=== PATIENT | female | born 1965 | race Caucasian/White ===

== ENCOUNTER 2023-07-04 12:38 | Emergency (ER) | payer OTHER, SELFPAY ==
[2023-07-04 12:42] VITALS: BP 137/77
--- NOTE | 2023-07-04 13:37 | ED.GENMED ---
History of Present Illness
General
Chief Complaint: Skin Problem
Source: patient
Time Seen by Provider: 07/04/23 13:24
Travel History
Have you had any contact with someone who has COVID-19?: No
Do you have any symptoms of coronavirus? Fever > 100 degrees, chills, cough, shortness of breath, sore throat, loss of taste or smell, muscle aches, or headache?: No
History of Present Illness
History of Present Illness:
57-year-old female with past medical history of cervical cancer presenting to the emergency department for evaluation of a sore on the right outer labia that began around 3 days ago and has been gradually increasing in size and discomfort prompting
her to come to the ER today. Patient notes that she does not have a primary care provider and has not seen anybody for any medical issues prior to the pandemic and states that while she has had elevated blood sugars in the past she does not have a
history of known diabetes. She denies any fevers, chills, rigors, nausea, vomiting, polyuria, polydipsia or polyphasia. Patient did not take anything for symptoms prior to arrival. She has no other concerns at this time.
Past History
Past History
ED Past Medical History: Cancer (Cervical)
ED Past Surgical History: Gynecological
Social History
Tobacco: Smoker
Alcohol: None
Drug: None
Personal:
Living: with family
Employment: Employed
Review of Systems
Review of Systems
All Other Systems: ROS reviewed and negative except as documented in HPI and ROS
Phy Exam
Physical Exam
Physical Exam:
GENERAL: Alert , in no apparent distress
EYE: conjunctiva clear
Head: Normocephalic atraumatic
NECK: Supple,
ENT: mmm.
LUNGS: no acute respiratory distress
Pelvic: Chaperoned by emergency department tech Yessi: Moderate sized right outer labial abscess with surrounding erythema with fluctuance and mild induration. moderate amount of clumpy white vaginal discharge appreciated
NEUROLOGICAL: Alert and oriented
SKIN: Warm and dry, skin intact.
MUSCULOSKELETAL: well perfused.
PSYCH: Normal and appropriate interaction.
Scores
Heart Failure Risk
Heart Failure Risk Score: Not Applicable
Heart Score for Chest Pain Patients
STEMI patient?: Not applicable
Withdrawal Assessment of Alcohol
Withdrawal Assessment Completed?: Not applicable
Course
Orders/Labs/Results
Orders:
Orders
07/04/23 13:37
IV Insert/Care/Rem.- Treatment PRN
07/04/23 13:55
Basic Metabolic Panel Urgent
Complete Blood Count/With Diff Urgent
Hemoglobin A1c [Glycohemoglobin (HgbA1c)] Urgent
07/04/23 14:32
Diabetes Education Consult Routine
Reason for Consult: Other
Newly Diagnosed?: Yes
07/04/23 14:51
Wound Culture [Wound/Abscess/Other Culture] Urgent
JENNIFFER Source: Abscess
Specimen Description:
Date Specimen was Collected: 07/04/23
Time Specimen was Collected: 14:47
Abnormal Lab Results
07/04/23
13:55
WBC 12.2 H 10^3/uL
(4.8-10.8)
Hgb 16.2 H g/dL
(12.0-16.0)
Hct 47.2 H %
(37.0-47.0)
MPV 13.1 H fL
(7.4-10.4)
Abs Immat Gran (auto) 0.1 H 10^3/uL
(0-0.05)
Absolute Neuts (auto) 8.5 H 10^3/uL
(1.4-6.5)
Absolute Monos (auto) 0.7 H 10^3/uL
(0.1-0.6)
Immature Gran % 0.8 H %
(0-0.5)
Sodium 133 L mmol/L
(135-145)
Creatinine 0.4 L mg/dL
(0.6-1.0)
Glucose 395 H mg/dl
(70-99)
Hemoglobin A1c 17.1 H %
(4.0-5.6)
07/04/23 13:55
07/04/23 13:55
Vital Signs
Initial and Last Documented VS:
Initial Vital Signs
Temp Pulse Resp BP Pulse Ox
97.9 F 99 16 137/77 100
07/04/23 12:42 07/04/23 12:42 07/04/23 12:42 07/04/23 12:42 07/04/23 12:42
Last Documented Vital Signs
Temp Pulse Resp BP Pulse Ox
97.9 F 99 16 137/77 100
07/04/23 12:42 07/04/23 12:42 07/04/23 12:42 07/04/23 12:42 07/04/23 12:42
Pressing Machine Tender consulted with Physician
Pressing Machine Tender consulted with physician?: Yes
Name of Physician Consulted: Duncan
Procedures
Incision/Drainage/Joint Aspiration
Right outer labia:
Anethesia: 1% Lidocaine
Preparation: cleaned with Hibiclens
Type of procedure: incise
Nature of site: abscess
Description of abscess: less than 3cm
Loculations broken up: No
How much fluid was obtained?: small amount
Fluid description: purulent and blood tinged
Treatment: left open for drainage
MDM/Problems Addressed
Differential Diagnosis Includes:
Labial abscess, Bartholin's gland cyst, condyloma acuminata, possibly undiagnosed diabetes
MDM/Problems Addressed:
57-year-old female presented emergency department for evaluation of suspected right labial abscess. Increasing pain over the last 3 days. Exam is consistent with an abscess. Will perform incision and drainage. Patient does not have a primary
care provider to follow-up with. Will notify our primary care provider request through [employer] to help establish patient with a primary care provider. Will check labs as patient has not had this in many years. Anticipate need for
antibiotics. Disposition pending.
*Pulse Oximetry
Patient hypoxic: no
*Critical Care Note
Total Time (30-74mins, 75-104mins- exclusive of procedures): Not Applicable
Patient Management
Discussion with other providers: Other (Senior Information Systems Architect)
Escalation/DeEscalation of care consider admission/obs:
Patient's labs reveal a leukocytosis of 12,000. Has a glucose of 395 but without any evidence for acidosis. Patient's hemoglobin A1c came back at greater than 17. I notified the prosthodontist/educator who came to the emergency department to evaluate
the patient. Patient will obtain a glucometer with test strips at [facility]. Prescriptions for metformin 500 mg p.o. twice daily, glipizide 5 mg p.o. twice daily, doxycycline 100 mg p.o. twice daily and Diflucan sent to patient's pharmacy. Due to
patient's lack of current follow-up with primary care she will come back to the emergency department on Monday for me to reevaluate the abscess. I notified our primary care referral line as well as our family practice residents in order to try and
obtain patient a follow-up visit and establish primary care as patient will need her diabetes continuously managed. Patient is in agreement with this entire plan. She is aware of return precautions but otherwise stable for discharge home.
ED Attending Note
-
Portions of this chart may have been created with voice recognition software.� Occasional wrong word or��sound alike� substitutions may have occurred due to the inherent limitations of voice recognition software.
Discharge Plan
Departure
Patient Disposition: Home (Routine Discharge)
Date of Disposition: 07/04/23
Time of Disposition: 15:19
Patient with high blood pressure during this ER visit?: Yes
Discharge Problem:
Diabetes mellitus, new onset, Abscess of labia majora
Instructions: Blood Glucose Monitoring, Skin Abscess
Prescriptions:
New
metformin 500 mg tablet
500 mg PO BID Qty: 60 0RF
glipizide 5 mg tablet
5 mg PO BID Qty: 60 0RF
doxycycline hyclate 100 mg tablet
100 mg PO BID 10 Days Qty: 20 0RF
No Action
clindamycin HCl 300 MG capsule
300 mg PO Q6 Qty: 39 0RF
Referrals:
NONE,* [Family Provider] -
Interventions
Interventions:
*Risk Screen - Suicide Last Done: 07/04/23 12:42
*Neglect/Abuse Screening Last Done: 07/04/23 12:42
*ED COVID-19 Vaccine History Last Done: 07/04/23 12:42
[2023-07-04 14:11] LABS: % Basophils 1.2 % (0-2); % Eosinophils 1.8 % (0-6); % Immature Granulocytes 0.8 % (0-0.5); % Lymphocytes 20.5 % (20.5-51.1); % Monocytes 5.8 % (1.7-9.3); % Neutrophils 69.9 % (42.2-75.2); Absolute Basophils 0.2 10^3/uL (0-0.2); Absolute Eosinophils 0.2 10^3/uL (0-0.7); Absolute Immature Granulocytes 0.1 10^3/uL (0-0.05); Absolute Lymphocytes 2.5 10^3/uL (1.2-3.4); Absolute Monocytes 0.7 10^3/uL (0.1-0.6); Absolute Neutrophils 8.5 10^3/uL (1.4-6.5); Hematocrit 47.2 % (37.0-47.0); Hemoglobin 16.2 g/dL (12.0-16.0); Mean Corp Hgb Conc. 34.3 g/dL (33.0-37.0); Mean Corpuscular Hgb 30.1 pg (27.0-31.0); Mean Corpuscular Volume 87.7 fL (81.0-99.0); Mean Platelet Volume 13.1 fL (7.4-10.4); Nucleated Red Blood Cells % 0 %; Platelet Count 148 10^3/uL (130-400); Red Blood Cell Count 5.38 10^6/uL (4.20-5.40); Red Cell Dist. Width 13.1 % (11.5-14.5); White Blood Cell Count 12.2 10^3/uL (4.8-10.8)
[2023-07-04 14:24] LABS: Blood Urea Nitrogen 10 mg/dl (7-17); Calcium 9.4 mg/dl (8.4-10.2); Carbon Dioxide 27 mmol/L (22-30); Chloride 98 mmol/L (98-107); Glucose 395 mg/dl (70-99); Potassium 4.1 mmol/L (3.5-5.1); Sodium 133 mmol/L (135-145); eGFR > 60.00
[2023-07-04 15:01] LABS: Glycohemoglobin (HgbA1c) 17.1 % (4.0-5.6)
[2023-07-04 15:30] VITALS: BP 134/75
--- NOTE | 2023-07-04 15:53 | PN.DE ---
Diabetes Education
- -
Diabetes Education Consult
Met with Dot and her Vini at bedside in ED for glucose monitor instructions. Current A1C 17.1%, her glucose was 395 on arrival to the ED.
Pt reports that she has been experiencing some pins and needles in BLE. She denies any other sx of Hyperglycemia. Discussed A1C and average blood sugar of 400 with implications of uncontrolled Diabetes. Discussed diabetes related short and adjunct faculty for medical terminology
complications, life style modification and self management at home. Provided with Contour Next EZ glucometer, instructions with fair return demonstration, result 369 mg/dl noted. Discussed testing pattern and expected results and information marked
in the take home booklet.
Pt reports that she dose not have a PCP, continues to day that she has medical insurance but doesn't come with drug prescription coverage so she will not be able to afford the test strips and Lancets compatible with the meter that has been provided.
Pt was provided with alternatives- like obtaining a [employer] Brand ReliOn Meter that will cost her < $30/month with all the supplies.
Discussed OP DSME classes and Suggestion made for her to attend DSME classes, a flyer for the July classes was provided.
Will write RX for test strips and lancets for the Contour Next EZ, testing 2x/day at discharge.
Discussed plan of care including medications for management at home with ED Physician
== END 2023-07-04 16:03 | disposition home or self-care (01) ==
LOC: EMR 12:38
PROVIDERS: Physician Assistant Medical; EMERGENCY PHYSICIAN Emergency Medicine
DX: E11.9 Type 2 diabetes mellitus without complications (principal); N76.4 Abscess of vulva; F17.200 Nicotine dependence, unspecified, uncomplicated; Z85.41 Personal history of malignant neoplasm of cervix uteri
CPT/HCPCS: 99283; 56405; 80048; 83036; 85025; 87070; 87205

== ENCOUNTER 2023-07-07 11:58 | Emergency (ER) | payer OTHER, SELFPAY ==
[2023-07-07 12:01] VITALS: BP 122/86
--- NOTE | 2023-07-07 13:41 | ED.GENMED ---
History of Present Illness
General
Chief Complaint: Wound Check/Suture Removal
Source: patient
Time Seen by Provider: 07/07/23 13:13
Travel History
Have you had any contact with someone who has COVID-19?: No
Do you have any symptoms of coronavirus? Fever > 100 degrees, chills, cough, shortness of breath, sore throat, loss of taste or smell, muscle aches, or headache?: No
History of Present Illness
History of Present Illness:
57-year-old female with newly diagnosed diabetes presenting back to the emergency department for evaluation of a abscess that was drained on Monday. Patient states that she obtained all of her new medications including her antibiotic which she has
been taking without much difficulty. Patient also is scheduled to make an appointment with primary care physician for follow-up. She has a secondary concern of after soaking in the tub on Monday she excellently slipped and hit the left upper
shoulder area on the side of the tub and has had some discomfort in this area since. She has no other concerns at this time.
Past History
Past History
ED Past Medical History: Cancer (Cervical) and NIDDM
ED Past Surgical History: Gynecological
Social History
Tobacco: Smoker
Alcohol: None
Drug: None
Personal:
Living: with family
Employment: Employed
Review of Systems
Review of Systems
All Other Systems: ROS reviewed and negative except as documented in HPI and ROS
Phy Exam
Physical Exam
Physical Exam:
GENERAL: Alert , in no apparent distress
EYE: conjunctiva clear
Head: Normocephalic atraumatic
NECK: Supple,
ENT: mmm.
LUNGS: no acute respiratory distress
Genitourinary: Chaperoned by ED AUTUMN Ledezma -no further fluctuance: Induration significantly diminished and at this point only very mild at the distalmost portion of the labia majora without any tenderness
NEUROLOGICAL: Alert and oriented
SKIN: Warm and dry, skin intact.
MUSCULOSKELETAL: well perfused. Left posterior deltoid has a small hematoma with mild tenderness but patient has full range of motion of the shoulder
PSYCH: Normal and appropriate interaction.
Scores
Heart Failure Risk
Heart Failure Risk Score: Not Applicable
Heart Score for Chest Pain Patients
STEMI patient?: Not applicable
Withdrawal Assessment of Alcohol
Withdrawal Assessment Completed?: Not applicable
Course
Vital Signs
Initial and Last Documented VS:
Initial Vital Signs
Temp Pulse Resp BP Pulse Ox
98.5 F 96 16 122/86 100
07/07/23 12:07/07/23 12:07/07/23 12:07/07/23 12:01 07/07/23 12:01
Last Documented Vital Signs
Temp Pulse Resp BP Pulse Ox
98.5 F 96 16 122/86 100
07/07/23 12:07/07/23 12:01 07/07/23 12:01 07/07/23 12:01 07/07/23 12:01
MDM/Problems Addressed
MDM/Problems Addressed:
57-year-old female presenting to the emergency department for evaluation after she had a drainage of an abscess 3 days ago. She has picked up and is taking all of her medications as prescribed. Symptoms are significantly improved from visit to the
ER. Advised patient continue all of her medications and needs to follow-up with primary care physician to ensure she is getting refills of her medications for her diabetes. Aware of return precautions emergency department but otherwise stable for
discharge home.
*Pulse Oximetry
Patient hypoxic: no
*Critical Care Note
Total Time (30-74mins, 75-104mins- exclusive of procedures): Not Applicable
ED Attending Note
-
Portions of this chart may have been created with voice recognition software.� Occasional wrong word or��sound alike� substitutions may have occurred due to the inherent limitations of voice recognition software.
Discharge Plan
Departure
Patient Disposition: Home (Routine Discharge)
Date of Disposition: 07/07/23
Time of Disposition: 13:41
Patient with high blood pressure during this ER visit?: No
Discharge Problem:
Visit for wound check, hematoma left upper back
Instructions: Abscess Incision and Drainage (DC)
Prescriptions:
No Action
clindamycin HCl 300 MG capsule
300 mg PO Q6 Qty: 39 0RF
metformin 500 mg tablet
500 mg PO BID Qty: 60 0RF
glipizide 5 mg tablet
5 mg PO BID Qty: 60 0RF
doxycycline hyclate 100 mg tablet
100 mg PO BID 10 Days Qty: 20 0RF
(DME) Contour Next Test Strips Strip
Qty: 60 0RF
Rx Instructions:
Pt Testing 2 times a day
(DME) lancets [Microlet Lancet] Misc
Qty: 60 0RF
Rx Instructions:
APt testing twice a day
Referrals:
NONE,* [Family Provider] -
Interventions
Interventions:
*Risk Screen - Suicide Last Done: 07/07/23 12:01
*General Assessment Last Done: 07/07/23 12:01
*Neglect/Abuse Screening Last Done: 07/07/23 12:01
ED- Fall Risk Assessment Last Done: 07/07/23 13:45
*ED COVID-19 Vaccine History Last Done: 07/07/23 12:01
*Nursing Disposition Last Done: 07/07/23 13:45
ED-Skin Assessment Last Done: 07/07/23 13:45
Discharge Date and Time
Discharge Date/Time: 07/07/23 13:46
== END 2023-07-07 13:46 | disposition home or self-care (01) ==
LOC: EMR 11:58
PROVIDERS: EMERGENCY PHYSICIAN Emergency Medicine
DX: Z48.00 Encounter for change or removal of nonsurgical wound dressing (principal); S20.222A Contusion of left back wall of thorax, initial encounter; X58.XXXA Exposure to other specified factors, initial encounter; E11.9 Type 2 diabetes mellitus without complications; F17.200 Nicotine dependence, unspecified, uncomplicated
CPT/HCPCS: 99282

== ENCOUNTER 2023-07-11 02:07 | Inpatient (IN) | payer OTHER, SELFPAY ==
[2023-07-10 21:21] VITALS: BP 142/99
[2023-07-10 21:49] LABS: % Eosinophils 1.3 % (0-6); % Immature Granulocytes 1.1 % (0-0.5); % Lymphocytes 16.1 % (20.5-51.1); % Monocytes 7.3 % (1.7-9.3); % Neutrophils 73.2 % (42.2-75.2); Absolute Basophils 0.2 10^3/uL (0-0.2); Absolute Eosinophils 0.2 10^3/uL (0-0.7); Absolute Immature Granulocytes 0.2 10^3/uL (0-0.05); Absolute Lymphocytes 2.6 10^3/uL (1.2-3.4); Absolute Monocytes 1.2 10^3/uL (0.1-0.6); Absolute Neutrophils 11.6 10^3/uL (1.4-6.5); Hematocrit 45.8 % (37.0-47.0); Hemoglobin 15.5 g/dL (12.0-16.0); Mean Corp Hgb Conc. 33.8 g/dL (33.0-37.0); Mean Corpuscular Hgb 29.5 pg (27.0-31.0); Mean Corpuscular Volume 87.1 fL (81.0-99.0); Nucleated Red Blood Cells % 0 %; Platelet Count 171 10^3/uL (130-400); Red Blood Cell Count 5.26 10^6/uL (4.20-5.40); Red Cell Dist. Width 13.3 % (11.5-14.5); White Blood Cell Count 15.9 10^3/uL (4.8-10.8)
[2023-07-10 21:59] LABS: ALT (SGPT) 21 U/L (0-35); AST (SGOT) 23 U/L (14-36); Albumin 3.9 g/dl (3.5-5.0); Alkaline Phosphatase 103 U/L (38-126); Blood Urea Nitrogen 17 mg/dl (7-17); Calcium 9.6 mg/dl (8.4-10.2); Carbon Dioxide 26 mmol/L (22-30); Chloride 98 mmol/L (98-107); Glucose 344 mg/dl (70-99); Potassium 3.8 mmol/L (3.5-5.1); Sodium 134 mmol/L (135-145); Total Bilirubin 0.6 mg/dl (0.2-1.3); Total Protein 6.5 g/dl (6.3-8.2); eGFR > 60.00
--- NOTE | 2023-07-11 01:09 | ED.GENMED ---
History of Present Illness
General
Chief Complaint: Skin Problem
Source: patient, records and spouse
Exam Limitations: none
Time Seen by Provider: 07/11/23 00:52
Nursing documentation reviewed up to this point in time: agreed with
Travel History
Have you had any contact with someone who has COVID-19?: No
Do you have any symptoms of coronavirus? Fever > 100 degrees, chills, cough, shortness of breath, sore throat, loss of taste or smell, muscle aches, or headache?: No
History of Present Illness
History of Present Illness:
57-year-old female swelling in her back seen here recently with a labial abscess, drained blood sugars elevated apparently new onset diabetic started on glipizide and metformin, A1c greater than 17 still not feeling great states she has little
swelling in her back now it is a big swollen and abscess, labial area is improved, also some swelling of her feet
Past History
Past History
ED Past Medical History: Cancer (Cervical) and NIDDM
ED Past Surgical History: Gynecological
Social History
Tobacco: Smoker
Alcohol: None
Drug: None
Personal:
Living: with family
Employment: Employed
Review of Systems
Review of Systems
All Other Systems: Not applicable
Constitutional: Reports fatigue; Denies fever
EENT: Reports no symptoms
Respiratory: Reports no symptoms
Cardiac: Reports no symptoms
ABD/GI: Reports no symptoms
: Reports no symptoms
Neurological: Reports no symptoms
Endocrine: Reports polyuria and polydipsia
Hematologic/Lymphatic: Reports no symptoms
Phy Exam
Physical Exam
Physical Exam:
Physical Exam
General: Chronically ill-appearing
Neck: Lips are slight
Heart: Regular
Lungs: no acute respiratory distress.
Abdomen: Nontender
Neuro: alert and oriented. no focal neurological deficits
Skin: 4 cm abscess in the left posterior
Psychiatric: Cooperative
Extremities: Mild swelling of the lower extremity on the right
Course
Orders/Labs/Results
Orders:
Orders
07/10/23 21:29
CMP [Comprehensive Metabolic Panel] Urgent
Complete Blood Count/With Diff Urgent
07/11/23 01:12
Wound Culture [Wound/Abscess/Other Culture] Urgent
JENNIFFER Source: Abscess
Specimen Description:
Date Specimen was Collected: 07/11/23
Time Specimen was Collected: 01:30
0.9% Sodium Chloride 1000 ml [Nss] 1,000 ml IV BOLUS
HYDROmorphone [Dilaudid] 0.5 mg IV NOW STA
Ondansetron Injectable [Zofran] 4 mg IV NOW STA
07/11/23 01:20
US Periph Venous LOWER Ext RT Urgent
Comment:
Reason For Exam: SWELLING
07/11/23 01:47
Admit/Transfer Patient As Directed
Co-Sign Provider:
Level of Care: Observation services
Assign to:: Medical/Surgical
Physician / Group: Yousuf
Diagnosis: L Upper Back Abscess, DM Uncontrolled
07/11/23 01:48
Code Status As Directed
Resuscitation Status: Full Code
07/11/23 01:51
Blood Culture Urgent
JENNIFFER Source: Blood/Venous
Specimen Description:
Abnormal Lab Results
07/10/23
21:29
WBC 15.9 H 10^3/uL
(4.8-10.8)
MPV 13.0 H fL
(7.4-10.4)
Abs Immat Gran (auto) 0.2 H 10^3/uL
(0-0.05)
Absolute Neuts (auto) 11.6 H 10^3/uL
(1.4-6.5)
Absolute Monos (auto) 1.2 H 10^3/uL
(0.1-0.6)
Immature Gran % 1.1 H %
(0-0.5)
Lymphocytes % 16.1 L %
(20.5-51.1)
Sodium 134 L mmol/L
(135-145)
Creatinine 0.5 L mg/dL
(0.6-1.0)
Glucose 344 H mg/dl
(70-99)
07/10/23 21:29
07/10/23 21:29
Vital Signs
Initial and Last Documented VS:
Initial Vital Signs
Temp Pulse Resp BP Pulse Ox
98.3 F 110 20 142/99 99
07/10/23 21:21 07/10/23 21:21 07/10/23 21:21 07/10/23 21:21 07/10/23 21:21
Last Documented Vital Signs
Temp Pulse Resp BP Pulse Ox
98.3 F 110 20 142/99 99
07/10/23 21:21 07/10/23 21:21 07/10/23 21:21 07/10/23 21:21 07/10/23 21:21
Procedures
Incision/Drainage/Joint Aspiration
Left Upper Back:
Anethesia: ethyl chloride and 1% Lidocaine with Epi
Preparation: cleaned with Betadine
Type of procedure: drain
Nature of site: abscess
Description of abscess: greater than 3cm
How much fluid was obtained?: large amount
Fluid description: purulent
Treatment: packed with gauze
MDM/Problems Addressed
Differential Diagnosis Includes:
Abscess uncontrolled diabetes, cellulitis DVT
MDM/Problems Addressed:
Abscess
Chronic conditions affecting care:
Diabetes
Acute Exacerbation and/or Progression of Chronic Illness:
Diabetes
*Critical Care Note
Total Time (30-74mins, 75-104mins- exclusive of procedures): Not Applicable
Update Note
Update Note:
Update, labs noted A1c from prior noted sugar still, she is getting admission for glucose control, consideration for antibiotics etc.
ED Attending Note
-
Portions of this chart may have been created with voice recognition software.� Occasional wrong word or��sound alike� substitutions may have occurred due to the inherent limitations of voice recognition software.
Discharge Plan
Departure
Patient Disposition: Admit
Date of Disposition: 07/11/23
Time of Disposition: 02:17
Admit to: Med/Surg
Presentation/result/management discussed w/ accepting MD/DO: Hospitalist
Patient with high blood pressure during this ER visit?: No
Condition: Fair
Discharge Problem:
Diabetes, Abscess
Interventions
Interventions:
*Risk Screen - Suicide Last Done: 07/10/23 21:21
*General Assessment Last Done: 07/10/23 21:21
ED-Skin Assessment Last Done: 07/11/23 01:54
[2023-07-11] MEDS: ZOFRAN 4 MG IV (01:45)
[2023-07-11] MEDS: NSS 1000 IV ×3 (01:45→14:09)
[2023-07-11] MEDS: DILAUDID 0.5 MG IV (01:45)
[2023-07-11 01:46] VITALS: BMI 26.1
[2023-07-11 01:54] VITALS: BP 117/76
--- NOTE | 2023-07-11 01:55 | HPS.HSE ---
Family Physician
-
Family Physician: * NONE
Chief Complaint
-
Back pain
History of Present Illness
Patient is a 57y F with PMH significant for new DM-II diagnosis who presents to ED complaining of left upper back pain x several days. Patient has not seen a PCP / physician in several years. She was seen in this ED on 07/03 with complaints of R
labial swelling / abscess. This was drained and patient was placed on oral abx. At that visit, patient was noted to have significant hyperglycemia. She had no prior formal diagnosis of DM. Patient was seen by DM educator and started on metformin
and glipizide. Follow-up with new PCP as an outpatient was encouraged.
She returned to the ED on 38 for wound check and it was noted that the labial abscess had significantly improved / resolved.
Patient stated at that visit that she had slipped in the tub and she had pain in the L upper back. There was bruising in this area and suspected hematoma.
Today patient returns to the ED complaining of significant interim swelling and pain in the L upper back. She denies any spontaneous discharge,.
She has been applying cold compresses to the area and taking hot showers without any improvement in her symptoms.
Medical History
Past Medical History
Past Medical History: Reports Other
Additional Past Medical History:
Obesity - Significant Weight Loss in the Past few Years
DM-II
Cervical Dysplasia - ? Cancer
Past Surgical History: Reports Other
Additional Past Surgical History:
Right Knee Arthroscopy
LEEP
Social History
Tobacco: Smoker (Current some-day smoker.)
Alcohol: None
Drug: None
Family History
Family History: Other (Father: DM, ESRD PGM: DM Paternal Uncle: DM)
Allergies / Home Medications
Allergies reflects when Allergies were last updated in [employer].
Home Medications with original date entered in [employer]
Allergy/Medication List:
Allergies
Allergy/AdvReac Type Severity Reaction Status Date / Time
amoxicillin Allergy Itching Verified 07/10/23 21:21
codeine Allergy Nausea Verified 07/10/23 21:21
NOT.ZALNSBNYX31 - Not Allergy Hives Uncoded 07/10/23 21:21
Converted 38. See Text.
NOT.[id number] - Not Allergy Hives Uncoded 07/10/23 21:21
Converted 65. See Text.
Home Medications
doxycycline hyclate 100 mg tablet 100 mg PO BID 10 days #20 tabs 07/04/23
glipizide 5 mg tablet 5 mg PO BID #60 tabs 07/04/23
metformin 500 mg tablet 500 mg PO BID #60 tabs 07/04/23
Review of Systems
-
History Source: Patient
A 12 point ROS was completed and negative except as noted: Yes
Constitutional: Reports Fatigue; Denies Fever or Chills
EENT: Denies Sore Throat
Respiratory: Denies Cough or Trouble Breathing
Cardiac: Denies Chest Pain, Diaphoresis or Palpitations
Abdomen/GI: Denies Abdominal Pain, Nausea, Vomiting or Diarrhea
: Denies Dysuria, Frequency or Flank Pain
Musculoskeletal: Reports Other (Upper Back Pain)
Skin: Reports Other (Large red, swollen and tender area L upper back. Red discoloration of the R lower leg. Scattered dry skin lesions.)
Neurological: Reports Numbness; Denies Dizzy or Headache
Physical Exam
Vital Signs
Vital Signs
Temp Pulse Resp BP Pulse Ox
98.3 F 110 20 142/99 99
07/10/23 21:21 07/10/23 21:21 07/10/23 21:21 07/10/23 21:21 07/10/23 21:21
Physical Exam
General: Other (57y F appears older than stated age. Chronically ill-appearing.)
Respiratory: Clear; No Wheezes, Rales or Rhonchi
Cardiac: S1/S2 and Regular Rhythm; No Murmur
GI: Soft, Non Tender, Non Distended and Normal Bowel Sounds
Musculoskeletal: No Clubbing, No Cyanosis and Other (1+ pitting edema of the RLE. Petechial rash of the R lower leg and foot. Not tender.)
Skin: Other (Large erythematous abscess over the L upper back. No spontaneous bleeding or discharge.)
Neuro: AO x 3
Laboratory Results
-
07/10/23 21:29
07/10/23:
Laboratory Results
Total Bilirubin 0.6 mg/dl (0.2-1.3) 07/10/23:
AST 23 U/L (14-36) 07/10/23:
ALT 21 U/L (0-35) 07/10/23:
Alkaline Phosphatase 103 U/L (38-126) 07/10/23:
Impression/Plan
-
A/P: Patient is a 57y F with recently recognized DM-II who presents to ED complaining of L upper back pain and swelling x several days.
Left Upper Back Abscess
- Admit for further evaluation and treatment.
- I&D performed in the ED - follow-up results of wound culture.
- Wound Care eval for continued local care.
- IV abx with Vancomycin for now and adjust as appropriate based on culture data.
- Recent labial abscess also - which appears improved.
- Cultures from that lesion grew Lactobacillus.
- Check MRSA swab.
- Improved DM control should also help prevent recurrent infections.
DM-II, Uncontrolled
- Recently recognized diagnosis and patient started on metformin and glipizide with minimal improvement in glycemic control.
- A1C was 17.1%.
- Continue metformin.
- Begin basal insulin. Follow glucose and cover with SSI as needed.
- Adjust med / insulin regimen as needed for adequate control.
- DM Educator / Dietary evaluations.
RLE Edema / Petechiae
- This is new from her original visit on 07/04/23.
- ? med effect from doxy - but seems unlikely given isolated location.
- STAT US pending to rule out DVT.
- Follow for clinical changes.
Weight Loss
- Patient notes that her weight has decreased over the past several years from 290lbs to 148lbs. This has been unintentional.
- She had prior LEEP procedure about 6 years ago, but adamantly insists that she did not have cervical cancer.
- Weight loss could be product of chronically uncontrolled DM.
- Patient would also benefit from age-appropriate cancer screenings as an outpatient.
DVT Prophylaxis: Lovenox
Code Status: Full
[2023-07-11 02:00] VITALS: BP 112/72
[2023-07-11 03:00] VITALS: BP 103/85
[2023-07-11 04:00] VITALS: BP 110/66
[2023-07-11] MEDS: VANCOCIN 300 ML IV (05:03)
[2023-07-11] MEDS: VANCOCIN 300 MG IV (05:03)
[2023-07-11] MEDS: TORADOL 15 MG IV (05:05)
--- NOTE | 2023-07-11 06:40 | EDRN ---
Vancomycin infusion completed at this time.
[2023-07-11 06:51] LABS: Hematocrit 38.3 % (37.0-47.0); Mean Corp Hgb Conc. 33.9 g/dL (33.0-37.0); Mean Corpuscular Hgb 29.8 pg (27.0-31.0); Mean Corpuscular Volume 87.8 fL (81.0-99.0); Mean Platelet Volume 12.9 fL (7.4-10.4); Platelet Count 134 10^3/uL (130-400); Red Blood Cell Count 4.36 10^6/uL (4.20-5.40); Red Cell Dist. Width 13.1 % (11.5-14.5)
[2023-07-11 07:15] LABS: Blood Urea Nitrogen 13 mg/dl (7-17); Calcium 8.1 mg/dl (8.4-10.2); Carbon Dioxide 24 mmol/L (22-30); Chloride 107 mmol/L (98-107); Estimated Creatinine Clearance 90 ml/min; Glucose 179 mg/dl (70-99); Potassium 3.5 mmol/L (3.5-5.1); Sodium 133 mmol/L (135-145); eGFR > 60.00
[2023-07-11 07:43] LABS: TSH Reflex To Free T4 1.24 uIU/ml (0.47-4.68)
--- NOTE | 2023-07-11 09:15 | W.PN.HOSP.TC ---
Addendum entered and electronically signed by Abilio Rose MD 07/11/23 22:36:
Attending Addendum-
I saw and evaluated the patient. I reviewed the resident�s note and agree with findings and plan as documented in the resident�s note. Patient complains of back abscess, RLE redness swelling numbness, and uncontrolled DM Exam: GEN nad heart RRR
lungs clear abd soft RLE-red not warm faint peripheral pulses skin- left upper back large abscess with wic in place plan- uncontrolled dm- hold metformin resume as OP start SSI cont BB insulin AccuCheck qac qhs, Back abscess- cx pending, cont
vancomycin for now ID c/s repeat labs in am , RLE swelling redness- doubt cellulitis, check FELECIA PVR to assess blood flow Dispo eventual DC home will need PCP as OP
Time spent coordinating care, review of plan of care with resident, review of records, med rec, consults, notes, labs, rads, d/w nursing - 50 mins
Original Note:
Documented by User: Geetha Mathias MD, Resident 07/11/23 16:38
Today's Communication/Plan
-
FELECIA and PVR
low dose insulin sliding scale
glucose check before and after meals
Assessment / Plan
Assessment / Plan
Patient is a 57y F with recently recognized DM-II who presents to ED complaining of L upper back pain and swelling x several days.
Left Upper Back Abscess
�- Admit for further evaluation and treatment.
�- I&D performed in the ED - follow-up results of wound culture.
�- Wound Care eval for continued local care.
�- IV abx with Vancomycin for now and adjust as appropriate based on culture data.
�- Recent labial abscess also - which appears improved.
�- Cultures from that lesion grew Lactobacillus.
�- Check MRSA swab.
�- Improved DM control should also help prevent recurrent infections.
DM-II, Uncontrolled
�- Recently recognized diagnosis and patient started on metformin and glipizide with minimal improvement in glycemic control.
�- A1C was 17.1%.
�- Continue metformin.
�- Begin basal insulin.� Follow glucose and cover with SSI as needed.
�- check q Ac and q HS, low dose insulin sliding sale
�- DM Educator / Dietary evaluations.
RLE Edema / Petechiae with decreased peripheral pulse
�- This is new from her original visit on 07/04/23.
�- ? med effect from doxy - but seems unlikely given isolated location.
�- Peripheral US negative for DVT
�- Follow for clinical changes
- ordering FELECIA and PVR to r/o PVD
.
Weight Loss
�- Patient notes that her weight has decreased over the past several years from 290lbs to 148lbs.� This has been unintentional.
�- She had prior LEEP procedure about 6 years ago, but adamantly insists that she did not have cervical cancer.
�- Weight loss could be product of chronically uncontrolled DM.
�- Patient would also benefit from age-appropriate cancer screenings as an outpatient.
DVT Prophylaxis:� Lovenox
Code Status:� Full
Anticipated Discharge: > 48 hours
Subjective/Interval History
-
Date of Service: July 11, 2023
Objective Data
-
Labs:
Laboratory Results
07/10/23 07/11/23
21:29 06:21
WBC 15.9 H 13.0 H
Hgb 15.5 13.0
Hct 45.8 38.3
Plt Count 171 134 D
Sodium 134 L 133 L
Potassium 3.8 3.5
Chloride 98 107
Carbon Dioxide 26 24
BUN 17 13
Creatinine 0.5 L 0.4 L
Glucose 344 H 179 H
Calcium 9.6 8.1 L D
Total Bilirubin 0.6
AST 23
ALT 21
Alkaline Phosphatase 103
Vital Signs:
Vital Signs
Temp Pulse Resp BP Pulse Ox
98.3 F 110 20 110/66 96
07/10/23 21:21 07/10/23 21:21 07/10/23 21:21 07/11/23 04:00 07/11/23 04:00
Review of Systems
-
History Source: Patient
Constitutional: Reports No Symptoms
EENT: Reports No Symptoms Reported
Respiratory: Reports No Symptoms
Cardiac: Reports No Symptoms
Abdomen/GI: Reports No Symptoms
Musculoskeletal: Reports Other (right lower leg pain)
Skin: Reports Rash (swelling around upper back on left side, pain and swelling in right lower extremity with change in skin color )
Neuro: Reports Other
Physical Exam
-
General: Well Developed and Well Nourished
HEENT: Normocephalic and Atraumatic
Respiratory: Clear to Auscultation
Cardiac: Regular Rhythm
Breast: Deferred by me
GI: Soft and Nontender
Musculoskeletal: Edema, Right Lower Extrem
Skin: Other (large erythematous swelling with serosanginuous discharge present in left upper back packed with silicone foam, erythema starting from dorsum of foot to 1/3 right LE, mild tenderness)
Neuro: Awake, Alert, Oriented and Other (decreased bilateral peripheral pulses )

Documented by User: Abilio Rose MD 07/11/23 22:21
Review of Systems
-
All other systems: Reviewed and negative (12 point )
[2023-07-11] MEDS: GLUCOPHAGE 500 MG PO ×2 (09:53→20:42)
[2023-07-11 09:56] LABS: Glucose - Point of Care 126 mg/dl (70-99)
[2023-07-11] MEDS: NOVOLOG FLEXPEN-LOW RESISTANCE SC ×3 (09:57→17:52)
--- NOTE | 2023-07-11 10:07 | WOUNDNOTE ---
L UPPER BACK WITH PACKING STRIP IN PLACE
--- NOTE | 2023-07-11 10:08 | WOUNDNOTE ---
MARYBEL RN note: Patient admitted with diabetes, abscess.
See H&P for complete history.
PMH: NIDDM,DVT,Cervical cancer surgery, Labia abscess, cellulitis.
Wound Location and type/assessment: Patient admitted with: L upper back abscess that was I&D'd at bedside and packed earlier this morning. Large amt of serosanguineous drainage currently, dressing changed, packing remains in place. Reviewed wound
care with medical doctor nuclear medicine at bedside, aware leaving packing in and changing outer dressing bid until can obtain further orders from hospitalist. Sacrum and heels are intact. R lower leg with redness and mild edema. Peripheral venous ultrasound
negative for DVT. Leg elevated on pillow.
Appetite: Good. Hgb A1c 17.
Pressure redistribution devices in place: Patient is ad jordi, can use Accumax.
Plan: For back, change outer dressing with dry gauze, ABD pad and Medipore tape bid until further orders.
Will confirm orders with hospitalist and updated nurse Pearson.
Updated care plan and will follow as needed.
Note to case management of equipment requested for discharge:
Recommend follow up at wound care center upon discharge.
--- NOTE | 2023-07-11 11:03 | PHA.VAN.IN ---
Assessment
- Assessment
Renal Function: Appears similar to baseline
AUC Dosing Plan
- Dosing Variables
Dosing Weight (kg): 69
Dosing CrCl (ml/min): 70
Vd coefficient (L/kg): 0.7
- Empiric Dosing
Initial / Loading Dose: 1500mg - 07/10 05:03
Maintenance Regimen: Vanc 1000mg Q12H starting at 1800
Estimated AUC (mcg*h/mL): 544
Estimated Peak (mcg*h/mL): 33.8
Estimated Trough (mcg/ml): 14.1
Estimated Half Life (H): 8.8
- Monitoring
No levels ordered at this time: consider levels in next few days
Pharmacokinetics Vancomycin I
- -
Patient Age: 57
Patient Sex: Female
Vancomycin Day #: 1
Indication: Skin And Soft Tissue
Requesting Provider: Dr. To
Pertinent Antimicrobial Allergies:
amoxicillin - itching
Height / Weight:
Height 5 ft 4 in
Actual Weight 69 kg
Pertinent Past Medical History: DM II
- Vital Signs / Lab Results
Temp Pulse Resp BP Pulse Ox
98.3 F 110 20 110/66 96
07/10/23 21:21 07/10/23 21:21 07/10/23 21:21 07/11/23 04:00 07/11/23 04:00
Lab Results - Hematology
07/10/23 07/11/23
21:29 06:21
WBC 15.9 H 13.0 H
Lab Results - Chemistry
07/10/23 07/11/23
21:29 06:21
BUN 17 13
Creatinine 0.5 L 0.4 L
Estimated Creat Clear 90
Albumin 3.9
Microbiology Results
07/11/23 01:30 Gram Stain - Preliminary
Abscess
--- NOTE | 2023-07-11 11:15 | PTCARENOTE ---
Diabetes Education- Dot was seen 07/04/23 and given a Contour Next glucometer. A1C at that time of 17.1%. States she has attempted to test her BS but having difficulty. Will return to [facility]. Cost was a factor at earlier admission, she states she
did purchase test strips for the Contour and they were not too expensive. She verbalizes that she has been taking the Metformin and glipizide. She has given up soda. Reviewed food containing CHO as she believed she was looking for items with no
sugar alcohols. Encouraged to eat 3 meals/day and include protein with each meal/snack. Discussed insulin and plan to instruct her on use, she is hesitant at this time and requests that I return tomorrow.
[2023-07-11 12:37] LABS: Glucose - Point of Care 123 mg/dl (70-99)
[2023-07-11 17:15] VITALS: BP 128/82
[2023-07-11 17:49] LABS: Glucose - Point of Care 121 mg/dl (70-99)
[2023-07-11] MEDS: VANCOCIN 200 IV (17:59)
[2023-07-11] MEDS: LOVENOX SC (18:00)
--- NOTE | 2023-07-11 20:33 | PTCARENOTE ---
Patient admitted from ER into room 412-02. Oriented to room, and use of call bragg, bed and television remote. Reviewed plan of care with patient. Patient verbalizes understanding of all teaching. Vital signs stable. Resting comfortably in bed at
this time. Denies questions.
[2023-07-11 21:46] LABS: Glucose - Point of Care 137 mg/dl (70-99)
[2023-07-11] MEDS: LANTUS SC (22:09)
[2023-07-11 23:40] VITALS: BP 100/63
[2023-07-12] MEDS: NSS 1000 IV ×2 (01:19→11:30)
[2023-07-12 05:00] VITALS: BP 115/70; BP 116/67; BP 97/69; PULSE 69; PULSE 76; PULSE 88
[2023-07-12] MEDS: VANCOCIN 200 IV ×2 (05:49→17:13)
--- NOTE | 2023-07-12 06:14 | PTCARENOTE ---
Patient refused Lantus 10 units at HS. Pt states she doesn't need it. Dr. Rose notified via TT. Pt educated about the importance of receiving Lantus at HS. Pt still refused. She states she will talk to the doctors in the AM. Plan of care ongoing.
[2023-07-12] MEDS: FLUSH (NSS) 1 FLUSH IV (06:35)
[2023-07-12] MEDS: TORADOL 15 MG IV (06:35)
[2023-07-12 07:28] LABS: Glucose - Point of Care 170 mg/dl (70-99)
[2023-07-12 07:35] VITALS: BP 116/63
[2023-07-12 08:00] VITALS: BMI 26.1
[2023-07-12 08:22] LABS: % Basophils 1.2 % (0-2); % Eosinophils 2.1 % (0-6); % Immature Granulocytes 1.1 % (0-0.5); % Lymphocytes 21.1 % (20.5-51.1); % Monocytes 7.8 % (1.7-9.3); % Neutrophils 66.7 % (42.2-75.2); Absolute Basophils 0.1 10^3/uL (0-0.2); Absolute Eosinophils 0.2 10^3/uL (0-0.7); Absolute Immature Granulocytes 0.1 10^3/uL (0-0.05); Absolute Lymphocytes 2.1 10^3/uL (1.2-3.4); Absolute Monocytes 0.8 10^3/uL (0.1-0.6); Absolute Neutrophils 6.6 10^3/uL (1.4-6.5); Hematocrit 43.4 % (37.0-47.0); Hemoglobin 14.4 g/dL (12.0-16.0); Mean Corp Hgb Conc. 33.2 g/dL (33.0-37.0); Mean Corpuscular Hgb 29.8 pg (27.0-31.0); Mean Corpuscular Volume 89.7 fL (81.0-99.0); Mean Platelet Volume 13.6 fL (7.4-10.4); Nucleated Red Blood Cells % 0 %; Platelet Count 145 10^3/uL (130-400); Red Blood Cell Count 4.84 10^6/uL (4.20-5.40); Red Cell Dist. Width 13.2 % (11.5-14.5); White Blood Cell Count 9.9 10^3/uL (4.8-10.8)
[2023-07-12 08:43] LABS: Blood Urea Nitrogen 9 mg/dl (7-17); Carbon Dioxide 25 mmol/L (22-30); Chloride 106 mmol/L (98-107); Estimated Creatinine Clearance 90 ml/min; Glucose 168 mg/dl (70-99); Potassium 4.1 mmol/L (3.5-5.1); Sodium 141 mmol/L (135-145); eGFR > 60.00
--- NOTE | 2023-07-12 08:49 | PHA.VAN.FU ---
Vancomycin Assessment / Plan
- Assessment
Renal Function: Stable
WBC's are: WNL
In the past 24 hrs, patient has been: Afebrile
- Dosing Plan
Continue: Vanc 1000mg Q12H
- Monitoring Plan
No level(s) ordered at this time: consider levels in next few days
- Follow Up
Pharmacy will continue to follow.
Vancomycin Follow UP
- -
Patient Age: 57
Patient Sex: Female
Vancomycin Day #: 2
Indication: Skin And Soft Tissue
Requesting Provider: Dr. To
Pertinent Antimicrobial Allergies:
amoxicillin - itching
Height / Weight:
Height 5 ft 4 in
Actual Weight 69 kg
Pertinent Past Medical History: DM II
- Vital Signs / Lab Results
Temp Pulse Resp BP Pulse Ox
97.6 F 76 16 100/63 95
07/11/23 23:40 07/11/23 23:40 07/11/23 23:40 07/11/23 23:40 07/12/23 06:33
Lab Results - Hematology
07/10/23 07/11/23 07/12/23
21:29 06:21 07:37
WBC 15.9 H 13.0 H 9.9
Lab Results - Chemistry
07/10/23 07/11/23 07/12/23
21:29 06:21 07:37
BUN 17 13 9
Creatinine 0.5 L 0.4 L 0.4 L
Estimated Creat Clear 90 90
Albumin 3.9
Microbiology Results
07/11/23 01:51 Blood Culture - Preliminary
Blood/Venous No Growth in 24 hours- Final report to follow
07/11/23 06:21 Blood Culture - Preliminary
Blood/Venous No Growth in 24 hours- Final report to follow
07/11/23 01:30 Gram Stain - Preliminary
Abscess
[2023-07-12] MEDS: NOVOLOG FLEXPEN-LOW RESISTANCE 170 UNITS SC (09:46)
[2023-07-12 10:00] VITALS: BP 112/70; BP 118/65; BP 122/70; PULSE 60; PULSE 62; PULSE 65
--- NOTE | 2023-07-12 10:37 | WOUNDNOTE ---
MARYBEL RN NOTE: L upper back packing removed, no further purulent drainage. Wound culture results pending. Dry dressing applied. Teaching done with patient regarding wound care, can shower then apply dry gauze and Medipore tape daily and as needed for
drainage. Will confirm with hospitalist and update discharge instructions. Recommend patient follow up at [facility] upon discharge. Encouraged patient to stop smoking, states she barely smokes anymore and also to control blood sugars. ems educator
on consult. Supplies at bedside for patient to take home.
--- NOTE | 2023-07-12 10:53 | CM ---
Addendum entered by Angela Loredo 07/12/23 14:34:
List of PCP's provided to patient.
Original Note:
Patient seen bedside, initial assessment completed. Patient lives with her in a mobile home, one story, four steps to enter. Patient denies DME, VN, or SNF. Patient confirms pharmacy used [facility] in [place], does not have a PCP and is
interested in a list, CM will provide. CM will continue to follow for discharge planning needs.
Plan; home no needs anticipated.
[2023-07-12 12:37] LABS: Glucose - Point of Care 198 mg/dl (70-99)
[2023-07-12] MEDS: NOVOLOG FLEXPEN-LOW RESISTANCE 1 UNITS SC (12:40)
--- NOTE | 2023-07-12 15:33 | PN.DE ---
Diabetes Education
- -
07/12/2023: Diabetes Education follow-up:
Pt seen in room for monitor instruction followup. Pt was provided a glucose monitor during ED visit last week. She states she was able to pickup her supplies from the pharmacy.
Reviewed Instructions on proper testing technique, testing sites and expected results. Pt was able to return demonstrate with minor verbal cues, She was also able to assist and understands the process a bit more clearly today and verbalized the
importance of rotating testing sites on different fingers.
Result of 207 mg/dl 2 hr after lunch were noted. She reports that she still has diabetes Education booklet and phone number that was provided last week. She will reach out to the office for any follow up questions. Information on outpt education
classes was also given.
Will follow up with tomorrow to reinforce education.
[2023-07-12 15:37] VITALS: BP 131/78
[2023-07-12 17:07] LABS: Glucose - Point of Care 145 mg/dl (70-99)
[2023-07-12] MEDS: LOVENOX SC (17:18)
[2023-07-12] MEDS: NOVOLOG FLEXPEN-LOW RESISTANCE SC (17:19)
[2023-07-12 17:22] VITALS: BMI 26.1
--- NOTE | 2023-07-12 17:47 | W.PN.HOSP.TC ---
Addendum entered and electronically signed by Abilio Rose MD 07/12/23 22:49:
Attending Addendum-
I saw and evaluated the patient. I reviewed the resident�s note and agree with findings and plan as documented in the resident�s note. feels improved, understands importance of compliance of meds. tingling sensation in LE refused lantus last pm
Exam: GEN NAD poor dentition heart RRR lungs clear abd soft RLE-red not warm faint peripheral pulses skin- left upper back abscess with pus present on bandage
Plan-
# Uncontrolled DM- HbA1c 17! hold metformin resume as OP cont SSI adjust BB insulin add meal time novolog, AccuCheck qac qhs-reviewed couselled re complicance and DM education provided
# Peripheral Neuropathy- add gabapentin
# Back abscess- s/p I and D, prelim cx no growth, cont vancomycin for now repeat labs in am, may not need abx on dc
# RLE swelling redness- improved, doubt cellulitis, check arterial study - normal mild small vessel disease
Dispo- DC home in am if sugars controlled
Time spent coordinating care, review of plan of care with resident, review of records, med rec, consults, notes, labs, rads, d/w nursing - 56 mins
Original Note:
Documented by User: Geetha Mathias MD, Resident 07/12/23 18:05
Today's Communication/Plan
-
Novolog
gabapentin 200 mg
D/C IV fluids
Assessment / Plan
Assessment / Plan
Patient is a 57y F with recently recognized DM-II who presents to ED complaining of L upper back pain and swelling x several days.
Left Upper Back Abscess
�- Admit for further evaluation and treatment.
�- I&D performed in the ED - follow-up results of wound culture.
�- Wound Care eval for continued local care.
�- IV abx with Vancomycin for now and adjust as appropriate based on culture data.
�- Recent labial abscess also - which appears improved.
�- Cultures from that lesion grew Lactobacillus.
�- Check MRSA swab.
�- Improved DM control should also help prevent recurrent infections.
DM-II, Uncontrolled with diabetic neuropathy
�- Recently recognized diagnosis and patient started on metformin and glipizide with minimal improvement in glycemic control.
�- A1C was 17.1%.
�- Continue metformin.
�- Begin basal insulin.� Follow glucose and cover with SSI as needed.
�- check q Ac and q HS, low dose insulin sliding sale
- Novolog prior meals
- Gabapentin 200 mg OD
�- DM Educator / Dietary evaluations.
- Needs to f/u with PCP
RLE Edema / Petechiae with decreased peripheral pulse
�- This is new from her original visit on 07/04/23.
�- Peripheral US negative for DVT
�- Follow for clinical changes
- Extremity arterial study : Normal ankle-brachial indices and toe brachial indices. No signs of significant aortoiliac inflow disease or focal flow-limiting lower extremity arterial stenosis. Despite normal toe pressure, there is dampening of the
right dorsalis pedis Doppler waveform consistent with the presence of mild distal small vessel arterial disease.
.
Weight Loss
�- Patient notes that her weight has decreased over the past several years from 290lbs to 148lbs.� This has been unintentional.
�- She had prior LEEP procedure about 6 years ago, but adamantly insists that she did not have cervical cancer.
�- Weight loss could be product of chronically uncontrolled DM.
�- Patient would also benefit from age-appropriate cancer screenings as an outpatient.
DVT Prophylaxis:� Lovenox
Code Status:� Full
Anticipated Discharge: Within 24 hours
Subjective/Interval History
-
Date of Service: July 12, 2023
Objective Data
-
Labs:
Laboratory Results
07/12/23
07:37
WBC 9.9
Hgb 14.4
Hct 43.4
Plt Count 145
Sodium 141 D
Potassium 4.1
Chloride 106
Carbon Dioxide 25
BUN 9
Creatinine 0.4 L
Glucose 168 H
Calcium 9.0
Vital Signs:
Vital Signs
Temp Pulse Resp BP Pulse Ox
97.7 F 77 16 131/78 96
07/12/23 15:37 07/12/23 15:37 07/12/23 15:37 07/12/23 15:37 07/12/23 15:37
I&O
07/11/23 07/12/23 07/13/23
06:59 06:59 06:59
Intake Total 2520 / 2520
Output Total 200 / 200
Balance 2320 / 2320
Review of Systems
-
History Source: Patient
All other systems: Reviewed and negative (except mentioned )
Musculoskeletal: Reports Other (right LE pain especially on dorsal surface of foot )
Skin: Reports Rash
Physical Exam
-
General: Well Developed
HEENT: Normocephalic and Atraumatic
Respiratory: Clear to Auscultation; Negative Wheezes, Rales, Rhonchi or Crackles
Cardiac: Regular Rhythm and S1/S2; Negative Murmur or Rub
Breast: Deferred by me
GI: Soft, Nontender and Nondistended
Musculoskeletal: No Edema
Skin: Other (erythema and tenderness improved in right lower extremity, swelling has improved and drainage is less in left upper back )
Neuro: Awake, Alert and Oriented
Hematologic / Lymphatic: No Lymphadenopathy
Psych: Calm
Data Reviewed
-
Ultrasound: Report Reviewed by me
Labs: Labs Reviewed by me and Discussed with Physician

Documented by User: Abilio Rose MD 07/12/23 22:41
Assessment / Plan
Assessment / Plan
Anticipated Discharge: 24 - 48 hours
Review of Systems
-
Respiratory: Reports No Symptoms
Cardiac: Reports No Symptoms
Abdomen/GI: Reports No Symptoms
[2023-07-12 19:55] VITALS: BP 135/82; BP 144/83; BP 151/81; PULSE 74; PULSE 77; PULSE 88
[2023-07-12 21:33] LABS: Glucose - Point of Care 226 mg/dl (70-99)
[2023-07-12] MEDS: LANTUS 0.100000000000000006 UNITS SC (21:34)
[2023-07-12] MEDS: NEURONTIN 200 MG PO (21:35)
[2023-07-12 23:20] VITALS: BP 140/81
[2023-07-13] MEDS: VANCOCIN 200 IV ×2 (05:31→18:09)
[2023-07-13 07:00] VITALS: BP 142/76
[2023-07-13 08:27] LABS: Glucose - Point of Care 179 mg/dl (70-99)
[2023-07-13 08:29] LABS: % Basophils 1.4 % (0-2); % Eosinophils 2.6 % (0-6); % Immature Granulocytes 1.2 % (0-0.5); % Lymphocytes 22.8 % (20.5-51.1); % Monocytes 6.8 % (1.7-9.3); % Neutrophils 65.2 % (42.2-75.2); Absolute Basophils 0.1 10^3/uL (0-0.2); Absolute Eosinophils 0.2 10^3/uL (0-0.7); Absolute Immature Granulocytes 0.1 10^3/uL (0-0.05); Absolute Lymphocytes 1.9 10^3/uL (1.2-3.4); Absolute Monocytes 0.6 10^3/uL (0.1-0.6); Absolute Neutrophils 5.4 10^3/uL (1.4-6.5); Hematocrit 43.8 % (37.0-47.0); Hemoglobin 14.3 g/dL (12.0-16.0); Mean Corp Hgb Conc. 32.6 g/dL (33.0-37.0); Mean Corpuscular Hgb 29.4 pg (27.0-31.0); Mean Corpuscular Volume 89.9 fL (81.0-99.0); Mean Platelet Volume 13.1 fL (7.4-10.4); Nucleated Red Blood Cells % 0 %; Platelet Count 151 10^3/uL (130-400); Red Blood Cell Count 4.87 10^6/uL (4.20-5.40); Red Cell Dist. Width 13.2 % (11.5-14.5); White Blood Cell Count 8.4 10^3/uL (4.8-10.8)
[2023-07-13 09:10] LABS: Blood Urea Nitrogen 8 mg/dl (7-17); Calcium 8.8 mg/dl (8.4-10.2); Carbon Dioxide 27 mmol/L (22-30); Chloride 106 mmol/L (98-107); Estimated Creatinine Clearance 90 ml/min; Glucose 169 mg/dl (70-99); Sodium 136 mmol/L (135-145); eGFR > 60.00
[2023-07-13] MEDS: NOVOLOG FLEXPEN-LOW RESISTANCE 300 UNITS SC (09:44)
[2023-07-13 11:00] VITALS: BP 131/67; BP 136/82; BP 148/94; PULSE 64; PULSE 78; PULSE 82
[2023-07-13 12:20] LABS: Glucose - Point of Care 168 mg/dl (70-99)
[2023-07-13] MEDS: NOVOLOG FLEXPEN-LOW RESISTANCE 1 UNITS SC (12:36)
[2023-07-13 15:00] VITALS: BP 133/70
--- NOTE | 2023-07-13 15:10 | W.PN.HOSP.TC ---
Addendum entered and electronically signed by Abilio Rose MD 07/13/23 23:05:
Attending Addendum-
I saw and evaluated the patient. I reviewed the resident�s note and agree with findings and plan as documented in the resident�s note. neuropathy greatly improved�wants to go home. 'do i have to take insulin before all meals?' Exam: GEN NAD poor
dentition heart RRR lungs clear abd soft RLE-fading red not warm faint peripheral pulses skin- left upper back abscess with pus present on bandage
Plan-
# Uncontrolled DM- HbA1c 17! hold metformin resume as OP cont SSI adjust BB insulin add meal time novolog, AccuCheck qac qhs-reviewed counselled re compliance and DM education provided- patient exhibits very poor understanding of severity of disease
and medication administration
# Peripheral Neuropathy-much improved with gabapentin- continue
# Back abscess- s/p I and D, prelim cx mixed as expected, cont vancomycin for now repeat labs in am, t/c dc on abx-bactrim
# RLE foot redness- much improved, from check arterial study - normal mild small vessel disease may check x ray
Dispo- DC home in am if sugars controlled and patient demonstrates medication knowledge and compliance
Time spent coordinating care, review of plan of care with resident, patient education and counselling, review of records, med rec, consults, notes, labs, rads, d/w nursing - 54 mins
Original Note:
Documented by User: Geetha Mathias MD, Resident 07/13/23 15:20
Today's Communication/Plan
-
likely discharge tomorrow
Assessment / Plan
Assessment / Plan
Patient is a 57y F with recently recognized DM-II who presents to ED complaining of L upper back pain and swelling x several days.
Left Upper Back Abscess
�- Admit for further evaluation and treatment.
�- I&D performed in the ED - follow-up results of wound culture.
�- Wound Care eval for continued local care.
�- IV abx with Vancomycin can be continued today
- Will be switching to PO Bactrim one double strength tablet twice a day for 5 days
- Likely discharge tomorrow
�- Improved DM control should also help prevent recurrent infections.
DM-II, Uncontrolled with diabetic neuropathy
�- Recently recognized diagnosis and patient started on metformin and glipizide with minimal improvement in glycemic control.
�- A1C was 17.1%.
�- Continue metformin.
�- Basal insulin and novolog
�- check q Ac and q HS, low dose insulin sliding sale
- Novolog prior meals
- Gabapentin 200 mg OD
�- DM Educator / Dietary evaluations.
- Needs to f/u with PCP
RLE Edema / Petechiae with decreased peripheral pulse
�- This is new from her original visit on 07/04/23.
�- Peripheral US negative for DVT
�- Follow for clinical changes
- Extremity arterial study : Normal ankle-brachial indices and toe brachial indices. No signs of significant aortoiliac inflow disease or focal flow-limiting lower extremity arterial stenosis. Despite normal toe pressure, there is dampening of the
right dorsalis pedis Doppler waveform consistent with the presence of mild distal small vessel arterial disease.
- ASA for clot prevention
.
Weight Loss
�- Patient notes that her weight has decreased over the past several years from 290lbs to 148lbs.� This has been unintentional.
�- She had prior LEEP procedure about 6 years ago, but adamantly insists that she did not have cervical cancer.
�- Weight loss could be product of chronically uncontrolled DM.
�- Patient would also benefit from age-appropriate cancer screenings as an outpatient.
DVT Prophylaxis:� Lovenox
Code Status:� Full
Anticipated Discharge: Within 24 hours
Subjective/Interval History
-
Date of Service: July 13, 2023
No complaints today
Objective Data
-
Labs:
Laboratory Results
07/13/23
07:30
WBC 8.4
Hgb 14.3
Hct 43.8
Plt Count 151
Sodium 136
Potassium 4.0
Chloride 106
Carbon Dioxide 27
BUN 8
Creatinine 0.4 L
Glucose 169 H
Calcium 8.8
Vital Signs:
Vital Signs
Temp Pulse Resp BP Pulse Ox
98 F 69 18 142/76 99
07/13/23 11:00 07/13/23 07:00 07/13/23 11:00 07/13/23 07:00 07/13/23 11:00
I&O
07/12/23 07/13/23 07/14/23
06:59 06:59 06:59
Intake Total 2520 / 2520 960 / 960
Output Total 200 / 200
Balance 2320 / 2320 960 / 960
Review of Systems
-
All other systems: Reviewed and negative
Physical Exam
-
General: Well Developed
HEENT: Normocephalic and Atraumatic
Respiratory: Clear to Auscultation
Cardiac: Regular Rhythm and S1/S2
Breast: Deferred by me
GI: Soft, Nontender and Nondistended
Musculoskeletal: No Edema
Skin: Other (erythema and tenderness valenzuela improved in RLE )
Neuro: AO x 3
Hematologic / Lymphatic: No Lymphadenopathy
Psych: Calm
Data Reviewed
-
Labs: Labs Reviewed by me and Discussed with Physician

Documented by User: Abilio Rose MD 07/13/23 22:54
Subjective/Interval History
-
No complaints today
--- NOTE | 2023-07-13 15:28 | PHA.VAN.FU ---
Vancomycin Assessment / Plan
- Assessment
Renal Function: Stable
WBC's are: WNL
In the past 24 hrs, patient has been: Afebrile
- Dosing Plan
Continue: Vanc 1000mg Q12H
- Monitoring Plan
No level(s) ordered at this time: short course anticipated - will hold off on levels for now
- Follow Up
Pharmacy will continue to follow.
Vancomycin Follow UP
- -
Patient Age: 57
Patient Sex: Female
Vancomycin Day #: 3
Indication: Skin And Soft Tissue
Requesting Provider: Dr. To
Pertinent Antimicrobial Allergies:
amoxicillin - itching
Height / Weight:
Height 5 ft 4 in
Actual Weight 68.946 kg
Pertinent Past Medical History: DM II
- Vital Signs / Lab Results
Temp Pulse Resp BP Pulse Ox
98 F 69 18 142/76 99
07/13/23 11:00 07/13/23 07:00 07/13/23 11:00 07/13/23 07:00 07/13/23 11:00
Lab Results - Hematology
07/10/23 07/11/23 07/12/23
21:29 06:21 07:37
WBC 15.9 H 13.0 H 9.9
07/13/23
07:30
WBC 8.4
Lab Results - Chemistry
07/10/23 07/11/23 07/12/23
21:29 06:21 07:37
BUN 17 13 9
Creatinine 0.5 L 0.4 L 0.4 L
Estimated Creat Clear 90 90
Albumin 3.9
07/13/23
07:30
BUN 8
Creatinine 0.4 L
Estimated Creat Clear 90
Albumin
Microbiology Results
07/11/23 01:30 Wound Culture - Preliminary
Abscess No growth
Gram Stain - Preliminary
07/11/23 06:21 Blood Culture - Preliminary
Blood/Venous No Growth in 48 hours- Final report to follow
07/11/23 01:51 Blood Culture - Preliminary
Blood/Venous No Growth in 48 hours- Final report to follow
07/11/23 12:30 MRSA Screen - Final
Nose No Methicillin Resistant Staphylococcus aureus isolated.
[2023-07-13 16:32] LABS: Glucose - Point of Care 225 mg/dl (70-99)
[2023-07-13] MEDS: LOW STRENGTH ASPIRIN 81 MG PO (16:34)
[2023-07-13] MEDS: NOVOLOG FLEXPEN-LOW RESISTANCE 2 UNITS SC (16:35)
[2023-07-13] MEDS: LOVENOX 40 MG SC (18:10)
[2023-07-13 19:22] VITALS: BP 137/85; BP 141/81; BP 151/93; PULSE 75; PULSE 83; PULSE 84
[2023-07-13 21:31] LABS: Glucose - Point of Care 206 mg/dl (70-99)
[2023-07-13] MEDS: LANTUS 0.0899999999999999967 UNITS SC (21:48)
[2023-07-13] MEDS: NEURONTIN 200 MG PO (21:49)
[2023-07-13 23:38] VITALS: BP 123/68
[2023-07-14 04:52] LABS: % Basophils 1.6 % (0-2); % Eosinophils 2.7 % (0-6); % Lymphocytes 29.8 % (20.5-51.1); % Monocytes 8.1 % (1.7-9.3); % Neutrophils 56.8 % (42.2-75.2); Absolute Basophils 0.2 10^3/uL (0-0.2); Absolute Eosinophils 0.3 10^3/uL (0-0.7); Absolute Immature Granulocytes 0.1 10^3/uL (0-0.05); Absolute Lymphocytes 2.8 10^3/uL (1.2-3.4); Absolute Monocytes 0.8 10^3/uL (0.1-0.6); Absolute Neutrophils 5.4 10^3/uL (1.4-6.5); Hematocrit 40.7 % (37.0-47.0); Hemoglobin 13.7 g/dL (12.0-16.0); Mean Corp Hgb Conc. 33.7 g/dL (33.0-37.0); Mean Corpuscular Hgb 29.8 pg (27.0-31.0); Mean Corpuscular Volume 88.7 fL (81.0-99.0); Nucleated Red Blood Cells % 0 %; Platelet Count 156 10^3/uL (130-400); Red Blood Cell Count 4.59 10^6/uL (4.20-5.40); Red Cell Dist. Width 13.1 % (11.5-14.5); White Blood Cell Count 9.4 10^3/uL (4.8-10.8)
[2023-07-14 05:16] LABS: Blood Urea Nitrogen 9 mg/dl (7-17); Calcium 8.7 mg/dl (8.4-10.2); Carbon Dioxide 29 mmol/L (22-30); Chloride 107 mmol/L (98-107); Estimated Creatinine Clearance 90 ml/min; Glucose 132 mg/dl (70-99); Potassium 3.7 mmol/L (3.5-5.1); Sodium 138 mmol/L (135-145); eGFR > 60.00
[2023-07-14] MEDS: VANCOCIN 200 IV (05:28)
[2023-07-14 06:00] VITALS: BMI 26.2
--- NOTE | 2023-07-14 07:42 | W.DCSUMMARY ---
Addendum entered and electronically signed by Abilio Rose MD 07/14/23 21:57:
Attending Addendum:
Read reviewed and agree.
Original Note:
Documented by User: Geetha Mathias MD, Resident 07/14/23 21:25
Discharge Summary
Discharge Data
Date of Admission: 07/11/23
Date of Discharge: 07/14/23
-
Pending Results: No
Hospital Course
DISCHARGE DIAGNOSIS :
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
Left upper back abscess
Right lower extremity edema
HOSPITAL COURSE :
Patient is a 57y F with PMH significant for new DM-II diagnosis who presents to ED complaining of left upper back pain x several days.� Patient has not seen a PCP / physician in several years.� She was seen in this ED on 07/03 with complaints of R
labial swelling / abscess and was treated with oral abx . At that time she was dx with new onset of DM type due to hyperglycemia and was prescribed metformin and glipizide. In the ED patient patient was started on vancomycin and zosyn. The abscess
on left upper back was cleaned and packed. BG level was 355. She was started on insulin sliding scale with lantus 9 units and novolog 9 units. BG level started to trend down. Patient also c/o new onset of right lower extremity edema, skin
discoloration, neuropathy. She was started on gabapentin and FELECIA, doppler US and x ray of the foot were done. FELECIA showed small vessel disease and ASA 81 mg was started for prevention. Patient was educated about compliance with the medication and to
check fasting blood glucose level. She was also conselled to follow up with PCP larry after discharge , information given about Family medicine residency clinic. On discharge she was advised to take lantus 9 units QPM, humalog 3 units TID, gabapentin
200 mg HS, switching to BaCTRIM 800/160 MG OD.
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
continue Lantus 9 units qPM, humalog 3 units TID , gabapentin 200 mg HS
Left upper back abscess
switching to BaCTRIM 800/160 MG OD.
Right lower extremity edema
continue ASA 81 mg once a day
On discharge vitals were BP 121/69, pulse 70, RR 20, temp 98.3, spO2 96
PHYSICAL EXAM : SHe is alert, awake, oriented to name, place and time. Her head is atraumatic, normocephalic. Neck is supple. Chest is clear to auscultation. Heart is regular late without gallops or murmurs. Abdomen is soft, nondistended, non
tender. Extremities show no peripheral edema. Erythematous Skin discoloration which is resolving
Discharge Plan
-
Patient Disposition: Home (Routine Discharge)
Discharge Diagnosis/Procedures: Uncontrolled Diabetes mellitus with diabetic neuropathy
Left upper back abscess
Right lower extremity edema
Condition: Good
Diet: Diabetic, Carb Controlled
Activity: No restrictions
Driving Restrictions: As prior to admission
Bathing Restrictions: None
Activity Restrictions/Additional Instructions:
Wound Care Instructions
Can shower wash with soap and water.
L upper back: wash with soap and water,(can shower) then apply dry gauze and Medipore tape change daily and as needed for drainage.
Control blood sugars and stop smoking for wound healing
Increase protein in diet to help with wound healing
Can take air cushion home upon discharge.
Follow up at wound care center if wound not healing, call for an appointment.
Referrals:
Geetha Mathias MD, Resident [Active] - (Patient is going to be following up with Family medicine residency clinic in [facility]. Card given to patient with location and phone number )
NONE,* [Family Provider] -
Additional Discharge Medication Instructions: Lantus 100 unit/3 ml, 9 units at night for 90 days
Humalog 3 unit TID SC for 90 days
Gabapentin 200 mg once at night
Metformin 500 mg BID
Prescriptions:
New
insulin glargine [Lantus Solostar U-100 Insulin] 100 unit/mL (3 mL) insulin pen
9 unit SC QPM 90 Days Qty: 8.1 0RF
gabapentin 100 mg Capsule
200 mg PO HS 90 Days Qty: 180 0RF
insulin aspart U-100 100 unit/mL (3 mL) Insulin Pen
3 unit SC TID 90 Days Qty: 8.1 0RF
metformin 500 mg tablet
500 mg PO BID 90 Days Qty: 180 0RF
insulin lispro [Humalog KwikPen Insulin] 100 unit/mL insulin pen
3 unit SC TID 90 Days Qty: 8.1 0RF
Continued
metformin 500 mg tablet
500 mg PO BID Qty: 60 0RF
fexofenadine-pseudoephedrine [Margie-D 24 Hour] 180-240 mg Tablet Extended Release 24 Hr
1 tab PO BID
Discontinued
glipizide 5 mg tablet
5 mg PO BID Qty: 60 0RF
doxycycline hyclate 100 mg tablet
100 mg PO BID 10 Days Qty: 20 0RF
Patient Comments:
07/11/2023, pt. filled this med. on 07/04/2023 and is instructed to take one tablet BID for 10 days.
ibuprofen [Motrin IB] 200 mg Tablet
400 mg PO BIDPRN PRN (Reason: mild pain)
Discharge Orders:
Discharge Patient (As Directed); Ordered 07/14/23
Ordered By: Geetha Mathias
Discharge Date and Time
Discharge Date/Time: 07/14/23 18:30

Documented by User: Abilio Rose MD 07/14/23 21:48
Discharge Summary
Discharge Data
Date of Admission: 07/11/23
Date of Discharge: 07/14/23
Discharge Plan
-
Patient Disposition: Home (Routine Discharge)
Discharge Diagnosis/Procedures: Uncontrolled Diabetes mellitus with diabetic neuropathy
Left upper back abscess
Right lower extremity edema
Condition: Good
Diet: Diabetic, Carb Controlled
Activity: No restrictions
Driving Restrictions: As prior to admission
Bathing Restrictions: None
Activity Restrictions/Additional Instructions:
Wound Care Instructions
Can shower wash with soap and water.
L upper back: wash with soap and water,(can shower) then apply dry gauze and Medipore tape change daily and as needed for drainage.
Control blood sugars and stop smoking for wound healing
Increase protein in diet to help with wound healing
Can take air cushion home upon discharge.
Follow up at wound care center if wound not healing, call for an appointment.
Referrals:
Geetha Mathias MD, Resident [Active] - (Patient is going to be following up with Family medicine residency clinic in [facility]. Card given to patient with location and phone number )
NONE,* [Family Provider] -
Additional Discharge Medication Instructions: Lantus 100 unit/3 ml, 9 units at night for 90 days
Humalog 3 unit TID SC for 90 days
Gabapentin 200 mg once at night
Metformin 500 mg BID
Prescriptions:
New
insulin glargine [Lantus Solostar U-100 Insulin] 100 unit/mL (3 mL) insulin pen
9 unit SC QPM 90 Days Qty: 8.1 0RF
gabapentin 100 mg Capsule
200 mg PO HS 90 Days Qty: 180 0RF
insulin aspart U-100 100 unit/mL (3 mL) Insulin Pen
3 unit SC TID 90 Days Qty: 8.1 0RF
metformin 500 mg tablet
500 mg PO BID 90 Days Qty: 180 0RF
insulin lispro [Humalog KwikPen Insulin] 100 unit/mL insulin pen
3 unit SC TID 90 Days Qty: 8.1 0RF
Continued
metformin 500 mg tablet
500 mg PO BID Qty: 60 0RF
fexofenadine-pseudoephedrine [Margie-D 24 Hour] 180-240 mg Tablet Extended Release 24 Hr
1 tab PO BID
Discontinued
glipizide 5 mg tablet
5 mg PO BID Qty: 60 0RF
doxycycline hyclate 100 mg tablet
100 mg PO BID 10 Days Qty: 20 0RF
Patient Comments:
07/11/2023, pt. filled this med. on 07/04/2023 and is instructed to take one tablet BID for 10 days.
ibuprofen [Motrin IB] 200 mg Tablet
400 mg PO BIDPRN PRN (Reason: mild pain)
Discharge Orders:
Discharge Patient (As Directed); Ordered 07/14/23
Ordered By: Geetha Mathias
Discharge Date and Time
Discharge Date/Time: 07/14/23 18:30
[2023-07-14 08:00] VITALS: BP 114/75
[2023-07-14 08:08] LABS: Glucose - Point of Care 143 mg/dl (70-99)
[2023-07-14] MEDS: NOVOLOG FLEXPEN-LOW RESISTANCE SC (08:11)
[2023-07-14] MEDS: LOW STRENGTH ASPIRIN 81 MG PO (08:28)
--- NOTE | 2023-07-14 09:38 | PTCARENOTE ---
Pt went to Xray on stretcher with transport, pt was bale to walk to the stretcher from hospital bed. pt a+ox3 and in no distress.
[2023-07-14 09:55] LABS: Uric Acid 5.4 mg/dl (2.5-6.2)
--- NOTE | 2023-07-14 10:00 | PTCARENOTE ---
Diabetes Education- Follow up with Josh and Vini. Brought a Contour Next EZ glucometer for her to demonstrate use (she has one at home from recent visit). She was able to perform with very few verbal cues. Discussed action of both rapid
acting and long acting insulins. Josh does interrupt frequently with questions, education done in simplistic wording with much repetition. Discussed symptoms and treatment of hypoglycemia. Instructions given on use of insulin pen, Josh return
demonstrate x4, Vini x 3. Many questions regarding dosage and technique of setting insulin pen up. Wrote down step by step directions and had Vini read so that he understands. Instructed to inject rapid acting in stomach, pattern given and long
acting in outer thigh. Handout for recording BS and insulin doses given to help organize. Dr. Reyez in and informed that she will be discharged on Novolog 3 units AC and Lantus 9 units AC. Wrote these values on the log sheet to reinforce dose.
Scenario given regarding hypo and Josh was able to correctly state the treatment after initially stating she would give herself insulin. Reinforced insulins action is to lower the blood sugar. She will follow up at the [facility] residency program.
Updates to [employer] with suggestion for josh to self inject prior to discharge to increase her knowledge/comfort. Education booklet provided with information marked regarding insulin, best practice for dosing at mealtime, expected BS results,and
hypoglycemia. She is aware to test BS ACHS. Will talk to her provider regarding a CGM. She is aware to continue Metformin but stop glipizide. Will need RX at discharge for both rapid and long acting insulin,and BD Naomi pen needles. I believe she has
supplies for the Contour Next EZ glucometer.
[2023-07-14 11:32] LABS: Glucose - Point of Care 167 mg/dl (70-99)
[2023-07-14] MEDS: NOVOLOG FLEXPEN 3 UNITS SC (12:04)
[2023-07-14] MEDS: NOVOLOG FLEXPEN-LOW RESISTANCE 1 UNITS SC (12:05)
[2023-07-14 14:55] LABS: Glucose - Point of Care 143 mg/dl (70-99)
[2023-07-14 15:00] VITALS: BP 121/69
--- NOTE | 2023-07-14 16:39 | PHA.VAN.FU ---
Addendum entered and electronically signed by Nichole Batista [facility] 07/14/23 16:43:
BUN & SCR ordered per protocol
Original Note:
Vancomycin Assessment / Plan
- Assessment
Renal Function: Stable
WBC's are: WNL
In the past 24 hrs, patient has been: Afebrile
- Dosing Plan
Continue: Vanc 1000mg Q12H
- Monitoring Plan
Peak Level: 07/13 20:30
Trough Level: 07/14 05:30
Monitoring Comments: levels to be drawn after 7th maintenance dose
- Follow Up
Pharmacy will continue to follow.
Vancomycin Follow UP
- -
Patient Age: 57
Patient Sex: Female
Vancomycin Day #: 4
Indication: Skin And Soft Tissue
Requesting Provider: Dr. To
Pertinent Antimicrobial Allergies:
amoxicillin - itching
Height / Weight:
Height 5 ft 4 in
Actual Weight 69.173 kg
Pertinent Past Medical History: DM II
- Vital Signs / Lab Results
Temp Pulse Resp BP Pulse Ox
98.3 F 70 20 121/69 96
07/14/23 15:00 07/14/23 15:00 07/14/23 15:00 07/14/23 15:00 07/14/23 15:00
Lab Results - Hematology
07/12/23 07/13/23 07/14/23
07:37 07:30 04:13
WBC 9.9 8.4 9.4
Lab Results - Chemistry
07/12/23 07/13/23 07/14/23
07:37 07:30 04:13
BUN 9 8 9
Creatinine 0.4 L 0.4 L 0.5 L
Estimated Creat Clear 90 90 90
Microbiology Results
07/11/23 01:30 Wound Culture - Final
Abscess No growth
Gram Stain - Final
07/11/23 06:21 Blood Culture - Preliminary
Blood/Venous No Growth in 72 hours- Final report to follow
07/11/23 01:51 Blood Culture - Preliminary
Blood/Venous No Growth in 72 hours- Final report to follow
07/11/23 12:30 MRSA Screen - Final
Nose No Methicillin Resistant Staphylococcus aureus isolated.
--- NOTE | 2023-07-14 21:00 | W.PN.HOSP.TC ---
Addendum entered and electronically signed by Abilio Rose MD 07/14/23 21:56:
Attending Addendum-
I saw and evaluated the patient. I reviewed the resident�s note and agree with findings and plan as documented in the resident�s note. neuropathy greatly improved�wants to go home. seen with and DM educator. Exam: GEN NAD poor dentition
heart RRR lungs clear abd soft RLE-fading red not warm faint peripheral pulses skin- left upper back abscess smaller 3x4 no pus seen on bandage
Plan-
# Uncontrolled DM- much better controlled, HbA1c 17! restart metformin as OP, cont BB insulin and meal time novolog on DC, educated, counselled re compliance and DM education provied by educator patient exhibits very poor understanding of severity
of disease
# Gout- reviewed foot x ray not in acute flare, will need f/u as OP, uric acid baseline checked
# Peripheral Neuropathy-much improved with gabapentin- continue on DC
# Back abscess- s/p I and D, transition vancomycin to bactrim on DC
# RLE foot redness- much improved, arterial study - normal mild small vessel disease - start asa
Dispo- DC home after seen by dm educator if demonstrates medication knowledge and compliance
Time spent coordinating care, review of plan of care with resident, dc planning, transition of care, patient education and counselling, review of records, med rec, consults, notes, labs, rads, d/w nursing - 38 mins
Original Note:
Today's Communication/Plan
-
discharge home today
F/U with PCP outpatient, information given
Assessment / Plan
Assessment / Plan
Patient is a 57y F with recently recognized DM-II who presents to ED complaining of L upper back pain and swelling x several days.
Left Upper Back Abscess
�- Admit for further evaluation and treatment.
�- I&D performed in the ED - follow-up results of wound culture.
�- Wound Care eval for continued local care.
�- IV abx with Vancomycin can be continued today
- Will be switching to PO Bactrim one double strength tablet twice a day for 5 days
- Likely discharge tomorrow
�- Improved DM control should also help prevent recurrent infections.
DM-II, Uncontrolled with diabetic neuropathy
�- Recently recognized diagnosis and patient started on metformin and glipizide with minimal improvement in glycemic control.
�- A1C was 17.1%.
�- Continue metformin.
�- Basal insulin and novolog
�- check q Ac and q HS, low dose insulin sliding sale
- Novolog prior meals
- Gabapentin 200 mg OD
�- DM Educator / Dietary evaluations.
- Needs to f/u with PCP
RLE Edema / Petechiae with decreased peripheral pulse
�- This is new from her original visit on 07/04/23.
�- Peripheral US negative for DVT
�- Follow for clinical changes
- Extremity arterial study : Normal ankle-brachial indices and toe brachial indices. No signs of significant aortoiliac inflow disease or focal flow-limiting lower extremity arterial stenosis. Despite normal toe pressure, there is dampening of the
right dorsalis pedis Doppler waveform consistent with the presence of mild distal small vessel arterial disease.
- ASA for clot prevention
.
Weight Loss
�- Patient notes that her weight has decreased over the past several years from 290lbs to 148lbs.� This has been unintentional.
�- She had prior LEEP procedure about 6 years ago, but adamantly insists that she did not have cervical cancer.
�- Weight loss could be product of chronically uncontrolled DM.
�- Patient would also benefit from age-appropriate cancer screenings as an outpatient.
DVT Prophylaxis:� Lovenox
Code Status:� Full
Anticipated Discharge: Today
Subjective/Interval History
-
Date of Service: July 14, 2023
Objective Data
-
Vital Signs:
Vital Signs
Temp Pulse Resp BP Pulse Ox
98.3 F 70 20 121/69 96
07/14/23 15:00 07/14/23 15:00 07/14/23 15:00 07/14/23 15:00 07/14/23 15:00
I&O
07/13/23 07/14/23 07/15/23
06:59 06:59 06:59
Intake Total 960 / 960 1520 / 1520
Balance 960 / 960 1520 / 1520
== END 2023-07-14 18:30 | disposition home or self-care (01) | DRG 638 ==
LOC: 4 EAST ACU 02:07
PROVIDERS: Student in an Organized Health Care Education/Training Program; ADMITTING PHYSICIAN Hospitalist; ATTENDING PHYSICIAN Family Medicine; EMERGENCY PHYSICIAN Emergency Medicine
PROC: 0H96XZZ Drainage of Back Skin, External Approach (ICD-10-PCS; 2023-07-11)
DX: E11.628 Type 2 diabetes mellitus with other skin complications (principal); L02.212 Cutaneous abscess of back [any part, except buttock and flank]; F17.200 Nicotine dependence, unspecified, uncomplicated; E11.65 Type 2 diabetes mellitus with hyperglycemia; Z79.82 Long term (current) use of aspirin
CPT/HCPCS: 10060; 73620; 80048; 80053; 82962; 84443; 84550; 85025; 85027; 87040; 87070; 87205; 93922; 93925; 93971; 96361; 96374; 96375; 99285

== ENCOUNTER → 2023-07-21 12:27 | Outpatient (REF) | payer OTHER, SELFPAY | LOC: WOUND 12:27 | PROVIDERS: ATTENDING PHYSICIAN Surgery | DX: S21.202A Unspecified open wound of left back wall of thorax without penetration into thoracic cavity, initial encounter (principal); E11.40 Type 2 diabetes mellitus with diabetic neuropathy, unspecified; M10.9 Gout, unspecified; I73.9 Peripheral vascular disease, unspecified; Z79.4 Long term (current) use of insulin; X58.XXXA Exposure to other specified factors, initial encounter | CPT/HCPCS: 11042; 99203 ==

== ENCOUNTER → 2023-07-28 14:03 | Outpatient (REF) | payer OTHER, SELFPAY | LOC: WOUND 14:03 | PROVIDERS: ATTENDING PHYSICIAN Surgery | DX: S21.202A Unspecified open wound of left back wall of thorax without penetration into thoracic cavity, initial encounter (principal); E11.40 Type 2 diabetes mellitus with diabetic neuropathy, unspecified; M10.9 Gout, unspecified; I73.9 Peripheral vascular disease, unspecified; Z79.4 Long term (current) use of insulin; X58.XXXA Exposure to other specified factors, initial encounter | CPT/HCPCS: 11042 ==

== ENCOUNTER → 2023-08-11 14:04 | Outpatient (REF) | payer OTHER, SELFPAY | LOC: WOUND 14:04 | PROVIDERS: ATTENDING PHYSICIAN Surgery | DX: S21.202A Unspecified open wound of left back wall of thorax without penetration into thoracic cavity, initial encounter (principal); E11.40 Type 2 diabetes mellitus with diabetic neuropathy, unspecified; I73.9 Peripheral vascular disease, unspecified; Z79.4 Long term (current) use of insulin; X58.XXXA Exposure to other specified factors, initial encounter | CPT/HCPCS: 99212 ==

== ENCOUNTER → 2023-08-26 08:48 | Outpatient (REF) | payer OTHER, SELFPAY | LOC: RAD 08:48 | PROVIDERS: ATTENDING PHYSICIAN Student in an Organized Health Care Education/Training Program; FAMILY PHYSICIAN Family Medicine | DX: N39.0 Urinary tract infection, site not specified (principal); M54.50 Low back pain, unspecified; R31.29 Other microscopic hematuria | CPT/HCPCS: 74176 ==

== ENCOUNTER 2023-09-18 15:43 | Inpatient (IN) | payer OTHER, SELFPAY ==
[2023-09-18] VITALS (30 sets, daily range): BP systolic 69–135; BP diastolic 45–118; BMI 24.0
[2023-09-18 13:25] LABS: Glucose - Point of Care > 600 mg/dl (70-99)
[2023-09-18 13:32] LABS: % Basophils 0.4 % (0-2); % Eosinophils 0.1 % (0-6); % Immature Granulocytes 1.5 % (0-0.5); % Lymphocytes 2.3 % (20.5-51.1); % Neutrophils 91.7 % (42.2-75.2); Absolute Basophils 0.1 10^3/uL (0-0.2); Absolute Immature Granulocytes 0.4 10^3/uL (0-0.05); Absolute Lymphocytes 0.7 10^3/uL (1.2-3.4); Absolute Monocytes 1.2 10^3/uL (0.1-0.6); Absolute Neutrophils 27.3 10^3/uL (1.4-6.5); Hematocrit 41.8 % (37.0-47.0); Hemoglobin 14.6 g/dL (12.0-16.0); Mean Corp Hgb Conc. 34.9 g/dL (33.0-37.0); Mean Corpuscular Hgb 29.1 pg (27.0-31.0); Mean Corpuscular Volume 83.3 fL (81.0-99.0); Mean Platelet Volume 12.8 fL (7.4-10.4); Nucleated Red Blood Cells % 0 %; Platelet Count 209 10^3/uL (130-400); Red Blood Cell Count 5.02 10^6/uL (4.20-5.40); Red Cell Dist. Width 12.4 % (11.5-14.5); White Blood Cell Count 29.7 10^3/uL (4.8-10.8)
[2023-09-18] MEDS: NSS 1000 IV ×2 (13:52)
--- NOTE | 2023-09-18 14:10 | ED.GENMED ---
History of Present Illness
General
Chief Complaint: Weakness
Source: patient and records
Time Seen by Provider: 09/18/23 13:38
Travel History
Have you had any contact with someone who has COVID-19?: No
Do you have any symptoms of coronavirus? Fever > 100 degrees, chills, cough, shortness of breath, sore throat, loss of taste or smell, muscle aches, or headache?: No
History of Present Illness
History of Present Illness:
57-year-old female with past medical history of insulin-dependent diabetes (noncompliant with medication) presenting to the emergency department for evaluation of generalized weakness and fatigue that been ongoing for 2+ weeks, nausea and vomiting
that started yesterday, polyuria/polydipsia/polyphagia over the last few days. Symptoms worse last night into today prompting her to come to the ER for further evaluation. She notes that she has been noncompliant with her diabetes medications,
testing her blood sugars and has had poor outpatient follow-up. Patient states that she has been upset with the primary care provider that she has had and is in times of trying to find a new primary care provider. Denies any fevers or infectious
symptoms. No other concerns.
Past History
Past History
ED Past Medical History: Cancer (Cervical) and IDDM
ED Past Surgical History: Gynecological
Social History
Tobacco: Smoker
Alcohol: None
Drug: None
Personal:
Living: with family
Employment: Employed
Review of Systems
Review of Systems
All Other Systems: ROS reviewed and negative except as documented in HPI and ROS
Phy Exam
Physical Exam
Physical Exam:
GENERAL: Alert , ill-appearing
EYE: clear conjunctiva b/l
HEAD: NCAT
ENT: o/p clr, dry mucous membranes
CARDIAC: tachycardic rate and rhythm.
LUNGS: Clear breath sounds bilaterally, no acute respiratory distress, no wheezes/rales/rhonchi
ABDOMEN: Soft, without focal tenderness, no r/g, no cvat
NEUROLOGICAL: Alert and oriented
SKIN: Warm and dry, skin intact.
MUSCULOSKELETAL: No edema, well perfused.
PSYCH: Normal and appropriate interaction.
Scores
Heart Failure Risk
Heart Failure Risk Score: Not Applicable
Heart Score for Chest Pain Patients
STEMI patient?: Not applicable
Withdrawal Assessment of Alcohol
Withdrawal Assessment Completed?: Not applicable
Course
Orders/Labs/Results
Orders:
Orders
09/18/23 13:22
Complete Blood Count/With Diff Urgent
Comprehensive Metabolic Panel Urgent
Lipase Urgent
09/18/23 13:40
Bedside Glucose- Treatment Q1H
IV Insert/Care/Rem.- Treatment PRN
0.9% Sodium Chloride 1000 ml [Nss] 1,000 ml IV BOLUS
0.9% Sodium Chloride 1000 ml [Nss] 1,000 ml IV BOLUS
09/18/23 13:47
B-Hydroxybutyrate Urgent
Basic Metabolic Panel Q2H
Glycohemoglobin (HgbA1c) Urgent
Urinalysis Urgent
Date Specimen was Collected: 09/18/23
Time Specimen was Collected: 13:45
Urine Microscopic Urgent
Date Specimen was Collected: 09/18/23
Time Specimen was Collected: 13:45
Venous Blood Gas Urgent
%Oxygen/Room Air: RA
09/18/23 14:15
Ondansetron Injectable [Zofran] 4 mg IV NOW STA
09/18/23 14:51
Reg Insulin 100 Units/100 ml [Novolin R Insulin Infusion] 100 units in 100 ml IV NOW
09/18/23 14:53
Insulin Human Regular [Novolin R] 6 units IV NOW STA
09/18/23 15:00
0.45% Sodium Chloride 1000 ml [0.45%NaCl] 1,000 ml IV 250 mls/hr
09/18/23 15:12
CXR2 [CR Chest - 2 Views ] Routine
Comment:
Reason For Exam: leukocytosis, DKA
09/18/23 15:27
Basic Metabolic Panel Q2H
Blood Culture Q30M
JENNIFFER Source: Blood/Venous
Specimen Description:
Blood Culture Q30M
JENNIFFER Source: Blood/Venous
Specimen Description:
09/18/23 15:29
Admit/Transfer Patient As Directed
Co-Sign Provider:
Level of Care: Inpatient admission
Assign to:: ICU
Physician / Group: Dana bermudezists
Diagnosis: DKA, UTI
Reason for Hospitalization: DKA, UTI- insulin infusion, IVF, IV Abx
Expected length of stay greater than two midnights?: Yes
ELOS- Estimated Length of Stay in days: 3
I certify the patient meets the requirements for IP care: Yes
09/18/23 15:32
Code Status As Directed
Resuscitation Status: Full Code
09/18/23 15:38
CefTRIAXone [Rocephin] 1,000 mg IV NOW STA
09/18/23 17:45
Basic Metabolic Panel Q2H
Abnormal Lab Results
09/18/23 09/18/23 09/18/23
13:22 13:24 13:47
WBC 29.7 H 10^3/uL
(4.8-10.8)
MPV 12.8 H fL
(7.4-10.4)
Abs Immat Gran (auto) 0.4 H 10^3/uL
(0-0.05)
Absolute Neuts (auto) 27.3 H 10^3/uL
(1.4-6.5)
Absolute Lymphs (auto) 0.7 L 10^3/uL
(1.2-3.4)
Absolute Monos (auto) 1.2 H 10^3/uL
(0.1-0.6)
Immature Gran % 1.5 H %
(0-0.5)
Neutrophils % 91.7 H %
(42.2-75.2)
Lymphocytes % 2.3 L %
(20.5-51.1)
VBG HCO3 21.6 L mmol/L
(22-27)
Sodium 122 L mmol/L 122 L mmol/L
(135-145) (135-145)
Potassium 5.5 H mmol/L 5.3 H mmol/L
(3.5-5.1) (3.5-5.1)
Chloride 77 L mmol/L 76 L mmol/L
(98-107) (98-107)
Carbon Dioxide 19 L mmol/L 21 L mmol/L
(22-30) (22-30)
BUN 28 H mg/dl 28 H mg/dl
(7-17) (7-17)
Creatinine 1.6 H mg/dL 1.8 H mg/dL
(0.6-1.0) (0.6-1.0)
Glucose 680 H* mg/dl 682 H* mg/dl
(70-99) (70-99)
Hemoglobin A1c 12.2 H %
(4.0-5.6)
Alkaline Phosphatase 137 H U/L
(38-126)
Urine Ketones 3+ A
(Negative)
Urine Occult Blood 3+ A
(Negative)
Ur Leukocyte Esterase 2+ A
(Negative)
Urine WBC 80-90 A /HPF
(0-5)
Urine Bacteria Many A
(Negative)
Urine Glucose 3+ A
(Negative)
B-Hydroxybutyrate 7.78 H mmol/L
(0.02-0.27)
POC Glucose > 600 H* mg/dl
(70-99)
09/18/23
15:23
WBC
MPV
Abs Immat Gran (auto)
Absolute Neuts (auto)
Absolute Lymphs (auto)
Absolute Monos (auto)
Immature Gran %
Neutrophils %
Lymphocytes %
VBG HCO3
Sodium
Potassium
Chloride
Carbon Dioxide
BUN
Creatinine
Glucose
Hemoglobin A1c
Alkaline Phosphatase
Urine Ketones
Urine Occult Blood
Ur Leukocyte Esterase
Urine WBC
Urine Bacteria
Urine Glucose
B-Hydroxybutyrate
POC Glucose 555 H* mg/dl
(70-99)
09/18/23 13:22
Vital Signs
Initial and Last Documented VS:
Initial Vital Signs
Temp Pulse Resp BP Pulse Ox
98.5 F 108 20 109/70 99
09/18/23 13:12 09/18/23 13:12 09/18/23 13:12 09/18/23 13:12 09/18/23 13:12
Last Documented Vital Signs
Temp Pulse Resp BP Pulse Ox
98.5 F 94 21 110/69 97
09/18/23 13:12 09/18/23 15:15 09/18/23 15:15 09/18/23 15:00 09/18/23 15:15
MDM/Problems Addressed
Differential Diagnosis Includes:
DKA, HHNK, hyperglycemia, medication noncompliance, less concern for an acute occult infection
MDM/Problems Addressed:
57-year-old female presenting back to the emergency department to be evaluated for generalized fatigue, nausea and vomiting, polyuria/polydipsia/polyphasia. Patient admits medication noncompliance. When I evaluated her back in she
had an elevated A1c at greater than 17. I suspect that hardly changed given her current symptoms and presentation. Labs were initiated by triage and patient has a white blood cell count of near 30. Fluids, Zofran ordered. Anticipate needing
insulin. Anticipate IMU/ICU admission
*Pulse Oximetry
Patient hypoxic: no
*Paramedic Instructor Interpretation
Rate: tachycardiac
Rhythm: sinus
*Critical Care Note
Total Time (30-74mins, 75-104mins- exclusive of procedures): 31
comment:
Critical care statement: A total of 31 minutes of critical care time was provided for this patient. This includes management of unstable vital signs, evaluation of the patient at bedside, reviewing the patient's pertinent medical records, discussion
with consultants, review of old EKGs and review of pertinent medical records. This time with separate from time utilized to perform the aforementioned documented procedures
Data Reviewed
Review of Other/Old Records Reveals: Labs and Records
Patient Management
Discussion with other providers: Hospitalist
Escalation/DeEscalation of care consider admission/obs:
Patient's labs reveal further electrolyte derangement. There is pseudohyponatremia secondary to patient's significant hyperglycemia. Patient is corrected sodium of 131. She does have an anion gap of 26. There is also hyperkalemia and
hypochloridemia. Patient has a mild MAKSIM. Beta hydroxybutyrate significantly elevated. Insulin bolus and drip ordered. Maintenance fluids based off patient's potassium ordered. Hospitalist team was notified and accepts for continued evaluation
and treatment.
ED Attending Note
-
Portions of this chart may have been created with voice recognition software.� Occasional wrong word or��sound alike� substitutions may have occurred due to the inherent limitations of voice recognition software.
Discharge Plan
Departure
Patient Disposition: Admit
Date of Disposition: 09/18/23
Time of Disposition: 14:42
Presentation/result/management discussed w/ accepting MD/DO: Hospitalist
Discharge Problem:
DKA (diabetic ketoacidosis), MAKSIM (acute kidney injury), Acute hyponatremia, Acute hyperkalemia
Interventions
Interventions:
*Risk Screen - Suicide Last Done: 09/18/23 13:12
*General Assessment Last Done: 09/18/23 13:12
*Neglect/Abuse Screening Last Done: 09/18/23 13:12
SC-Rqvlhg-Acxldggvlj Assessment Last Done: 09/18/23 14:35
ED- Cardiac Assessment Last Done: 09/18/23 14:35
ED- Neurological Assessment Last Done: 09/18/23 14:35
ED- Pulmonary Assessment Last Done: 09/18/23 14:35
[2023-09-18 14:11] LABS: ALT (SGPT) 14 U/L (0-35); AST (SGOT) 14 U/L (14-36); Albumin 3.5 g/dl (3.5-5.0); Alkaline Phosphatase 137 U/L (38-126); Blood Urea Nitrogen 28 mg/dl (7-17); Calcium 9.4 mg/dl (8.4-10.2); Carbon Dioxide 19 mmol/L (22-30); Lipase 31 U/L (23-300); Total Bilirubin 0.8 mg/dl (0.2-1.3); Total Protein 6.6 g/dl (6.3-8.2); eGFR 37.62
[2023-09-18 14:18] LABS: Venous Blood Gas B.E. -4.4 mmol/L (-4 to +4); Venous Blood Gas HCO3 21.6 mmol/L (22-27); Venous Blood Gas O2 Sat % 59.1 %; Venous Blood Gas pCO2 42 mmHg (35-48); Venous Blood Gas pH 7.32 (7.32-7.43); Venous Blood Gas pO2 34 mmHg (30-50)
[2023-09-18 14:25] LABS: Urine Albumin Trace (Neg - Trace); Urine Bilirubin Negative (Negative); Urine Character Clear (Clear); Urine Color Yellow; Urine Glucose 3+ (Negative); Urine Ketone 3+ (Negative); Urine Leukocyte 2+ (Negative); Urine Nitrite Negative (Negative); Urine Occult Blood 3+ (Negative); Urine Specific Gravity 1.015 (<1.030); Urine Urobilinogen Negative (Neg - 1+)
[2023-09-18 14:26] LABS: Chloride 77 mmol/L (98-107); Glucose 680 mg/dl (70-99); Potassium 5.5 mmol/L (3.5-5.1); Sodium 122 mmol/L (135-145)
[2023-09-18] MEDS: ZOFRAN 4 MG IV ×2 (14:28→23:02)
[2023-09-18 14:38] LABS: Blood Urea Nitrogen 28 mg/dl (7-17); Calcium 9.2 mg/dl (8.4-10.2); Carbon Dioxide 21 mmol/L (22-30); Chloride 76 mmol/L (98-107); Potassium 5.3 mmol/L (3.5-5.1); Sodium 122 mmol/L (135-145); eGFR 32.66
[2023-09-18 14:40] LABS: Glycohemoglobin (HgbA1c) 12.2 % (4.0-5.6)
[2023-09-18 14:50] LABS: Glucose 682 mg/dl (70-99)
--- NOTE | 2023-09-18 15:09 | HPS.HSE ---
Family Physician
-
Family Physician: * NONE
Chief Complaint
-
weakness
History of Present Illness
57 y/o F hx of IDDM, cervical cancer hx, presents to ER for generalized weakness x 2 weeks. She reports doing well after his last hospitalization (Where she was started on insulin for diabetes). She reports good diabetic control until she developed
a UTI a few weeks ago - was placed on oral antibiotics but she could not tolerated due to lack of appetite. a few days later she developed weakness, nausea/vomiting and polyuria, polydipsia. She reports her urine has a smell. In the past 24 hours
her symptoms worsened prompting ER evaluation.
Currently complaining of overwhelming weakness.
In ER, found to be in DKA and started on Insulin drip, IVF.
Medical History
Past Medical History
Past Medical History: Reports Other (IDDM, cervical cancer hx)
Past Surgical History: Reports Gynocological
Social History
Tobacco: Smoker
Alcohol: None
Drug: None
Family History
Family History: Not pertinent
Allergies / Home Medications
Allergies reflects when Allergies were last updated in [employer].
Home Medications with original date entered in [employer]
Allergy/Medication List:
Allergies
Allergy/AdvReac Type Severity Reaction Status Date / Time
amoxicillin Allergy Itching Verified 09/18/23 13:15
codeine Allergy Nausea Verified 09/18/23 13:15
Home Medications
metformin 500 mg tablet 500 mg PO BID #60 tabs 07/04/23
gabapentin 100 mg capsule 200 mg (2 x 100 mg) PO HS 90 days #180 caps 07/14/23
insulin glargine 100 unit/mL (3 mL) subcutaneous pen (Lantus Solostar U-100 Insulin) 9 unit (0.09 mL) SC QPM 90 days #8.1 mL 07/14/23
insulin lispro 100 unit/mL subcutaneous pen (Humalog KwikPen (U-100) Insulin) 3 unit SC AC 09/18/23
Review of Systems
-
A 12 point ROS was completed and negative except as noted: Yes
Physical Exam
Vital Signs
Vital Signs
Temp Pulse Resp BP Pulse Ox
98.5 F 108 20 109/70 99
09/18/23 13:12 09/18/23 13:12 09/18/23 13:12 09/18/23 13:12 09/18/23 13:12
Physical Exam
General: Appears in Distress
HEENT: NormoCephalic and Anicteric
Respiratory: No Wheezes or Rales
Cardiac: S1/S2 and Regular Rhythm
GI: Soft and Tender (suprapubic)
Neuro: AO x 3
Hematologic/Lymphatic: No Lymphadenopathy
Psych: Calm
Laboratory Results
-
09/18/23 13:22
Laboratory Results
Total Bilirubin 0.8 mg/dl (0.2-1.3) 09/18/23 13:22
AST 14 U/L (14-36) 09/18/23 13:22
ALT 14 U/L (0-35) 09/18/23 13:22
Alkaline Phosphatase 137 U/L (38-126) H 09/18/23 13:22
Lipase 31 U/L (23-300) 09/18/23 13:22
Data Reviewed
-
Critical Care Time (in minutes): 55
Lab Data: Labs Reviewed by me
Impression/Plan
-
Assessment:
Diabetic ketoacidosis
Underlying uncontrolled type 2 IDDM
- likely driven by underlying, untreated UTI
- ICU admission
- DKA protocol with insulin drip, q1h accu-checks
- hold all home agents
- noted A1c 12. 2 from 17
- GASKET INSPECTOR consulted
- ICU consulted
MAKSIM
Acute hyponatremia from hypovolemic
Acute hyperkalemia
Acute metabolic acidosis (Gap 26)
- follow repeat BMPs q2h
- NSS with KCL 20
Sepsis POA (tachycardia, leukocytosis)
UTI
- Start Rocephin, day 1
Diabetic neuropathy
- continue Gabapentin
DVT ppx: SC heparin
Code: Full
Total Critical Care Time 55 minutes. I was immediately available to the patient and staff. I personally examined, reviewed labs, diagnostic images/reports, interpretations, treatment plans, discussed patient care with other providers and family
or caregivers (if patient is unable to make decisions), entered orders as appropriate and documented the medical record.
[2023-09-18 15:16] LABS: B-Hydroxybutyrate 7.78 mmol/L (0.02-0.27)
[2023-09-18 15:20] LABS: Urine Mucus Few; Urine Squamous Cell >30 /LPF (Few)
[2023-09-18 15:22] LABS: Urine Bacteria Many (Negative); Urine Red Blood Cell 0-2 /HPF (0-2); Urine White Cell 80-90 /HPF (0-5)
[2023-09-18 15:24] LABS: Glucose - Point of Care 555 mg/dl (70-99)
[2023-09-18] MEDS: ROCEPHIN 1000 MG IV (15:42)
[2023-09-18] MEDS: 0.45%NACL 1000 IV (15:48)
[2023-09-18] MEDS: NOVOLIN R INSULIN INFUSION 100 IV (15:51)
[2023-09-18] MEDS: NOVOLIN R 6 UNITS IV (15:53)
[2023-09-18 16:00] LABS: Blood Urea Nitrogen 28 mg/dl (7-17); Calcium 8.2 mg/dl (8.4-10.2); Carbon Dioxide 19 mmol/L (22-30); Chloride 86 mmol/L (98-107); Glucose 602 mg/dl (70-99); Sodium 124 mmol/L (135-145); eGFR 44.16
[2023-09-18 16:43] LABS: Glucose - Point of Care 506 mg/dl (70-99)
--- NOTE | 2023-09-18 16:53 | CON.INTV ---
Consultation
Consultation Request
Date/Time Consultation Requested: 09/18/23
Date/Time Consultation Performed: 09/18/23
Performing Provider: Jonny
Reason for Consultation: ICU
Medical History
-
History of Present Illness:
57-year-old female with history of insulin-dependent diabetes with peripheral neuropathy, history of cervical cancer, presenting to ER for generalized weakness x 2 weeks. She was recently diagnosed with diabetes and started on insulin. She does
follow with an outpatient diabetes doctor. She feels she developed a UTI which caused her to feel malaise, decreased p.o. intake, nausea and vomiting. She was unable to maintain adequate diabetic diet. Because of this she had stopped taking her
insulin. On arrival to ER, blood work indicating hyperglycemia over 600 with hyponatremia, AGMA, hyperkalemia, MAKSIM. She is started on insulin drip for DKA.
She is now admitted to ICU.
Past Medical History
Past Medical History: Other (See list below)
Social History
Tobacco: Smoker
Alcohol: None
Drug: None
Family History
Family History: Reviewed & Not Pertinent
Allergies / Home Medications
Allergies
Allergy/AdvReac Type Severity Reaction Status Date / Time
amoxicillin Allergy Itching Verified 09/18/23 13:15
codeine Allergy Nausea Verified 09/18/23 13:15
Home Medications
�Medication �Instructions �Recorded �Confirmed �Last Taken �Type
metformin 500 mg tablet 500 mg PO BID #60 tabs 07/04/23 09/18/23 07/10/23 Rx
gabapentin 100 mg capsule 200 mg (2 x 100 mg) PO HS 90 days 07/14/23 09/18/23 Unknown Rx
#180 caps
insulin glargine 100 unit/mL (3 9 unit (0.09 mL) SC QPM 90 days 07/14/23 09/18/23 Unknown Rx
mL) subcutaneous pen (Lantus #8.1 mL
Solostar U-100 Insulin)
insulin lispro 100 unit/mL 3 unit SC AC 09/18/23 09/18/23 09/17/23 History
subcutaneous pen (Humalog KwikPen
(U-100) Insulin)
Review of Systems
-
History Source: Patient
All other systems: Negative unless noted
Vitals / Labs / Diagnostic Testing
Vital Signs
Temp Pulse Resp BP Pulse Ox
98.5 F 92 19 112/73 97
09/18/23 13:12 09/18/23 16:30 09/18/23 16:15 09/18/23 16:00 09/18/23 16:30
Lab Data
09/18/23 13:22
Diagnostic Testing:
Physical Exam
-
HEENT: Normocephalic, Anicteric and Moist Mucous Membranes
Cardiovascular: S1/S2 and Regular Rhythm
Respiratory: Clear and Non-Labored Respirations
GI: Soft, Non Distended and Non Tender
Neurology: Awake, Alert, Oriented, AO x 3 and No Motor Deficits
Skin: Warm, Dry and Good Color
General: Comfortable and Other (NAD)
Assessment
-
57-year-old female with history of insulin-dependent diabetes with peripheral neuropathy, history of cervical cancer, presenting to ER for generalized weakness x 2 weeks. She feels she developed a UTI which caused her to feel malaise, decreased
p.o. intake, nausea and vomiting. She was unable to maintain adequate diabetic diet. Because of this she had stopped taking her insulin. On arrival to ER, blood work indicating hyperglycemia over 600 with hyponatremia, AGMA, hyperkalemia, MAKSIM.
She is started on insulin drip for DKA. She is now admitted to ICU.
Acute DKA
Hyperglycemia
MAKSIM
Hyponatremia
Hyperkalemia
Leukocytosis
Suspected UTI
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
IDDM-diagnosed at last admission 06/2023, Hba1c >17%
Suspect this was ongoing/does not seek medical care regularly
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
R labial abscess
History of cervical cancer
Right Knee Arthroscopy
LEEP
Smoker
Plan
DKA, admitting BS elevated, AG >20
Started on insulin drip, can wean today following protocol, start D5 IVFs
Consult diabetic nurse for insulin recommendations
Can restart diet once able to bridge
H/o poorly controlled diabetes, hopeful transition to home meds
Admits triggers include noncompliance from UTI
HbA1c 17.1 -> 12.2
No current signs of metabolic encephalopathy or MS changes/following commands
Neuropathy of her feet are noted
Pain/sedation: PRN tylenol
RASS goals: 0
Hemodynamically stable, not requiring pressors.
Cardiac history reviewed--none
No prior ECHO for review, does not see physicians regularly
Oxygen needs: on room air
Prior history of lung disease: none but she is a smoker
No prior PFTs for review
Supplemental O2 as indicated to maintain sats > 89%
CT reviewed indicating no lung findings
NPO, resume diet when able
Oil Refinery Process Technician recommendations
Aspiration precautions, HOB > 30 degrees
Speech therapy eval can be considered if at elevated risk
GI prophylaxis if indicated for mechanical ventilation >48 hours, prior history of GERD, stress ulcer formation in the critically ill
MAKSIM present, trend creat
Likely related to UTI
Void trials
Follow urine output, critical I/Os
Replete electrolytes as needed
UTI, UA noted/urine culture pending
Started on empiric antibiotics
Follow fever trend, WBC count
We will follow
Diagnostic Data
Chest X-Ray:
CT Scan: AP 08/26/23- 1. Small amount of gas within the urinary bladder. In the absence of recent catheterization or procedure, the most likely differential consideration is infection. There are no findings at noncontrast CT which are highly
suspicious for enterovesical fistula formation.
2. No renal, ureteral, or bladder calculi. No hydronephrosis.
3. Mild compression deformity of the L2 vertebral body. Probable chronic appearance, however the exact acuity is indeterminate at CT. If there is clinical concern for recent fracture, this could be further evaluated with lumbar spine MRI.
4. Mild splenomegaly, indeterminate etiology.
5. Diverticulosis without diverticulitis.
Echo:
PFT's:
Reports and relevant images were personally reviewed.
-----
Critical care time 50 mins -- this includes review of history, physical exam, medications, hemodynamic/ventilator parameters, laboratory data, imaging and discussion with house staff, pharmacy, respiratory therapy, train braker, and nursing.
[2023-09-18 18:18] LABS: Blood Urea Nitrogen 28 mg/dl (7-17); Calcium 8.4 mg/dl (8.4-10.2); Carbon Dioxide 20 mmol/L (22-30); Chloride 86 mmol/L (98-107); Glucose 457 mg/dl (70-99); Potassium 4.3 mmol/L (3.5-5.1); Sodium 126 mmol/L (135-145); eGFR 44.16
[2023-09-18] MEDS: TYLENOL 650 MG PO (18:40)
[2023-09-18 19:00] LABS: Glucose - Point of Care 438 mg/dl (70-99)
[2023-09-18] MEDS: NSS with KCL 20 MEQ 1000 IV (20:27)
[2023-09-18 20:48] LABS: Blood Urea Nitrogen 29 mg/dl (7-17); Calcium 8.6 mg/dl (8.4-10.2); Carbon Dioxide 20 mmol/L (22-30); Chloride 91 mmol/L (98-107); Estimated Creatinine Clearance 39 ml/min; Glucose 373 mg/dl (70-99); Sodium 125 mmol/L (135-145); eGFR 44.16
--- NOTE | 2023-09-18 21:00 | PTCARENOTE ---
Pt arrived from ED, transferred to bed. AAOX3, drowsy, easily arousable to verbal stimuli. C/o R lower leg pain, crying out in pain frequently. C/o L iv site pain and mild nausea. insulin gtt infusing at 6.4ml/hr, IVf infusing. HCG wipes completed.
New IV site placed. accucheck 296, insulin gtt decreased to 4 units per protocol. call bragg within reach. oriented to room. at the bedside.
[2023-09-18 21:14] LABS: Glucose - Point of Care 296 mg/dl (70-99)
[2023-09-18 22:05] LABS: Glucose - Point of Care 300 mg/dl (70-99)
--- NOTE | 2023-09-18 22:10 | PTCARENOTE ---
Pt SBP 70s, Pt drowsy, HR: 100-110s. Sammy Jay DATA STORAGE SPECIALIST aware, 250ml bolus ordered.
[2023-09-18] MEDS: HEPARIN 5000 UNITS SC (22:14)
[2023-09-18] MEDS: NSS 250 IV ×2 (22:19→23:59)
[2023-09-18 22:34] LABS: Lactic Acid 4.9 mmol/L (0.7-2.0)
--- NOTE | 2023-09-18 22:36 | PTCARENOTE ---
Pt's lactic 4.9, Sammy RAMOS notified. no new orders.
[2023-09-18] MEDS: NEURONTIN PO (22:58)
[2023-09-18 23:10] LABS: Glucose - Point of Care 271 mg/dl (70-99)
[2023-09-19] VITALS (83 sets, daily range): BP systolic 73–182; BP diastolic 47–108; PULSE 104–122; O2SAT 96–97; BMI 25.0
[2023-09-19 00:08] LABS: Glucose - Point of Care 234 mg/dl (70-99)
[2023-09-19 00:31] LABS: APTT 32.4 Sec (23.4-35.0)
[2023-09-19 00:47] LABS: Blood Urea Nitrogen 31 mg/dl (7-17); Calcium 8.3 mg/dl (8.4-10.2); Carbon Dioxide 22 mmol/L (22-30); Chloride 97 mmol/L (98-107); Estimated Creatinine Clearance 36 ml/min; Glucose 231 mg/dl (70-99); Magnesium 1.7 mg/dl (1.6-2.3); Phosphorus 1.2 mg/dl (2.5-4.5); Potassium 4.3 mmol/L (3.5-5.1); Sodium 129 mmol/L (135-145); eGFR 40.65
[2023-09-19 01:11] LABS: Glucose - Point of Care 191 mg/dl (70-99)
[2023-09-19] MEDS: NSS with KCL 20 MEQ IV (01:26)
[2023-09-19] MEDS: D5/0.45%NSS with KCL 20 MEQ 1000 IV ×2 (01:28→06:32)
[2023-09-19] MEDS: SODIUM PHOSPHATE 255 MEQ IV (01:52)
[2023-09-19 03:19] LABS: Glucose - Point of Care 238 mg/dl (70-99)
[2023-09-19 03:19] LABS: Glucose - Point of Care 281 mg/dl (70-99)
[2023-09-19 04:16] LABS: Glucose - Point of Care 316 mg/dl (70-99)
[2023-09-19 04:21] LABS: Hematocrit 29.6 % (37.0-47.0); Hemoglobin 9.5 g/dL (12.0-16.0); Mean Corp Hgb Conc. 32.1 g/dL (33.0-37.0); Mean Corpuscular Hgb 29.1 pg (27.0-31.0); Mean Corpuscular Volume 90.5 fL (81.0-99.0); Mean Platelet Volume 12.6 fL (7.4-10.4); Nucleated Red Blood Cells % 0 %; Platelet Count 126 10^3/uL (130-400); Red Blood Cell Count 3.27 10^6/uL (4.20-5.40); Red Cell Dist. Width 12.8 % (11.5-14.5); White Blood Cell Count 28.6 10^3/uL (4.8-10.8)
[2023-09-19 04:57] LABS: Absolute Neutrophils -Man Diff 27.7 10^3/uL (1.4-6.5); Band Neutrophils 13 % (0-3); Lymphocytes 2 % (20-51); Monocytes 1 % (2-9); Segmented Neutrophils 84 % (42-75)
[2023-09-19 04:58] LABS: Normal RBC Morphology Yes; Platelets Checked Yes; Total Cells Counted 100
[2023-09-19 05:42] LABS: Glucose - Point of Care 317 mg/dl (70-99)
[2023-09-19 05:46] LABS: Hematocrit 33.6 % (37.0-47.0); Hemoglobin 11.9 g/dL (12.0-16.0); Mean Corp Hgb Conc. 35.4 g/dL (33.0-37.0); Mean Corpuscular Volume 81.8 fL (81.0-99.0); Mean Platelet Volume 12.8 fL (7.4-10.4); Platelet Count 171 10^3/uL (130-400); Red Blood Cell Count 4.11 10^6/uL (4.20-5.40); Red Cell Dist. Width 12.2 % (11.5-14.5); White Blood Cell Count 36.3 10^3/uL (4.8-10.8)
--- NOTE | 2023-09-19 06:00 | PTCARENOTE ---
Pt tremulous, anxious, Pt crying and yelling during AccuCheck. Pt states 'I am so cold! Please cover me, you won't get any blood if I am this cold.' Tremors continue. HR:130s. Rectal temp 99.2. Medicated with prn tylenol. insulin gtt infusing. Pt
incontinent of large amount of urine, Pt changed and repositioned in bed. call bragg within reach.
[2023-09-19 06:07] LABS: Blood Urea Nitrogen 30 mg/dl (7-17); Calcium 7.9 mg/dl (8.4-10.2); Carbon Dioxide 24 mmol/L (22-30); Chloride 95 mmol/L (98-107); Estimated Creatinine Clearance 36 ml/min; Glucose 320 mg/dl (70-99); Potassium 4.7 mmol/L (3.5-5.1); Sodium 127 mmol/L (135-145); eGFR 40.65
[2023-09-19 06:39] LABS: Glucose - Point of Care 312 mg/dl (70-99)
[2023-09-19] MEDS: TYLENOL 650 MG PO ×4 (06:42→21:53)
--- NOTE | 2023-09-19 07:12 | W.PN.INTV ---
Today's Communication / Plan
Recommendations
Insulin bridge pending PO intake
E coli results on blood cultures, continue abx
Poor dentition, consider dental consult; will add Flagyl IV
Skin abscesses, wound consult
24 hours observation in case BP continues to decline
Assessment
-
57-year-old female with history of insulin-dependent diabetes with peripheral neuropathy, history of cervical cancer, presenting to ER for generalized weakness x 2 weeks. She feels she developed a UTI which caused her to feel malaise, decreased
p.o. intake, nausea and vomiting. She was unable to maintain adequate diabetic diet. Because of this she had stopped taking her insulin. On arrival to ER, blood work indicating hyperglycemia over 600 with hyponatremia, AGMA, hyperkalemia, MAKSIM.
She is started on insulin drip for DKA. She is now admitted to ICU.
Urosepsis
E coli bacteremia
Poor dentition
Acute DKA
Hyperglycemia
MAKSIM
Hyponatremia
Hyperkalemia
Leukocytosis
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
IDDM-diagnosed at last admission 06/2023, Hba1c >17%
Suspect this was ongoing/does not seek medical care regularly
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
R labial abscess
History of cervical cancer
Right Knee Arthroscopy
LEEP
Smoker
Plan
DKA, admitting BS elevated, AG >20
Started on insulin drip, can wean today following protocol, start D5 IVFs
Consult diabetic nurse for insulin recommendations
Can restart diet once able to bridge
H/o poorly controlled diabetes, hopeful transition to home meds
Admits triggers include noncompliance from UTI
HbA1c 17.1 -> 12.2
No current signs of metabolic encephalopathy or MS changes/following commands
Neuropathy of her feet are noted
Pain/sedation: PRN tylenol
RASS goals: 0
Hemodynamically stable, not requiring pressors.
Cardiac history reviewed--none
No prior ECHO for review, does not see physicians regularly
BP low, continue to monitor
Oxygen needs: on room air
Prior history of lung disease: none but she is a smoker
No prior PFTs for review
Supplemental O2 as indicated to maintain sats > 89%
CT reviewed indicating no lung findings
Diet advancement today with insulin bridge
Service Crew Leader recommendations
Aspiration precautions, HOB > 30 degrees
Speech therapy eval can be considered if at elevated risk
GI prophylaxis if indicated for mechanical ventilation >48 hours, prior history of GERD, stress ulcer formation in the critically ill
MAKSIM present, trend creat
Likely related to UTI
Void trials
Follow urine output, critical I/Os
Replete electrolytes as needed
GNB-E Coli bacteremia results
UTI, UA noted/urine culture pending
Poor dentition, consider dental consult
Add flagyl
Started on empiric antibiotics
Follow fever trend, WBC count
Diagnostic Data
Chest X-Ray:
CT Scan: AP 08/26/23- 1. Small amount of gas within the urinary bladder. In the absence of recent catheterization or procedure, the most likely differential consideration is infection. There are no findings at noncontrast CT which are highly
suspicious for enterovesical fistula formation.
2. No renal, ureteral, or bladder calculi. No hydronephrosis.
3. Mild compression deformity of the L2 vertebral body. Probable chronic appearance, however the exact acuity is indeterminate at CT. If there is clinical concern for recent fracture, this could be further evaluated with lumbar spine MRI.
4. Mild splenomegaly, indeterminate etiology.
5. Diverticulosis without diverticulitis.
Echo:
PFT's:
Reports and relevant images were personally reviewed.
-----
Critical care time 35 mins -- this includes review of history, physical exam, medications, hemodynamic/ventilator parameters, laboratory data, imaging and discussion with house staff, pharmacy, respiratory therapy, charge preparation technician, and nursing.
Subjective Dataa
Subjective Data
Date of Service:
Date of Service: September 19, 2023
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
Subjective:
remains on insulin gtt, transition per protocol
appetite low
bp low but stable
no new complaints
Objective Data
Data Reviewed
Vital Signs / I&O / Oxygen:
Vital Signs
Temp Pulse Resp BP Pulse Ox
99.2 F 137 27 182/108 97
09/19/23 06:31 09/19/23 06:30 09/19/23 06:30 09/19/23 06:30 09/19/23 06:00
Intake and Output
09/18/23 09/19/23 09/20/23
06:59 06:59 06:59
Intake Total 2827 / 2827
Output Total 0 / 0
Balance 2827 / 2827
SaO2 97
Physical Exam
General: Comfortable and Other (NAD, thin/chronically ill appearing)
HEENT: Normocephalic, Anicteric and Other (poor dentition)
Cardiovascular: S1-S2 and Regular Rhythm
Respiratory: Clear and Non-Labored Respirations
GI: Soft, Non Distended and Non Tender
Neurology: Awake, Alert, Oriented, AO x 3, No Motor Deficits and Other (b/l foot neuropathy)
Skin: Warm, Dry and Other (skin abscesses)
Labs/Micro/Reports
Lab Data
09/19/23 05:12
Laboratory Results
09/18/23
23:54
APTT 32.4
[2023-09-19] MEDS: HEPARIN 5000 UNITS SC ×3 (07:39→23:45)
[2023-09-19 07:41] LABS: Glucose - Point of Care 262 mg/dl (70-99)
[2023-09-19 08:36] LABS: Glucose - Point of Care 241 mg/dl (70-99)
--- NOTE | 2023-09-19 09:32 | PN.DE.MGMTRT ---
Insulin Management
- -
09/19/2023 Diabetes Management Consult
Patient admitted 09/17 with weakness, DKA. PMH Cervical ca, l scapular wound, labial infection, UTI. A1C on admission 12.2, cr 1.5, eGFR 40.65. Prior to admission was supposed to take lantus 9 units @ hs with 3 units novolog AC and metformin 500
BID.
She has been receiving IV insulin with DKA protocol. GAP has closed, now 8.
Alert, oriented but does not open eyes during discussion. is at bedside answering questions.
GAP closed will transition to subcutaneous insulin.
Will give 5 units lantus now, stop insulin infusion 2 hours later. Start novolog 4 units AC with low corrective and 10 units lantus @ HS. 1600 calorie diet to start at lunch. Will HOLD metformin at this time.
requested prescription for CGM. Will place in ambulatory orders but I did tell him often times insurance will require two office notes from primary care provider.
Diabetes History
- -
Type of Diabetes: 2 requiring insulin
Pre-Admission Diabetes Regimen
09/18/23 09/18/23 09/18/23
13:22 13:47 15:27
Creatinine 1.6 H 1.8 H 1.4 H
09/18/23 09/18/23 09/18/23
17:54 20:24 22:00
Creatinine 1.4 H 1.4 H Cancelled
09/18/23 09/19/23 09/19/23
23:54 00:06 04:01
Creatinine Cancelled 1.5 H Cancelled
09/19/23 09/19/23
04:01 05:12
Creatinine Cancelled 1.5 H
Lab Results
Hemoglobin A1c 12.2 % (4.0-5.6) H 09/18/23 13:47
Insulin Pump Settings
IP Diabetes Regimen
09/18/23 09/18/23 09/18/23
13:22 13:24 13:47
Glucose 680 H* 682 H*
POC Glucose > 600 H*
09/18/23 09/18/23 09/18/23
15:23 15:27 16:42
Glucose 602 H*
POC Glucose 555 H* 506 H*
09/18/23 09/18/23 09/18/23
17:54 18:58 20:24
Glucose 457 H* 373 H
POC Glucose 438 H
09/18/23 09/18/23 09/18/23
21:03 21:54 22:00
Glucose Cancelled
POC Glucose 296 H 300 H
09/18/23 09/18/23 09/18/23
22:59 23:54 23:56
Glucose Cancelled
POC Glucose 271 H 234 H
09/19/23 09/19/23 09/19/23
00:06 01:00 01:59
Glucose 231 H
POC Glucose 191 H 238 H
09/19/23 09/19/23 09/19/23
03:08 04:01 04:01
Glucose Cancelled Cancelled
POC Glucose 281 H
09/19/23 09/19/23 09/19/23
04:04 05:12 05:32
Glucose 320 H
POC Glucose 316 H 317 H
09/19/23 09/19/23 09/19/23
06:28 07:28 08:25
Glucose
POC Glucose 312 H 262 H 241 H
Patient Education
[2023-09-19] MEDS: ZOFRAN 4 MG IV ×2 (09:34→16:02)
[2023-09-19 09:40] LABS: Glucose - Point of Care 301 mg/dl (70-99)
[2023-09-19] MEDS: LANTUS 0.0500000000000000028 UNITS SC (10:38)
[2023-09-19 10:43] LABS: Glucose - Point of Care 225 mg/dl (70-99)
--- NOTE | 2023-09-19 10:50 | CM ---
CM following re: discharge planning.
Discussed in Rounds, reviewed pt's chart, met with pt and pt's at bedside.
Pt is a 57 year old female, admitted with primary dx of DKA.
Pt reports she lives with in a mobile home, 4 steps to enter, has no children. Pt admitted she struggles to manage insulin at home, used to go to [facility] and now she is going to [facility]. Pt sated she and her
do not drive and it makes difficult to keep up with appointments. Pt requested to have VN services to help with management her diabetes. A list of VN vendors provided, VN preferred. A referral to [facility] made. Pt reports she ambulates with a cane, no
VN or SNF history.
PCP: Dr. Steen [facility].
Pharmacy: [facility].
D/C plan: home with VN and family support
CM will follow with discharge plan updates as hospitalization progresses
[2023-09-19] MEDS: LEVOPHED 250 IV (11:01)
[2023-09-19] MEDS: D5/0.45%NACL 1000 IV (11:04)
[2023-09-19 11:48] LABS: Glucose - Point of Care 229 mg/dl (70-99)
[2023-09-19] MEDS: STERILE WATER FOR INJECTION 10 ML IV ×2 (11:56→19:26)
[2023-09-19] MEDS: MAXIPIME 1000 MG IV ×2 (11:56→19:26)
[2023-09-19] MEDS: NOVOLOG FLEXPEN-LOW RESISTANCE 3 UNITS SC (12:20)
[2023-09-19] MEDS: NOVOLOG FLEXPEN 4 UNITS SC ×2 (12:21→16:41)
[2023-09-19 12:36] LABS: Glucose - Point of Care 208 mg/dl (70-99)
--- NOTE | 2023-09-19 12:54 | PTCARENOTE ---
pt awake and alert , anxious, co whole body aches and pains , pt ST on monitor , BP 119/77 at 0800 then dropped down to Systolic 80s , with map >65 until 11:00 map 62 , Levophed started with goal to keep map > 65, currently on 2mcg with map 76, she
was on insulin gtt for DKA this am and her anion gap down to 8 at 0500 , she was seen by diabetic MEDICAL SECRETARY RECEPTIONIST and weaned off of gtt and onto SQ insulin at 12:30 as ordered, she is incontinent of urine , blood cultures are showing positive for E Coli , her
is at bedside and has spoke to wrapper caser and MEDICAL SECRETARY RECEPTIONIST regarding cares and concerns of home follow up with diabetic needs
--- NOTE | 2023-09-19 15:08 | W.PN.HOSP.TC ---
Today's Communication/Plan
-
continue Abx, wean pressors, continue IVF
dental Xray
Assessment / Plan
Assessment / Plan
Assessment:
Diabetic ketoacidosis
Underlying uncontrolled type 2 IDDM
- likely driven by underlying, untreated UTI, bacteremia
- s/p insulin drip
- now with gap closed will be transitioned to SC insulin + diet
- hold all home agents
- noted A1c 12. 2 from 17
- SHINGLER consulting
E. coli bacteremia from E. Coli UTI
Septic shock on pressors - initially was severe sepsis on arrival then developed shock
- wean pressors as able
- continue Cefepime - follow cultures
Poor dentition
- dental lorenz XR ordered; may need OMFS eval if infection concern
MAKSIM
Acute hyponatremia from hypovolemic
Acute hyperkalemia
Acute metabolic acidosis (Gap 26)
- acidosis resolved
- continue IVF
- continue to monitor BMP
Diabetic neuropathy
- continue Gabapentin
Acute thrombocytopenia in setting of sepsis
- monitor CBC
Hypophosphatemia
DVT ppx: SC heparin
Code: Full
Total Critical Care Time 42 minutes. I was immediately available to the patient and staff. I personally examined, reviewed labs, diagnostic images/reports, interpretations, treatment plans, discussed patient care with other providers and family
or caregivers (if patient is unable to make decisions), entered orders as appropriate and documented the medical record.
Anticipated Discharge: > 48 hours
Subjective/Interval History
-
Date of Service: September 19, 2023
no new complaints
on pressors
Objective Data
-
Labs:
Laboratory Results
09/19/23 09/19/23 09/19/23
04:01 04:01 04:01
WBC 28.6 H
Hgb 9.5 L D
Hct 29.6 L
Plt Count 126 L D
Sodium Cancelled Cancelled
Potassium Cancelled Cancelled
Chloride Cancelled
Carbon Dioxide
BUN
Creatinine
Glucose
Calcium
09/19/23 09/19/23 09/19/23
04:01 04:01 04:01
WBC
Hgb
Hct
Plt Count
Sodium
Potassium
Chloride Cancelled
Carbon Dioxide Cancelled Cancelled
BUN Cancelled Cancelled
Creatinine Cancelled
Glucose
Calcium
09/19/23 09/19/23 09/19/23
04:01 04:01 04:01
WBC
Hgb
Hct
Plt Count
Sodium
Potassium
Chloride
Carbon Dioxide
BUN
Creatinine Cancelled
Glucose Cancelled Cancelled
Calcium Cancelled Cancelled
09/19/23
05:12
WBC 36.3 H
Hgb 11.9 L D
Hct 33.6 L
Plt Count 171 D
Sodium 127 L
Potassium 4.7
Chloride 95 L
Carbon Dioxide 24
BUN 30 H
Creatinine 1.5 H
Glucose 320 H
Calcium 7.9 L
Vital Signs:
Vital Signs
Temp Pulse Resp BP Pulse Ox
98.1 F 95 20 101/67 96
09/19/23 11:51 09/19/23 14:30 09/19/23 14:30 09/19/23 14:30 09/19/23 14:30
I&O
09/18/23 09/19/23 09/20/23
06:59 06:59 06:59
Intake Total 2827 / 3030 1506 / 1506
Output Total 0 / 0
Balance 2827 / 3030 1506 / 1506
Physical Exam
-
General: No Apparent Distress
HEENT: Normocephalic and Other (poor dentition)
Respiratory: Negative Wheezes or Rales
Cardiac: Regular Rhythm and S1/S2
GI: Soft and Nontender
Neuro: AO x 3
Hematologic / Lymphatic: No Lymphadenopathy
Psych: Calm
Data Reviewed
-
Critical Care Time (in minutes): 42
Labs: Labs Reviewed by me
--- NOTE | 2023-09-19 15:20 | WOUNDNOTE ---
MARYBEL RN note: Patient admitted with diabetic ketoacidosis.
See H&P for complete history. Lives at home with .
PMH: NIDDM,DVT,Cervical cancer surgery, Labia abscess, cellulitis, UTI and L upper back abscess I&D.
Wound Location and type/assessment: Patient known to service last seen 07/12/23 for L upper back abscess. Since then wound has healed, light hector scar visible, no induration and no pain. Patient able to turn self in bed, sacrum intact, sacral
silicone foam in use. Heels are intact. R foot with scattered patches of redness and patient reports neuropathy, redness less compared to last seen. Leg elevated on pillow.
Appetite: Good. Hgb A1c 12.2
Pressure redistribution devices in place: Patient is on centrella max air bed, can use Accumax when transferred to floor.
Plan: leave open to air can moisturize daily.
Updated nurse Susana, will sign off unless needed.
[2023-09-19] MEDS: FLAGYL 500 MG 100 IV ×2 (16:22→23:46)
[2023-09-19] MEDS: NOVOLOG FLEXPEN-LOW RESISTANCE 5 UNITS SC (16:42)
[2023-09-19 16:51] LABS: Glucose - Point of Care 352 mg/dl (70-99)
--- NOTE | 2023-09-19 17:05 | PTCARENOTE ---
pt nauseas and vomited small amt of bile , Zofran given as ordered, oral antibiotics changed to IV , pt is now resting comfortable in be and no further nausea , pt oral dentition is painful with mouth care, noticed pt incisors are black and
misshapen with reddened gums , pt to have an x-ray panoramic x-ray
--- NOTE | 2023-09-19 20:00 | PTCARENOTE ---
Rec'd pt resting in bed, has gen aches when repos, R LE neuropathy, oriented, cooperative, drowsy, afeb, NSR, to keep map > 65 with levophed, presently at 1 clay, see flow sheet for titrations, weak distal pulses, R LE red, no edema, skin warm/dry,
RA, lungs decr in bases, sat 97, hypo bowel sounds, no bm,abd obese, soft, nontender, no n/v, no appetite, inc of urine, attends changed, has urgency so cannot use the bed lorenz, does not want to use the purewick
--- NOTE | 2023-09-19 20:30 | PTCARENOTE ---
IVF changed to ns at 80/hr per order, levophed off
[2023-09-19] MEDS: NSS 1000 IV (20:33)
[2023-09-19] MEDS: NEURONTIN 200 MG PO (21:53)
--- NOTE | 2023-09-19 21:56 | PTCARENOTE ---
tylenol 650mg po given for gen body aches
[2023-09-19 22:00] LABS: Glucose - Point of Care 323 mg/dl (70-99)
[2023-09-19 22:15] LABS: Blood Urea Nitrogen 30 mg/dl (7-17); Calcium 7.5 mg/dl (8.4-10.2); Carbon Dioxide 20 mmol/L (22-30); Chloride 95 mmol/L (98-107); Estimated Creatinine Clearance 42 ml/min; Glucose 305 mg/dl (70-99); Sodium 123 mmol/L (135-145); eGFR 48.26
[2023-09-19] MEDS: LANTUS 0.100000000000000006 UNITS SC (22:23)
[2023-09-19] MEDS: NOVOLOG FLEXPEN 5 UNITS SC (22:38)
--- NOTE | 2023-09-19 22:38 | PTCARENOTE ---
novolog 5 units sc given per order
[2023-09-20] VITALS (36 sets, daily range): BP systolic 84–138; BP diastolic 50–83; BMI 25.7
--- NOTE | 2023-09-20 | PTCARENOTE ---
sys reviewed, changes noted
[2023-09-20] MEDS: MAXIPIME 1000 MG IV (03:19)
[2023-09-20] MEDS: STERILE WATER FOR INJECTION 10 ML IV (03:19)
[2023-09-20 03:39] LABS: % Basophils 0.2 % (0-2); % Eosinophils 0.5 % (0-6); % Monocytes 3.7 % (1.7-9.3); % Neutrophils 89.6 % (42.2-75.2); Absolute Basophils 0.1 10^3/uL (0-0.2); Absolute Eosinophils 0.1 10^3/uL (0-0.7); Absolute Immature Granulocytes 0.6 10^3/uL (0-0.05); Absolute Lymphocytes 1.2 10^3/uL (1.2-3.4); Absolute Monocytes 1.1 10^3/uL (0.1-0.6); Absolute Neutrophils 27.2 10^3/uL (1.4-6.5); Hematocrit 33.3 % (37.0-47.0); Hemoglobin 11.5 g/dL (12.0-16.0); Mean Corp Hgb Conc. 34.5 g/dL (33.0-37.0); Mean Corpuscular Hgb 28.5 pg (27.0-31.0); Mean Corpuscular Volume 82.4 fL (81.0-99.0); Mean Platelet Volume 11.9 fL (7.4-10.4); Nucleated Red Blood Cells % 0 %; Platelet Count 120 10^3/uL (130-400); Red Blood Cell Count 4.04 10^6/uL (4.20-5.40); Red Cell Dist. Width 12.1 % (11.5-14.5); White Blood Cell Count 30.3 10^3/uL (4.8-10.8)
--- NOTE | 2023-09-20 04:10 | PTCARENOTE ---
sys reviewed, lungs decr in bases, fine R base crackles, CHG bath done, linens changed
[2023-09-20 04:23] LABS: Blood Urea Nitrogen 28 mg/dl (7-17); Carbon Dioxide 18 mmol/L (22-30); Chloride 103 mmol/L (98-107); Estimated Creatinine Clearance 45 ml/min; Glucose 231 mg/dl (70-99); Magnesium 1.6 mg/dl (1.6-2.3); Potassium 4.2 mmol/L (3.5-5.1); Sodium 129 mmol/L (135-145); eGFR 53.13
[2023-09-20] MEDS: CALCIUM GLUCONATE 100 IV (06:12)
--- NOTE | 2023-09-20 06:13 | PTCARENOTE ---
2 gm jazz gluc hung over 1 hr per order
[2023-09-20] MEDS: MAGNESIUM SULFATE 102 GRAMS IV (07:08)
--- NOTE | 2023-09-20 07:09 | PTCARENOTE ---
1 gm mag sulfate hung over 1hr per order
--- NOTE | 2023-09-20 07:16 | W.PN.INTV ---
Today's Communication / Plan
Recommendations
doing well today, off pressor
abx continued, dental xrays
pt/ot evals, OOB
transitioned to insulin sq, but her PO intake remains poor, dietary consult placed
can otherwise likely go to tele, we will sign off upon transfer
Assessment
-
57-year-old female with history of insulin-dependent diabetes with peripheral neuropathy, history of cervical cancer, presenting to ER for generalized weakness x 2 weeks. She feels she developed a UTI which caused her to feel malaise, decreased
p.o. intake, nausea and vomiting. She was unable to maintain adequate diabetic diet. Because of this she had stopped taking her insulin. On arrival to ER, blood work indicating hyperglycemia over 600 with hyponatremia, AGMA, hyperkalemia, MAKSIM.
She is started on insulin drip for DKA. She is now admitted to ICU.
Urosepsis
E coli bacteremia
Poor dentition
Acute DKA
Hyperglycemia
MAKSIM
Hyponatremia
Hyperkalemia
Leukocytosis
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
IDDM-diagnosed at last admission 06/2023, Hba1c >17%
Suspect this was ongoing/does not seek medical care regularly
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
R labial abscess
History of cervical cancer
Right Knee Arthroscopy
LEEP
Smoker
Plan
DKA, admitting BS elevated, AG >20
Started on insulin drip, this has been transitioned to SQ
Diabetic nurse following for further adjustments
Her appetite has been poor, IVF continued
H/o poorly controlled diabetes
Admits triggers include noncompliance from UTI
HbA1c 17.1 -> 12.2
No current signs of metabolic encephalopathy or MS changes/following commands
Neuropathy of her feet are noted
Pain/sedation: PRN tylenol
RASS goals: 0
Hemodynamically stable, not requiring pressors.
Cardiac history reviewed--none
No prior ECHO for review, does not see physicians regularly
BP low, continue to monitor
Oxygen needs: on room air
Prior history of lung disease: none but she is a smoker
No prior PFTs for review
Supplemental O2 as indicated to maintain sats > 89%
CT reviewed indicating no lung findings
Diet advancement today, she has poor appetite
Slot Router recommendations/consult placed
Aspiration precautions, HOB > 30 degrees
Speech therapy eval can be considered if at elevated risk
GI prophylaxis if indicated for mechanical ventilation >48 hours, prior history of GERD, stress ulcer formation in the critically ill
MAKSIM present, trend creat
Likely related to UTI
Void trials
Follow urine output, critical I/Os
Replete electrolytes as needed
GNB-E Coli bacteremia results
UTI, UA noted/urine culture pending
Poor dentition, consider dental consult, xray planning
Continue flagyl
Follow fever trend, WBC count
Diagnostic Data
Chest X-Ray:
CT Scan: AP 08/26/23- 1. Small amount of gas within the urinary bladder. In the absence of recent catheterization or procedure, the most likely differential consideration is infection. There are no findings at noncontrast CT which are highly
suspicious for enterovesical fistula formation.
2. No renal, ureteral, or bladder calculi. No hydronephrosis.
3. Mild compression deformity of the L2 vertebral body. Probable chronic appearance, however the exact acuity is indeterminate at CT. If there is clinical concern for recent fracture, this could be further evaluated with lumbar spine MRI.
4. Mild splenomegaly, indeterminate etiology.
5. Diverticulosis without diverticulitis.
Echo:
PFT's:
Reports and relevant images were personally reviewed.
-----
Critical care time 35 mins -- this includes review of history, physical exam, medications, hemodynamic/ventilator parameters, laboratory data, imaging and discussion with house staff, pharmacy, respiratory therapy, health services information specialist, and nursing.
Subjective Dataa
Subjective Data
Date of Service:
Date of Service: September 20, 2023
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
Subjective:
no new events
off pressors
complains of pain in LEs
Objective Data
Data Reviewed
Vital Signs / I&O / Oxygen:
Vital Signs
Temp Pulse Resp BP Pulse Ox
97.8 F 83 17 99/68 97
09/20/23 04:00 09/20/23 06:00 09/20/23 06:00 09/20/23 06:00 09/20/23 06:00
Intake and Output
09/19/23 09/20/23 09/21/23
06:59 06:59 06:59
Intake Total 2827 / 3030 3103.6 / 3283.6 180 / 180
Output Total 0 / 0
Balance 2827 / 3030 3103.6 / 3283.6 180 / 180
SaO2 97
Physical Exam
General: Comfortable and Other (NAD, thin/chronically ill appearing)
HEENT: Normocephalic, Anicteric and Other (poor dentition)
Cardiovascular: S1-S2 and Regular Rhythm
Respiratory: Clear and Non-Labored Respirations
GI: Soft, Non Distended and Non Tender
Neurology: Awake, Alert, Oriented, AO x 3, No Motor Deficits and Other (b/l foot neuropathy)
Skin: Warm, Dry and Other (skin abscesses)
Labs/Micro/Reports
Lab Data
09/20/23 03:15
09/20/23 03:15
Microbiology
09/18/23 13:47 Urine Urine Culture - Preliminary
Escherichia coli
09/18/23 15:27 Blood/Venous Blood Culture - Preliminary
Escherichia coli
09/18/23 15:27 Blood/Venous Gram Stain - Preliminary
09/18/23 15:27 Blood/Venous Blood Culture - Preliminary
Positive culture in progress
09/18/23 15:27 Blood/Venous Gram Stain - Preliminary
--- NOTE | 2023-09-20 08:01 | PN.DE.MGMTRT ---
Insulin Management
- -
09/20/2023 Diabetes Management Consult Follow up
Patient admitted 09/17 with weakness, DKA. PMH Cervical ca, l scapular wound, labial infection, UTI. A1C on admission 12.2, cr 1.5, eGFR 40.65. Prior to admission was supposed to take lantus 9 units @ hs with 3 units novolog AC and metformin 500
BID.
She has been receiving IV insulin with DKA protocol. GAP has closed, now 8.
Alert, oriented but does not open eyes during discussion. is at bedside answering questions.
GAP closed yesterday, transitioned to subcutaneous insulin.
Received novolog 4 units AC with low corrective and 10 units lantus @ HS. Fasting glucose this AM 231. Will increase HS lantus to 15 units. Although appetite documented as poor pre meal glucose > 300, HS glucose 325. Will increase AC novolog to
8 units with low corrective insulin. Will continue 1600 calorie diet. Will continue to HOLD metformin at this time.
requested prescription for CGM. Will place in ambulatory orders but I did tell him often times insurance will require two office notes from primary care provider.
Diabetes History
- -
Type of Diabetes: 2 requiring insulin
Pre-Admission Diabetes Regimen
09/19/23 09/19/23 09/20/23
08:00 21:49 03:15
Creatinine Cancelled 1.3 H 1.2 H
Lab Results
Hemoglobin A1c 12.2 % (4.0-5.6) H 09/18/23 13:47
Insulin Pump Settings
IP Diabetes Regimen
09/19/23 09/19/23 09/19/23
08:00 08:25 09:29
Glucose Cancelled
POC Glucose 241 H 301 H
09/19/23 09/19/23 09/19/23
10:31 11:37 12:24
Glucose
POC Glucose 225 H 229 H 208 H
09/19/23 09/19/23 09/20/23
16:40 21:49 03:15
Glucose 305 H 231 H
POC Glucose 352 H 323 H
Meal type: Lunch
Amount consumed: 25%
Patient Education
[2023-09-20] MEDS: NSS 1000 IV (08:10)
[2023-09-20 08:13] LABS: Glucose - Point of Care 215 mg/dl (70-99)
[2023-09-20] MEDS: FLAGYL 500 MG 100 IV (08:21)
[2023-09-20] MEDS: NOVOLOG FLEXPEN-LOW RESISTANCE 2 UNITS SC (08:22)
[2023-09-20] MEDS: HEPARIN 5000 UNITS SC ×3 (08:22→23:22)
[2023-09-20] MEDS: NOVOLOG FLEXPEN 8 UNITS SC ×2 (08:23→13:21)
[2023-09-20] MEDS: TYLENOL 650 MG PO ×2 (08:27→18:19)
--- NOTE | 2023-09-20 09:00 | PTCARENOTE ---
Rec'd pt at 0730 awake resting in bed, alert and oriented but overall weak and tends to moan/wimper whenever touched or moved. Does get anxious at intervals but calms with reassurance. C/O whole body aches and pains- most notably her R leg which she
states has neuropathy and gout. R leg is sl pink and warm. R foot with tr edema. Medicated with Tylenol 650 mg po at 0830 for the discomfort. Needs encouragement to do activities- although said she did want to be able to use the bathroom at some
point. Incont of urine x2 this am and purewick placed until able to see how pt tolerates standing and getting oob. Pt states she has urgency with urination. Skin is pale wm and dry. L upper back wound is not open- purplish in color. Respirs are
unlabored on RA with sats of 98%. Fine R base crackles noted. Denies shortness of breath. Monitor SR. VS as documented. + pulses. DP's are weak but palp. Abd is soft. Pt c/o intermittent nausea and tends to gag intermittently. 'spit up' scant amts
of clear mucous but is able to keep water down without vomiting. States she has no appetite but is going to try eggs for breakfast. NSS infusing via R wrist IV site. MAG 1 gm rider completed. Mouth and skin care given. Pt with poor dentition.
Repositioned. Call bragg in reach. Plan of care reviewed with pt including need or oral xrays.
[2023-09-20] MEDS: NOVOLOG FLEXPEN SC ×2 (09:22→17:46)
--- NOTE | 2023-09-20 09:30 | CON.ID ---
Consultation
-
Date/Time Consultation Requested: 09/19/23 17:57
Date/Time Consultation Performed: 09/20/23 9:30
Requesting Provider: Dr Aguero
Performing Provider: Dr Morton
Reason for Consultation: E. coli bacteremia from E. Coli UTI, shock
Chief Complaint / Past History
Chief Complaint
weakness
History of Present Illness
Ms Reed is a 57 year old female with history of cervical cancer, DM recently diagnosed - started on insulin, who presented here for a two week history of weakness. She developed a UTI and was started on unknown oral antibiotic however did not take
it due to poor appetite. THen developed weakness, malodrous urine, nausea/vomiting and polyuria, polydipsia.
Since arrival here Tmax 100.2, bp intermittent mild hypotension, wbc 30 similar to arrival, hgb 11, plt 120, L shift is noted, Cr 1.5 now 1.2, initially CO2 19 now 18, lactic acid 4.9, t bili 0.8, ast 14, alt 14, alk phos 137, UA wbc 80-90, bhb 7.8,
panellipse: read pending, my read numerous broken teeth, I cannot comment on possible abscesses, CXR: clear lung noriega, urine culture 100K E coli, blood cultures x2 E coli, 09/17 received ceftriaxone, 09/18 was on cefepime on on keflex and
metronidazole, ID is consulted for assistance with management.
Past History
Additional Past Medical History:
IDDM, cervical cancer hx
Additional Past Surgical History:
gynecological
Allergy History:
amoxicillin Allergy (Verified 09/18/23 13:15)
Itching
codeine Allergy (Verified 09/18/23 13:15)
Nausea
Medications Reviewed: Yes
Social History
Tobacco: Smoker
Alcohol: None
Drug: None
Family History
Family History: Not Pertinent
Review of Systems
Review of Systems
General: Change in Appetite; Negative Fever or Chills
All systems: All other systems were reviewed and were negative
Vital Signs
Temp Pulse Resp BP Pulse Ox
97.8 F 83 16 117/74 98
09/20/23 07:37 09/20/23 08:00 09/20/23 08:00 09/20/23 08:00 09/20/23 08:00
Physical Exam
Physical Exam
Constitutional: No Acute Distress
Cardiovascular: Regular Rate and S1/S2; Negative Murmur or Rub
Pulmonary: Clear and Symmetric; Negative Wheezes, Rales or Rhonchi
Gastrointestinal: Soft, Non Tender, Non Distended and Normal Bowel Sounds
Genito-Urinary: Negative Suprapubic Tenderness or CVA Tenderness
Skin: Warm and Dry; Negative Rash or Jaundice
Lab / Diagnostic Study Results
09/20/23 03:15
09/20/23 03:15
Abs Immat Gran (auto) 0.6 10^3/uL (0-0.05) H 09/20/23 03:15
Absolute Neuts (auto) 27.2 10^3/uL (1.4-6.5) H 09/20/23 03:15
Absolute Lymphs (auto) 1.2 10^3/uL (1.2-3.4) 09/20/23 03:15
Absolute Monos (auto) 1.1 10^3/uL (0.1-0.6) H 09/20/23 03:15
Absolute Basos (auto) 0.1 10^3/uL (0-0.2) 09/20/23 03:15
Total Counted 100 09/19/23 04:01
Immature Gran % 2.0 % (0-0.5) H 09/20/23 03:15
Neutrophils % 89.6 % (42.2-75.2) H 09/20/23 03:15
Lymphocytes % 4.0 % (20.5-51.1) L 09/20/23 03:15
Monocytes % 3.7 % (1.7-9.3) 09/20/23 03:15
Eosinophils % 0.5 % (0-6) 09/20/23 03:15
Basophils % 0.2 % (0-2) 09/20/23 03:15
Abs Neuts (Manual) 27.7 10^3/uL (1.4-6.5) H 09/19/23 04:01
Segmented Neutrophils 84 % (42-75) H 09/19/23 04:01
Band Neutrophils 13 % (0-3) H 09/19/23 04:01
Lymphocytes (Manual) 2 % (20-51) L 09/19/23 04:01
Lactic Acid 4.9 mmol/L (0.7-2.0) H* 09/18/23 22:08
Urine WBC 80-90 /HPF (0-5) A 09/18/23 13:47
Ur Squamous Epith Cells >30 /LPF (Few) 09/18/23 13:47
Microbiology Results
Micro:
09/18/23 13:47 Urine Culture - Final
Urine Escherichia coli
09/18/23 15:27 Blood Culture - Preliminary
Blood/Venous Escherichia coli
Gram Stain - Final
09/18/23 15:27 Blood Culture - Preliminary
Blood/Venous Escherichia coli
Gram Stain - Final
Assessment / Plan
UTI due to E coli
Leukocytosis - persistent
DKA
DM2 - on insulin, recently diagnosed
Poor dentition
- reports malodrous urine resolved, no CVA tenderness or complaints to suggest pyelonephritis
- blood and urine cultures notable for susceptible E coli
- await formal read of the panellipse
- suspect UTI driving symptomatology
- no need to repeat blood cultures for gram negatives
- switch to cefazolin 2 gm iv q8 hrs for now, continue metronidazole 500 mg PO q8hrs
- follow clinically
--- NOTE | 2023-09-20 10:30 | PTCARENOTE ---
Additional assessment- gait is weak but able to bear wt - takes only a few short steps and then needs to sit down
--- NOTE | 2023-09-20 10:30 | PTCARENOTE ---
Poor appetite for breakfast- ate nothing. Spoke to pt that there was conversation about a feeding tube if she couldn't eat and pt immediately said 'no' she is not getting a feeding tube and became tearful. Support given. Pt then assisted with
assist of 1 into the wheelchair and taken to xray for panelipse films- while pt stated it was uncomfortable, did tolerate. After returning to ICU assisted with assist of 1 to the [facility] for yellow urine and is currently oob in the chair. Does get
intermittent waves of nausea that subside. Is worried about her R foot that she feels is very swollen. R foot as noted does have a trace edema and entire R lower leg but especially her foot is very sensitive to touch. Pt states it has been examined
multiple times. Call bragg in reach. .
--- NOTE | 2023-09-20 12:15 | PTCARENOTE ---
Remains resting oob in the chair. Pt and verbalizing about the issues that arouse when she was last discharged from . Ultimately want to find a primary care doctor in the area. Did update Dr. Aguero. On BSC for yellow urine. Is tolerating
water. Overall states she is just tired but is trying to move more. Gait as noted is very weak but is able to bear wt and take a few steps. R leg/foot continues to be sore and sensitive whenever touched. Call bragg in reach
[2023-09-20 12:41] LABS: Glucose - Point of Care 193 mg/dl (70-99)
[2023-09-20] MEDS: ANCEF 10 IV ×2 (12:42→20:48)
[2023-09-20] MEDS: NOVOLOG FLEXPEN-LOW RESISTANCE 1 UNITS SC (13:21)
--- NOTE | 2023-09-20 13:43 | W.PN.HOSP.TC ---
Today's Communication/Plan
-
await dental Xray
continue IV Abx per ID
stop IVF; use prn midodrine
OOBTC/PT/OT
Assessment / Plan
Assessment / Plan
Assessment:
Diabetic ketoacidosis
Underlying uncontrolled type 2 IDDM
- likely driven by underlying, untreated UTI, bacteremia
- s/p insulin drip
- continue insulin adjustments per SENIOR MANAGEMENT CONSULTANT
- hold all home Metformin for now
- noted A1c 12. 2 from 17
E. coli bacteremia from E. Coli UTI
Septic shock on pressors - initially was severe sepsis on arrival then developed shock
- pff pressors today
- continue IVF; lower rate
- continue Ancef per ID
Poor dentition
- dental lorenz XR pending; may need OMFS eval if infection concern
- continue Flagyl day 2
MAKSIM
Acute hyponatremia from hypovolemic
Acute hyperkalemia
Acute metabolic acidosis (Gap 26)
- acidosis resolved
- continue IVF; lower rate
- continue to monitor BMP
Diabetic neuropathy
- continue Gabapentin
Acute thrombocytopenia in setting of sepsis
- monitor CBC; no evidence of bleeding
Hypophosphatemia
- repleted x 1; await repeat level
Hypocalcemia - repleted
DVT ppx: SC heparin
Code: Full
Total Critical Care Time 42 minutes. I was immediately available to the patient and staff. I personally examined, reviewed labs, diagnostic images/reports, interpretations, treatment plans, discussed patient care with other providers and family
or caregivers (if patient is unable to make decisions), entered orders as appropriate and documented the medical record.
Dispo: transfer to tele
Anticipated Discharge: 24 - 48 hours
Subjective/Interval History
-
Date of Service: September 20, 2023
poor limited intake
declines feeding tube
Objective Data
-
Labs:
Laboratory Results
09/20/23
03:15
WBC 30.3 H
Hgb 11.5 L
Hct 33.3 L
Plt Count 120 L D
Sodium 129 L
Potassium 4.2
Chloride 103
Carbon Dioxide 18 L
BUN 28 H
Creatinine 1.2 H
Glucose 231 H
Calcium 7.0 L
Vital Signs:
Vital Signs
Temp Pulse Resp BP Pulse Ox
97.7 F 83 14 95/69 98
09/20/23 11:46 09/20/23 12:30 09/20/23 12:30 09/20/23 12:30 09/20/23 12:30
I&O
09/19/23 09/20/23 09/21/23
06:59 06:59 06:59
Intake Total 2827 / 3030 3103.6 / 3283.6 780 / 780
Output Total 0 / 0 300 / 300
Balance 2827 / 3030 3103.6 / 3283.6 480 / 480
Physical Exam
-
General: No Apparent Distress
HEENT: Normocephalic, Atraumatic and Other (very poor dentition)
Cardiac: Regular Rhythm and S1/S2
GI: Soft
Genito-urinary: No Costovertebral Tender
Neuro: AO x 3
Hematologic / Lymphatic: No Lymphadenopathy
Psych: Calm
Data Reviewed
-
Total Time Spent with Patient (in minutes): 42
Labs: Labs Reviewed by me
[2023-09-20] MEDS: ZOFRAN 4 MG IV ×2 (13:48→20:54)
--- NOTE | 2023-09-20 13:50 | PTCARENOTE ---
While is tolerating water- tried some yogurt for lunch and almost immediately vomited about 120 mls of yogurt mixed with bile. Zofran 4 mg IV given. Pt remains resting oob in the chair.
[2023-09-20 14:37] LABS: Phosphorus 1.9 mg/dl (2.5-4.5)
--- NOTE | 2023-09-20 14:58 | CM ---
CM following re: discharge planning.
Discussed in Rounds, reviewed pt's chart, met with pt and pt's at bedside. Per rounds meeting, doing well, off pressor, continue IV antibiotics, continue supportive care, downgraded from ICU level of care.
PT and OT evaluations noted - SNF level of care recommended. Pt is aware, expressed her agreement and following SNFs preferred: [facility], [facility], [facility]. A referral to above SNFs made.
D/C plan; preferred SNF.
CM will follow to assist pt with discharge to a preferred SNF.
--- NOTE | 2023-09-20 15:31 | PTCARENOTE ---
Resting. Nausea a little better since the Zofran
[2023-09-20] MEDS: FLUSH (NSS) 2 FLUSH IV (15:40)
[2023-09-20] MEDS: FLUSH (NSS) 1 FLUSH IV (15:41)
--- NOTE | 2023-09-20 15:43 | PTCARENOTE ---
On BSC for yellow urine. IV fluids capped. No other changes
[2023-09-20] MEDS: FLAGYL 500 MG PO ×2 (15:51→22:41)
[2023-09-20] MEDS: SODIUM PHOSPHATE 255 MEQ IV (16:13)
--- NOTE | 2023-09-20 16:48 | PTCARENOTE ---
20 meq Na+ Phos rider hung via R wrist IV site. Report given to 4th floor. No other changes. Will transfer pt via wheelchair.
[2023-09-20 17:04] LABS: Glucose - Point of Care 142 mg/dl (70-99)
[2023-09-20] MEDS: NOVOLOG FLEXPEN-LOW RESISTANCE SC (17:46)
--- NOTE | 2023-09-20 19:00 | TRANSFER ---
1730 Pt arrived from ICU via w/c, assisted pt in bed. Pt alert and oriented. VS stable. Pulse ox 98% on room air. Noted orders as per MD.
Placed pt on heart monitor (heart rythym normal sinus). Pt did not want to order dinner meal, appetite poor.
1800 Pt c/o headache, tylenol given as ordered,continue to monitor pt closely.
[2023-09-20 22:10] LABS: Glucose - Point of Care 164 mg/dl (70-99)
[2023-09-20] MEDS: LANTUS 0.149999999999999994 UNITS SC (22:41)
[2023-09-20] MEDS: NEURONTIN 200 MG PO (22:41)
[2023-09-21] VITALS (7 sets, daily range): BP systolic 82–101; BP diastolic 54–68; PULSE 109–140; O2SAT 95
[2023-09-21] MEDS: TYLENOL 650 MG PO (01:46)
[2023-09-21] MEDS: ProAmatine 5 MG PO ×2 (04:33→23:26)
[2023-09-21] MEDS: ANCEF 10 IV ×3 (04:33→20:21)
[2023-09-21 07:26] LABS: Glucose - Point of Care 170 mg/dl (70-99)
--- NOTE | 2023-09-21 07:46 | PN.DE.MGMTRT ---
Insulin Management
- -
09/21/2023: Diabetes Management F/U:
Patient admitted 09/17 with weakness, DKA treated with DKA protocol. PMH: Cervical ca, R labial abscess, Smoker, UTI, IDDM with Diabetic Neuropathy-diagnosed at last admission 06/2023, A1C >17% at the time. Suspect this was ongoing/does not seek
medical care regularly. Current A1C 12.2%, Cr 1.8-->1.5-->1.2, eGFR 53.13. Prior to admission was supposed to take Lantus 9 units @ hs with 3 units NovoLog AC and Metformin 500 BID.
Anion GAP closed on 09/18 and pt was transitioned to SQ insulin.
Pt awake, resting in bed, does not open eyes during discussion.
Insulin dose was adjusted yesterday. Premeal glucose has improved to 142 to 215, FBG 170.
Received Lantus 15 units @ HS and NovoLog 8 units at lunch yesterday, no other insulin was given due to poor appetite and no food consumption.
Will make no changes to current regimen: NovoLog 8 units AC and Lantus 15 units @ HS. Will continue to HOLD metformin at this time.
Please HOLD standing dose of NovoLog if pt does not eat meal.
requested prescription for CGM, order was added to ambulatory orders. He is aware that insurance will require two office notes from primary care provider.
Diabetes History
- -
Type of Diabetes: 2 requiring insulin
Pre-Admission Diabetes Regimen
Lab Results
Hemoglobin A1c 12.2 % (4.0-5.6) H 09/18/23 13:47
Insulin Pump Settings
IP Diabetes Regimen
09/20/23 09/20/23 09/20/23
08:02 12:29 16:53
POC Glucose 215 H 193 H 142 H
09/20/23 09/21/23
22:09 07:25
POC Glucose 164 H 170 H
Meal type: Lunch
Meal type: Breakfast
Amount consumed: 0
Amount consumed: 0
Patient Education
[2023-09-21] MEDS: ZOFRAN 4 MG IV ×2 (08:07→21:24)
[2023-09-21] MEDS: HEPARIN 5000 UNITS SC ×2 (08:08→16:35)
[2023-09-21] MEDS: NOVOLOG FLEXPEN SC ×3 (09:00→19:12)
[2023-09-21] MEDS: NOVOLOG FLEXPEN-LOW RESISTANCE SC ×3 (09:00→19:12)
--- NOTE | 2023-09-21 09:37 | PN.CDI ---
CDI
- -
CDI:
Physician Documentation Request
Admit Date: 09/18/23 15:43
Dear Doctor More,
Please review the following and provide your response in the progress notes.
Clinical Indicators:
- 09/17-09/18 8.5L IVF given
Laboratory Tests
09/18/23
22:08
Lactic Acid 4.9 H*
Please provide a diagnosis for the above lab values that were monitored and treatment rendered:
Lactic acidosis
Clinically insignificant abnormal lab value
Other
Use of terms such as suspected, likely, concern for, or probable (associated with a specific diagnosis that is being evaluated, monitored, or treated as if it exists) are acceptable and can be coded in the inpatient setting, when documented at the
time of discharge.
Thank you,
Geena Presley RN
CDI Specialist
Please use your independent medical judgment in providing your response.
--- NOTE | 2023-09-21 09:55 | CM ---
Addendum entered by Keyonna Fermin 09/21/23 15:39:
Per admissions at [facility] patient has a open access plan and can go to a skilled facility, call [phone] for skilled Auth.
Original Note:
Chart reviewed and recommendation on 09/18 by physical therapy is for skilled placement. Referrals sent to [facility], [facility] and [facility] by previous director of casework department. marketing planning manager reached out to admissions at [facility] and [facility] to see if patient's insurance has a contract with these facilities.
Plan; Skilled placement, need to see if patient's insurance has a skilled benefit.
[2023-09-21] MEDS: FLAGYL 500 MG PO ×3 (10:59→23:26)
--- NOTE | 2023-09-21 11:53 | W.PN.HOSP.TC ---
Today's Communication/Plan
-
EKG then standing Reglan for likely gastroparesis
colchicine for gout
await AM labs
Assessment / Plan
Assessment / Plan
Assessment:
Diabetic ketoacidosis
Underlying uncontrolled type 2 IDDM
- likely driven by underlying, untreated UTI, bacteremia
- s/p insulin drip
- continue insulin adjustments per BROADCAST OPERATIONS DIRECTOR
- hold all home Metformin for now
- noted A1c 12.2 from 17
E. coli bacteremia from E. Coli UTI
Septic shock on pressors - initially was severe sepsis on arrival then developed shock
- s/p pressors
- continue IVF; lower rate
- continue Ancef, day 3 Abx per ID
Acute RLE Ankle gout
- start renally dosed colchicine
- may need to consider steroids if intolerant of colchicine
Poor dentition
- dental lorenz XR: The patient is partially edentulous. Probable impacted left maxillary molar into the inferior aspect of the left maxillary sinus. No suspicious periapical lucencies. No displaced fractures. No suspicious calcifications seen to
suggest sialolithiasis. Visualized sinuses appear clear.
- continue Flagyl day 3
Nausea
- passing stools/gas
- likely gastroparesis
- start standing Reglan 5mg q6h IV
MAKSIM
Acute hyponatremia from hypovolemic
Acute hyperkalemia
Acute metabolic acidosis (Gap 26)
- acidosis resolved
- continue IVF; lower rate
- continue to monitor BMP
Diabetic neuropathy
- continue Gabapentin
Acute thrombocytopenia in setting of sepsis
- monitor CBC; no evidence of bleeding
Hypophosphatemia
- repleted x 1; await repeat level
Hypocalcemia - repleted
DVT ppx: SC heparin
Code: Full
Anticipated Discharge: > 48 hours
Subjective/Interval History
-
Date of Service: September 21, 2023
reports ongoing nausea/vomiting and also R ankle pain, reports hx of gout with similar attacks
Objective Data
-
Labs:
Laboratory Results
09/21/23
06:00
WBC Pending
Hgb Pending
Hct Pending
Plt Count Pending
Sodium Pending
Potassium Pending
Chloride Pending
Carbon Dioxide Pending
BUN Pending
Creatinine Pending
Glucose Pending
Calcium Pending
Vital Signs:
Vital Signs
Temp Pulse Resp BP Pulse Ox
97.9 F 80 18 94/68 96
09/21/23 07:30 09/21/23 07:30 09/21/23 07:30 09/21/23 07:30 09/21/23 07:30
I&O
09/20/23 09/21/23 09/22/23
06:59 06:59 06:59
Intake Total 3103.6 / 3283.6 2530 / 2530
Output Total 820 / 820
Balance 3103.6 / 3283.6 1710 / 1710
Physical Exam
-
General: No Apparent Distress
HEENT: Normocephalic and Atraumatic
Respiratory: Negative Wheezes
Cardiac: Regular Rhythm
GI: Soft and Nontender
Musculoskeletal: Other (R ankle edema, warmth, tender to touch)
Neuro: AO x 3
Psych: Calm
Data Reviewed
-
Total Time Spent with Patient (in minutes): 45
Labs: Labs Reviewed by me
[2023-09-21 12:56] LABS: Glucose - Point of Care 156 mg/dl (70-99)
[2023-09-21] MEDS: REGLAN 5 MG IV ×3 (14:39→23:25)
[2023-09-21] MEDS: COLCHICINE 0.599999999999999978 MG PO (14:40)
--- NOTE | 2023-09-21 14:54 | W.PN.ID1 ---
Date of Service
Date of Service: September 21, 2023
Today's Communication
Continue abx.
Assessment / Plan
UTI due to E. coli
E. coli bacteremia
Leukocytosis - persistent
DKA
DM2 - on insulin, recently diagnosed
Poor dentition
Recommendations:
- blood and urine cultures notable for susceptible E coli
- Continue cefazolin 2 gm iv q8 hrs for now, continue metronidazole 500 mg PO q8hrs
- follow clinically
- follow WBC / temps.
Chief Complaint
-: UTI
Subjective / Review of Systems
Patient seen and examined. Reports generally feeling unwell today, although cannot specifically elaborate. Denies dysuria.
Review of Systems: No Fever and No Chills
Vital Signs / Physical Exam
Vital Signs
Vital Signs
Temp Pulse Resp BP Pulse Ox
97.9 F 80 18 94/68 96
09/21/23 07:30 09/21/23 07:30 09/21/23 07:30 09/21/23 07:30 09/21/23 07:30
Physical Exam
Constitutional: Comfortable, Chronically Ill and Non-toxic
Oropharyngeal: Poor Dention; Negative Thrush
Cardiovascular: S1/S2; Negative S3/S4
Pulmonary: Non Labored
Gastrointestinal: Soft and Non Tender
Skin: Negative Rash or Jaundice
Neurological: Awake and Alert
Psychological: Calm
Objective Data
Lab Data
Lab Results
09/21/23 06:00
APTT 32.4 Sec (23.4-35.0) 09/18/23 23:54
Estimated Creat Clear 45 ml/min 09/20/23 03:15
Lactic Acid 4.9 mmol/L (0.7-2.0) H* 09/18/23 22:08
Total Bilirubin 0.8 mg/dl (0.2-1.3) 09/18/23 13:22
AST 14 U/L (14-36) 09/18/23 13:22
ALT 14 U/L (0-35) 09/18/23 13:22
Alkaline Phosphatase 137 U/L (38-126) H 09/18/23 13:22
Most recent labs reviewed.
Micro Results:
09/18/23 15:27 Blood Culture - Final
Blood/Venous Escherichia coli
Gram Stain - Final
09/18/23 15:27 Blood Culture - Final
Blood/Venous Escherichia coli
Gram Stain - Final
09/18/23 13:47 Urine Culture - Final
Urine Escherichia coli
--- NOTE | 2023-09-21 15:00 | PTCARENOTE ---
Pt with extremely poor appetite, c/o nausea. Dr. Aguero aware, pt started on Reglan.
[2023-09-21 16:08] LABS: Hematocrit 37.4 % (37.0-47.0); Hemoglobin 12.9 g/dL (12.0-16.0); Mean Corp Hgb Conc. 34.5 g/dL (33.0-37.0); Mean Corpuscular Hgb 28.8 pg (27.0-31.0); Mean Corpuscular Volume 83.5 fL (81.0-99.0); Platelet Count 121 10^3/uL (130-400); Red Blood Cell Count 4.48 10^6/uL (4.20-5.40); Red Cell Dist. Width 12.7 % (11.5-14.5); White Blood Cell Count 39.5 10^3/uL (4.8-10.8)
[2023-09-21 16:50] LABS: Blood Urea Nitrogen 32 mg/dl (7-17); Calcium 7.9 mg/dl (8.4-10.2); Carbon Dioxide 21 mmol/L (22-30); Chloride 98 mmol/L (98-107); Estimated Creatinine Clearance 36 ml/min; Glucose 145 mg/dl (70-99); Magnesium 1.7 mg/dl (1.6-2.3); Potassium 4.2 mmol/L (3.5-5.1); Sodium 126 mmol/L (135-145); eGFR 40.65
[2023-09-21 17:47] LABS: Glucose - Point of Care 170 mg/dl (70-99)
[2023-09-21 21:12] LABS: Glucose - Point of Care 148 mg/dl (70-99)
[2023-09-21] MEDS: ProAmatine PO (21:22)
[2023-09-21] MEDS: LANTUS 0.149999999999999994 UNITS SC (21:22)
[2023-09-21] MEDS: NEURONTIN PO ×3 (21:22→23:35)
[2023-09-21] MEDS: FLAGYL PO (21:22)
[2023-09-21] MEDS: HEPARIN SC ×2 (23:25→23:35)
[2023-09-22 03:25] VITALS: BP 101/61
[2023-09-22] MEDS: ANCEF 10 IV ×3 (04:13→22:08)
[2023-09-22] MEDS: REGLAN 5 MG IV ×3 (06:00→18:22)
[2023-09-22 07:01] LABS: Hematocrit 37.8 % (37.0-47.0); Mean Corp Hgb Conc. 34.4 g/dL (33.0-37.0); Mean Corpuscular Hgb 28.8 pg (27.0-31.0); Mean Corpuscular Volume 83.6 fL (81.0-99.0); Platelet Count 150 10^3/uL (130-400); Red Blood Cell Count 4.52 10^6/uL (4.20-5.40); Red Cell Dist. Width 13.2 % (11.5-14.5)
--- NOTE | 2023-09-22 07:24 | PN.DE.MGMTRT ---
Insulin Management
- -
09/22/2023: Diabetes Management F/U:
Patient admitted 09/17 with weakness, DKA treated with DKA protocol. PMH: Cervical ca, R labial abscess, Smoker, UTI, IDDM with Diabetic Neuropathy-diagnosed at last admission 06/2023, A1C >17% at the time. Suspect this was ongoing/does not seek
medical care regularly. Current A1C 12.2%, Cr 1.8-->1.5-->1.2, eGFR 53.13. Prior to admission was supposed to take Lantus 9 units @ hs with 3 units NovoLog AC and Metformin 500 BID.
Anion GAP closed on 09/18 and pt was transitioned to SQ insulin.
Pt awake, resting in bed, c/o right foot pain, ongoing nausea and vomiting. States she is not able to hold food down, reports 'Horse pill' is causing her N/V.
She is only able to eat a little bit of food and liquids but not substantial intake. No food intake documented and no AC insulin given x 2days.
Glucose relatively stable w/o hypoglycemia. Received Lantus 15 units @ HS, FBG 124 this AM.
Will make no changes to current regimen: NovoLog 8 units AC and Lantus 15 units @ HS. Please HOLD standing dose of NovoLog if pt does not eat meal.
MAKSIM persists, will continue to HOLD metformin at this time. Diabetes plan of care d/w pt's Nurse.
requested prescription for CGM, order was added to ambulatory orders. He is aware that insurance will require two office notes from primary care provider.
Diabetes History
- -
Type of Diabetes: 2 requiring insulin
Pre-Admission Diabetes Regimen
09/21/23 09/21/23
06:00 15:55
Creatinine Cancelled 1.5 H
Lab Results
Hemoglobin A1c 12.2 % (4.0-5.6) H 09/18/23 13:47
Insulin Pump Settings
IP Diabetes Regimen
09/21/23 09/21/23 09/21/23
06:00 07:25 12:54
Glucose Cancelled
POC Glucose 170 H 156 H
09/21/23 09/21/23 09/21/23
15:55 17:45 21:11
Glucose 145 H
POC Glucose 170 H 148 H
Meal type: Breakfast
Amount consumed: 100%
Patient Education
[2023-09-22 07:27] LABS: Blood Urea Nitrogen 35 mg/dl (7-17); Calcium 7.7 mg/dl (8.4-10.2); Carbon Dioxide 22 mmol/L (22-30); Chloride 96 mmol/L (98-107); Estimated Creatinine Clearance 34 ml/min; Glucose 124 mg/dl (70-99); Magnesium 1.9 mg/dl (1.6-2.3); Phosphorus 3.4 mg/dl (2.5-4.5); Potassium 4.4 mmol/L (3.5-5.1); Sodium 129 mmol/L (135-145); eGFR 37.62
[2023-09-22 07:42] LABS: Glucose - Point of Care 140 mg/dl (70-99)
[2023-09-22 08:00] VITALS: BP 97/60
[2023-09-22] MEDS: NOVOLOG FLEXPEN-LOW RESISTANCE SC (08:11)
[2023-09-22] MEDS: ZOFRAN 4 MG IV ×2 (08:17→18:23)
[2023-09-22 09:19] LABS: Osmolality Serum 283 mOsm/kg (275-300)
[2023-09-22] MEDS: NOVOLOG FLEXPEN SC ×3 (09:45→18:21)
[2023-09-22] MEDS: COLCHICINE 0.599999999999999978 MG PO (09:46)
[2023-09-22] MEDS: FLAGYL PO ×2 (09:46→09:59)
[2023-09-22] MEDS: HEPARIN 5000 UNITS SC ×2 (09:51→18:23)
--- NOTE | 2023-09-22 09:57 | W.PN.HOSP.TC ---
Today's Communication/Plan
-
hyponatremia and further MAKSIM workup
encourage oral intake
compression therapy
Abx as per ID
continue insulin
PT/OT/OOBTC
Assessment / Plan
Assessment / Plan
Assessment:
Diabetic ketoacidosis
Underlying uncontrolled type 2 IDDM
- likely driven by underlying, untreated UTI, bacteremia
- s/p insulin drip
- continue insulin adjustments per HOBBER
- hold all home Metformin for now
- noted A1c 12.2 from 17
E. coli bacteremia from E. Coli UTI
Septic shock on pressors (with lactic acidosis) - initially was severe sepsis on arrival then developed shock
- s/p pressors
- continue Ancef, day 4 Abx per ID
Acute RLE Ankle gout
- start renally dosed colchicine
- may need to consider steroids if intolerant of colchicine
Poor dentition
- dental lorenz XR: The patient is partially edentulous. Probable impacted left maxillary molar into the inferior aspect of the left maxillary sinus. No suspicious periapical lucencies. No displaced fractures. No suspicious calcifications seen to
suggest sialolithiasis. Visualized sinuses appear clear.
- continue Flagyl day 4 - switch to IV As currently nauseated with oral dose.
- will need OP Dentist for extraction
Nausea
- passing stools/gas
- likely gastroparesis in context of uncontrolled DM
- continue standing Reglan 5mg q6h IV; QTC stable 439
MAKSIM
Acute hyponatremia from hypovolemic
Acute hyperkalemia
Acute metabolic acidosis (Gap 26)
- acidosis resolved
- continue to monitor BMP
- repeat urine studies, osms; check Renal US as well
Diabetic neuropathy
- continue Gabapentin
Acute thrombocytopenia in setting of sepsis
- monitor CBC; no evidence of bleeding
Hypophosphatemia
- repleted
Hypocalcemia - repleted
Hypotension, asymptomatic
- continue prn Midodrine, encourage OOBTC
- compression therapy
DVT ppx: SC heparin
Code: Full
Anticipated Discharge: > 48 hours
Subjective/Interval History
-
Date of Service: September 22, 2023
tolerated cereal, glucerna
reports intolerance to Flagyl pills ('horse pills'
had a BM
no abd pain
RLE ankle gout symptoms improving
Objective Data
-
Labs:
Laboratory Results
09/22/23
06:19
WBC 33.0 H
Hgb 13.0
Hct 37.8
Plt Count 150 D
Sodium 129 L
Potassium 4.4
Chloride 96 L
Carbon Dioxide 22
BUN 35 H
Creatinine 1.6 H
Glucose 124 H
Calcium 7.7 L
Vital Signs:
Vital Signs
Temp Pulse Resp BP Pulse Ox
97.8 F 77 17 97/60 98
09/22/23 08:00 09/22/23 08:00 09/22/23 08:00 09/22/23 08:00 09/22/23 08:00
I&O
09/21/23 09/22/23 09/23/23
06:59 06:59 06:59
Intake Total 2530 / 2530 1200 / 1200
Output Total 820 / 820 200 / 200
Balance 1710 / 1710 1000 / 1000
Physical Exam
-
General: No Apparent Distress and Appears Chronically Ill
HEENT: Normocephalic and Atraumatic
Respiratory: Negative Wheezes
Cardiac: Regular Rhythm and S1/S2
GI: Soft
Genito-urinary: No Costovertebral Tender
Musculoskeletal: Edema, Right Lower Extrem (related to gout)
Neuro: AO x 3
Psych: Calm
Data Reviewed
-
Total Time Spent with Patient (in minutes): 45
Labs: Labs Reviewed by me
--- NOTE | 2023-09-22 10:45 | W.PN.ID1 ---
Date of Service
Date of Service: September 22, 2023
Today's Communication
Continue antibiotics.
Assessment / Plan
UTI due to E. coli
E. coli bacteremia
Leukocytosis - persistent
DKA
DM2 - on insulin, recently diagnosed
Poor dentition
Recommendations:
- blood and urine cultures notable for susceptible E coli
- Continue cefazolin 2 gm iv q8 hrs for now, continue metronidazole 500 mg PO q8hrs
- follow clinically
- repeat blood cultures to assess clearance.
- follow WBC / temps.
Chief Complaint
-: Leukocytosis and UTI
Subjective / Review of Systems
Review of Systems: No Fever, No Chills, No Cough, No Abdominal Pain and No Diarrhea
Vital Signs / Physical Exam
Vital Signs
Vital Signs
Temp Pulse Resp BP Pulse Ox
97.8 F 77 17 97/60 98
09/22/23 08:00 09/22/23 08:00 09/22/23 08:00 09/22/23 08:00 09/22/23 08:00
Physical Exam
Constitutional: No Acute Distress, Comfortable, Chronically Ill and Non-toxic
Eyes: No Conjunctival Hemorrhage and Sclera Anicteric
Oropharyngeal: Poor Dention
Cardiovascular: S1/S2; Negative S3/S4
Pulmonary: Non Labored
Gastrointestinal: Soft, Non Tender, Non Distended, Normal Bowel Sounds, No Rebound and No Guarding
Extremities: Negative Edema, Clubbing or Cyanosis
Skin: Warm and Dry; Negative Rash or Jaundice
Neurological: Awake and Alert
Psychological: Calm
Objective Data
Lab Data
Lab Results
09/22/23 06:19
09/22/23 06:19
APTT 32.4 Sec (23.4-35.0) 09/18/23 23:54
Estimated Creat Clear 34 ml/min 09/22/23 06:19
Lactic Acid 4.9 mmol/L (0.7-2.0) H* 09/18/23 22:08
Total Bilirubin 0.8 mg/dl (0.2-1.3) 09/18/23 13:22
AST 14 U/L (14-36) 09/18/23 13:22
ALT 14 U/L (0-35) 09/18/23 13:22
Alkaline Phosphatase 137 U/L (38-126) H 09/18/23 13:22
Most recent labs reviewed.
Micro Results:
09/18/23 15:27 Blood Culture - Final
Blood/Venous Escherichia coli
Gram Stain - Final
09/18/23 15:27 Blood Culture - Final
Blood/Venous Escherichia coli
Gram Stain - Final
09/18/23 13:47 Urine Culture - Final
Urine Escherichia coli
Care Review
Plan reviewed with: Physician (Hospitalist)
--- NOTE | 2023-09-22 10:46 | CM ---
Per Attending, patient will discharge when medically stable; likely next week after the holiday
[2023-09-22 10:59] VITALS: BP 97/63
[2023-09-22 11:29] LABS: Glucose - Point of Care 193 mg/dl (70-99)
[2023-09-22] MEDS: FLAGYL 500 MG 100 IV ×2 (12:09→18:23)
[2023-09-22] MEDS: NOVOLOG FLEXPEN-LOW RESISTANCE 1 UNITS SC ×2 (12:41→18:24)
[2023-09-22 15:00] VITALS: BP 161/105
--- NOTE | 2023-09-22 15:00 | PTCARENOTE ---
Assumed care of pt from previous nurse. Pt denies pain. Pt conts with n/v poor appetite. Pt is on tele running nsr with pvc. Zofran provided with positive results. Pt vomits after p.o. MD liudmila changed to IV. Pt call bragg is within reach, pt rings
joya. will cont to monitor.
[2023-09-22 16:20] LABS: Glucose - Point of Care 170 mg/dl (70-99)
[2023-09-22 19:55] VITALS: BP 97/64
[2023-09-22 21:24] LABS: Urine Sodium 23 mmol/L (30-90)
[2023-09-22 21:40] LABS: Body Fluid for Eosinophils No Eosinophils seen
[2023-09-22 21:56] LABS: Glucose - Point of Care 170 mg/dl (70-99)
[2023-09-22] MEDS: LANTUS 0.149999999999999994 UNITS SC (22:09)
[2023-09-22] MEDS: NEURONTIN 200 MG PO (22:09)
[2023-09-22 23:58] VITALS: BP 106/66
[2023-09-23] MEDS: REGLAN 5 MG IV ×4 (01:24→17:50)
[2023-09-23] MEDS: FLAGYL 500 MG 100 IV ×3 (01:24→17:49)
[2023-09-23] MEDS: HEPARIN SC ×2 (01:27→01:35)
[2023-09-23 03:18] VITALS: BP 110/70
[2023-09-23] MEDS: ANCEF 10 IV ×3 (03:23→20:54)
[2023-09-23 06:58] LABS: Hematocrit 35.5 % (37.0-47.0); Hemoglobin 12.1 g/dL (12.0-16.0); Mean Corp Hgb Conc. 34.1 g/dL (33.0-37.0); Mean Corpuscular Hgb 28.4 pg (27.0-31.0); Mean Corpuscular Volume 83.3 fL (81.0-99.0); Mean Platelet Volume 12.6 fL (7.4-10.4); Platelet Count 136 10^3/uL (130-400); Red Blood Cell Count 4.26 10^6/uL (4.20-5.40); Red Cell Dist. Width 13.2 % (11.5-14.5); White Blood Cell Count 30.7 10^3/uL (4.8-10.8)
[2023-09-23 07:00] VITALS: BP 105/66
[2023-09-23 07:27] LABS: Glucose - Point of Care 149 mg/dl (70-99)
[2023-09-23 07:45] LABS: Blood Urea Nitrogen 34 mg/dl (7-17); Carbon Dioxide 19 mmol/L (22-30); Chloride 99 mmol/L (98-107); Estimated Creatinine Clearance 34 ml/min; Glucose 162 mg/dl (70-99); Magnesium 1.9 mg/dl (1.6-2.3); Potassium 4.3 mmol/L (3.5-5.1); Sodium 130 mmol/L (135-145); eGFR 37.62
[2023-09-23] MEDS: COLCHICINE 0.599999999999999978 MG PO (08:44)
[2023-09-23] MEDS: NOVOLOG FLEXPEN-LOW RESISTANCE SC (08:45)
[2023-09-23] MEDS: NOVOLOG FLEXPEN 8 UNITS SC ×3 (08:45→17:50)
[2023-09-23] MEDS: HEPARIN 5000 UNITS SC ×2 (08:55→17:51)
[2023-09-23 11:00] VITALS: BP 105/69
--- NOTE | 2023-09-23 11:01 | W.PN.HOSP.TC ---
Today's Communication/Plan
-
continue IV Abx, await repeat cultures
encourage oral intake, OOBTC, PT/OT
DC planning to SNF
Assessment / Plan
Assessment / Plan
Assessment:
Diabetic ketoacidosis
Underlying uncontrolled type 2 IDDM
- likely driven by underlying, untreated UTI, bacteremia
- s/p insulin drip
- continue insulin adjustments per [employer] FOR[employer]
- hold all home Metformin for now
- noted A1c 12.2 from 17
E. coli bacteremia from E. Coli UTI
Septic shock on pressors (with lactic acidosis) - initially was severe sepsis on arrival then developed shock
- s/p pressors
- continue Ancef, day 5 Abx per ID
- repeat cultures pending
Acute RLE Ankle gout
- continue renally dosed colchicine, day 3
Poor dentition
- dental lorenz XR: The patient is partially edentulous. Probable impacted left maxillary molar into the inferior aspect of the left maxillary sinus. No suspicious periapical lucencies. No displaced fractures. No suspicious calcifications seen to
suggest sialolithiasis. Visualized sinuses appear clear.
- continue Flagyl day 5 - switch to IV As currently nauseated with oral dose.
- will need OP Dentist for extraction
Nausea
- passing stools/gas
- likely gastroparesis in context of uncontrolled DM
- continue standing Reglan 5mg q6h IV; QTC stable 439; repeat in AM. May decrease to prn in 24 hours
MAKSIM vs likely CKD in setting of uncontrolled DM
Acute hyponatremia from hypovolemic
Acute hyperkalemia
Acute metabolic acidosis (Gap 26)
- acidosis resolved
- continue to monitor BMP
- Renal US: negative
Diabetic neuropathy
- continue Gabapentin
Acute thrombocytopenia in setting of sepsis
- monitor CBC; no evidence of bleeding
Hypophosphatemia
- repleted
Hypocalcemia - repleted
Hypotension, asymptomatic
- continue prn Midodrine, encourage OOBTC
- compression therapy
DVT ppx: SC heparin
Code: Full
Anticipated Discharge: > 48 hours
Subjective/Interval History
-
Date of Service: September 23, 2023
more of an appetite today
wants to sit out of bed to chair
Objective Data
-
Labs:
Laboratory Results
09/23/23
06:26
WBC 30.7 H
Hgb 12.1
Hct 35.5 L
Plt Count 136
Sodium 130 L
Potassium 4.3
Chloride 99
Carbon Dioxide 19 L
BUN 34 H
Creatinine 1.6 H
Glucose 162 H
Calcium 8.0 L
Vital Signs:
Vital Signs
Temp Pulse Resp BP Pulse Ox
97.7 F 84 16 105/66 99
09/23/23 07:00 09/23/23 07:00 09/23/23 07:00 09/23/23 07:00 09/23/23 07:00
I&O
09/22/23 09/23/23 09/24/23
06:59 06:59 06:59
Intake Total 1200 / 1200 1160 / 1160
Output Total 200 / 200
Balance 1000 / 1000 1160 / 1160
Physical Exam
-
General: No Apparent Distress
HEENT: Normocephalic and Atraumatic
Respiratory: Negative Wheezes
Cardiac: Regular Rhythm and S1/S2
GI: Soft
Genito-urinary: No Costovertebral Tender
Psych: Calm
Data Reviewed
-
Total Time Spent with Patient (in minutes): 41
Labs: Labs Reviewed by me
[2023-09-23 12:05] LABS: Glucose - Point of Care 158 mg/dl (70-99)
[2023-09-23] MEDS: NOVOLOG FLEXPEN-LOW RESISTANCE 1 UNITS SC ×2 (13:16→17:50)
[2023-09-23 15:00] VITALS: BP 111/62
[2023-09-23 16:33] LABS: Glucose - Point of Care 160 mg/dl (70-99)
--- NOTE | 2023-09-23 16:53 | W.PN.ID1 ---
Date of Service
Date of Service: September 23, 2023
Today's Communication
Continue current abx's.
Assessment / Plan
UTI due to E. coli
E. coli bacteremia
Leukocytosis - slight improvement
DKA
DM2 - on insulin, recently diagnosed
Poor dentition
Recommendations:
- blood and urine cultures notable for susceptible E coli
- Continue cefazolin 2 gm iv q8 hrs for now, continue metronidazole 500 mg PO q8hrs
- repeat blood cultures neg to date
- follow WBC / temps.
Chief Complaint
-: Leukocytosis and UTI
Subjective / Review of Systems
No specific complaints today.
No diarrhea.
Vital Signs / Physical Exam
Vital Signs
Vital Signs
Temp Pulse Resp BP Pulse Ox
98.4 F 88 16 111/62 96
09/23/23 15:00 09/23/23 15:00 09/23/23 15:00 09/23/23 15:00 09/23/23 15:00
Physical Exam
Constitutional: No Acute Distress
Pulmonary: Clear
Gastrointestinal: Soft, Non Tender and Non Distended
Genito-Urinary: Negative CVA Tenderness
Objective Data
Lab Data
Lab Results
09/23/23 06:26
09/23/23 06:26
APTT 32.4 Sec (23.4-35.0) 09/18/23 23:54
Estimated Creat Clear 34 ml/min 09/23/23 06:26
Lactic Acid 4.9 mmol/L (0.7-2.0) H* 09/18/23 22:08
Total Bilirubin 0.8 mg/dl (0.2-1.3) 09/18/23 13:22
AST 14 U/L (14-36) 09/18/23 13:22
ALT 14 U/L (0-35) 09/18/23 13:22
Alkaline Phosphatase 137 U/L (38-126) H 09/18/23 13:22
Most recent labs reviewed.
Micro Results:
09/22/23 12:19 Blood Culture - Preliminary
Blood/Venous No Growth in 24 hours- Final report to follow
09/22/23 11:01 Blood Culture - Preliminary
Blood/Venous No Growth in 24 hours- Final report to follow
09/18/23 15:27 Blood Culture - Final
Blood/Venous Escherichia coli
Gram Stain - Final
09/18/23 15:27 Blood Culture - Final
Blood/Venous Escherichia coli
Gram Stain - Final
09/18/23 13:47 Urine Culture - Final
Urine Escherichia coli
[2023-09-23 19:35] VITALS: BP 111/67
[2023-09-23 21:05] LABS: Glucose - Point of Care 243 mg/dl (70-99)
[2023-09-23] MEDS: LANTUS 0.149999999999999994 UNITS SC (21:06)
[2023-09-23] MEDS: NEURONTIN 200 MG PO (21:07)
[2023-09-23 23:26] VITALS: BP 118/71
[2023-09-24] MEDS: HEPARIN 5000 UNITS SC ×2 (00:06→20:08)
[2023-09-24] MEDS: REGLAN 5 MG IV ×2 (00:07→06:24)
[2023-09-24] MEDS: FLAGYL 500 MG 100 IV ×2 (02:05→08:49)
[2023-09-24] MEDS: ANCEF 10 IV ×3 (03:07→20:07)
[2023-09-24 03:23] VITALS: BP 121/71
[2023-09-24 07:07] VITALS: BP 120/69
[2023-09-24 07:33] LABS: Hematocrit 34.9 % (37.0-47.0); Hemoglobin 11.8 g/dL (12.0-16.0); Mean Corp Hgb Conc. 33.8 g/dL (33.0-37.0); Mean Corpuscular Hgb 28.4 pg (27.0-31.0); Mean Corpuscular Volume 83.9 fL (81.0-99.0); Mean Platelet Volume 12.4 fL (7.4-10.4); Platelet Count 148 10^3/uL (130-400); Red Blood Cell Count 4.16 10^6/uL (4.20-5.40); Red Cell Dist. Width 12.9 % (11.5-14.5); White Blood Cell Count 28.5 10^3/uL (4.8-10.8)
[2023-09-24 07:56] LABS: Blood Urea Nitrogen 26 mg/dl (7-17); Calcium 7.8 mg/dl (8.4-10.2); Carbon Dioxide 22 mmol/L (22-30); Chloride 99 mmol/L (98-107); Estimated Creatinine Clearance 49 ml/min; Glucose 224 mg/dl (70-99); Potassium 4.5 mmol/L (3.5-5.1); Sodium 129 mmol/L (135-145); eGFR 58.97
[2023-09-24 08:13] LABS: Glucose - Point of Care 220 mg/dl (70-99)
[2023-09-24] MEDS: NOVOLOG FLEXPEN-LOW RESISTANCE 2 UNITS SC ×2 (08:40→12:31)
[2023-09-24] MEDS: NOVOLOG FLEXPEN 8 UNITS SC ×3 (08:40→17:28)
[2023-09-24] MEDS: COLCHICINE 0.599999999999999978 MG PO (08:42)
[2023-09-24] MEDS: HEPARIN SC (08:52)
--- NOTE | 2023-09-24 10:18 | W.PN.HOSP.TC ---
Today's Communication/Plan
-
continue IV abx per ID
make Reglan prn now
DC Planning to SNF
Assessment / Plan
Assessment / Plan
Assessment:
Diabetic ketoacidosis
Underlying uncontrolled type 2 IDDM
- likely driven by underlying, untreated UTI, bacteremia
- s/p insulin drip
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
- hold all home Metformin for now
- noted A1c 12.2 from 17
E. coli bacteremia from E. Coli UTI
Septic shock on pressors (with lactic acidosis) - initially was severe sepsis on arrival then developed shock
- s/p pressors
- continue Ancef, day 6 Abx per ID
- repeat cultures pending
Acute RLE Ankle gout
- continue renally dosed colchicine, day 4/5
Poor dentition
- dental lorenz XR: The patient is partially edentulous. Probable impacted left maxillary molar into the inferior aspect of the left maxillary sinus. No suspicious periapical lucencies. No displaced fractures. No suspicious calcifications seen to
suggest sialolithiasis. Visualized sinuses appear clear.
- continue Flagyl IV day 6
- will need OP Dentist for extraction
Nausea
- passing stools/gas
- likely gastroparesis in context of uncontrolled DM
- continue standing Reglan 5mg q6h IV prn; QTC stable 439
MAKSIM vs likely CKD in setting of uncontrolled DM
Acute hyponatremia from hypovolemic
Acute hyperkalemia
Acute metabolic acidosis (Gap 26)
- acidosis resolved
- continue to monitor BMP
- Renal US: negative
Diabetic neuropathy
- continue Gabapentin
Acute thrombocytopenia in setting of sepsis
- monitor CBC; no evidence of bleeding
Hypophosphatemia
- repleted
Hypocalcemia - repleted
Hypotension, asymptomatic
- continue prn Midodrine, encourage OOBTC
- compression therapy
DVT ppx: SC heparin
Code: Full
Anticipated Discharge: > 48 hours
Subjective/Interval History
-
Date of Service: September 24, 2023
No acute complaints
eating better today
Objective Data
-
Labs:
Laboratory Results
09/24/23
06:51
WBC 28.5 H
Hgb 11.8 L
Hct 34.9 L
Plt Count 148
Sodium 129 L
Potassium 4.5
Chloride 99
Carbon Dioxide 22
BUN 26 H
Creatinine 1.1 H
Glucose 224 H
Calcium 7.8 L
Vital Signs:
Vital Signs
Temp Pulse Resp BP Pulse Ox
97.9 F 82 18 120/69 98
09/24/23 07:07 09/24/23 07:07 09/24/23 07:07 09/24/23 07:07 09/24/23 07:44
I&O
09/23/23 09/24/23 09/25/23
06:59 06:59 06:59
Intake Total 1160 / 1160 2099 / 2099
Balance 1160 / 1160 2099 / 2099
Physical Exam
-
General: No Apparent Distress
HEENT: Normocephalic and Atraumatic
Respiratory: Negative Wheezes
Cardiac: Regular Rhythm and S1/S2
GI: Soft
Genito-urinary: No Costovertebral Tender
Neuro: AO x 3
Psych: Calm
Data Reviewed
-
Total Time Spent with Patient (in minutes): 42
Labs: Labs Reviewed by me
[2023-09-24 11:34] VITALS: BP 110/68
--- NOTE | 2023-09-24 11:38 | W.PN.ID1 ---
Date of Service
Date of Service: September 24, 2023
Today's Communication
DC metronidazole.
Continue cefazolin
Assessment / Plan
UTI due to E. coli
E. coli bacteremia
Leukocytosis - improving
DKA
DM2 - on insulin, recently diagnosed
Poor dentition
Recommendations:
- blood and urine cultures notable for susceptible E coli
-Renal US: mild left hydro of uncertain etiology
- Continue cefazolin 2 gm iv q8 hrs for now,
-discontinue metronidazole 500 mg PO q8hrs
- repeat blood cultures neg to date
- follow WBC
Chief Complaint
-: Leukocytosis and UTI
Subjective / Review of Systems
Feels OK
Vital Signs / Physical Exam
Vital Signs
Vital Signs
Temp Pulse Resp BP Pulse Ox
97.9 F 82 18 120/69 98
09/24/23 07:07 09/24/23 07:07 09/24/23 07:07 09/24/23 07:07 09/24/23 07:44
Physical Exam
Constitutional: No Acute Distress
Oropharyngeal: Poor Dention
Gastrointestinal: Soft, Non Tender and Non Distended
Genito-Urinary: Negative CVA Tenderness
Objective Data
Lab Data
Lab Results
09/24/23 06:51
09/24/23 06:51
APTT 32.4 Sec (23.4-35.0) 09/18/23 23:54
Estimated Creat Clear 49 ml/min 09/24/23 06:51
Lactic Acid 4.9 mmol/L (0.7-2.0) H* 09/18/23 22:08
Total Bilirubin 0.8 mg/dl (0.2-1.3) 09/18/23 13:22
AST 14 U/L (14-36) 09/18/23 13:22
ALT 14 U/L (0-35) 09/18/23 13:22
Alkaline Phosphatase 137 U/L (38-126) H 09/18/23 13:22
Most recent labs reviewed.
Micro Results:
09/22/23 11:01 Blood Culture - Preliminary
Blood/Venous No Growth in 48 hours- Final report to follow
09/22/23 12:19 Blood Culture - Preliminary
Blood/Venous No Growth in 24 hours- Final report to follow
09/18/23 15:27 Blood Culture - Final
Blood/Venous Escherichia coli
Gram Stain - Final
09/18/23 15:27 Blood Culture - Final
Blood/Venous Escherichia coli
Gram Stain - Final
09/18/23 13:47 Urine Culture - Final
Urine Escherichia coli
[2023-09-24 11:40] LABS: Glucose - Point of Care 213 mg/dl (70-99)
[2023-09-24 15:31] VITALS: BP 116/64
[2023-09-24 16:45] LABS: Glucose - Point of Care 316 mg/dl (70-99)
[2023-09-24] MEDS: NOVOLOG FLEXPEN-LOW RESISTANCE 4 UNITS SC (17:28)
--- NOTE | 2023-09-24 18:18 | PTCARENOTE ---
Patient went down to the OR for surgery.
--- NOTE | 2023-09-24 18:23 | PTCARENOTE ---
Patient noted to have vaginal growth, when asked if she was aware she said 'yes its just a growth, I have seen my prepress specialist for it and the ER doctor wanted to do a biopsy and I told them not to.
[2023-09-24 19:58] VITALS: BP 122/71
[2023-09-24] MEDS: NEURONTIN 200 MG PO (21:09)
[2023-09-24 21:17] LABS: Glucose - Point of Care 252 mg/dl (70-99)
[2023-09-24] MEDS: LANTUS 0.149999999999999994 UNITS SC (21:56)
[2023-09-24 23:17] VITALS: BP 130/74
[2023-09-25 03:20] VITALS: BP 130/75
[2023-09-25] MEDS: ANCEF 10 IV ×2 (03:58→13:39)
[2023-09-25 07:36] LABS: Glucose - Point of Care 316 mg/dl (70-99)
[2023-09-25 07:38] LABS: Hematocrit 34.3 % (37.0-47.0); Mean Corpuscular Hgb 28.5 pg (27.0-31.0); Mean Corpuscular Volume 81.5 fL (81.0-99.0); Mean Platelet Volume 12.5 fL (7.4-10.4); Platelet Count 178 10^3/uL (130-400); Red Blood Cell Count 4.21 10^6/uL (4.20-5.40); Red Cell Dist. Width 13.2 % (11.5-14.5); White Blood Cell Count 24.6 10^3/uL (4.8-10.8)
[2023-09-25 07:46] VITALS: BP 126/69
[2023-09-25 08:06] LABS: Blood Urea Nitrogen 29 mg/dl (7-17); Calcium 7.8 mg/dl (8.4-10.2); Carbon Dioxide 27 mmol/L (22-30); Chloride 95 mmol/L (98-107); Estimated Creatinine Clearance 45 ml/min; Glucose 303 mg/dl (70-99); Potassium 4.5 mmol/L (3.5-5.1); Sodium 129 mmol/L (135-145); eGFR 53.13
[2023-09-25] MEDS: NOVOLOG FLEXPEN 8 UNITS SC ×2 (09:39→13:38)
[2023-09-25] MEDS: NOVOLOG FLEXPEN-LOW RESISTANCE 4 UNITS SC (09:41)
[2023-09-25] MEDS: COLCHICINE 0.599999999999999978 MG PO (09:41)
[2023-09-25] MEDS: HEPARIN 5000 UNITS SC (09:41)
[2023-09-25 11:25] LABS: Glucose - Point of Care 297 mg/dl (70-99)
--- NOTE | 2023-09-25 12:11 | W.PN.ID1 ---
Date of Service
Date of Service: September 25, 2023
Today's Communication
Continue cefazolin.
Assessment / Plan
UTI due to E. coli
E. coli bacteremia
Leukocytosis - improving
DKA
DM2 - on insulin, recently diagnosed
Poor dentition
Recommendations:
- blood and urine cultures notable for susceptible E coli
-Renal US: mild left hydro of uncertain etiology
- Continue cefazolin 2 gm iv q8 hrs for now,
-discontinued metronidazole 500 mg PO q8hrs
- repeat blood cultures neg to date
- follow WBC ( Ok to take a break from labdraw tomorrow as per pt's request)
Chief Complaint
-: Leukocytosis and UTI
Subjective / Review of Systems
c/o of daily labdraws - many bruises
Vital Signs / Physical Exam
Vital Signs
Vital Signs
Temp Pulse Resp BP Pulse Ox
97.5 F 87 18 126/69 97
09/25/23 07:46 09/25/23 07:46 09/25/23 07:46 09/25/23 07:46 09/25/23 07:46
Physical Exam
Constitutional: No Acute Distress
Gastrointestinal: Soft, Non Tender and Non Distended
Genito-Urinary: Negative CVA Tenderness
Extremities: Negative Edema
Objective Data
Lab Data
Lab Results
09/25/23 06:54
09/25/23 06:54
APTT 32.4 Sec (23.4-35.0) 09/18/23 23:54
Estimated Creat Clear 45 ml/min 09/25/23 06:54
Lactic Acid 4.9 mmol/L (0.7-2.0) H* 09/18/23 22:08
Total Bilirubin 0.8 mg/dl (0.2-1.3) 09/18/23 13:22
AST 14 U/L (14-36) 09/18/23 13:22
ALT 14 U/L (0-35) 09/18/23 13:22
Alkaline Phosphatase 137 U/L (38-126) H 09/18/23 13:22
Most recent labs reviewed.
Micro Results:
09/22/23 11:01 Blood Culture - Preliminary
Blood/Venous No Growth in 72 hours- Final report to follow
09/22/23 12:19 Blood Culture - Preliminary
Blood/Venous No Growth in 48 hours- Final report to follow
09/18/23 15:27 Blood Culture - Final
Blood/Venous Escherichia coli
Gram Stain - Final
09/18/23 15:27 Blood Culture - Final
Blood/Venous Escherichia coli
Gram Stain - Final
09/18/23 13:47 Urine Culture - Final
Urine Escherichia coli
Care Review
Plan reviewed with: Physician (Dr. Mcclendon)
[2023-09-25] MEDS: NOVOLOG FLEXPEN-LOW RESISTANCE 3 UNITS SC (13:38)
[2023-09-25 14:21] VITALS: BP 126/79; PULSE 82; O2SAT 99
[2023-09-25 14:27] VITALS: BP 126/79; PULSE 82; O2SAT 99
--- NOTE | 2023-09-25 14:33 | W.PN.HOSP.TC ---
Today's Communication/Plan
-
d/c home
Assessment / Plan
Assessment / Plan
Diabetic ketoacidosis
Underlying uncontrolled type 2 IDDM
- likely driven by underlying, untreated UTI, bacteremia
- s/p insulin drip
- continue insulin adjustments per [employer]ER
- Will discharge patient on increased insulin home dosage.
- noted A1c 12.2 from 17
E. coli bacteremia from E. Coli UTI
Septic shock on pressors (with lactic acidosis) - initially was severe sepsis on arrival then developed shock
- s/p pressors
- Will provide another 9 days of antibiotic to finish total of 15 days of antibiotic course
Acute RLE Ankle gout
- continue renally dosed colchicine, day 4/5
- giving script of prednisone for few days as well.
Poor dentition
- dental lorenz XR: The patient is partially edentulous. Probable impacted left maxillary molar into the inferior aspect of the left maxillary sinus. No suspicious periapical lucencies. No displaced fractures. No suspicious calcifications seen to
suggest sialolithiasis. Visualized sinuses appear clear.
- continue Flagyl IV day 6
- will need OP Dentist for extraction
Nausea - resolved
- passing stools/gas
- likely gastroparesis in context of uncontrolled DM
- continue standing Reglan 5mg q6h IV prn; QTC stable 439
MAKSIM vs likely CKD in setting of uncontrolled DM
Acute hyponatremia from hypovolemic
Acute hyperkalemia
Acute metabolic acidosis (Gap 26)
- acidosis resolved
- continue to monitor BMP
- Renal US: negative
Diabetic neuropathy
- continue Gabapentin
Acute thrombocytopenia in setting of sepsis
- monitor CBC; no evidence of bleeding
Hypophosphatemia
- repleted
Hypocalcemia - repleted
Hypotension, asymptomatic
- continue prn Midodrine, encourage OOBTC
- compression therapy
DVT ppx: SC heparin
Code: Full
More than 30 minutes spent in discharge including
Final examination of the patient
Summarizing hospital stay
Instructions for continuing care to all relevant caregivers
Preparation of discharge records, prescriptions, and referral forms
Total time spent (in minutes): 38 mins
Anticipated Discharge: Today
Subjective/Interval History
-
Date of Service: September 25, 2023
No complaints overnight
Objective Data
-
Labs:
Laboratory Results
09/25/23
06:54
WBC 24.6 H
Hgb 12.0
Hct 34.3 L
Plt Count 178 D
Sodium 129 L
Potassium 4.5
Chloride 95 L
Carbon Dioxide 27
BUN 29 H
Creatinine 1.2 H
Glucose 303 H
Calcium 7.8 L
Vital Signs:
Vital Signs
Temp Pulse Resp BP Pulse Ox
97.5 F 87 18 126/69 97
09/25/23 07:46 09/25/23 07:46 09/25/23 07:46 09/25/23 07:46 09/25/23 07:46
I&O
09/24/23 09/25/23 09/26/23
06:59 06:59 06:59
Intake Total 2099 2400 / 2400
Balance 2099 2400 / 2400
Review of Systems
-
Respiratory: Reports No Symptoms
Cardiac: Reports No Symptoms
Abdomen/GI: Reports No Symptoms
Physical Exam
-
General: No Apparent Distress
HEENT: Normocephalic and Atraumatic
Respiratory: Negative Wheezes
Cardiac: Regular Rhythm and S1/S2
GI: Soft, Nontender and Nondistended
Genito-urinary: No Costovertebral Tender
Musculoskeletal: Other (Right foot great tow swelling/erythema)
Neuro: AO x 3
Psych: Calm
[2023-09-25 15:36] VITALS: BP 120/63
--- NOTE | 2023-09-25 16:25 | CM ---
Patient with Dx DKA. PT recommends HH.
Spoke with patient who agrees to a referral to [facility] for PT and chooses [facility]. providing transport home today.
Message to DOLORES Mccallum Liaison; referral placed for d/c today.
Plan home today with [facility].
--- NOTE | 2023-09-27 07:44 | W.DCSUMMARY ---
Discharge Summary
Discharge Data
Date of Admission: 09/18/23
Date of Discharge: 09/25/23
-
Pending Results: No
Hospital Course
Discharging Physician : Dr Bradly Mcclendon
Disposition : Home with HH
Primary care physician : Unknown
Principal Discharge diagnosis :
Diabetic ketoacidosis
Escherichia coli bacteremia and urinary tract infection
Septic shock
Gout flareup, right foot
Acute kidney injury, suspected underlying chronic kidney disease
Hyperkalemia
Hyponatremia
Metabolic acidosis
Acute thrombocytopenia
Hypophosphatemia
Chronic Discharge diagnosis :
Insulin-dependent diabetes mellitus
Diabetic neuropathy
Hospital Course :
Patient is a 57-year-old female with above-mentioned past medical history came to ER for having poor appetite nausea vomiting and generalized weakness.
Patient history of insulin-dependent diabetes mellitus lab evaluation in ER suggestive of patient having diabetic ketoacidosis. This suspected to be driven by UTI/infection. Patient was started on insulin drip and was admitted to ICU. After
consideration of the ketoacidosis patient was transition to subcutaneous insulin. Diabetic nurse swethaitioner was involved in care management regimen. Patient A1c of 12.2. 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
Patient also was in septic shock at admission and source was diagnosed to be urinary tract infection. Patient required brief pressor support. Renal ultrasound showing minimal left hydro nephrosis without clear obstructive etiology. Urine culture
and blood culture later grew E. coli and ID recommended for patient to finish total 14 days course of antibiotic. Patient was maintained on IV antibiotics and at discharge was transitioned to Keflex.
Patient also had new right foot gout and has history of this. Patient was initially started on renally adjusted colchicine dose and had some improvement in symptoms, at discharge patient given 5 days of steroid course. Patient to follow-up with
primary care physician if continues to have further problems.
Associated with this patient had acute kidney injury with unconfirmed chronic kidney disease component, had electrolyte imbalances with DKA. All this resolved posttreatment of sepsis and DKA. Patient discharge creatinine of 1.2 and EGFR of 53.
Patient was recommended to go to rehab although patient prefered to be discharged home with home health care.
Important imaging findings :
None
Procedure findings :
None
Discharge Plan
-
Patient Disposition: Home with Home Care
Discharge Diagnosis/Procedures: E coli bacteremia, DKA, gout flare
Condition: Fair
Diet: Diabetic, Carb Controlled
Activity: As tolerated
Driving Restrictions: No driving for 1 week
Bathing Restrictions: OK to Shower
Other Services: [facility] and PT
Referrals:
NONE,* [Family Provider] -
Prescriptions:
New
(DME) Dexcom G7 Sensor Device
Qty: 3 0RF
Rx Instructions:
To test glucose more frequently s/p DKA As Directed
E11.65
(DME) Dexcom G7 Plasma Center Nurse Misc
Qty: 1 0RF
Rx Instructions:
To test glucose more frequently s/p DKA As Directed E11.65
prednisone 20 mg tablet
20 mg PO DAILY Qty: 5 0RF
cephalexin 750 mg capsule
750 mg PO BID Qty: 18 0RF
Continued
metformin 500 mg tablet
500 mg PO BID Qty: 60 0RF
gabapentin 100 mg Capsule
200 mg PO HS 90 Days Qty: 180 0RF
Changed
insulin lispro [Humalog KwikPen Insulin] 100 unit/mL insulin pen
10 unit SC AC Qty: 0 0RF
insulin glargine [Lantus Solostar U-100 Insulin] 100 unit/mL (3 mL) insulin pen
20 unit SC QPM 90 Days Qty: 8.1 0RF
Discharge Orders:
Discharge Patient (As Directed); Ordered 09/25/23
Ordered By: Bradly Mcclendon
Discharge Date and Time
Discharge Date/Time: 09/25/23 16:27
Print Language: LITHUANIAN
== END 2023-09-25 16:27 | disposition home health service (06) | DRG 871 ==
LOC: 4 WEST ACU 15:43
PROVIDERS: Emergency Medicine; Nurse Practitioner Family; Nurse Practitioner Primary Care; Physician Assistant Medical; ADMITTING PHYSICIAN Internal Medicine; ATTENDING PHYSICIAN Hospitalist; CONSULT PHYSICIAN Internal Medicine; CONSULT PHYSICIAN Student in an Organized Health Care Education/Training Program; EMERGENCY PHYSICIAN Emergency Medicine
DX: A41.51 Sepsis due to Escherichia coli [E. coli] (principal); E11.10 Type 2 diabetes mellitus with ketoacidosis without coma; R65.21 Severe sepsis with septic shock; E87.1 Hypo-osmolality and hyponatremia; N17.9 Acute kidney failure, unspecified; N39.0 Urinary tract infection, site not specified; N76.4 Abscess of vulva; E87.20 Acidosis, unspecified; E11.22 Type 2 diabetes mellitus with diabetic chronic kidney disease; F17.200 Nicotine dependence, unspecified, uncomplicated; E11.42 Type 2 diabetes mellitus with diabetic polyneuropathy; Z79.4 Long term (current) use of insulin; E86.1 Hypovolemia; E87.5 Hyperkalemia; Z91.148 Patient's other noncompliance with medication regimen for other reason; Z91.199 Patient's noncompliance with other medical treatment and regimen due to unspecified reason; D69.6 Thrombocytopenia, unspecified; E11.9 Type 2 diabetes mellitus without complications; M10.9 Gout, unspecified; E83.39 Other disorders of phosphorus metabolism; N18.9 Chronic kidney disease, unspecified
CPT/HCPCS: 70355; 71046; 76770; 80048; 80053; 81003; 81015; 81099; 82010; 82570; 82805; 82962; 83036; 83605; 83690; 83735; 83930; 84100; 84300; 85025; 85027; 85730; 87040; 87071; 87086; 87149; 87186; 87205; 93005; 96361; 96374; 97116; 97162; 97167; 97530; 97535; 99291

== ENCOUNTER 2024-02-13 21:34 | Inpatient (IN) | payer OTHER, SELFPAY ==
[2024-02-13] VITALS (18 sets, daily range): BP systolic 70–136; BP diastolic 47–86; BMI 31.1; BMI 30.6
--- NOTE | 2024-02-13 16:21 | ED.GENMED ---
ED Provider Triage
-
Patient seen by provider in Triage?: Seen in Triage
Attestation: A medical screening examination has been initiated by a qualified medical provider. Based on the assessment performed at this time, it has been determined that an emergent medical condition may exist and the patient has been informed
that further medical evaluation and possible additional diagnostic testing may be needed.
HPI: 58yo here with hyperglycemia. Hx of insulin dependent type 2 diabetes. Blood sugar 335 today. 299 for EMS. Also thinks she has a UTI and is c/o lightheadedness.
GENERAL: Alert , in no apparent distress
EYE: No visual abnormalities.
NECK: Trachea midline
ENT: No visible abnormalities.
LUNGS: No acute respiratory distress
NEUROLOGICAL: Alert and oriented
SKIN: Skin intact. No visible changes.
MUSCULOSKELETAL: Moving extremities normally
PSYCH: Normal and appropriate interaction.
This is a medical evaluation conducted in person to initiate diagnostic evaluation and provide initial therapeutics. Please see further documentation by the treating clinician.
CBC, CMP, beta hydroxybutyrate, VBG, UA, and EKG ordered.
After triage finished, patient now reporting a fall which she did not initially disclose. Patient acting strangely and dropping cell phone frequently. CT head added.
History of Present Illness
General
Chief Complaint: Blood Sugar Problem
Past History
Past History
ED Past Medical History: Cancer (Cervical) and IDDM
ED Past Surgical History: Gynecological
Social History
Tobacco: Smoker
Alcohol: None
Drug: None
Personal:
Living: with family
Employment: Employed
Course
Orders/Labs/Results
Orders:
Orders
02/13/24 16:25
Electrocardiogram (*1) Urgent
Reason for Study: Vertigo / Dizzy
EKG- Treatment ONCE
02/13/24 16:34
B-Hydroxybutyrate Urgent
Complete Blood Count/With Diff Urgent
Comprehensive Metabolic Panel Urgent
Venous Blood Gas Urgent
%Oxygen/Room Air: room air
02/13/24 16:43
Urinalysis Reflex To Culture Urgent
Date Specimen was Collected: 02/13/24
Time Specimen was Collected: 16:29
02/13/24 16:49
CT Head W/o Iv Contrast Urgent
Comment:
Reason For Exam: AMS
Vital Signs
Initial and Last Documented VS:
Initial Vital Signs
Temp Pulse Resp BP Pulse Ox
99.8 F 120 19 136/82 98
02/13/24 16:22 02/13/24 16:22 02/13/24 16:22 02/13/24 16:22 02/13/24 16:22
Last Documented Vital Signs
Temp Pulse Resp BP Pulse Ox
99.8 F 120 19 136/82 98
02/13/24 16:22 02/13/24 16:22 02/13/24 16:22 02/13/24 16:22 02/13/24 16:22
ED Attending Note
-
Portions of this chart may have been created with voice recognition software.� Occasional wrong word or��sound alike� substitutions may have occurred due to the inherent limitations of voice recognition software.
Discharge Plan
Departure
Prescriptions:
No Action
metformin 500 mg tablet
500 mg PO BID Qty: 60 0RF
gabapentin 100 mg Capsule
200 mg PO HS 90 Days Qty: 180 0RF
(DME) Dexcom G7 Sensor Device
Qty: 3 0RF
Rx Instructions:
To test glucose more frequently s/p DKA As Directed
E11.65
(DME) Dexcom G7 Plant Pathologist Misc
Qty: 1 0RF
Rx Instructions:
To test glucose more frequently s/p DKA As Directed E11.65
prednisone 20 mg tablet
20 mg PO DAILY Qty: 5 0RF
insulin lispro [Humalog KwikPen Insulin] 100 unit/mL insulin pen
10 unit SC AC Qty: 0 0RF
insulin glargine [Lantus Solostar U-100 Insulin] 100 unit/mL (3 mL) insulin pen
20 unit SC QPM 90 Days Qty: 8.1 0RF
cephalexin 750 mg capsule
750 mg PO BID Qty: 18 0RF
Discharge Date and Time
Print Language: KOREAN
[2024-02-13 16:54] LABS: Venous Blood Gas B.E. -6.3 mmol/L (-4 to +4); Venous Blood Gas HCO3 20.2 mmol/L (22-27); Venous Blood Gas O2 Sat % 77.4 %; Venous Blood Gas pCO2 43 mmHg (35-48); Venous Blood Gas pH 7.28 (7.32-7.43); Venous Blood Gas pO2 45 mmHg (30-50)
[2024-02-13 16:54] LABS: Glucose - Point of Care 317 mg/dl (70-99)
[2024-02-13 16:59] LABS: Hematocrit 33.7 % (37.0-47.0); Mean Corp Hgb Conc. 32.6 g/dL (33.0-37.0); Mean Corpuscular Hgb 29.4 pg (27.0-31.0); Mean Corpuscular Volume 90.1 fL (81.0-99.0); Mean Platelet Volume 12.5 fL (7.4-10.4); Platelet Count 149 10^3/uL (130-400); Red Blood Cell Count 3.74 10^6/uL (4.20-5.40); Red Cell Dist. Width 15.2 % (11.5-14.5); White Blood Cell Count 24.2 10^3/uL (4.8-10.8)
[2024-02-13 17:01] LABS: Urine Albumin 1+ (Neg - Trace); Urine Bilirubin Negative (Negative); Urine Character Very Cloudy (Clear); Urine Color Yellow; Urine Glucose Trace (Negative); Urine Ketone Negative (Negative); Urine Leukocyte 2+ (Negative); Urine Nitrite Negative (Negative); Urine Occult Blood 4+ (Negative); Urine Specific Gravity 1.015 (<1.030); Urine Urobilinogen Negative (Neg - 1+)
[2024-02-13 17:10] LABS: ALT (SGPT) 41 U/L (0-35); AST (SGOT) 42 U/L (14-36); Albumin 3.7 g/dl (3.5-5.0); Alkaline Phosphatase 71 U/L (38-126); Blood Urea Nitrogen 73 mg/dl (7-17); Calcium 9.5 mg/dl (8.4-10.2); Carbon Dioxide 17 mmol/L (22-30); Chloride 98 mmol/L (98-107); Glucose 303 mg/dl (70-99); Potassium 5.8 mmol/L (3.5-5.1); Sodium 130 mmol/L (135-145); Total Bilirubin 0.5 mg/dl (0.2-1.3); Total Protein 6.2 g/dl (6.3-8.2); eGFR 22.98
[2024-02-13 17:12] LABS: % Basophils 0.2 % (0-2); % Immature Granulocytes 1.3 % (0-0.5); % Lymphocytes 2.6 % (20.5-51.1); % Monocytes 5.5 % (1.7-9.3); % Neutrophils 90.4 % (42.2-75.2); Absolute Basophils 0.1 10^3/uL (0-0.2); Absolute Immature Granulocytes 0.3 10^3/uL (0-0.05); Absolute Lymphocytes 0.6 10^3/uL (1.2-3.4); Absolute Monocytes 1.3 10^3/uL (0.1-0.6); Absolute Neutrophils 21.9 10^3/uL (1.4-6.5); Nucleated Red Blood Cells % 0 %
[2024-02-13 17:14] LABS: Urine Bacteria Many (Negative); Urine Red Blood Cell 0-2 /HPF (0-2); Urine White Cell 21-25 /HPF (0-5)
[2024-02-13 17:16] LABS: B-Hydroxybutyrate 0.21 mmol/L (0.02-0.27)
--- NOTE | 2024-02-13 18:02 | ED.GENMED ---
Addendum entered and electronically signed by Lyly Waterman PA-C 02/15/24 15:02:
ED Provider Triage
-
Patient seen by provider in Triage?: Seen in Triage
Attestation: A medical screening examination has been initiated by a qualified medical provider. Based on the assessment performed at this time, it has been determined that an emergent medical condition may exist and the patient has been informed
that further medical evaluation and possible additional diagnostic testing may be needed.
HPI: 58yo here with hyperglycemia. Hx of insulin dependent type 2 diabetes. Blood sugar 335 today. 299 for EMS. Also thinks she has a UTI and is c/o lightheadedness.
GENERAL: Alert , in no apparent distress
EYE: No visual abnormalities.
NECK: Trachea midline
ENT: No visible abnormalities.
LUNGS: No acute respiratory distress
NEUROLOGICAL: Alert and oriented
SKIN: Skin intact. No visible changes.
MUSCULOSKELETAL: Moving extremities normally
PSYCH: Normal and appropriate interaction.
This is a medical evaluation conducted in person to initiate diagnostic evaluation and provide initial therapeutics. Please see further documentation by the treating clinician.
CBC, CMP, beta hydroxybutyrate, VBG, UA, and EKG ordered.
After triage finished, patient now reporting a fall which she did not initially disclose. Patient acting strangely and dropping cell phone frequently. CT head added.
Original Note:
History of Present Illness
<RACHEL Jimenez - Last Filed: 02/13/24 21:57>
General
Chief Complaint: Blood Sugar Problem
Source: patient
Exam Limitations: none
Time Seen by Provider: 02/13/24 17:04
Nursing documentation reviewed up to this point in time: agreed with
History of Present Illness
History of Present Illness:
Patient is a 58-year-old female with past medical history of insulin-dependent diabetes, neuropathy who presents to the ER for evaluation of weakness and hyperglycemia. Patient is insulin-dependent diabetic and reports over the past several days
she has felt very weak but worse since yesterday. She reports she can barely stand because of weakness and also has weakness in bilateral arms and feels that she cannot even bring water to her mouth because she is so weak. She also noted
foul-smelling urine.
Past History
<RACHEL Jimenez - Last Filed: 02/13/24 21:57>
Past History
ED Past Medical History: Cancer (Cervical) and IDDM
ED Past Surgical History: Gynecological
Social History
Tobacco: Smoker
Alcohol: None
Drug: None
Personal:
Living: with family
Employment: Employed
Review of Systems
<RACHEL Jimenez - Last Filed: 02/13/24 21:57>
Review of Systems
Allergies reviewed?: Yes
All Other Systems: ROS reviewed and negative except as documented in HPI and ROS
Constitutional: Reports fatigue
EENT: Reports no symptoms
Respiratory: Reports no symptoms
Cardiac: Reports no symptoms
ABD/GI: Reports no symptoms
: Reports other ('foul smelling urine' )
Musculoskeletal: Reports no symptoms
Skin: Reports no symptoms
Neurological: Reports no symptoms
Hematologic/Lymphatic: Reports no symptoms
Psychiatric: Reports no symptoms
Phy Exam
<RACHEL Jimenez - Last Filed: 02/13/24 21:57>
General Physical Exam
General Presentation: no apparent distress
General age: appears stated age
General Skin: warm and dry
General Habitus: normal
General Mental: alert
General Hydration: appears well hydrated
Neurological Exam
Neurological Exam: alert and oriented x3
Musculoskeletal Exam
Musculoskeletal Exam: full ROM and other (Pulses by Doppler bilateral extremities)
Skin Exam
Skin Exam: normal color and warm/dry
Psychiatric Exam
Psychiatric Exam: normal mood/affect
Course
<RACHEL Jimenez - Last Filed: 02/13/24 21:57>
Orders/Labs/Results
Orders:
Orders
02/13/24 16:25
Electrocardiogram (*1) Urgent
Reason for Study: Vertigo / Dizzy
EKG- Treatment ONCE
02/13/24 16:34
B-Hydroxybutyrate Urgent
Complete Blood Count/With Diff Urgent
Comprehensive Metabolic Panel Urgent
Venous Blood Gas Urgent
%Oxygen/Room Air: room air
02/13/24 16:43
Urinalysis Reflex To Culture Urgent
Date Specimen was Collected: 02/13/24
Time Specimen was Collected: 16:29
Urine Microscopic Reflex Cult Urgent
Urine Culture Urgent
JENNIFFER Source: U
Specimen Description:
Date Specimen was Collected: 02/13/24
Time Specimen was Collected: 16:29
02/13/24 16:49
CT Head W/o Iv Contrast Urgent
Comment:
Reason For Exam: AMS
02/13/24 18:05
0.9% Sodium Chloride 1000 ml [Nss] 1,000 ml IV BOLUS
02/13/24 18:30
CR Chest Portable - 1 View Urgent
Comment:
Reason For Exam: sepsis
Reason Study Needs to be Portable: Patient Unstable
02/13/24 18:32
Bedside Glucose- Treatment Q1H
IV Insert/Care/Rem.- Treatment PRN
02/13/24 18:37
Blood Culture Urgent
JENNIFFER Source: Blood/Venous
Specimen Description:
02/13/24 18:38
Basic Metabolic Panel Q2H
02/13/24 18:39
Blood Culture Urgent
JENNIFFER Source: Blood/Venous
Specimen Description:
02/13/24 18:45
0.9% Sodium Chloride 1000 ml [Nss] 1,000 ml IV 250 mls/hr
02/13/24 19:04
CefTRIAXone [Rocephin] 1,000 mg IV NOW STA
02/13/24 19:29
Reg Insulin 100 Units/100 ml [Novolin R Insulin Infusion] 100 units in 100 ml IV NOW
02/13/24 19:36
Lactic Acid Urgent
02/13/24 19:38
Acetaminophen [Tylenol] 650 mg .ROUTE .STK-MED ONE
02/13/24 19:40
Acetaminophen [Tylenol] 650 mg PO NOW STA
02/13/24 20:45
Basic Metabolic Panel Q2H
02/13/24 21:07
Admit/Transfer Patient As Directed
Co-Sign Provider:
Level of Care: Inpatient admission
Assign to:: ICU
Physician / Group: htay
Diagnosis: DKA, NAG acidodosis, MAKSIM, UTI
Reason for Hospitalization: DKA, NAG acidodosis, MAKSIM, UTI
Expected length of stay greater than two midnights?: Yes
ELOS- Estimated Length of Stay in days: 5
I certify the patient meets the requirements for IP care: Yes
PRN Pain Medication Management As Directed
May give lesser potent ordered pain med per pt: Yes
preference::
Protocol:: Medication orders for pain may be administered in a
manner that supports deferring to patient preference
when the pt is:
- Requesting an ordered lesser potent pain medication.
Least to most potent pain medications are defined
as: acetaminophen < NSAID < tramadol < opioids
(morphine, oxycodone, hydromorphone).
- Requesting a lesser dose of the same medication IF
ORDERED.
- Requesting a less intrusive route of administration
if both routes are prescribed by the provider (PO <
IV).
02/13/24 21:09
Code Status As Directed
Resuscitation Status: Full Code
02/13/24 22:00
Flush (0.9% Sodium Chloride) [Flush (Nss)] See Dose Instructions IV PER PROTOCOL
02/13/24 22:45
Basic Metabolic Panel Q2H
Abnormal Lab Results
02/13/24 02/13/24 02/13/24
16:34 16:43 16:53
WBC 24.2 H 10^3/uL
(4.8-10.8)
RBC 3.74 L 10^6/uL
(4.20-5.40)
Hgb 11.0 L g/dL
(12.0-16.0)
Hct 33.7 L %
(37.0-47.0)
MCHC 32.6 L g/dL
(33.0-37.0)
RDW 15.2 H %
(11.5-14.5)
MPV 12.5 H fL
(7.4-10.4)
Abs Immat Gran (auto) 0.3 H 10^3/uL
(0-0.05)
Absolute Neuts (auto) 21.9 H 10^3/uL
(1.4-6.5)
Absolute Lymphs (auto) 0.6 L 10^3/uL
(1.2-3.4)
Absolute Monos (auto) 1.3 H 10^3/uL
(0.1-0.6)
Immature Gran % 1.3 H %
(0-0.5)
Neutrophils % 90.4 H %
(42.2-75.2)
Lymphocytes % 2.6 L %
(20.5-51.1)
VBG pH 7.28 L
(7.32-7.43)
VBG HCO3 20.2 L mmol/L
(22-27)
Sodium 130 L mmol/L
(135-145)
Potassium 5.8 H mmol/L
(3.5-5.1)
Carbon Dioxide 17 L mmol/L
(22-30)
BUN 73 H mg/dl
(7-17)
Creatinine 2.4 H mg/dL
(0.6-1.0)
Glucose 303 H mg/dl
(70-99)
AST 42 H U/L
(14-36)
ALT 41 H U/L
(0-35)
Total Protein 6.2 L g/dl
(6.3-8.2)
Ur Occult Blood Reflex 4+ A
(Negative)
Leukocyte Esterase Rfl 2+ A
(Negative)
Urine WBC (Reflex) 21-25 A /HPF
(0-5)
Urine Bacteria (Reflex) Many A
(Negative)
Urine Glucose Trace A
(Negative)
Urine Albumin (Reflex) 1+ A
(Neg - Trace)
POC Glucose 317 H mg/dl
(70-99)
02/13/24 02/13/24 02/13/24
18:20 18:22 18:38
WBC
RBC
Hgb
Hct
MCHC
RDW
MPV
Abs Immat Gran (auto)
Absolute Neuts (auto)
Absolute Lymphs (auto)
Absolute Monos (auto)
Immature Gran %
Neutrophils %
Lymphocytes %
VBG pH
VBG HCO3
Sodium 130 L mmol/L
(135-145)
Potassium 6.2 H* mmol/L
(3.5-5.1)
Carbon Dioxide 18 L mmol/L
(22-30)
BUN 73 H mg/dl
(7-17)
Creatinine 2.5 H mg/dL
(0.6-1.0)
Glucose 288 H mg/dl
()
AST
ALT
Total Protein
Ur Occult Blood Reflex
Leukocyte Esterase Rfl
Urine WBC (Reflex)
Urine Bacteria (Reflex)
Urine Glucose
Urine Albumin (Reflex)
POC Glucose 165 H mg/dl 296 H mg/dl
() ()
02/13/24 02/13/24 02/13/24
19:42 20:35 21:17
WBC
RBC
Hgb
Hct
MCHC
RDW
MPV
Abs Immat Gran (auto)
Absolute Neuts (auto)
Absolute Lymphs (auto)
Absolute Monos (auto)
Immature Gran %
Neutrophils %
Lymphocytes %
VBG pH
VBG HCO3
Sodium
Potassium
Carbon Dioxide
BUN
Creatinine
Glucose
AST
ALT
Total Protein
Ur Occult Blood Reflex
Leukocyte Esterase Rfl
Urine WBC (Reflex)
Urine Bacteria (Reflex)
Urine Glucose
Urine Albumin (Reflex)
POC Glucose 328 H mg/dl 256 H mg/dl 209 H mg/dl
() () (-99)
02/13/24 16:34
Vital Signs
Initial and Last Documented VS:
Initial Vital Signs
Temp Pulse Resp BP Pulse Ox
99.8 F 120 19 136/82 98
02/13/24 16:22 02/13/24 16:22 02/13/24 16:22 02/13/24 16:22 02/13/24 16:22
Last Documented Vital Signs
Temp Pulse Resp BP Pulse Ox
100.5 F H 100 20 76/55 98
02/13/24 19:00 02/13/24 21:17 02/13/24 21:17 02/13/24 21:17 02/13/24 16:22
Automotive Dismantler consulted with Physician
Automotive Dismantler consulted with physician?: Yes
Name of Physician Consulted: DR Foster
<Sergio Foster, DO - Last Filed: 02/13/24 18:34>
Orders/Labs/Results
Orders:
Orders
02/13/24 16:25
Electrocardiogram (*1) Urgent
Reason for Study: Vertigo / Dizzy
EKG- Treatment ONCE
02/13/24 16:34
B-Hydroxybutyrate Urgent
Complete Blood Count/With Diff Urgent
Comprehensive Metabolic Panel Urgent
Venous Blood Gas Urgent
%Oxygen/Room Air: room air
02/13/24 16:43
Urinalysis Reflex To Culture Urgent
Date Specimen was Collected: 02/13/24
Time Specimen was Collected: 16:29
Urine Microscopic Reflex Cult Urgent
Urine Culture Urgent
JENNIFFER Source: U
Specimen Description:
Date Specimen was Collected: 02/13/24
Time Specimen was Collected: 16:29
02/13/24 16:49
CT Head W/o Iv Contrast Urgent
Comment:
Reason For Exam: AMS
02/13/24 18:05
0.9% Sodium Chloride 1000 ml [Nss] 1,000 ml IV BOLUS
02/13/24 18:30
CR Chest Portable - 1 View Urgent
Comment:
Reason For Exam: sepsis
Reason Study Needs to be Portable: Patient Unstable
02/13/24 18:32
Bedside Glucose- Treatment Q1H
IV Insert/Care/Rem.- Treatment PRN
02/13/24 18:37
Blood Culture Urgent
JENNIFFER Source: Blood/Venous
Specimen Description:
02/13/24 18:38
Basic Metabolic Panel Q2H
02/13/24 18:39
Blood Culture Urgent
JENNIFFER Source: Blood/Venous
Specimen Description:
02/13/24 18:45
0.9% Sodium Chloride 1000 ml [Nss] 1,000 ml IV 250 mls/hr
02/13/24 19:04
CefTRIAXone [Rocephin] 1,000 mg IV NOW STA
02/13/24 19:29
Reg Insulin 100 Units/100 ml [Novolin R Insulin Infusion] 100 units in 100 ml IV NOW
02/13/24 19:36
Lactic Acid Urgent
02/13/24 19:38
Acetaminophen [Tylenol] 650 mg .ROUTE .STK-MED ONE
02/13/24 19:40
Acetaminophen [Tylenol] 650 mg PO NOW STA
02/13/24 20:45
Basic Metabolic Panel Q2H
02/13/24 21:07
Admit/Transfer Patient As Directed
Co-Sign Provider:
Level of Care: Inpatient admission
Assign to:: ICU
Physician / Group: htay
Diagnosis: DKA, NAG acidodosis, MAKSIM, UTI
Reason for Hospitalization: DKA, NAG acidodosis, MAKSIM, UTI
Expected length of stay greater than two midnights?: Yes
ELOS- Estimated Length of Stay in days: 5
I certify the patient meets the requirements for IP care: Yes
PRN Pain Medication Management As Directed
May give lesser potent ordered pain med per pt: Yes
preference::
Protocol:: Medication orders for pain may be administered in a
manner that supports deferring to patient preference
when the pt is:
- Requesting an ordered lesser potent pain medication.
Least to most potent pain medications are defined
as: acetaminophen < NSAID < tramadol < opioids
(morphine, oxycodone, hydromorphone).
- Requesting a lesser dose of the same medication IF
ORDERED.
- Requesting a less intrusive route of administration
if both routes are prescribed by the provider (PO <
IV).
02/13/24 21:09
Code Status As Directed
Resuscitation Status: Full Code
02/13/24 22:00
Flush (0.9% Sodium Chloride) [Flush (Nss)] See Dose Instructions IV PER PROTOCOL
02/13/24 22:45
Basic Metabolic Panel Q2H
Abnormal Lab Results
02/13/24 02/13/24 02/13/24
16:34 16:43 16:53
WBC 24.2 H 10^3/uL
(4.8-10.8)
RBC 3.74 L 10^6/uL
(4.20-5.40)
Hgb 11.0 L g/dL
(12.0-16.0)
Hct 33.7 L %
(37.0-47.0)
MCHC 32.6 L g/dL
(33.0-37.0)
RDW 15.2 H %
(11.5-14.5)
MPV 12.5 H fL
(7.4-10.4)
Abs Immat Gran (auto) 0.3 H 10^3/uL
(0-0.05)
Absolute Neuts (auto) 21.9 H 10^3/uL
(1.4-6.5)
Absolute Lymphs (auto) 0.6 L 10^3/uL
(1.2-3.4)
Absolute Monos (auto) 1.3 H 10^3/uL
(0.1-0.6)
Immature Gran % 1.3 H %
(0-0.5)
Neutrophils % 90.4 H %
(42.2-75.2)
Lymphocytes % 2.6 L %
(20.5-51.1)
VBG pH 7.28 L
(7.32-7.43)
VBG HCO3 20.2 L mmol/L
(22-27)
Sodium 130 L mmol/L
(135-145)
Potassium 5.8 H mmol/L
(3.5-5.1)
Carbon Dioxide 17 L mmol/L
(22-30)
BUN 73 H mg/dl
(7-17)
Creatinine 2.4 H mg/dL
(0.6-1.0)
Glucose 303 H mg/dl
(70-99)
AST 42 H U/L
(14-36)
ALT 41 H U/L
(0-35)
Total Protein 6.2 L g/dl
(6.3-8.2)
Ur Occult Blood Reflex 4+ A
(Negative)
Leukocyte Esterase Rfl 2+ A
(Negative)
Urine WBC (Reflex) 21-25 A /HPF
(0-5)
Urine Bacteria (Reflex) Many A
(Negative)
Urine Glucose Trace A
(Negative)
Urine Albumin (Reflex) 1+ A
(Neg - Trace)
POC Glucose 317 H mg/dl
(70-99)
02/13/24 02/13/24 02/13/24
18:20 18:22 18:38
WBC
RBC
Hgb
Hct
MCHC
RDW
MPV
Abs Immat Gran (auto)
Absolute Neuts (auto)
Absolute Lymphs (auto)
Absolute Monos (auto)
Immature Gran %
Neutrophils %
Lymphocytes %
VBG pH
VBG HCO3
Sodium 130 L mmol/L
(135-145)
Potassium 6.2 H* mmol/L
(3.5-5.1)
Carbon Dioxide 18 L mmol/L
(22-30)
BUN 73 H mg/dl
(7-17)
Creatinine 2.5 H mg/dL
(0.6-1.0)
Glucose 288 H mg/dl
(70-99)
AST
ALT
Total Protein
Ur Occult Blood Reflex
Leukocyte Esterase Rfl
Urine WBC (Reflex)
Urine Bacteria (Reflex)
Urine Glucose
Urine Albumin (Reflex)
POC Glucose 165 H mg/dl 296 H mg/dl
(70-99) (70-99)
24 02/13/24 02/13/24
19:42 20:35 21:17
WBC
RBC
Hgb
Hct
MCHC
RDW
MPV
Abs Immat Gran (auto)
Absolute Neuts (auto)
Absolute Lymphs (auto)
Absolute Monos (auto)
Immature Gran %
Neutrophils %
Lymphocytes %
VBG pH
VBG HCO3
Sodium
Potassium
Carbon Dioxide
BUN
Creatinine
Glucose
AST
ALT
Total Protein
Ur Occult Blood Reflex
Leukocyte Esterase Rfl
Urine WBC (Reflex)
Urine Bacteria (Reflex)
Urine Glucose
Urine Albumin (Reflex)
POC Glucose 328 H mg/dl 256 H mg/dl 209 H mg/dl
(70-99) (70-99) (70-99)
02/13/24 16:34
Vital Signs
Initial and Last Documented VS:
Initial Vital Signs
Temp Pulse Resp BP Pulse Ox
99.8 F 120 19 136/82 98
02/13/24 16:22 02/13/24 16:22 02/13/24 16:22 02/13/24 16:22 02/13/24 16:22
Last Documented Vital Signs
Temp Pulse Resp BP Pulse Ox
100.5 F H 100 20 76/55 98
02/13/24 19:00 02/13/24 21:17 02/13/24 21:17 02/13/24 21:17 02/13/24 16:22
<RACHEL Jimenez - Last Filed: 02/13/24 21:57>
MDM/Problems Addressed
Differential Diagnosis Includes:
Not limited to hyperglycemia DKA dehydration electrolyte abnormality infection UTI
MDM/Problems Addressed:
Patient is a 58-year-old female who is a insulin-dependent diabetic presents to the ER for evaluation of weakness hyperglycemia/Foul-smelling urine Patient presents to the ER awake alert however obviously weak very weak in upper extremities no
complaints of headache head CT negative. Patient presents however with a blood sugar 303 gap 15 potassium 5.8 likely on the for elevated worsening renal function with a creatinine of 2.4 compared to 1.2 in August and a BUN of 73.
Patient is acidotic with a low pH of 7.24 low bicarb of 20.2 on VBG.
Patient's temp is 99.8. She arrives tachycardic and dry on exam patient was given fluids IV and biotics white count elevated at 24.2 and urine appears infected. Patient was given insulin. Patient eval by ED physician will admit for hyperglycemia
Chronic conditions affecting care:
IDDM , neuropathy
<RACHEL Jimenez - Last Filed: 02/13/24 21:57>
*Radiology
Radiology exam reviewed: radiology read reviewed
*Pulse Oximetry
Patient hypoxic: no
*EKG
Interpreted by ED Provider?: Yes
Heart Rate: 113
Rate: tachycardiac
Rhythm: sinus
Ischemia: no ischemia
*Critical Care Note
Total Time (30-74mins, 75-104mins- exclusive of procedures): Not Applicable
comment:
Critical care statement: A total of 30minutes of critical care time was provided for this patient. This includes management of unstable vital signs, evaluation of the patient at bedside, reviewing the patient's pertinent medical records, discussion
with consultants, review of old EKGs and review of pertinent medical records. This time with separate from time utilized to perform the aforementioned documented procedures
ED Attending Note
<RACHEL Jimenez - Last Filed: 02/13/24 21:57>
-
Portions of this chart may have been created with voice recognition software.� Occasional wrong word or��sound alike� substitutions may have occurred due to the inherent limitations of voice recognition software.
<Sergio Foster DO - Last Filed: 02/13/24 18:34>
ED Attending Note
Patient seen and examined by attending physician: Yes
I performed the substantive portion of visit, reviewed & personally made and approve the management plan that is documented in note by myself or CORRIE.: Yes
ED Attending Note:
Seen with ANIMAL CHIROPRACTOR examined independently sepsis and DKA urinary source, prior ID note noted she tolerated cefazolin
Discharge Plan
Departure
Patient Disposition: Admit
Date of Disposition: 02/13/24
Time of Disposition: 20:07
Admit to: ICU
Admit to doctor: hospitalist
Presentation/result/management discussed w/ accepting MD/DO: Hospitalist
Patient with high blood pressure during this ER visit?: No
Condition: Fair
Covid-19: Not Applicable
Discharge Problem:
DKA (diabetic ketoacidosis), Sepsis
Interventions
Interventions:
*Risk Screen - Suicide Last Done: 02/13/24 19:16
*General Assessment Last Done: 02/13/24 19:16
*Neglect/Abuse Screening Last Done: 02/13/24 19:16
ED- Fall Risk Assessment Last Done: 02/13/24 18:27
*ED COVID-19 Vaccine History Last Done: 02/13/24 19:16
ED- Neurological Assessment Last Done: 02/13/24 18:27
[2024-02-13 18:22] LABS: Glucose - Point of Care 165 mg/dl (70-99)
[2024-02-13] MEDS: NSS 1000 IV ×2 (18:26→19:32)
[2024-02-13 18:29] LABS: Glucose - Point of Care 296 mg/dl (70-99)
[2024-02-13 19:31] LABS: Blood Urea Nitrogen 73 mg/dl (7-17); Carbon Dioxide 18 mmol/L (22-30); Chloride 99 mmol/L (98-107); Estimated Creatinine Clearance 26 ml/min; Glucose 288 mg/dl (70-99); Potassium 6.2 mmol/L (3.5-5.1); Sodium 130 mmol/L (135-145); eGFR 21.88
[2024-02-13] MEDS: ROCEPHIN 1000 MG IV (19:33)
[2024-02-13] MEDS: TYLENOL 650 MG PO (19:40)
[2024-02-13 19:43] LABS: Glucose - Point of Care 328 mg/dl (70-99)
[2024-02-13] MEDS: NOVOLIN R INSULIN INFUSION 100 IV ×2 (19:44→23:36)
[2024-02-13 19:59] LABS: Lactic Acid 1.5 mmol/L (0.7-2.0)
[2024-02-13 20:36] LABS: Glucose - Point of Care 256 mg/dl (70-99)
--- NOTE | 2024-02-13 21:03 | HPS.HSE ---
Family Physician
-
Family Physician: Roly Crow
Chief Complaint
-
weakness , foul smell urine
History of Present Illness
58F HX IDDM, DKA, UTI, neuropathy pw evaluation of weakness and hyperglycemia.
- several days she has felt very weak but worse since yesterday.
- to weak to stand up because of weakness and also has weakness in bilateral arms a
- noted foul-smelling urine.
Medical History
Past Medical History
Past Medical History: Reports Other (IDDM, cervical cancer hx)
Past Surgical History: Reports Gynocological
Social History
Tobacco: Smoker
Alcohol: None
Drug: None
Family History
Family History: Not pertinent
Allergies / Home Medications
Allergies reflects when Allergies were last updated in [employer].
Home Medications with original date entered in [employer]
Allergy/Medication List:
Allergies
Allergy/AdvReac Type Severity Reaction Status Date / Time
amoxicillin Allergy Itching Verified 09/18/23 13:15
codeine Allergy Nausea Verified 09/18/23 13:15
Home Medications
metformin 500 mg tablet 500 mg PO BID #60 tabs 07/04/23
gabapentin 100 mg capsule 200 mg (2 x 100 mg) PO HS 90 days #180 caps 07/14/23
insulin glargine 100 unit/mL (3 mL) subcutaneous pen (Lantus Solostar U-100 Insulin) 9 unit (0.09 mL) SC QPM 90 days #8.1 mL 07/14/23
insulin lispro 100 unit/mL subcutaneous pen (Humalog KwikPen (U-100) Insulin) 3 unit SC AC 09/18/23
Review of Systems
-
A 12 point ROS was completed and negative except as noted: Yes
Constitutional: Reports See HPI and Fatigue
: Reports Other (mal odour urine )
Physical Exam
Vital Signs
Vital Signs
Temp Pulse Resp BP Pulse Ox
100.5 F H 110 35 99/73 98
02/13/24 19:00 02/13/24 20:00 02/13/24 20:00 02/13/24 20:00 02/13/24 16:22
Physical Exam
General: Appears in Distress
HEENT: NormoCephalic and Anicteric
Respiratory: No Wheezes or Rales
Cardiac: S1/S2 and Regular Rhythm
GI: Soft and Tender (suprapubic)
Neuro: AO x 3
Hematologic/Lymphatic: No Lymphadenopathy
Psych: Calm
Laboratory Results
-
02/13/24 16:34
Laboratory Results
Lactic Acid 1.5 mmol/L (0.7-2.0) 02/13/24 19:36
Total Bilirubin 0.5 mg/dl (0.2-1.3) 02/13/24 16:34
AST 42 U/L (14-36) H 02/13/24 16:34
ALT 41 U/L (0-35) H 02/13/24 16:34
Alkaline Phosphatase 71 U/L (38-126) 02/13/24 16:34
Data Reviewed
-
Diagnostic Radiology: Report Reviewed by me
Lab Data: Labs Reviewed by me
Old Records: Reviewed
Impression/Plan
-
Data
NAG MA 15
NEG BHB @ 0.21
VB.28/ 43/45/ HCO3 20
POS UA for UTI
CXR
Prominence of the central vasculature on the right. Progressed. This may be due to vessels on end. Pulmonary hypertension and even a right hilar mass cannot be excluded. A nonurgent dedicated CT of the chest with IV contrast is recommended.
Last hospitalist admission: Date of Admission: 09/18/23 - Date of Discharge: 09/25/23
Principal Discharge diagnosis :
Diabetic ketoacidosis
Escherichia coli bacteremia and urinary tract infection
Septic shock
Gout flare up, right foot
Acute kidney injury, suspected underlying chronic kidney disease
Hyperkalemia
Hyponatremia
Metabolic acidosis
Acute thrombocytopenia
Hypophosphatemia
ASSESSMENT & PLAN
Pending Rx reconciliation
Abn UA
HX E. coli bacteremia from E. Coli UTI
- IV CFTX
- f/u UCx , BCx
Diabetic ketoacidosis:
NAG MA15
Underlying uncontrolled type 2 IDDM: last - noted A1c 12.2 from 17
- likely precipitated by underlying, untreated UTI
- Insulin gtt
- IVF
- hold all home Metformin for now
- DM SUPERVISOR BEEHIVE KILN consult
MAKSIM vs likely CKD in setting of uncontrolled DM
Acute hyponatremia from hypovolemic
Acute hyperkalemia
Acute metabolic acidosis due to MAKSIM /ARF
Diabetic neuropathy
- continue Gabapentin
DVT ppx: SC heparin
Full code
ICU
Total Critical Care Time__65___ minutes.
I was immediately available to the patient and staff. I personally examined, reviewed labs, diagnostic images/reports, interpretations, treatment plans, discussed patient care with other providers and family or caregivers (if patient is unable to
make decisions), entered orders as appropriate and documented the medical record.
[2024-02-13 21:18] LABS: Glucose - Point of Care 209 mg/dl (70-99)
[2024-02-13] MEDS: NSS 500 IV (21:55)
[2024-02-13 22:26] LABS: Glucose - Point of Care 155 mg/dl (70-99)
--- NOTE | 2024-02-13 23:00 | PTCARENOTE ---
rec'd pt from er via stretcher on monitor & insulin gtt at 4.1 units/hr, oriented to icu routine, chg bath done, on adm to icu accu was 126, insulin gtt decr to 0.5 units/hr per bulmaro & B Misty, PROBATE LAWYER notified, IVF changed to d5/ /2 nss w/ 20
kcl at 250/hr, ST, temp 100.7, tylenol 650 mg po given at 2335, weak distal pulses, RA, lungs decr in bases & fine bibas crackles, sat 96, hypo bowel sounds, abd round, soft, nontender, no n/v, hnv yet this shift
[2024-02-13 23:11] LABS: Blood Urea Nitrogen 74 mg/dl (7-17); Calcium 8.6 mg/dl (8.4-10.2); Carbon Dioxide 16 mmol/L (22-30); Chloride 104 mmol/L (98-107); Estimated Creatinine Clearance 26 ml/min; Glucose 135 mg/dl (70-99); Potassium 5.3 mmol/L (3.5-5.1); Sodium 134 mmol/L (135-145); eGFR 21.88
[2024-02-13 23:11] LABS: Glucose - Point of Care 126 mg/dl (70-99)
[2024-02-13] MEDS: D5/0.45%NSS with KCL 20 MEQ 1000 IV (23:12)
[2024-02-13] MEDS: LIORESAL 10 MG PO (23:34)
[2024-02-13] MEDS: TYLENOL 1000 MG PO (23:34)
--- NOTE | 2024-02-13 23:43 | PTCARENOTE ---
Denise ryan NP aware of chem result
[2024-02-13] MEDS: NSS IV (23:50)
[2024-02-14] VITALS (49 sets, daily range): BP systolic 74–155; BP diastolic 49–121; BMI 30.9
[2024-02-14 00:08] LABS: Glucose - Point of Care 147 mg/dl (70-99)
--- NOTE | 2024-02-14 02:00 | PTCARENOTE ---
B VANITA ryan aware of bp- to cont fluids at 250/hr
[2024-02-14] MEDS: D5/0.45%NSS with KCL 20 MEQ 1000 IV (03:00)
--- NOTE | 2024-02-14 04:05 | CON.INTV ---
Consultation
Consultation Request
Date/Time Consultation Requested: 02/14/2024-6 AM
Date/Time Consultation Performed: 02/14/2024-6 AM
Requesting Provider: Hospitalist
Performing Provider: Dr. Eddy
Reason for Consultation: DKA
Medical History
-
Chief Complaint: Weakness and foul-smelling urine
History of Present Illness:
58-year-old insulin-dependent diabetic female with a known history of DKA, recurrent UTIs and neuropathy presented with weakness, hyperglycemia and mold stamper and repairer consulted for UTI/DKA/critical care management 02/14/2024.
Patient feels improved since she has been here. Denies any shortness of breath at rest, chest pain, chest tightness, productive cough, pleurisy, abdominal pain, nausea, focal weakness or increased lower extremity edema.
Past Medical History
Past Medical History: None (Ewqmygwk-locbysd-dvvcwmcfc with a history of DKA. Cervical cancer. Former smoker.)
Social History
Tobacco: Former Smoker (Half pack per day x 40 years-quit 3 years ago)
Personal:
Living: With Family
Occupational Exposures: No known asbestos exposure
Environmental Exposures: No known tuberculosis exposure
Family History
Family History: Reviewed & Not Pertinent
Allergies / Home Medications
Allergies
Allergy/AdvReac Type Severity Reaction Status Date / Time
amoxicillin Allergy Itching Verified 02/13/24 16:29
codeine Allergy Nausea Verified 02/13/24 16:29
Home Medications
�Medication �Instructions �Recorded �Confirmed �Last Taken �Type
metformin 500 mg tablet 500 mg PO BID #60 tabs 07/04/23 02/13/24 02/13/24 Rx
insulin glargine 100 unit/mL (3 20 unit (0.2 mL) SC QPM 90 days 09/25/23 02/13/24 02/12/24 Rx
mL) subcutaneous pen (Lantus #8.1 mL
Solostar U-100 Insulin)
insulin lispro 100 unit/mL 10 unit (0.1 mL) SC AC Diabetes #0 09/25/23 02/13/24 02/13/24 Rx
subcutaneous pen (Humalog KwikPen mL
(U-100) Insulin)
acetaminophen 500 mg tablet 1,000 mg PO Q6HPRN PRN mild pain 02/13/24 02/13/24 02/13/24 History
(Tylenol Extra Strength)
baclofen 10 mg tablet 10 mg PO DAILYPRN PRN spasms 02/13/24 02/13/24 Unknown History
baclofen 10 mg tablet 10 mg PO HS 02/13/24 02/13/24 02/12/24 History
gabapentin 400 mg capsule 1,200 mg PO HS 02/13/24 02/13/24 02/12/24 History
lisinopril 2.5 mg tablet 2.5 mg PO DAILY 02/13/24 02/13/24 02/13/24 History
therapeutic multivitamin 1 tab PO DAILY 02/13/24 02/13/24 02/13/24 History
Review of Systems
-
Unable to Obtain full review of systems at this time due to: Other (Per HPI)
Vitals / Labs / Diagnostic Testing
Vital Signs
Temp Pulse Resp BP Pulse Ox
101.7 F H 102 17 88/58 96
02/13/24 23:21 02/14/24 01:00 02/14/24 01:00 02/14/24 00:36 02/14/24 01:00
Diagnostic Testing:
Physical Exam
-
Exam:
Well-nourished and well-developed in no apparent distress
HEENT-atraumatic, normocephalic
Neck-supple, no JVD, no bruit
Heart-regular rate and rhythm-no murmurs, rubs or gallops
Chest-clear to auscultation, no wheezes, crackles
Back-no tenderness
Abdomen-soft, nontender, nondistended, no hepatosplenomegaly
Extremities-no cyanosis, clubbing, edema and good peripheral pulses
Integument-intact, no rashes, lesions or ecchymosis
Neurology-alert and oriented, nonfocal motor and sensory exam
Assessment
-
58-year-old insulin-dependent diabetic female with a known history of DKA, recurrent UTIs and neuropathy presented with weakness, hyperglycemia and mold stamper and repairer consulted for UTI/DKA/critical care management 02/14/2024.
UTI
DKA
MAKSIM
Hyponatremia
Hyperkalemia
Leukocytosis
Uaxwnj-amxzmudtcl-uyotmldtjd 10.1
Metabolic acidosis
Abnormal chest x-ray-? Pulm hypertension/right hilar mass-CT chest pending
Conditions present prior to admission:
Recent hospitalization 08/2023-urosepsis, DKA, MAKSIM,
Icvewxhl-tkbxhev-gcjyaeszj with a history of DKA.
Cervical cancer.
Right labial abscess
Diabetic neuropathy
Former [id number]-year quit 3 years ago
Plan
Patient will be admitted to medical intensive care unit for close monitoring
Supplemental oxygen as needed
Incentive spirometry
Nebulizers if needed-currently not bronchospastic-former smoker
CT chest with contrast once renal function improves
Monitor blood sugar
Monitor anion gap
Insulin drip
Check A1c if not done in the last 3 months
Diabetic nurse practitioner consultation
Intravenous fluid resuscitation
Monitor potassium closely
Check cultures
Suspected UTI
Empiric antibiotics
Follow leukocytosis
Follow temperature curve
Monitor renal function
Nephrology evaluation if renal function does not improve
Monitor hemoglobin
Transfuse as needed
DVT prophylaxis-heparin refused, recommended at least compression boots
Early nutrition
Early mobilization
If able to wean off insulin drip and hemodynamically stable then transfer out of ICU-call pulmonary if respiratory issues arise
Outpatient pulmonary follow-up with smoking history-needs PFTs, yearly low-dose lung cancer screening CT
Critical care statement: A total of 50 minutes of critical care time was provided for this patient today. This includes management of unstable vital signs, insulin drip management, evaluation of the patient at bedside, reviewing the patient's
pertinent medical records including radiographs, microbiology, laboratory evaluations, and discussion with primary team, consultants, charge nurse, and critical care nursing.
Diagnostic data:
Chest x-ray 09/18/2023-NAD
Chest x-ray 02/13/2024-prominence of central venous vasculature present may be due to pulmonary hypertension or even right hilar mass cannot be excluded-nonurgent dedicated CT chest with IV contrast recommended
Data Reviewed
-
EKG: Report reviewed by me
Radiology: Report reviewed by me
Medical Tests (Nuc Med, Echo etc): Report reviewed by me
Labs: Labs reviewed by me
Old Records: Reviewed
Critical Care Time (in minutes): 50
[2024-02-14 04:11] LABS: Glucose - Point of Care 205 mg/dl (70-99)
--- NOTE | 2024-02-14 04:18 | PTCARENOTE ---
sys reviewed, changes noted
[2024-02-14 04:22] LABS: INR 1.31; PT 16.1 Sec (11.4-14.6)
[2024-02-14 04:23] LABS: Blood Urea Nitrogen 75 mg/dl (7-17); Calcium 8.9 mg/dl (8.4-10.2); Carbon Dioxide 15 mmol/L (22-30); Chloride 104 mmol/L (98-107); Estimated Creatinine Clearance 24 ml/min; Glucose 199 mg/dl (70-99); Potassium 5.5 mmol/L (3.5-5.1); Sodium 132 mmol/L (135-145); eGFR 19.95
--- NOTE | 2024-02-14 04:26 | DOWNTIME ---
There was a [employer] Client Narcotics Investigator Downtime on 02/14/2024 from 0100 to 02/14/2024 at 0355. Downtime documentation of patient's care, including medication administrations, has been reconciled in the electronic record per guidelines. Refer to the
patient's paper chart under the miscellaneous tab to see printed paper medication records and downtime forms.
[2024-02-14] MEDS: D5/0.45%NACL 1000 IV ×2 (04:47→07:40)
--- NOTE | 2024-02-14 04:47 | PTCARENOTE ---
BDEboni doss aware of bmp results, IVF changed to d5/ /2 at 250/hr
[2024-02-14 04:48] LABS: Hematocrit 30.2 % (37.0-47.0); Hemoglobin 10.1 g/dL (12.0-16.0); Mean Corp Hgb Conc. 33.4 g/dL (33.0-37.0); Mean Corpuscular Hgb 28.9 pg (27.0-31.0); Mean Corpuscular Volume 86.3 fL (81.0-99.0); Mean Platelet Volume 11.4 fL (7.4-10.4); Platelet Count 138 10^3/uL (130-400); Red Cell Dist. Width 15.2 % (11.5-14.5); White Blood Cell Count 18.9 10^3/uL (4.8-10.8)
[2024-02-14 05:09] LABS: Glucose - Point of Care 209 mg/dl (70-99)
[2024-02-14 06:08] LABS: Glucose - Point of Care 216 mg/dl (70-99)
[2024-02-14 07:10] LABS: Glucose - Point of Care 196 mg/dl (70-99)
[2024-02-14] MEDS: NEURONTIN 300 MG PO ×2 (07:37→19:57)
[2024-02-14] MEDS: TYLENOL 1000 MG PO ×2 (07:37→18:26)
[2024-02-14 08:05] LABS: Glucose - Point of Care 210 mg/dl (70-99)
[2024-02-14 08:20] LABS: Glucose - Point of Care 219 mg/dl (70-99)
[2024-02-14 08:20] LABS: Glucose - Point of Care 215 mg/dl (70-99)
[2024-02-14 08:20] LABS: Glucose - Point of Care 203 mg/dl (70-99)
[2024-02-14 09:07] LABS: Glucose - Point of Care 191 mg/dl (70-99)
--- NOTE | 2024-02-14 09:26 | PTCARENOTE ---
received in AM. drowsy, on Insulin gtt. accu [id number] in progress. temp 100.1 PO Tylenol admin. patient refused Heparin SQ for DVT profilaxis. educated on purpose of anticoagulant. SCD applied. BNP sent. BP 90s/60s. MAPs between 64-66. care program resident
and hospitalist aware. monitor for now. patient is receiving IVF with D5 1/2NSS @250 mls/hr
[2024-02-14 09:43] LABS: Glycohemoglobin (HgbA1c) 6.1 % (4.0-5.6)
[2024-02-14 09:45] LABS: Blood Urea Nitrogen 74 mg/dl (7-17); Calcium 8.8 mg/dl (8.4-10.2); Carbon Dioxide 16 mmol/L (22-30); Chloride 103 mmol/L (98-107); Estimated Creatinine Clearance 27 ml/min; Glucose 189 mg/dl (70-99); Potassium 5.7 mmol/L (3.5-5.1); Sodium 132 mmol/L (135-145); eGFR 22.98
[2024-02-14 10:06] LABS: Glucose - Point of Care 193 mg/dl (70-99)
[2024-02-14] MEDS: D5/0.9% SODIUM CHLORIDE 1000 IV (10:20)
[2024-02-14] MEDS: D5/0.9% SODIUM CHLORIDE 500 IV (10:21)
--- NOTE | 2024-02-14 10:22 | W.PN.HOSP.TC ---
Addendum entered and electronically signed by Rafael Gill MD 02/14/24 16:39:
Complains of severe right hip pain
Reported fall at home.
Will order right hip x-ray with pelvis.
Continue analgesia with Tylenol and addition of hydromorphone.
Original Note:
Today's Communication/Plan
-
IV fluids
Antibiotics
IV insulin
Total Critical Care Time__55___ minutes. I was immediately available to the patient and staff. I personally examined, reviewed labs, diagnostic images/reports, interpretations, treatment plans, discussed patient care with other providers and
family or caregivers (if patient is unable to make decisions), entered orders as appropriate and documented the medical record.
Assessment / Plan
Assessment / Plan
Impression:
Toxic metabolic encephalopathy secondary to sepsis and DKA
Sepsis.
Septic shock with persistent hypotension
Gram-negative bacteremia
Urinary tract infection.
DKA
Hyperkalemia
Acute kidney injury
Suspected CKD stage II
Right hilar infiltrate/mass
Other conditions
Recent hospitalization 09/21 with complicated UTI and DKA.
Type 2 diabetes IDDM.
Obesity with BMI of 30.
Essential hypertension.
Diabetic neuropathy
Plan:
Sepsis secondary to urinary tract infection.
Septic shock with persistent hypotension.
Gram-negative bacteremia (prior history of E. coli bacteremia)
Continue antibiotics/ceftriaxone pending final cultures
ID consultation.
Sonogram of bladder and kidney (prior sonogram 09/21 with mild left hydronephrosis)
Bladder scan for retention
IV fluids, isotonic solution
Low threshold for pressors if does not respond to IV fluid bolus
DKA.
Likely triggered with sepsis.
States insulin compliance
Hemoglobin A1c improved from 12-6
Continue IV insulin drip titration per protocol.
Follow serial BMP for normalization of anion gap.
Adjust IV fluids according to potassium and phosphorus level
DM nurse practitioner in consultation.
Eventually transition to carb controlled diet and subcutaneous insulin
Hold metformin
Acute kidney injury
Suspect CKD stage II�3.
1+ proteinuria with concern for diabetic nephropathy
Hyperkalemia
Bladder scan.
Renal sonogram as above.
Hold lisinopril.
Continue IV fluids
Consider nephrology evaluation
Toxic metabolic encephalopathy secondary to sepsis and DKA.
Mental status improving
Exam with no focal findings
CT scan of the head with no acute abnormalities.
Avoid oversedation.
May continue to hold baclofen
Right hilar infiltrate on the chest x-ray.
Patient denies any respiratory symptoms.
Former smoker quit June 2023.
Will need follow-up imaging with CT scan preferably enhanced once renal function improved.
Essential hypertension.
Currently hypotensive.
Hold lisinopril.
Diabetic neuropathy.
Outpatient regimen Neurontin/baclofen/Tylenol
Full code.
DVT prophylaxis heparin subcu
Anticipated Discharge: > 48 hours
Subjective/Interval History
-
Date of Service: February 14, 2024
Objective Data
-
Labs:
Laboratory Results
02/13/24 02/13/24 02/14/24
20:45 22:46 04:00
WBC 18.9 H
Hgb 10.1 L
Hct 30.2 L
Plt Count 138
PT 16.1 H
INR 1.31
APTT 36.0 H
Sodium Cancelled 134 L 132 L
Potassium Cancelled 5.3 H
Chloride Cancelled 104
Carbon Dioxide Cancelled 16 L
BUN Cancelled 74 H
Creatinine Cancelled 2.5 H
Glucose Cancelled 135 H
Calcium Cancelled 8.6
02/14/24 02/14/24 02/14/24
04:00 04:00 04:00
WBC
Hgb
Hct
Plt Count
PT
INR
APTT
Sodium Cancelled
Potassium 5.5 H Cancelled
Chloride 104 Cancelled
Carbon Dioxide 15 L
BUN
Creatinine
Glucose
Calcium
02/14/24 02/14/24 02/14/24
04:00 04:00 04:00
WBC
Hgb
Hct
Plt Count
PT
INR
APTT
Sodium
Potassium
Chloride
Carbon Dioxide Cancelled
BUN 75 H Cancelled
Creatinine 2.7 H Cancelled
Glucose 199 H
Calcium
02/14/24 02/14/24 02/14/24
04:00 04:00 08:06
WBC
Hgb
Hct
Plt Count
PT
INR
APTT
Sodium 132 L
Potassium 5.7 H
Chloride 103
Carbon Dioxide 16 L
BUN 74 H
Creatinine 2.4 H
Glucose Cancelled 189 H
Calcium 8.9 Cancelled 8.8
02/14/24 02/14/24 02/14/24
12:00 16:00 20:00
WBC
Hgb
Hct
Plt Count
PT
INR
APTT
Sodium Pending Pending Pending
Potassium Pending Pending Pending
Chloride Pending Pending Pending
Carbon Dioxide Pending Pending Pending
BUN Pending Pending Pending
Creatinine Pending Pending Pending
Glucose Pending Pending Pending
Calcium Pending Pending Pending
Vital Signs:
Vital Signs
Temp Pulse Resp BP Pulse Ox
100.1 F 95 19 76/55 95
02/14/24 07:00 02/14/24 08:45 02/14/24 08:45 02/14/24 08:45 02/14/24 08:45
I&O
02/13/24 02/14/24 02/15/24
06:59 06:59 06:59
Intake Total 1870.6 / 1870.6 809 / 809
Output Total 500 / 500
Balance 1370.6 / 1370.6 809 / 809
Physical Exam
-
General: Well Developed and No Apparent Distress
HEENT: Normocephalic, Atraumatic and Moist Mucous Membranes
Respiratory: Clear to Auscultation
Cardiac: Regular Rhythm and S1/S2; Negative Murmur, Rub or Gallop
GI: Soft, Nontender, Nondistended and Normal Bowel Sounds; Negative Organomegaly
Rectal: Deferred by Provider
Musculoskeletal: No Clubbing, No Cyanosis and No Edema
Skin: Negative Rash
Neuro: Nonfocal/Grossly Intact
--- NOTE | 2024-02-14 10:53 | CON.ID ---
Consultation
-
Date/Time Consultation Requested: 02/14/2024 1019
Date/Time Consultation Performed: 02/14/2024 1037
Requesting Provider: Dr. Gill
Performing Provider: Dr. Gauthier
Reason for Consultation: Sepsis
Chief Complaint / Past History
History of Present Illness
Dot Reed is a 57-year-old female with a significant past medical history of cervical cancer and diabetes being evaluated the request of Dr. Gill in regards to clinical sepsis. History is obtained from chart review, along with patient
interview.
The patient presented to the ER on 02/12 secondary to weakness and hyperglycemia. She reported that she had felt very weak over the prior several days, which markedly increased yesterday. Additionally, she reported foul-smelling urine during her
ER interview. She recalls that 2 days ago she slept until noon which was someone out of her usual. At that point in time, her suggested that she go to the hospital, but she refused. Yesterday, she reports that she had even more
progressive weakness and finally her called EMS.
Workup in the ER revealed significant leukocytosis, along with acute kidney injury. Blood cultures obtained at the time of admission are now positive for E. coli, and Infectious Diseases is asked to comment upon further antibiotic management.
She denies any fevers or chills. She denies any localizing body pain. She denies any flank pain. She denies any nausea or vomiting. She denies any dysuria or hematuria. All other systems were reviewed and were negative.
Past History
Additional Past Medical History:
IDDM
Hx of cervical cancer
Additional Past Surgical History:
Cervical surgery
Knee surgery
Allergy History:
amoxicillin Allergy (Verified 02/13/24 16:29)
Itching /hives
codeine Allergy (Verified 02/13/24 16:29)
Nausea
Medications Reviewed: Yes
Current Antibiotics:
Ceftriaxone
Social History
Tobacco: Former Smoker
Alcohol: None
Drug: None
Personal:
Living: With Family
Employment: Not Employed
Review of Systems
Vital Signs
Temp Pulse Resp BP Pulse Ox
100.1 F 95 19 76/55 95
02/14/24 07:00 02/14/24 08:45 02/14/24 08:45 02/14/24 08:45 02/14/24 08:45
Physical Exam
Physical Exam
Constitutional: No Acute Distress, Comfortable, Acutely Ill, Chronically Ill and Non-toxic
Head: Normocephalic
Eyes: Pupils Equal, Pupils Round, No Conjunctival Hemorrhage and Sclera Anicteric
Pharynx: Benign
Oral: Poor Dentition, No Thrush and No Ulcers
Cardiovascular: Regular Rate and S1/S2; Negative S3/S4 or Murmur
Pulmonary: Clear; Negative Wheezes, Rales or Rhonchi
Gastrointestinal: Soft, Non Tender, Non Distended, Normal Bowel Sounds, No Rebound and No Guarding
Genito-Urinary: Negative Suprapubic Tenderness or CVA Tenderness
Extremities: Edema (Trace); Negative Cyanosis or Erythema
Neurological: Awake and Alert
Psychological: Calm
.
Lab / Diagnostic Study Results
02/14/24 04:00
Abs Immat Gran (auto) 0.3 10^3/uL (0-0.05) H 02/13/24 16:34
Absolute Neuts (auto) 21.9 10^3/uL (1.4-6.5) H 02/13/24 16:34
Absolute Lymphs (auto) 0.6 10^3/uL (1.2-3.4) L 02/13/24 16:34
Absolute Monos (auto) 1.3 10^3/uL (0.1-0.6) H 02/13/24 16:34
Absolute Basos (auto) 0.1 10^3/uL (0-0.2) 02/13/24 16:34
Immature Gran % 1.3 % (0-0.5) H 02/13/24 16:34
Neutrophils % 90.4 % (42.2-75.2) H 02/13/24 16:34
Lymphocytes % 2.6 % (20.5-51.1) L 02/13/24 16:34
Monocytes % 5.5 % (1.7-9.3) 02/13/24 16:34
Eosinophils % 0.0 % (0-6) 02/13/24 16:34
Basophils % 0.2 % (0-2) 02/13/24 16:34
PT 16.1 Sec (11.4-14.6) H 02/14/24 04:00
INR 1.31 02/14/24 04:00
Lactic Acid 1.5 mmol/L (0.7-2.0) 02/13/24 19:36
Microbiology Results
Micro:
02/13/24 18:37 Blood Culture - Preliminary
Blood/Venous Escherichia coli
Gram Stain - Preliminary
02/13/24 18:39 Blood Culture - Preliminary
Blood/Venous Positive culture in progress
Gram Stain - Final
02/13/24 16:43 Urine Culture - Pending
Urine
Prior admission (August 2023) recovered isolate:
1. Escherichia coli
M.I.C. RX
--------- ---
Amoxicillin/Potas. Clavulanate <=8/4 S
Ampicillin <=8 S
Ampicillin/Sulbactam <=8/4 S
Cefazolin <=2 S
Ertapenem <=0.5 S
Ciprofloxacin >2 R
Gentamicin <=4 S
Levofloxacin >4 R
Meropenem <=1 S
Piperacillin/Tazobactam <=16 S
Tobramycin <=4 S
Trimethoprim/Sulfamethoxazole <=2/38 S
Imaging:
02/14/2024 Renal ultrasound with bladder: Ordered
09/22/2023 Renal ultrasound with bladder: Mild hydronephrosis of the left kidney. No renal mass or calculi noted bilaterally.
Assessment / Plan
E. coli bacteremia
Clinical sepsis
Suspected urinary tract infection
MAKSIM
Transaminitis
Underlying diabetes mellitus
Recommendations:
Prior E. coli susceptibilities noted (from August 2023), and isolate appears to be resistant only to the fluoroquinolones.
Continue with ceftriaxone for the present.
Await repeat renal ultrasound to ensure no obstructive uropathy.
Monitor white count and temperature curve.
[2024-02-14 11:06] LABS: Glucose - Point of Care 247 mg/dl (70-99)
--- NOTE | 2024-02-14 11:43 | CM ---
CM following re: discharge planning.
Discussed in Rounds, reviewed pt's chart, met with pt.
Pt is a 58 year old female, admitted with primary dx of Toxic metabolic encephalopathy secondary to sepsis and DKA.
Pt reports she lives with spouse in a trailer, no steps, has 2 supportive children. Pt reports she ambulates with a walker, known to [facility], no SNF history.
Pt will be benefitted from PT/OT evaluations to determine a level of care at discharge.
PCP: Roly Crow
pharmacy: [facility]
D/c plan: home with possibly VN services if recommended by PT/OT
CM will follow with discharge plan updates as hospitalization progresses
[2024-02-14 12:14] LABS: Glucose - Point of Care 225 mg/dl (70-99)
[2024-02-14 12:44] LABS: Blood Urea Nitrogen 71 mg/dl (7-17); Calcium 8.7 mg/dl (8.4-10.2); Carbon Dioxide 15 mmol/L (22-30); Chloride 104 mmol/L (98-107); Estimated Creatinine Clearance 26 ml/min; Glucose 225 mg/dl (70-99); Potassium 5.2 mmol/L (3.5-5.1); Sodium 134 mmol/L (135-145); eGFR 21.88
[2024-02-14] MEDS: LIORESAL 10 MG PO ×2 (12:45→21:54)
[2024-02-14 13:09] LABS: Glucose - Point of Care 404 mg/dl (70-99)
[2024-02-14] MEDS: DILAUDID 0.5 MG IV (13:17)
[2024-02-14 13:29] LABS: Glucose 379 mg/dl (70-99)
--- NOTE | 2024-02-14 13:31 | PN.DE.MGMTRT ---
Insulin Management
- -
02/14/2024 Diabetes Management Consult
Patient admitted 02/12 with c/o weakness, lightheadedness and blood sugar problem. PMH DKA 09/21 UTI, cervical ca, scapular wound, labial infection. Prior to admission was taking lantus 20 units @ HS with humalog 10 units AC and metformin 500 mg
BID. A1C on admission 6.1, GAP 15.
Patient is awake alert and oriented able to discuss diabetes management. States she has been very consistent with taking insulin and diabetes medication.
Currently patient receiving insulin infusion DKA protocol @ 3 units per hour consistently.
Last BMP with GAP 15. Will continue insulin infusion until GAP < 10 and transition to home regimen.
Discussed with patient and nurse.
Diabetes History
- -
Type of Diabetes: 2 requiring insulin
Pre-Admission Diabetes Regimen
02/13/24 02/13/24 02/13/24
16:34 18:38 20:45
Creatinine 2.4 H 2.5 H Cancelled
02/13/24 02/14/24 02/14/24
22:46 04:00 04:00
Creatinine 2.5 H 2.7 H Cancelled
02/14/24 02/14/24
08:06 12:01
Creatinine 2.4 H 2.5 H
Lab Results
Hemoglobin A1c 6.1 % (4.0-5.6) H 02/14/24 04:00
Insulin Pump Settings
IP Diabetes Regimen
02/13/24 02/13/24 02/13/24
16:34 16:53 18:20
Glucose 303 H
POC Glucose 317 H 165 H
02/13/24 02/13/24 02/13/24
18:22 18:38 19:42
Glucose 288 H
POC Glucose 296 H 328 H
02/13/24 02/13/24 02/13/24
20:35 20:45 21:17
Glucose Cancelled
POC Glucose 256 H 209 H
02/13/24 02/13/24 02/13/24
22:24 22:46 23:00
Glucose 135 H
POC Glucose 155 H 126 H
02/13/24 02/14/24 02/14/24
23:57 00:58 02:06
Glucose
POC Glucose 147 H 203 H 215 H
02/14/24 02/14/24 02/14/24
02:59 03:59 04:00
Glucose 199 H
POC Glucose 219 H 205 H
02/14/24 02/14/24 02/14/24
04:00 04:58 05:58
Glucose Cancelled
POC Glucose 209 H 216 H
02/14/24 02/14/24 02/14/24
06:59 07:54 08:06
Glucose 189 H
POC Glucose 196 H 210 H
02/14/24 02/14/24 02/14/24
08:56 09:55 10:55
Glucose
POC Glucose 191 H 193 H 247 H
02/14/24 02/14/24 02/14/24
12:01 12:03 12:57
Glucose 225 H
POC Glucose 225 H 404 H
02/14/24
13:10
Glucose 379 H
POC Glucose
Patient Education
[2024-02-14] MEDS: NSS 1000 IV ×2 (14:19→20:17)
--- NOTE | 2024-02-14 14:34 | PTCARENOTE ---
a family member came out of the patient's room and reported that apparently patient fell yesterday at home and landed on the right hip on a piece of furniture. It is not documented anywhere. Also Insulin gtt increased to 6 units. recent accu check
was 404 and venous glucose came back 379. IVF adjusted. new order for hip xrays placed and noted
[2024-02-14 14:43] LABS: Glucose - Point of Care 127 mg/dl (70-99)
[2024-02-14 15:25] LABS: Glucose - Point of Care 111 mg/dl (70-99)
[2024-02-14 16:11] LABS: Glucose - Point of Care 116 mg/dl (70-99)
[2024-02-14 17:04] LABS: Blood Urea Nitrogen 68 mg/dl (7-17); Calcium 9.2 mg/dl (8.4-10.2); Carbon Dioxide 13 mmol/L (22-30); Chloride 107 mmol/L (98-107); Estimated Creatinine Clearance 26 ml/min; Glucose 107 mg/dl (70-99); Potassium 5.6 mmol/L (3.5-5.1); Sodium 134 mmol/L (135-145); eGFR 21.88
[2024-02-14 17:21] LABS: Glucose - Point of Care 109 mg/dl (70-99)
[2024-02-14 18:11] LABS: Glucose - Point of Care 122 mg/dl (70-99)
--- NOTE | 2024-02-14 18:53 | PTCARENOTE ---
new telephone orders received from Dr. Gill for stat ABG and stat lactate level. currently on Insulin gtt @1unit. temp 100.4 oral. PO Tylenol admin. handoff report given to welder 2nd shift
[2024-02-14 19:09] LABS: Lactic Acid 0.6 mmol/L (0.7-2.0)
[2024-02-14 19:10] LABS: Glucose - Point of Care 148 mg/dl (70-99)
[2024-02-14 19:26] LABS: B.E. -7.9 mmol/L; HCO3 16.4 mmol/L (21-28); O2 Saturation % 99.7 % (94-98); PCO2 29 mmHg (32-35); PO2 84 mmHg (83-108); pH 7.36 (7.35-7.45)
[2024-02-14] MEDS: STERILE WATER FOR INJECTION 10 ML IV (19:57)
[2024-02-14] MEDS: ROCEPHIN 1000 MG IV (19:57)
--- NOTE | 2024-02-14 20:00 | PTCARENOTE ---
Assumed care of patient at 1900, nursing assessment completed and as documented. Patient Ox3, drowsy but arousable to verbal stimuli, on RA sats 94-96% lung sounds diminished bilaterally. SR/ST on monitor rates 90-110's, weak pedal pulses present,
trace edema to bilateral lower extremities. Patient NPO, abdomen soft, round, and obese with hypoactive bowel sounds. Patient with urinary frequency voiding small amounts and stress incontinence at time's, perineal hygiene performed and purewick
placed. Remains on insulin gtt per protocol and q1 hour accuchecks, see worklist for titration. Insulin infusing via L F/A PIV and NS infusing via L F/A PIV at ordered rate of 125ml/hr. ABG and BMP drawn. Medications given without difficulty. Call
bragg within reach, VSS, care ongoing.
[2024-02-14 20:14] LABS: Glucose - Point of Care 145 mg/dl (70-99)
[2024-02-14 20:49] LABS: Blood Urea Nitrogen 66 mg/dl (7-17); Calcium 8.8 mg/dl (8.4-10.2); Carbon Dioxide 15 mmol/L (22-30); Chloride 106 mmol/L (98-107); Estimated Creatinine Clearance 25 ml/min; Glucose 127 mg/dl (70-99); Potassium 5.2 mmol/L (3.5-5.1); Sodium 134 mmol/L (135-145); eGFR 20.88
[2024-02-14 21:16] LABS: Glucose - Point of Care 136 mg/dl (70-99)
[2024-02-14 22:13] LABS: Glucose - Point of Care 123 mg/dl (70-99)
[2024-02-14 23:12] LABS: Glucose - Point of Care 126 mg/dl (70-99)
[2024-02-15] VITALS (18 sets, daily range): BP systolic 84–152; BP diastolic 60–97; PULSE 103–106; BMI 31.1
--- NOTE | 2024-02-15 | PTCARENOTE ---
No changes to physical assessment. Patient remains on insulin gtt, see worklist for titration. Purewick placed for urinary frequency with stress incontinence. Call bragg within reach, VSS, care ongoing.
[2024-02-15 00:16] LABS: Glucose - Point of Care 108 mg/dl (70-99)
[2024-02-15 01:03] LABS: Blood Urea Nitrogen 65 mg/dl (7-17); Calcium 8.8 mg/dl (8.4-10.2); Carbon Dioxide 14 mmol/L (22-30); Chloride 109 mmol/L (98-107); Estimated Creatinine Clearance 25 ml/min; Glucose 119 mg/dl (70-99); Sodium 135 mmol/L (135-145); eGFR 20.88
[2024-02-15] MEDS: D5/0.45%NSS with KCL 20 MEQ 1000 IV ×2 (01:15→06:29)
[2024-02-15 01:16] LABS: Glucose - Point of Care 122 mg/dl (70-99)
[2024-02-15 02:17] LABS: Glucose - Point of Care 112 mg/dl (70-99)
[2024-02-15 03:15] LABS: Glucose - Point of Care 157 mg/dl (70-99)
--- NOTE | 2024-02-15 04:00 | PTCARENOTE ---
No changes to physical assessment. See worklist for insulin gtt titration. Labs drawn and sent. Tylenol given for pain in BLLE and R hip, see MAR. Call bragg within reach, VSS, care ongoing.
[2024-02-15 04:14] LABS: Glucose - Point of Care 142 mg/dl (70-99)
[2024-02-15 04:49] LABS: % Basophils 0.3 % (0-2); % Eosinophils 0.7 % (0-6); % Lymphocytes 5.8 % (20.5-51.1); % Neutrophils 84.2 % (42.2-75.2); Absolute Eosinophils 0.1 10^3/uL (0-0.7); Absolute Immature Granulocytes 0.2 10^3/uL (0-0.05); Absolute Lymphocytes 0.9 10^3/uL (1.2-3.4); Absolute Monocytes 1.2 10^3/uL (0.1-0.6); Absolute Neutrophils 12.4 10^3/uL (1.4-6.5); Hematocrit 32.9 % (37.0-47.0); Hemoglobin 10.6 g/dL (12.0-16.0); Mean Corp Hgb Conc. 32.2 g/dL (33.0-37.0); Mean Corpuscular Hgb 28.1 pg (27.0-31.0); Mean Corpuscular Volume 87.3 fL (81.0-99.0); Mean Platelet Volume 11.7 fL (7.4-10.4); Nucleated Red Blood Cells % 0 %; Platelet Count 117 10^3/uL (130-400); Red Blood Cell Count 3.77 10^6/uL (4.20-5.40); Red Cell Dist. Width 15.3 % (11.5-14.5); White Blood Cell Count 14.8 10^3/uL (4.8-10.8)
[2024-02-15 05:03] LABS: Blood Urea Nitrogen 63 mg/dl (7-17); Carbon Dioxide 15 mmol/L (22-30); Chloride 110 mmol/L (98-107); Estimated Creatinine Clearance 27 ml/min; Glucose 206 mg/dl (70-99); Potassium 5.3 mmol/L (3.5-5.1); Sodium 136 mmol/L (135-145); eGFR 22.98
[2024-02-15 05:09] LABS: Glucose - Point of Care 171 mg/dl (70-99)
[2024-02-15] MEDS: TYLENOL 1000 MG PO ×2 (05:46→16:30)
[2024-02-15 06:17] LABS: Glucose - Point of Care 133 mg/dl (70-99)
[2024-02-15 07:14] LABS: Glucose - Point of Care 156 mg/dl (70-99)
--- NOTE | 2024-02-15 07:28 | W.PN.INTV ---
Today's Communication / Plan
Recommendations
Wean insulin drip
Diabetic nurse practitioner input appreciated
Nephrology evaluation
Eventual CT chest with dye and outpatient pulmonary evaluation
Transfer out of ICU if off insulin drip-call pulmonary if respiratory issues arise
Assessment
-
58-year-old insulin-dependent diabetic female with a known history of DKA, recurrent UTIs and neuropathy presented with weakness, hyperglycemia and pediatric radiologist consulted for UTI/DKA/critical care management 02/14/2024.
UTI
DKA
MAKSIM
Hyponatremia
Hyperkalemia
Leukocytosis
Ntgjyd-gquslbkjum-czbblywwae 10.1
Metabolic acidosis
Abnormal chest x-ray-? Pulm hypertension/right hilar mass-CT chest pending
Conditions present prior to admission:
Recent hospitalization 08/2023-urosepsis, DKA, MAKSIM,
Cvbpyqvu-xbrginw-ocdnxbcac with a history of DKA.
Cervical cancer.
Right labial abscess
Diabetic neuropathy
Former jwmqys-80-ighi-year quit 3 years ago
Plan
Blood sugars and hemodynamics have improved
Supplemental oxygen as needed-attempt to wean
Incentive spirometry encouraged
Nebulizers if needed-currently not bronchospastic-former smoker
CT chest with contrast once renal function improves-renal function not good enough for dye yet
Monitor blood sugar
Monitoring anion gap
Insulin drip-attempt to wean off
Check A1c if not done in the last 3 months
Diabetic nurse practitioner consultation ongoing-appreciate input
Intravenous fluid resuscitation-reduce and consider discontinuation if eating and drinking
Monitor potassium closely
Check cultures
Suspected UTI
Empiric antibiotics
Follow leukocytosis
Follow temperature curve
Monitor renal function
Nephrology evaluation if renal function does not improve
Monitor hemoglobin
Transfuse as needed
DVT prophylaxis-heparin refused, recommended at least compression boots
Early nutrition
Early mobilization
If able to wean off insulin drip and hemodynamically stable then transfer out of ICU-call pulmonary if respiratory issues arise-obtain CT chest once renal function improves
Outpatient pulmonary follow-up with smoking history-needs PFTs, yearly low-dose lung cancer screening CT
Critical care statement: A total of 38 minutes of critical care time was provided for this patient today. This includes management of unstable vital signs, insulin drip management, evaluation of the patient at bedside, reviewing the patient's
pertinent medical records including radiographs, microbiology, laboratory evaluations, and discussion with primary team, consultants, charge nurse, and critical care nursing.
Diagnostic data:
Chest x-ray 09/18/2023-NAD
Chest x-ray 02/13/2024-prominence of central venous vasculature present may be due to pulmonary hypertension or even right hilar mass cannot be excluded-nonurgent dedicated CT chest with IV contrast recommended
Subjective Dataa
Subjective Data
Date of Service:
Date of Service: February 15, 2024
Chief Complaint: [employer] Follow Up and Pulmonary Follow Up
Subjective:
Feels better, blood sugars better controlled, no shortness of breath at rest, chest pain or abdominal pain
Review of Systems
General: Other (Per HPI)
Objective Data
Data Reviewed
Vital Signs / I&O / Oxygen:
Vital Signs
Temp Pulse Resp BP Pulse Ox
98.5 F 102 24 149/84 96
02/15/24 03:47 02/15/24 06:00 02/15/24 06:00 02/15/24 06:00 02/15/24 03:00
Intake and Output
02/14/24 02/15/24 02/16/24
06:59 06:59 06:59
Intake Total 1870.6 / 1870.6 4583.5 / 4710.5 127 / 127
Output Total 500 / 500 1200 / 1200
Balance 1370.6 / 1370.6 3383.5 / 3510.5 127 / 127
SaO2 96
Physical Exam
General: Respiratory Distress (n) and Comfortable
HEENT: Normocephalic and Anicteric
Cardiovascular: Regular Rhythm
Respiratory: Wheeze (n), Crackles (n), Rhonchi (n), Non-Labored Respirations, Accessory Resp Muscle Use (n) and Stridor (n)
GI: Soft, Non Distended and Non Tender
Neurology: Awake, Alert and No Motor Deficits
Skin: Warm, Good Color, Cyanosis (n) and Jaundice (n)
Labs/Micro/Reports
Lab Data
02/15/24 04:25
02/15/24 04:25
Laboratory Results
02/14/24
19:17
pH 7.36
pCO2 29 L
pO2 84
HCO3 16.4 L
O2 Delivery Level Not Reportable
Microbiology
02/13/24 18:37 Blood/Venous Blood Culture - Preliminary
Escherichia coli
02/13/24 18:37 Blood/Venous Gram Stain - Preliminary
02/13/24 16:43 Urine Urine Culture - Preliminary
Escherichia coli
02/13/24 18:39 Blood/Venous Blood Culture - Preliminary
Positive culture in progress
02/13/24 18:39 Blood/Venous Gram Stain - Final
[2024-02-15] MEDS: NEURONTIN 300 MG PO ×2 (07:35→20:58)
[2024-02-15 08:07] LABS: Glucose - Point of Care 182 mg/dl (70-99)
[2024-02-15 08:31] LABS: Blood Urea Nitrogen 62 mg/dl (7-17); Calcium 8.7 mg/dl (8.4-10.2); Carbon Dioxide 12 mmol/L (22-30); Chloride 112 mmol/L (98-107); Estimated Creatinine Clearance 28 ml/min; Glucose 174 mg/dl (70-99); Potassium 5.3 mmol/L (3.5-5.1); Sodium 135 mmol/L (135-145); eGFR 24.19
[2024-02-15] MEDS: LANTUS 0.12 UNITS SC (09:17)
[2024-02-15 09:28] LABS: Glucose - Point of Care 164 mg/dl (70-99)
--- NOTE | 2024-02-15 10:37 | PN.DE.MGMTRT ---
Insulin Management
- -
02/15/2024 Diabetes Management Consult Follow up
Patient admitted 02/12 with c/o weakness, lightheadedness and blood sugar problem, found to be in DKA. PMH DKA 09/21 UTI, cervical ca, scapular wound, labial infection. Prior to admission was taking lantus 20 units @ HS with humalog 10 units AC
and metformin 500 mg BID. A1C on admission 6.1, GAP 15.
02/14 Patient is awake alert and oriented able to discuss diabetes management. States she has been very consistent with taking insulin and diabetes medication. Insulin infusion DKA protocol @ .5 to 1 units per hour, GAP 11. Will transition to
12 units lantus now insulin infusion and fluids off 2 hours after lantus administered. To start novolog 8 units with low corrective AC first meal at lunch, diet ordered. Will resume hs lantus at lower dose, 18 units.
Patient follows with Dr. Crow for diabetes management, has DexCenify G7 CGM for glucose monitoring.
Discussed with patient and nurse.
Diabetes History
- -
Type of Diabetes: 2 requiring insulin
Pre-Admission Diabetes Regimen
02/14/24 02/14/24 02/14/24
12:01 16:09 20:10
Creatinine 2.5 H 2.5 H 2.6 H
02/15/24 02/15/24 02/15/24
00:09 04:25 07:57
Creatinine 2.6 H 2.4 H 2.3 H
Lab Results
Hemoglobin A1c 6.1 % (4.0-5.6) H 02/14/24 04:00
Insulin Pump Settings
IP Diabetes Regimen
02/14/24 02/14/24 02/14/24
10:55 12:01 12:03
Glucose 225 H
POC Glucose 247 H 225 H
02/14/24 02/14/24 02/14/24
12:57 13:10 14:22
Glucose 379 H
POC Glucose 404 H 127 H
02/14/24 02/14/24 02/14/24
15:04 15:59 16:09
Glucose 107 H
POC Glucose 111 H 116 H
02/14/24 02/14/24 02/14/24
17:09 17:59 18:59
Glucose
POC Glucose 109 H 122 H 148 H
02/14/24 02/14/24 02/14/24
20:02 20:10 21:05
Glucose 127 H
POC Glucose 145 H 136 H
02/14/24 02/14/24 02/15/24
22:02 23:00 00:05
Glucose
POC Glucose 123 H 126 H 108 H
02/15/24 02/15/24 02/15/24
00:09 01:04 02:01
Glucose 119 H
POC Glucose 122 H 112 H
02/15/24 02/15/24 02/15/24
03:04 04:04 04:25
Glucose 206 H
POC Glucose 157 H 142 H
02/15/24 02/15/24 02/15/24
04:58 06:06 07:02
Glucose
POC Glucose 171 H 133 H 156 H
02/15/24 02/15/24 02/15/24
07:56 07:57 09:16
Glucose 174 H
POC Glucose 182 H 164 H
Patient Education
--- NOTE | 2024-02-15 11:06 | PTCARENOTE ---
assumed care for the patient, on Insulin gtt following protocol with Q1H accu checks. Insulin gtt stopped this AM as per order , new orders for accu checks ACHS, Insulin orders and transfer orders noted. patient placed on 1600 jazz diabetic diet.
assisted with lunch order. mental status improved, more awake with family at bedside, appropriate conversation.
--- NOTE | 2024-02-15 11:07 | W.PN.HOSP.TC ---
Today's Communication/Plan
-
Transition to subcu insulin.
Diet.
Basal bolus protocol.
IV antibiotics pending final blood cultures and sensitivities.
Physical therapy evaluation
Transition out of ICU.
Nephrology consult
Assessment / Plan
Assessment / Plan
Impression:
Toxic metabolic encephalopathy secondary to sepsis and DKA
Sepsis.
Septic shock with persistent hypotension
Gram-negative bacteremia
Urinary tract infection.
DKA
Hyperkalemia
Acute kidney injury
Suspected CKD stage II
Right hilar infiltrate/mass
Other conditions
Recent hospitalization 09/21 with complicated UTI and DKA.
Type 2 diabetes IDDM.
Obesity with BMI of 30.
Essential hypertension.
Diabetic neuropathy
Plan:
Sepsis secondary to urinary tract infection.
Septic shock with persistent hypotension responded to IV fluids.
Gram-negative bacteremia (prior history of E. coli bacteremia)
Continue antibiotics/ceftriaxone pending final cultures
ID consultation.
Sonogram of bladder and kidney (prior sonogram 09/21 with mild left hydronephrosis)
Bladder scan for retention
Low threshold for pressors if does not respond to IV fluid bolus
DKA.
Likely triggered with sepsis.
States insulin compliance
Hemoglobin A1c improved from 12-6
Anion gap normalized while on insulin drip and IV fluids
02/14 being transition to subcutaneous insulin
Carbohydrate diet
Continue basal bolus protocol with serial Accu-Cheks
Acute kidney injury
Suspect CKD stage II�3.
1+ proteinuria with concern for diabetic nephropathy
Hyperkalemia
Persistent metabolic acidosis now with normal anion gap
Bladder scan.
Renal sonogram as above.
Hold lisinopril.
Continue IV fluids
Nephrology evaluation
Toxic metabolic encephalopathy secondary to sepsis and DKA.
Mental status improving
Exam with no focal findings
CT scan of the head with no acute abnormalities.
Avoid oversedation.
Mental status improved
Avoid sedatives.
Reintroduce Neurontin and baclofen with caution
Right hilar infiltrate on the chest x-ray.
Patient denies any respiratory symptoms.
Former smoker quit June 2023.
Will need follow-up imaging with CT scan preferably enhanced once renal function improved.
Essential hypertension.
Currently hypotensive.
Hold lisinopril.
Diabetic neuropathy.
Outpatient regimen Neurontin/baclofen/Tylenol
Right hip pain with reported fall at home pain
Exam with full range of motion and right hip.
X-ray with no bony abnormalities or trauma.
Physical therapy evaluation.
Full code.
DVT prophylaxis heparin subcu
Anticipated Discharge: 24 - 48 hours
Subjective/Interval History
-
Date of Service: February 15, 2024
Objective Data
-
Labs:
Laboratory Results
02/15/24 02/15/24 02/15/24
00:09 04:25 07:57
WBC 14.8 H
Hgb 10.6 L
Hct 32.9 L
Plt Count 117 L
Sodium 135 136 135
Potassium 5.0 5.3 H 5.3 H
Chloride 109 H 110 H 112 H
Carbon Dioxide 14 L* 15 L 12 L*
BUN 65 H 63 H 62 H
Creatinine 2.6 H 2.4 H 2.3 H
Glucose 119 H 206 H 174 H
Calcium 8.8 9.0 8.7
Vital Signs:
Vital Signs
Temp Pulse Resp BP Pulse Ox
98.3 F 86 29 118/72 99
02/15/24 08:13 02/15/24 08:00 02/15/24 08:00 02/15/24 08:00 02/15/24 08:00
I&O
02/14/24 02/15/24 02/16/24
06:59 06:59 06:59
Intake Total 1870.6 / 1870.6 4583.5 / 4710.5 383 / 383
Output Total 500 / 500 1200 / 1200
Balance 1370.6 / 1370.6 3383.5 / 3510.5 383 / 383
Physical Exam
-
General: Well Developed and No Apparent Distress
HEENT: Normocephalic, Atraumatic and Moist Mucous Membranes
Respiratory: Clear to Auscultation
Cardiac: Regular Rhythm and S1/S2; Negative Murmur, Rub or Gallop
GI: Soft, Nontender, Nondistended and Normal Bowel Sounds; Negative Organomegaly
Rectal: Deferred by Provider
Musculoskeletal: No Clubbing, No Cyanosis and No Edema
Skin: Negative Rash
Neuro: Nonfocal/Grossly Intact
[2024-02-15 11:31] LABS: Glucose - Point of Care 152 mg/dl (70-99)
[2024-02-15] MEDS: NOVOLOG FLEXPEN 8 UNITS SC ×2 (11:53→16:42)
[2024-02-15] MEDS: NOVOLOG FLEXPEN-LOW RESISTANCE 1 UNITS SC ×2 (11:53→16:42)
--- NOTE | 2024-02-15 12:12 | W.CON.NEPH ---
Consultation
-
Date/Time Consultation Requested: 02/15/2024 11 AM
Date/Time Consultation Performed: 02/15/2024 12 PM
Requesting Provider: Dr. Gill
Performing Provider: Dr. Wilson
Reason for Consultation: MAKSIM
Medical History
-
Chief Complaint: Weakness
History of Present Illness:
This is a 58-year-old female who has diabetes mellitus type 2 on insulin therapy, hypertension on a monotherapy regimen, neuropathy on gabapentin. She presented to the emergency room because of worsening weakness and hyperglycemia
Past Medical History
Hypertension, diabetes mellitus type 2, neuropathy, cervical cancer, right labial abscess, left hydronephrosis, August 2023, gout
Social History
Tobacco: Former Smoker
Alcohol: None
Family History
Family History: Not Pertinent
Allergies / Home Medications
Allergy/AdvReac Type Severity Reaction Status Date / Time
amoxicillin Allergy Itching Verified 02/13/24 16:29
codeine Allergy Nausea Verified 02/13/24 16:29
�Medication �Instructions �Recorded �Confirmed �Type
metformin 500 mg tablet 500 mg PO BID #60 tabs 07/04/23 02/13/24 Rx
insulin glargine 100 unit/mL (3 20 unit (0.2 mL) SC QPM 90 days 09/25/23 02/13/24 Rx
mL) subcutaneous pen (Lantus #8.1 mL
Solostar U-100 Insulin)
insulin lispro 100 unit/mL 10 unit (0.1 mL) SC AC Diabetes #0 09/25/23 02/13/24 Rx
subcutaneous pen (Humalog KwikPen mL
(U-100) Insulin)
acetaminophen 500 mg tablet 1,000 mg PO Q6HPRN PRN mild pain 02/13/24 02/13/24 History
(Tylenol Extra Strength)
baclofen 10 mg tablet 10 mg PO DAILYPRN PRN spasms 02/13/24 02/13/24 History
baclofen 10 mg tablet 10 mg PO HS Muscle Spasms 02/13/24 02/13/24 History
gabapentin 400 mg capsule 1,200 mg PO HS Pain 02/13/24 02/13/24 History
lisinopril 2.5 mg tablet 2.5 mg PO DAILY Blood Pressure 02/13/24 02/13/24 History
therapeutic multivitamin 1 tab PO DAILY Supplement 02/13/24 02/13/24 History
Physical Exam
Vital Signs
Vital Signs
Temp Pulse Resp BP Pulse Ox
97.8 F 86 29 118/72 99
02/15/24 11:51 02/15/24 08:00 02/15/24 08:00 02/15/24 08:00 02/15/24 08:00
Lab Results
WBC 14.8 10^3/uL (4.8-10.8) H 02/15/24 04:25
RBC 3.77 10^6/uL (4.20-5.40) L 02/15/24 04:25
Hgb 10.6 g/dL (12.0-16.0) L 02/15/24 04:25
Hct 32.9 % (37.0-47.0) L 02/15/24 04:25
Plt Count 117 10^3/uL (130-400) L 02/15/24 04:25
Sodium 135 mmol/L (135-145) 02/15/24 07:57
Potassium 5.3 mmol/L (3.5-5.1) H 02/15/24 07:57
Chloride 112 mmol/L (98-107) H 02/15/24 07:57
Carbon Dioxide 12 mmol/L (22-30) L* 02/15/24 07:57
BUN 62 mg/dl (7-17) H 02/15/24 07:57
Creatinine 2.3 mg/dL (0.6-1.0) H 02/15/24 07:57
eGFR 24.19 02/15/24 07:57
Glucose 174 mg/dl (70-99) H 02/15/24 07:57
Calcium 8.7 mg/dl (8.4-10.2) 02/15/24 07:57
Ero-P-Hszilgygfsl Pept Cancelled 02/15/24 08:00
Albumin 3.7 g/dl (3.5-5.0) 02/13/24 16:34
Laboratory Tests
09/25/23
06:54
Sodium 129 L
Potassium 4.5
Carbon Dioxide 27
BUN 29 H
Creatinine 1.2 H
Laboratory Tests
02/14/24
19:17
pH 7.36
pCO2 29 L
pO2 84
HCO3 16.4 L
ABG O2 Sat (Measured) 99.7 H
Physical Exam
Patient is awake alert oriented and in no distress. Mood and affect were pleasant, insight and judgment were good. Pupils are equal round and reactive to light, extraocular movements are intact, sclera were anicteric. Hearing was normal, ears and
nose are intact. Oropharynx was clear. Neck was supple with trachea midline and no thyromegaly. Heart was regular rate and rhythm without rubs. Lower extremities without edema. Lungs were clear to auscultation bilaterally and with normal
excursion. Abdomen was soft, nontender, with normal active bowel sounds, and no hepatosplenomegaly. Skin was without rash and with normal turgor.
Data Reviewed
-
Radiology: Image Personally Visualized and interpreted (Chest x-ray on 02/13/2024 by my reading shows vascular prominence)
Ultrasound: Report Reviewed by me (Renal ultrasound on 02/14/2024 shows right kidney 11.8 cm left kidney 11.9 cm no hydronephrosis)
Medical Tests (Nuc Med, Echo etc): Image Personally Visualized and interpreted (EKG on 02/13/2024 by my reading shows sinus tachycardia)
Labs: Labs Reviewed by me
Old Records: Reviewed
Assessment/Plan
-
Assessment
UTI
DKA
MAKSIM
Hyponatremia
Hyperkalemia
Leukocytosis
Jafrwa-qmhjajhnyy-gkxsptxdbh 10.1
Metabolic acidosis, persistent
Abnormal chest x-ray-? Pulm hypertension/right hilar mass-CT chest pending
E. coli sepsis
Plan
Follow bladder scan
Lasix 20 mg IV
Sodium bicarbonate 1300 mg twice daily
Check urinalysis for pH
Continue antibiotics
--- NOTE | 2024-02-15 12:29 | W.PN.ID1 ---
Date of Service
Date of Service: February 15, 2024
Today's Communication
Continue antibiotics
Assessment / Plan
E. coli bacteremia
Clinical sepsis
Suspected urinary tract infection
MAKSIM
Transaminitis
Underlying diabetes mellitus
Recommendations:
Prior E. coli susceptibilities noted (from August 2023), and isolate appears to be resistant only to the fluoroquinolones.
Continue with ceftriaxone for the present.
Leukocytosis improving. Temperature curve improving.
Renal ultrasound reveals no obstructive uropathy
Monitor white count and temperature curve.
����������������������������������������������������������
Chief Complaint
-: UTI and Bacteremia
Subjective / Review of Systems
Patient seen and examined. Fevers noted yesterday have now improved. Temperature curve improved.
Vital Signs / Physical Exam
Vital Signs
Vital Signs
Temp Pulse Resp BP Pulse Ox
97.8 F 86 29 118/72 99
02/15/24 11:51 02/15/24 08:00 02/15/24 08:00 02/15/24 08:00 02/15/24 08:00
Physical Exam
Constitutional: Comfortable, Acutely Ill, Chronically Ill and Non-toxic
Head: Normocephalic
Eyes: Sclera Anicteric
Cardiovascular: S1/S2; Negative S3/S4 or Murmur
Pulmonary: Non Labored
Gastrointestinal: Soft, Non Tender, Non Distended, No Rebound and No Guarding
Genito-Urinary: Negative Suprapubic Tenderness or CVA Tenderness
Extremities: Edema (Trace)
Skin: Negative Rash or Jaundice
Neurological: Awake and Alert
Psychological: Calm
Objective Data
Lab Data
Lab Results
02/15/24 04:25
02/15/24 07:57
PT 16.1 Sec (11.4-14.6) H 02/14/24 04:00
INR 1.31 02/14/24 04:00
APTT 36.0 Sec (23.4-35.0) H 02/14/24 04:00
Estimated Creat Clear 28 ml/min 02/15/24 07:57
Lactic Acid 0.6 mmol/L (0.7-2.0) L 02/14/24 18:46
Total Bilirubin 0.5 mg/dl (0.2-1.3) 02/13/24 16:34
AST 42 U/L (14-36) H 02/13/24 16:34
ALT 41 U/L (0-35) H 02/13/24 16:34
Alkaline Phosphatase 71 U/L (38-126) 02/13/24 16:34
Most recent labs reviewed.
Micro Results:
02/13/24 16:43 Urine Culture - Final
Urine Escherichia coli
02/13/24 18:37 Blood Culture - Preliminary
Blood/Venous Escherichia coli
Gram Stain - Preliminary
02/13/24 18:39 Blood Culture - Preliminary
Blood/Venous Positive culture in progress
Gram Stain - Final
Prior admission (August 2023) recovered isolate:
1. Escherichia coli
M.I.C. RX
--------- ---
Amoxicillin/Potas. Clavulanate <=8/4 S
Ampicillin <=8 S
Ampicillin/Sulbactam <=8/4 S
Cefazolin <=2 S
Ertapenem <=0.5 S
Ciprofloxacin >2 R
Gentamicin <=4 S
Levofloxacin >4 R
Meropenem <=1 S
Piperacillin/Tazobactam <=16 S
Tobramycin <=4 S
Trimethoprim/Sulfamethoxazole <=2/38 S
Imaging:
02/14/2024 Renal ultrasound with bladder: No hydronephrosis noted. No abnormal solid or complex renal masses. No renal calculi is noted.
09/22/2023 Renal ultrasound with bladder: Mild hydronephrosis of the left kidney. No renal mass or calculi noted bilaterally.
[2024-02-15] MEDS: SODIUM BICARBONATE 1300 MG PO ×2 (12:54→20:59)
[2024-02-15] MEDS: LASIX 20 MG IV (12:54)
[2024-02-15 14:44] LABS: Urine Albumin Trace (Neg - Trace); Urine Bilirubin Negative (Negative); Urine Character Clear (Clear); Urine Color Yellow; Urine Glucose Negative (Negative); Urine Ketone Negative (Negative); Urine Leukocyte 2+ (Negative); Urine Nitrite Negative (Negative); Urine Occult Blood 2+ (Negative); Urine Specific Gravity 1.005 (<1.030); Urine Urobilinogen Negative (Neg - 1+)
--- NOTE | 2024-02-15 15:14 | CM ---
CM following re: discharge planning.
Discussed in Rounds, reviewed pt's chart, met with pt and pt's niece at bedside.
PT and OT evaluations noted - SNF level of cafe recommended. Both pt and her niece are aware, expressed their agreement. A list of SNFs provided. Following SNFs preferred: [facility], [facility], [facility]. A referral to above SNFs made.
D/c plan; preferred SNF.
CM will follow to assist pt with discharge to a preferred SNF.
[2024-02-15 15:29] LABS: Urine Squamous Cell 21-25 /LPF (Few)
[2024-02-15 15:30] LABS: Urine Bacteria Few (Negative); Urine Red Blood Cell 0-2 /HPF (0-2); Urine White Cell 60-70 /HPF (0-5)
[2024-02-15] MEDS: LIORESAL 10 MG PO ×2 (16:31→21:00)
[2024-02-15 16:42] LABS: Glucose - Point of Care 170 mg/dl (70-99)
[2024-02-15] MEDS: STERILE WATER FOR INJECTION 10 ML IV (20:59)
[2024-02-15] MEDS: ROCEPHIN 1000 MG IV (20:59)
[2024-02-15 21:06] LABS: Glucose - Point of Care 211 mg/dl (70-99)
[2024-02-15] MEDS: LANTUS 0.18 UNITS SC (21:08)
[2024-02-16] VITALS (7 sets, daily range): BP systolic 118–130; BP diastolic 71–81; BMI 30.5
[2024-02-16 07:26] LABS: Hematocrit 30.6 % (37.0-47.0); Hemoglobin 10.3 g/dL (12.0-16.0); Mean Corp Hgb Conc. 33.7 g/dL (33.0-37.0); Mean Corpuscular Hgb 28.9 pg (27.0-31.0); Mean Corpuscular Volume 85.7 fL (81.0-99.0); Mean Platelet Volume 11.8 fL (7.4-10.4); Platelet Count 140 10^3/uL (130-400); Red Blood Cell Count 3.57 10^6/uL (4.20-5.40); Red Cell Dist. Width 15.6 % (11.5-14.5); White Blood Cell Count 10.8 10^3/uL (4.8-10.8)
[2024-02-16 07:42] LABS: Glucose - Point of Care 159 mg/dl (70-99)
--- NOTE | 2024-02-16 07:47 | PN.DE.MGMTRT ---
Insulin Management
- -
02/16/2024 Diabetes Management F/U:
Patient admitted 02/12 with c/o weakness, lightheadedness and blood sugar problem, found to be in DKA, GAP 15.
PMH: Cervical cancer, Scapular wound, Recurrent UTIs, Labial infection, Recurrent DKA, last episode 09/21, Diabetic Neuropathy, Former epqxyi-26-fbsu-year quit 3 years ago and IDDM. 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
Metformin 500 mg BID.
Noted for improved A1C, was 17.1% on 07/04/2023-->12.2% on 09/18/23 and on admission 6.1%, Cr 2.3, eGFR 24.19.
States she has been very consistent with taking insulin and diabetes medication.
Patient is awake alert and oriented, resting in bed, able to discuss diabetes management.
Transitioned off Insulin infusion DKA protocol to SQ insulin.
Premeal glucose range 152 to 170, requiring 1 units additional corrective insulin. FBG 165 (V) this AM.
Will increase Lantus to OP dose of 20 units and increase NovoLog to 10 units AC. Cont low corrective with meals.
STOP Metformin due to MAKSIM Cr 2.3. Patient follows with Dr. Walter for diabetes management, has DexCom G7 CGM for glucose monitoring.
Discussed with patient and nurse.
Diabetes History
- -
Type of Diabetes: 2 requiring insulin
Pre-Admission Diabetes Regimen
02/15/24
07:57
Creatinine 2.3 H
Lab Results
Hemoglobin A1c 6.1 % (4.0-5.6) H 02/14/24 04:00
Insulin Pump Settings
IP Diabetes Regimen
02/15/24 02/15/24 02/15/24
07:56 07:57 09:16
Glucose 174 H
POC Glucose 182 H 164 H
02/15/24 02/15/24 02/15/24
11:20 16:40 21:04
Glucose
POC Glucose 152 H 170 H 211 H
02/16/24
07:41
Glucose
POC Glucose 159 H
Meal type: Lunch
Amount consumed: 90%
Patient Education
[2024-02-16 08:19] LABS: Blood Urea Nitrogen 58 mg/dl (7-17); Calcium 9.3 mg/dl (8.4-10.2); Carbon Dioxide 19 mmol/L (22-30); Chloride 109 mmol/L (98-107); Estimated Creatinine Clearance 28 ml/min; Glucose 165 mg/dl (70-99); Potassium 5.1 mmol/L (3.5-5.1); Sodium 139 mmol/L (135-145); Uric Acid 6.4 mg/dl (2.5-6.2); eGFR 24.19
[2024-02-16] MEDS: SODIUM BICARBONATE 1300 MG PO ×2 (09:25→21:20)
[2024-02-16] MEDS: NOVOLOG FLEXPEN-LOW RESISTANCE 1 UNITS SC ×2 (09:25→11:48)
[2024-02-16] MEDS: NOVOLOG FLEXPEN 8 UNITS SC (09:25)
[2024-02-16] MEDS: NEURONTIN 300 MG PO ×2 (09:26→21:19)
[2024-02-16 11:44] LABS: Glucose - Point of Care 159 mg/dl (70-99)
[2024-02-16] MEDS: NOVOLOG FLEXPEN 10 UNITS SC ×2 (11:48→16:43)
--- NOTE | 2024-02-16 12:43 | W.PN.NEPH.PH ---
Today's Communication / Plan
-
Obtain serologies
Creatinine unchanged
Maintain sodium bicarbonate in setting of metabolic acidosis
Assessment/Plan
-
Assessment
UTI/Ecoli bacteremia
DKA
MAKSIM
Hyponatremia
Hyperkalemia
Leukocytosis
Pksjxg-diuwjysinb-hqmckhhwac 10.1
Metabolic acidosis, persistent
Abnormal chest x-ray-? Pulm hypertension/right hilar mass-CT chest pending
E. coli sepsis
Plan
renal ultrasound normal
creaitnine unchanged, remains nonoliguric
Sodium bicarbonate 1300 mg twice daily for metabolic acidosis
Checked urinalysis for pH: 6
Continue antibiotics
would check serologies
-
-
Date of Service: February 16, 2024
CC / HPI / ROS
-
Chief Complaint:
Acute kidney injury
History of Present Illness:
Creatinine unchanged at 2.3
Metabolic acidosis persist on sodium bicarb
Hemodynamically stable
Review of Systems:
Nonoliguric
Patient crying from lower back and bottom pain
Labs
-
Labs:
WBC 10.8 10^3/uL (4.8-10.8) 02/16/24 07:03
RBC 3.57 10^6/uL (4.20-5.40) L 02/16/24 07:03
Hgb 10.3 g/dL (12.0-16.0) L 02/16/24 07:03
Hct 30.6 % (37.0-47.0) L 02/16/24 07:03
Plt Count 140 10^3/uL (130-400) 02/16/24 07:03
Sodium 139 mmol/L (135-145) 02/16/24 07:03
Potassium 5.1 mmol/L (3.5-5.1) 02/16/24 07:03
Chloride 109 mmol/L (98-107) H 02/16/24 07:03
Carbon Dioxide 19 mmol/L (22-30) L 02/16/24 07:03
BUN 58 mg/dl (7-17) H 02/16/24 07:03
Creatinine 2.3 mg/dL (0.6-1.0) H 02/16/24 07:03
eGFR 24.19 02/16/24 07:03
Glucose 165 mg/dl (70-99) H 02/16/24 07:03
Calcium 9.3 mg/dl (8.4-10.2) 02/16/24 07:03
Qkf-P-Nmttspwnxfq Pept Cancelled 02/15/24 08:00
Albumin 3.7 g/dl (3.5-5.0) 02/13/24 16:34
Physical Exam
-
Vital Signs:
Vital Signs
Temp Pulse Resp BP Pulse Ox
97.6 F 88 18 128/79 94
02/16/24 11:01 02/16/24 11:01 02/16/24 11:01 02/16/24 11:01 02/16/24 11:01
Cardiovascular:: Regular rate and rhythm
Respiratory:: Bilateral: CTA
Lung Excursion:: Normal
Abdomen:: Nontender and Soft
Bowel Sounds:: Normal
Extremity Edema:: None: Bilateral:
Mcclure Catheter: No
--- NOTE | 2024-02-16 13:52 | W.PN.HOSP.TC ---
Today's Communication/Plan
-
IV antibiotics for UTI/E. coli bacteremia.
Workup for MAKSIM, metabolic acidosis, CKD.
Oral bicarb.
Adjust insulin dose
Physical therapy
Discharge planning likely to rehab
Assessment / Plan
Assessment / Plan
Impression:
Toxic metabolic encephalopathy secondary to sepsis and DKA
Sepsis.
Septic shock with persistent hypotension
Gram-negative bacteremia
Urinary tract infection.
DKA
Hyperkalemia
Acute kidney injury
Suspected CKD stage II
Right hilar infiltrate/mass
Other conditions
Recent hospitalization 09/21 with complicated UTI and DKA.
Type 2 diabetes IDDM.
Obesity with BMI of 30.
Essential hypertension.
Diabetic neuropathy
Plan:
Sepsis secondary to urinary tract infection.
Septic shock with persistent hypotension responded to IV fluids.
Gram-negative bacteremia (prior history of E. coli bacteremia)
Continue antibiotics/ceftriaxone pending final cultures
ID consultation.
Sonogram of bladder and kidney (prior sonogram 09/21 with mild left hydronephrosis)
Bladder scan for retention
Low threshold for pressors if does not respond to IV fluid bolus
DKA.
Likely triggered with sepsis.
States insulin compliance
Hemoglobin A1c improved from 12-6
Anion gap normalized while on insulin drip and IV fluids
Transition to subcu insulin
Carbohydrate diet
Continue basal bolus protocol with serial Accu-Cheks
With MASKIM/decreased GFR monitor for hypoglycemia
Acute kidney injury
Suspect CKD stage II�3.
1+ proteinuria with concern for diabetic nephropathy
Hyperkalemia
Persistent metabolic acidosis now with normal anion gap
Renal sonogram with no retention.
Nonoliguric.
Urine pH at 6 against RTA
Hold lisinopril.
Initiated on oral bicarb
Glomerulonephritis serology ordered
Toxic metabolic encephalopathy secondary to sepsis and DKA.
Mental status improving
Exam with no focal findings
CT scan of the head with no acute abnormalities.
Avoid oversedation.
Mental status improved
Avoid sedatives.
Reintroduce Neurontin and baclofen with caution
Generalized deconditioning.
Will need rehab SNF at discharge
Right hilar infiltrate on the chest x-ray.
Patient denies any respiratory symptoms.
Former smoker quit June 2023.
Will need follow-up imaging with CT scan preferably enhanced once renal function improved.
Essential hypertension.
Currently hypotensive.
Hold lisinopril.
Diabetic neuropathy.
Outpatient regimen Neurontin/baclofen/Tylenol
Right hip pain with reported fall at home pain
Exam with full range of motion and right hip.
X-ray with no bony abnormalities or trauma.
Physical therapy evaluation.
Full code.
DVT prophylaxis heparin subcu
Anticipated Discharge: > 48 hours
Subjective/Interval History
-
Date of Service: February 16, 2024
Objective Data
-
Labs:
Laboratory Results
02/16/24
07:03
WBC 10.8
Hgb 10.3 L
Hct 30.6 L
Plt Count 140
Sodium 139
Potassium 5.1
Chloride 109 H
Carbon Dioxide 19 L
BUN 58 H
Creatinine 2.3 H
Glucose 165 H
Calcium 9.3
Vital Signs:
Vital Signs
Temp Pulse Resp BP Pulse Ox
97.6 F 88 18 128/79 94
02/16/24 11:01 02/16/24 11:01 02/16/24 11:01 02/16/24 11:01 02/16/24 11:01
I&O
02/15/24 02/16/24 02/17/24
06:59 06:59 06:59
Intake Total 4583.5 / 4710.5 585 / 585
Output Total 1200 / 1200 1700 / 1700
Balance 3383.5 / 3510.5 -1115 / -1115
Physical Exam
-
General: Well Developed and No Apparent Distress
HEENT: Normocephalic, Atraumatic and Moist Mucous Membranes
Respiratory: Clear to Auscultation
Cardiac: Regular Rhythm and S1/S2; Negative Murmur, Rub or Gallop
GI: Soft, Nontender, Nondistended and Normal Bowel Sounds; Negative Organomegaly
Rectal: Deferred by Provider
Musculoskeletal: No Clubbing, No Cyanosis and No Edema
Skin: Negative Rash
Neuro: Nonfocal/Grossly Intact
[2024-02-16] MEDS: LIORESAL 10 MG PO ×2 (13:57→21:24)
[2024-02-16 16:31] LABS: Glucose - Point of Care 104 mg/dl (70-99)
[2024-02-16] MEDS: NOVOLOG FLEXPEN-LOW RESISTANCE SC (16:40)
--- NOTE | 2024-02-16 17:06 | W.PN.ID1 ---
Date of Service
Date of Service: February 16, 2024
Today's Communication
Continue antibiotics.
Assessment / Plan
E. coli bacteremia
Clinical sepsis
Suspected urinary tract infection
MAKSIM
Transaminitis
Underlying diabetes mellitus
Recommendations:
Leukocytosis improving. Temperature curve improving.
Renal ultrasound reveals no obstructive uropathy
Continue with ceftriaxone for the present. Can change to oral cefdinir at time of discharge. Would complete a full 10 days of antibiotic therapy.
Monitor white count and temperature curve.
����������������������������������������������������������
Chief Complaint
-: UTI and Bacteremia
Subjective / Review of Systems
Review of Systems: No Fever and No Chills
Vital Signs / Physical Exam
Vital Signs
Vital Signs
Temp Pulse Resp BP Pulse Ox
98.8 F 90 16 130/71 97
02/16/24 15:32 02/16/24 15:32 02/16/24 15:32 02/16/24 15:32 02/16/24 15:32
Physical Exam
Constitutional: Comfortable, Acutely Ill, Chronically Ill and Non-toxic
Head: Normocephalic
Eyes: Sclera Anicteric
Cardiovascular: S1/S2; Negative S3/S4 or Murmur
Pulmonary: Non Labored
Gastrointestinal: Soft, Non Tender, Non Distended, No Rebound and No Guarding
Genito-Urinary: Negative Suprapubic Tenderness or CVA Tenderness
Extremities: Edema (Trace); Negative Cyanosis or Erythema
Skin: Negative Rash or Jaundice
Neurological: Awake and Alert
Psychological: Calm
Objective Data
Lab Data
Lab Results
02/16/24 07:03
02/16/24 07:03
PT 16.1 Sec (11.4-14.6) H 02/14/24 04:00
INR 1.31 02/14/24 04:00
APTT 36.0 Sec (23.4-35.0) H 02/14/24 04:00
Estimated Creat Clear 28 ml/min 02/16/24 07:03
Lactic Acid 0.6 mmol/L (0.7-2.0) L 02/14/24 18:46
Total Bilirubin 0.5 mg/dl (0.2-1.3) 02/13/24 16:34
AST 42 U/L (14-36) H 02/13/24 16:34
ALT 41 U/L (0-35) H 02/13/24 16:34
Alkaline Phosphatase 71 U/L (38-126) 02/13/24 16:34
Most recent labs reviewed.
Micro Results:
02/13/24 18:37 Blood Culture - Final
Blood/Venous Escherichia coli
Gram Stain - Final
02/13/24 18:39 Blood Culture - Final
Blood/Venous Escherichia coli
Gram Stain - Final
02/13/24 16:43 Urine Culture - Final
Urine Escherichia coli
Prior admission (August 2023) recovered isolate:
1. Escherichia coli
M.I.C. RX
--------- ---
Amoxicillin/Potas. Clavulanate <=8/4 S
Ampicillin <=8 S
Ampicillin/Sulbactam <=8/4 S
Cefazolin <=2 S
Ertapenem <=0.5 S
Ciprofloxacin >2 R
Gentamicin <=4 S
Levofloxacin >4 R
Meropenem <=1 S
Piperacillin/Tazobactam <=16 S
Tobramycin <=4 S
Trimethoprim/Sulfamethoxazole <=2/38 S
Imaging:
02/14/2024 Renal ultrasound with bladder: No hydronephrosis noted. No abnormal solid or complex renal masses. No renal calculi is noted.
09/22/2023 Renal ultrasound with bladder: Mild hydronephrosis of the left kidney. No renal mass or calculi noted bilaterally.
[2024-02-16 21:17] LABS: Glucose - Point of Care 130 mg/dl (70-99)
[2024-02-16] MEDS: STERILE WATER FOR INJECTION 10 ML IV (21:20)
[2024-02-16] MEDS: ROCEPHIN 1000 MG IV (21:20)
[2024-02-16] MEDS: LANTUS 0.2 UNITS SC (21:24)
[2024-02-17 06:00] VITALS: BMI 30.6
[2024-02-17 07:00] VITALS: BP 139/79
[2024-02-17 08:28] LABS: Glucose - Point of Care 143 mg/dl (70-99)
[2024-02-17] MEDS: NOVOLOG FLEXPEN-LOW RESISTANCE SC ×3 (08:41→16:26)
[2024-02-17 08:43] LABS: Blood Urea Nitrogen 52 mg/dl (7-17); Calcium 9.2 mg/dl (8.4-10.2); Carbon Dioxide 22 mmol/L (22-30); Chloride 105 mmol/L (98-107); Estimated Creatinine Clearance 30 ml/min; Glucose 152 mg/dl (70-99); Potassium 4.7 mmol/L (3.5-5.1); eGFR 26.98
[2024-02-17] MEDS: TYLENOL 1000 MG PO (08:43)
[2024-02-17 08:49] LABS: Sodium 138 mmol/L (135-145)
[2024-02-17] MEDS: NEURONTIN 300 MG PO ×2 (08:50→21:36)
[2024-02-17] MEDS: SODIUM BICARBONATE 1300 MG PO ×2 (08:50→21:36)
[2024-02-17] MEDS: NOVOLOG FLEXPEN 10 UNITS SC ×3 (09:51→17:41)
[2024-02-17 11:00] VITALS: BP 107/63
--- NOTE | 2024-02-17 11:47 | W.PN.HOSP.TC ---
Today's Communication/Plan
-
.
Assessment / Plan
Assessment / Plan
Physical Exam
-
General: Well Developed and No Apparent Distress
HEENT: Normocephalic, Atraumatic and Moist Mucous Membranes
Respiratory: Clear to Auscultation
Cardiac: Regular Rhythm and S1/S2; Negative Murmur, Rub or Gallop
GI: Soft, Nontender, Nondistended and Normal Bowel Sounds;
Rectal: No bleeding
Musculoskeletal: No Clubbing, No Cyanosis and No Edema
Skin: Negative Rash
Neuro: Nonfocal/Grossly Intact, she reports numbness in both lower feet( neuropathy)
Psych: no agitation
Impression:
Toxic metabolic encephalopathy secondary to sepsis and DKA
Sepsis.
Septic shock with persistent hypotension
Gram-negative bacteremia
Urinary tract infection.
DKA
Hyperkalemia
Acute kidney injury
Suspected CKD stage II
Right hilar infiltrate/mass
Other conditions
Recent hospitalization 09/21 with complicated UTI and DKA.
Type 2 diabetes IDDM.
Obesity with BMI of 30.
Essential hypertension.
Diabetic neuropathy
Plan:
Sepsis secondary to urinary tract infection.
Septic shock with persistent hypotension responded to IV fluids.
Gram-negative bacteremia (prior history of E. coli bacteremia)
Continue antibiotics/ceftriaxone pending final cultures
ID consultation.
Sonogram of bladder and kidney (prior sonogram 09/21 with mild left hydronephrosis)
Bladder scan for retention
Low threshold for pressors if does not respond to IV fluid bolus
DKA.
Likely triggered with sepsis.
States insulin compliance
Hemoglobin A1c improved from 12-6
Anion gap normalized while on insulin drip and IV fluids
Transition to subcu insulin
Carbohydrate diet
Continue basal bolus protocol with serial Accu-Cheks
With MAKSIM/decreased GFR monitor for hypoglycemia
Acute kidney injury
Suspect CKD stage II�3.
1+ proteinuria with concern for diabetic nephropathy
Hyperkalemia
Persistent metabolic acidosis now with normal anion gap
Renal sonogram with no retention.
Nonoliguric.
Urine pH at 6 against RTA
Hold lisinopril.
Initiated on oral bicarb
Glomerulonephritis serology ordered
Toxic metabolic encephalopathy secondary to sepsis and DKA.
Mental status improving
Exam with no focal findings
CT scan of the head with no acute abnormalities.
Avoid oversedation.
Mental status improved
Avoid sedatives.
Reintroduce Neurontin and baclofen with caution
Generalized deconditioning.
Will need rehab SNF at discharge
Right hilar infiltrate on the chest x-ray.
Patient denies any respiratory symptoms.
Former smoker quit June 2023.
Will need follow-up imaging with CT scan preferably enhanced once renal function improved.
Essential hypertension.
Currently hypotensive.
Hold lisinopril.
Diabetic neuropathy.
Outpatient regimen Neurontin/baclofen/Tylenol
Right hip pain with reported fall at home pain
Exam with full range of motion and right hip.
X-ray with no bony abnormalities or trauma.
Physical therapy evaluation.
Full code.
DVT prophylaxis heparin subcu
Total time spent to see the patient on the floor, examine the patient, review data and lab results, discuss treatment plan with patient, nursing staff around 55 minutes
Anticipated Discharge: > 48 hours
Subjective/Interval History
-
Date of Service: February 17, 2024
No sob
No chest pain
Objective Data
-
Labs:
Laboratory Results
02/17/24
07:48
Sodium 138
Potassium 4.7
Chloride 105
Carbon Dioxide 22
BUN 52 H
Creatinine 2.1 H
Glucose 152 H
Calcium 9.2
Vital Signs:
Vital Signs
Temp Pulse Resp BP Pulse Ox
98.6 F 92 18 107/63 96
02/17/24 11:00 02/17/24 11:00 02/17/24 11:00 02/17/24 11:00 02/17/24 11:00
I&O
02/16/24 02/17/24 02/18/24
06:59 06:59 06:59
Intake Total 585 / 585 1080 / 1080
Output Total 1700 / 1700 2100 / 2100
Balance -1115 / -1115 -1020 / -1020
[2024-02-17 11:57] LABS: Glucose - Point of Care 134 mg/dl (70-99)
--- NOTE | 2024-02-17 11:59 | W.PN.NEPH.PH ---
Today's Communication / Plan
-
follow bmp
Continue with sodium bicarbonate for now
Serologies pending
Creatinine remained stable at 2
Assessment/Plan
-
Assessment
UTI/Ecoli bacteremia
DKA
MAKSIM
Hyponatremia
Hyperkalemia
Leukocytosis
Kavdmn-vlukzrdftm-qpeeodmeff 10.1
Metabolic acidosis, persistent
Abnormal chest x-ray-? Pulm hypertension/right hilar mass-CT chest pending
E. coli sepsis
Plan
renal ultrasound normal
Creatinine slowly improving to 2.1 remains grossly nonoliguric
Sodium bicarbonate 1300 mg twice daily for metabolic acidosis continues to improve
Checked urinalysis for pH: 6
Continue antibiotics
-
-
Date of Service: February 17, 2024
CC / HPI / ROS
-
Chief Complaint:
Acute kidney injury
History of Present Illness:
Creatinine unchanged at 2.3
Metabolic acidosis persist on sodium bicarb
Hemodynamically stable
Review of Systems:
Nonoliguric
Patient crying from lower back and bottom pain
Labs
-
Labs:
WBC 10.8 10^3/uL (4.8-10.8) 02/16/24 07:03
RBC 3.57 10^6/uL (4.20-5.40) L 02/16/24 07:03
Hgb 10.3 g/dL (12.0-16.0) L 02/16/24 07:03
Hct 30.6 % (37.0-47.0) L 02/16/24 07:03
Plt Count 140 10^3/uL (130-400) 02/16/24 07:03
Sodium 138 mmol/L (135-145) 02/17/24 07:48
Potassium 4.7 mmol/L (3.5-5.1) 02/17/24 07:48
Chloride 105 mmol/L (98-107) 02/17/24 07:48
Carbon Dioxide 22 mmol/L (22-30) 02/17/24 07:48
BUN 52 mg/dl (7-17) H 02/17/24 07:48
Creatinine 2.1 mg/dL (0.6-1.0) H 02/17/24 07:48
eGFR 26.98 02/17/24 07:48
Glucose 152 mg/dl (70-99) H 02/17/24 07:48
Calcium 9.2 mg/dl (8.4-10.2) 02/17/24 07:48
Qgo-H-Hspisovmvsv Pept Cancelled 02/15/24 08:00
Albumin 3.7 g/dl (3.5-5.0) 02/13/24 16:34
Physical Exam
-
Vital Signs:
Vital Signs
Temp Pulse Resp BP Pulse Ox
98.6 F 92 18 107/63 96
02/17/24 11:00 02/17/24 11:00 02/17/24 11:00 02/17/24 11:00 02/17/24 11:00
Cardiovascular:: Regular rate and rhythm
Respiratory:: Bilateral: CTA
Lung Excursion:: Normal
Abdomen:: Nontender and Soft
Bowel Sounds:: Normal
Extremity Edema:: None: Bilateral:
Mcclure Catheter: No
[2024-02-17 12:55] LABS: Anti Streptolysin Negative (Negative)
[2024-02-17 15:00] VITALS: BP 113/72
[2024-02-17 16:22] LABS: Glucose - Point of Care 116 mg/dl (70-99)
[2024-02-17 19:44] VITALS: BP 144/78
[2024-02-17 21:32] LABS: Glucose - Point of Care 183 mg/dl (70-99)
[2024-02-17] MEDS: STERILE WATER FOR INJECTION 10 ML IV (21:34)
[2024-02-17] MEDS: ROCEPHIN 1000 MG IV (21:36)
[2024-02-17] MEDS: LANTUS 0.2 UNITS SC (21:36)
--- NOTE | 2024-02-17 21:47 | PTCARENOTE ---
Pt was educated extensively on medication side effects, uses and administration. Pt refused 12am heparin based on previous experience and RN educated pt regarding the use for heparin and the prevention measures that are in place for heparin. Pt was
also educated on diabetic medications and insulin given for overnight. Education was heavily explained and pt was appreciative.
[2024-02-17] MEDS: LIORESAL 10 MG PO (21:56)
[2024-02-17 23:00] VITALS: BP 143/88
[2024-02-18] MEDS: TYLENOL 1000 MG PO ×3 (03:37→21:04)
[2024-02-18 05:10] LABS: Blood Urea Nitrogen 56 mg/dl (7-17); Calcium 8.8 mg/dl (8.4-10.2); Carbon Dioxide 24 mmol/L (22-30); Chloride 104 mmol/L (98-107); Estimated Creatinine Clearance 34 ml/min; Glucose 174 mg/dl (70-99); Potassium 4.7 mmol/L (3.5-5.1); Sodium 139 mmol/L (135-145); eGFR 30.42
[2024-02-18 07:00] VITALS: BP 133/82
[2024-02-18] MEDS: NEURONTIN 300 MG PO ×2 (08:52→21:05)
[2024-02-18] MEDS: SODIUM BICARBONATE 1300 MG PO ×2 (08:52→21:05)
[2024-02-18] MEDS: LIDOCAINE 4% PATCH 1 PATCH TOPICAL (08:52)
[2024-02-18 08:57] LABS: Glucose - Point of Care 190 mg/dl (70-99)
[2024-02-18] MEDS: NOVOLOG FLEXPEN-LOW RESISTANCE 1 UNITS SC ×2 (09:00→17:45)
[2024-02-18] MEDS: NOVOLOG FLEXPEN 10 UNITS SC ×3 (09:01→17:44)
[2024-02-18] MEDS: LIORESAL 10 MG PO ×2 (11:46→21:54)
--- NOTE | 2024-02-18 12:29 | W.PN.HOSP.TC ---
Today's Communication/Plan
-
Lidocaine patch
c/w IV Abx
Assessment / Plan
Assessment / Plan
Physical Exam
-
General: Well Developed and No Apparent Distress
HEENT: Normocephalic, Atraumatic and Moist Mucous Membranes
Respiratory: Clear to Auscultation
Cardiac: Regular Rhythm and S1/S2; Negative Murmur, Rub or Gallop
GI: Soft, Nontender, Nondistended and Normal Bowel Sounds;
Rectal: No bleeding
Musculoskeletal: No Clubbing, No Cyanosis and No Edema
Skin: Negative Rash
Neuro: Nonfocal/Grossly Intact, she reports numbness in both lower feet( neuropathy)
Psych: no agitation
Impression:
Toxic metabolic encephalopathy secondary to sepsis and DKA
Sepsis.
Septic shock with persistent hypotension
Gram-negative bacteremia
Urinary tract infection.
DKA
Hyperkalemia
Acute kidney injury
Suspected CKD stage II
Right hilar infiltrate/mass
Other conditions
Recent hospitalization 09/21 with complicated UTI and DKA.
Type 2 diabetes IDDM.
Obesity with BMI of 30.
Essential hypertension.
Diabetic neuropathy
Plan:
Sepsis secondary to urinary tract infection.
Septic shock with persistent hypotension responded to IV fluids.
Gram-negative bacteremia (prior history of E. coli bacteremia)
Continue antibiotics/ceftriaxone pending final cultures
ID consultation.
Sonogram of bladder and kidney (prior sonogram 09/21 with mild left hydronephrosis)
Bladder scan for retention
Low threshold for pressors if does not respond to IV fluid bolus
DKA.
Likely triggered with sepsis.
States insulin compliance
Hemoglobin A1c improved from 12-6
Anion gap normalized while on insulin drip and IV fluids
Transition to subcu insulin
Carbohydrate diet
Continue basal bolus protocol with serial Accu-Cheks
With MAKSIM/decreased GFR monitor for hypoglycemia
Lower right chest wall pain, chronic
Chest x ray on admission : osseous structures were normal.
Will try Lidocaine patch
Acute kidney injury
Suspect CKD stage II�3.
1+ proteinuria with concern for diabetic nephropathy
Hyperkalemia
Persistent metabolic acidosis now with normal anion gap
Renal sonogram with no retention.
Nonoliguric.
Urine pH at 6 against RTA
Hold lisinopril.
Initiated on oral bicarb
Glomerulonephritis serology ordered
Toxic metabolic encephalopathy secondary to sepsis and DKA.
Mental status improving, lucid and oriented X3
Exam with no focal findings
CT scan of the head with no acute abnormalities.
Avoid oversedation.
Mental status improved
Avoid sedatives.
Reintroduce Neurontin and baclofen with caution
Generalized deconditioning.
Will need rehab SNF at discharge
Right hilar infiltrate on the chest x-ray.
Patient denies any respiratory symptoms.
Former smoker quit June 2023.
Will need follow-up imaging with CT scan preferably enhanced once renal function improved.
Essential hypertension.
Currently hypotensive.
Hold lisinopril.
Diabetic neuropathy.
Outpatient regimen Neurontin/baclofen/Tylenol
Right hip pain with reported fall at home pain
Exam with full range of motion and right hip.
X-ray with no bony abnormalities or trauma.
Physical therapy evaluation.
Full code.
DVT prophylaxis heparin subcu
Total time spent to see the patient on the floor, examine the patient, review data and lab results, discuss treatment plan with patient, nursing staff around 55 minutes
Anticipated Discharge: 24 - 48 hours
Subjective/Interval History
-
Date of Service: February 18, 2024
No chest pain
No sob
No fevers
Complains of right lower chest wall pain
Objective Data
-
Labs:
Laboratory Results
02/18/24
04:23
Sodium 139
Potassium 4.7
Chloride 104
Carbon Dioxide 24
BUN 56 H
Creatinine 1.9 H
Glucose 174 H
Calcium 8.8
Vital Signs:
Vital Signs
Temp Pulse Resp BP Pulse Ox
97.5 F 71 18 133/82 97
02/18/24 07:00 02/18/24 07:00 02/18/24 07:00 02/18/24 07:00 02/18/24 07:00
I&O
02/17/24 02/18/24 02/19/24
06:59 06:59 06:59
Intake Total 1080 / 1080 2220 / 2220
Output Total 2100 / 2100 1300 / 1300
Balance -1020 / -1020 920 / 920
[2024-02-18 12:33] LABS: Glucose - Point of Care 115 mg/dl (70-99)
--- NOTE | 2024-02-18 12:49 | W.PN.NEPH.PH ---
Today's Communication / Plan
-
follow bmp
holding radha
maintain sodium bicarbonate for now
Assessment/Plan
-
Assessment
UTI/Ecoli bacteremia
DKA
MAKSIM
Hyponatremia
Hyperkalemia
Leukocytosis
Qsqhej-wcckdihhyi-hzqgqnzkwd 10.1
Metabolic acidosis, persistent
Abnormal chest x-ray-? Pulm hypertension/right hilar mass-CT chest pending
E. coli sepsis
Plan
renal ultrasound normal
Creatinine slowly improving to 1.9 remains nonoliguric
Sodium bicarbonate 1300 mg twice daily for metabolic acidosis continues to improve
Checked urinalysis for pH: 6
radha held
Continue antibiotics
-
-
Date of Service: February 18, 2024
CC / HPI / ROS
-
Chief Complaint:
Acute kidney injury
History of Present Illness:
Creatinine improvedat 1.9
Metabolic acidosis improved on sodium bicarb
Hemodynamically stable
Review of Systems:
Nonoliguric
Patient crying from lower back and bottom pain
Labs
-
Labs:
WBC 10.8 10^3/uL (4.8-10.8) 02/16/24 07:03
RBC 3.57 10^6/uL (4.20-5.40) L 02/16/24 07:03
Hgb 10.3 g/dL (12.0-16.0) L 02/16/24 07:03
Hct 30.6 % (37.0-47.0) L 02/16/24 07:03
Plt Count 140 10^3/uL (130-400) 02/16/24 07:03
Sodium 139 mmol/L (135-145) 02/18/24 04:23
Potassium 4.7 mmol/L (3.5-5.1) 02/18/24 04:23
Chloride 104 mmol/L (98-107) 02/18/24 04:23
Carbon Dioxide 24 mmol/L (22-30) 02/18/24 04:23
BUN 56 mg/dl (7-17) H 02/18/24 04:23
Creatinine 1.9 mg/dL (0.6-1.0) H 02/18/24 04:23
eGFR 30.42 02/18/24 04:23
Glucose 174 mg/dl (70-99) H 02/18/24 04:23
Calcium 8.8 mg/dl (8.4-10.2) 02/18/24 04:23
Mpw-H-Mbdavemhgry Pept Cancelled 02/15/24 08:00
Albumin 3.7 g/dl (3.5-5.0) 02/13/24 16:34
Physical Exam
-
Vital Signs:
Vital Signs
Temp Pulse Resp BP Pulse Ox
97.5 F 71 18 133/82 97
02/18/24 07:00 02/18/24 07:00 02/18/24 07:00 02/18/24 07:00 02/18/24 07:00
Cardiovascular:: Regular rate and rhythm
Respiratory:: Bilateral: CTA
Lung Excursion:: Normal
Abdomen:: Nontender and Soft
Bowel Sounds:: Normal
Extremity Edema:: None: Bilateral:
Mcclure Catheter: No
[2024-02-18] MEDS: NOVOLOG FLEXPEN-LOW RESISTANCE SC (13:26)
[2024-02-18 15:00] VITALS: BP 105/67
[2024-02-18 17:04] LABS: Glucose - Point of Care 154 mg/dl (70-99)
[2024-02-18] MEDS: STERILE WATER FOR INJECTION 10 ML IV (21:04)
[2024-02-18] MEDS: ROCEPHIN 1000 MG IV (21:04)
[2024-02-18] MEDS: FLUSH (NSS) 2 FLUSH IV (21:06)
[2024-02-18 21:52] LABS: Glucose - Point of Care 173 mg/dl (70-99)
[2024-02-18] MEDS: LANTUS 0.2 UNITS SC (21:54)
[2024-02-18 23:10] VITALS: BP 128/72
[2024-02-19] MEDS: TYLENOL 1000 MG PO ×2 (03:49→11:59)
[2024-02-19 06:00] VITALS: BMI 30.7
[2024-02-19 07:03] LABS: Hematocrit 33.3 % (37.0-47.0); Hemoglobin 10.8 g/dL (12.0-16.0); Mean Corp Hgb Conc. 32.4 g/dL (33.0-37.0); Mean Corpuscular Hgb 28.6 pg (27.0-31.0); Mean Corpuscular Volume 88.1 fL (81.0-99.0); Mean Platelet Volume 11.1 fL (7.4-10.4); Platelet Count 222 10^3/uL (130-400); Red Blood Cell Count 3.78 10^6/uL (4.20-5.40); Red Cell Dist. Width 14.8 % (11.5-14.5); White Blood Cell Count 11.9 10^3/uL (4.8-10.8)
[2024-02-19 07:21] LABS: Blood Urea Nitrogen 59 mg/dl (7-17); Calcium 8.9 mg/dl (8.4-10.2); Carbon Dioxide 25 mmol/L (22-30); Chloride 101 mmol/L (98-107); Estimated Creatinine Clearance 36 ml/min; Glucose 174 mg/dl (70-99); Potassium 4.8 mmol/L (3.5-5.1); Sodium 138 mmol/L (135-145); eGFR 32.46
[2024-02-19 07:22] VITALS: BP 141/80
[2024-02-19 07:39] LABS: Complement C3 132 mg/dl (88-165)
[2024-02-19 07:52] LABS: Glucose - Point of Care 165 mg/dl (70-99)
[2024-02-19] MEDS: LIDOCAINE 4% PATCH TOPICAL (08:12)
[2024-02-19] MEDS: NEURONTIN 300 MG PO ×2 (08:14→21:39)
[2024-02-19] MEDS: SODIUM BICARBONATE 1300 MG PO ×2 (08:14→21:46)
[2024-02-19] MEDS: NOVOLOG FLEXPEN 10 UNITS SC ×3 (08:16→18:50)
[2024-02-19] MEDS: NOVOLOG FLEXPEN-LOW RESISTANCE 1 UNITS SC (08:16)
--- NOTE | 2024-02-19 08:23 | PN.DE.MGMTRT ---
Insulin Management
- -
02/19/2024 Diabetes Management F/U:
Patient admitted 02/12 with c/o weakness, lightheadedness and blood sugar problem, found to be in DKA, GAP 15.
PMH: Cervical cancer, Scapular wound, Recurrent UTIs, Labial infection, Recurrent DKA, last episode 09/21, Diabetic Neuropathy, Former tcfqie-19-zars-year quit 3 years ago and IDDM. A[employer]OSP[employer] MA[employer]GER was taking Lantus 20 units @ HS with Humalog 10 units AC and
Metformin 500 mg BID.
Noted for improved A1C, was 17.1% on 07/04/2023-->12.2% on 09/18/23 and on admission 6.1%, Cr 2.3, eGFR 24.19.
States she has been very consistent with taking insulin and diabetes medication.
Patient is awake alert and oriented, sitting up in bed, able to discuss diabetes management.
02/17 Premeal glucose range 115 to 190, requiring 1 units additional corrective insulin. FBG 174 (V) this AM.
Will make no changes to current regimen; Lantus 20 units, NovoLog 10 units AC and low corrective with meals.
STOP Metformin due to MAKSIM, improving, Cr 2.3->1.8 today.
Patient follows with Dr. Walter for diabetes management, has DexCom G7 CGM for glucose monitoring.
Discussed with patient and nurse.
Diabetes History
- -
Type of Diabetes: 2 requiring insulin
Pre-Admission Diabetes Regimen
02/19/24
06:09
Creatinine 1.8 H
Lab Results
Hemoglobin A1c 6.1 % (4.0-5.6) H 02/14/24 04:00
Insulin Pump Settings
IP Diabetes Regimen
02/18/24 02/18/24 02/18/24
08:56 12:32 17:03
Glucose
POC Glucose 190 H 115 H 154 H
02/18/24 02/19/24 02/19/24
21:51 06:09 07:50
Glucose 174 H
POC Glucose 173 H 165 H
Patient Education
[2024-02-19 09:22] LABS: ANA, IgG Reflex to HEp-2 None Detected (None Detected)
--- NOTE | 2024-02-19 11:45 | W.PN.NEPH.PH ---
Today's Communication / Plan
-
follow labs
Assessment/Plan
-
Assessment
UTI/Ecoli bacteremia
DKA
MAKSIM
Hyponatremia
Hyperkalemia
Leukocytosis
Suvmqc-uualghsmvz-auhbhfwoym 10.1
Metabolic acidosis, persistent
Abnormal chest x-ray-? Pulm hypertension/right hilar mass-CT chest pending
E. coli sepsis
Plan
MAKSIM-cr slowly improving at 1.8
renal ultrasound normal
Sodium bicarbonate 1300 mg twice daily for metabolic acidosis continues to improve
Checked urinalysis for pH: 6
radha held
Continue antibiotics
w/u of right CP per primary
-
-
Date of Service: February 19, 2024
CC / HPI / ROS
-
Chief Complaint:
Acute kidney injury
History of Present Illness:
Creatinine improvedat 1.8
Metabolic acidosis improved on sodium bicarb
Hemodynamically stable
Review of Systems:
Nonoliguric
Patient crying from right lower chest pain
no sob
Labs
-
Labs:
WBC 11.9 10^3/uL (4.8-10.8) H 02/19/24 06:09
RBC 3.78 10^6/uL (4.20-5.40) L 02/19/24 06:09
Hgb 10.8 g/dL (12.0-16.0) L 02/19/24 06:09
Hct 33.3 % (37.0-47.0) L 02/19/24 06:09
Plt Count 222 10^3/uL (130-400) D 02/19/24 06:09
Sodium 138 mmol/L (135-145) 02/19/24 06:09
Potassium 4.8 mmol/L (3.5-5.1) 02/19/24 06:09
Chloride 101 mmol/L (98-107) 02/19/24 06:09
Carbon Dioxide 25 mmol/L (22-30) 02/19/24 06:09
BUN 59 mg/dl (7-17) H 02/19/24 06:09
Creatinine 1.8 mg/dL (0.6-1.0) H 02/19/24 06:09
eGFR 32.46 02/19/24 06:09
Glucose 174 mg/dl (70-99) H 02/19/24 06:09
Calcium 8.9 mg/dl (8.4-10.2) 02/19/24 06:09
Omq-E-Yozleyvcjsm Pept Cancelled 02/15/24 08:00
Albumin 3.7 g/dl (3.5-5.0) 02/13/24 16:34
Physical Exam
-
Vital Signs:
Vital Signs
Temp Pulse Resp BP Pulse Ox
98.0 F 70 17 141/80 97
02/19/24 07:22 02/19/24 07:22 02/19/24 07:22 02/19/24 07:22 02/19/24 07:22
Cardiovascular:: Regular rate and rhythm
Respiratory:: Bilateral: CTA
Lung Excursion:: Normal
Abdomen:: Nontender and Soft
Extremity Edema:: None: Bilateral:
Mcclure Catheter: No
[2024-02-19] MEDS: LIDOCAINE 4% PATCH 1 PATCH TOPICAL (12:03)
[2024-02-19 12:04] LABS: Glucose - Point of Care 120 mg/dl (70-99)
[2024-02-19 12:45] VITALS: BP 152/79; PULSE 75; O2SAT 98
[2024-02-19 12:48] VITALS: BP 152/79; O2SAT 99
--- NOTE | 2024-02-19 13:34 | W.PN.ID1 ---
Date of Service
Date of Service: February 19, 2024
Today's Communication
Continue antibiotics. Transition to cefdinir
Assessment / Plan
E. coli bacteremia
Clinical sepsis
Suspected urinary tract infection
MAKSIM
Transaminitis
Underlying diabetes mellitus
Recommendations:
Leukocytosis overall improved.
Renal ultrasound reveals no obstructive uropathy
Transition to oral cefdinir, to complete a full 10-day course of antibiotic therapy.
Monitor white count and temperature curve.
����������������������������������������������������������
Chief Complaint
-: UTI and Bacteremia
Subjective / Review of Systems
Patient seen and examined. Patient reports some right thorax discomfort (underneath right breast).
Review of Systems: No Fever, No Chills and No Dysuria
Vital Signs / Physical Exam
Vital Signs
Vital Signs
Temp Pulse Resp BP Pulse Ox
98.0 F 70 17 141/80 97
02/19/24 07:22 02/19/24 07:22 02/19/24 07:22 02/19/24 07:22 02/19/24 07:22
Physical Exam
Constitutional: No Acute Distress, Comfortable and Non-toxic
Head: Normocephalic
Eyes: Sclera Anicteric
Cardiovascular: S1/S2; Negative S3/S4 or Murmur
Pulmonary: Non Labored and Other (Right thorax discomfort with palpation under right breast. No rash or vesicles noted.)
Gastrointestinal: Soft, Non Tender, Non Distended, No Rebound and No Guarding
Genito-Urinary: Negative Suprapubic Tenderness or CVA Tenderness
Extremities: Edema (Trace); Negative Cyanosis or Erythema
Skin: Negative Rash or Jaundice
Neurological: Awake and Alert
Psychological: Calm
Objective Data
Lab Data
Lab Results
02/19/24 06:09
02/19/24 06:09
PT 16.1 Sec (11.4-14.6) H 02/14/24 04:00
INR 1.31 02/14/24 04:00
APTT 36.0 Sec (23.4-35.0) H 02/14/24 04:00
Estimated Creat Clear 36 ml/min 02/19/24 06:09
Lactic Acid 0.6 mmol/L (0.7-2.0) L 02/14/24 18:46
Total Bilirubin 0.5 mg/dl (0.2-1.3) 02/13/24 16:34
AST 42 U/L (14-36) H 02/13/24 16:34
ALT 41 U/L (0-35) H 02/13/24 16:34
Alkaline Phosphatase 71 U/L (38-126) 02/13/24 16:34
Most recent labs reviewed.
Micro Results:
02/13/24 18:37 Blood Culture - Final
Blood/Venous Escherichia coli
Gram Stain - Final
02/13/24 18:39 Blood Culture - Final
Blood/Venous Escherichia coli
Gram Stain - Final
02/13/24 16:43 Urine Culture - Final
Urine Escherichia coli
Prior admission (August 2023) recovered isolate:
1. Escherichia coli
M.I.C. RX
--------- ---
Amoxicillin/Potas. Clavulanate <=8/4 S
Ampicillin <=8 S
Ampicillin/Sulbactam <=8/4 S
Cefazolin <=2 S
Ertapenem <=0.5 S
Ciprofloxacin >2 R
Gentamicin <=4 S
Levofloxacin >4 R
Meropenem <=1 S
Piperacillin/Tazobactam <=16 S
Tobramycin <=4 S
Trimethoprim/Sulfamethoxazole <=2/38 S
Imaging:
02/14/2024 Renal ultrasound with bladder: No hydronephrosis noted. No abnormal solid or complex renal masses. No renal calculi is noted.
09/22/2023 Renal ultrasound with bladder: Mild hydronephrosis of the left kidney. No renal mass or calculi noted bilaterally.
[2024-02-19] MEDS: NOVOLOG FLEXPEN-LOW RESISTANCE SC ×2 (13:36→18:51)
--- NOTE | 2024-02-19 14:15 | CM ---
Received a call this morning from Martha at [facility] who stated that her # is [phone] ext. [phone] fax [phone]. For authorization to transfer to SNF, call [facility].
Plan: Case management will continue to follow and assist with discharge planning. SNF when stable.
--- NOTE | 2024-02-19 15:35 | W.PN.HOSP.TC ---
Today's Communication/Plan
-
Transitioned to oral antibiotics per
CT scan of the chest without contrast working up right-sided chest pain pleuritic/reproducible.
Continue bicarb
Monitor renal function
Adjust insulin regimen
Physical therapy
Placement to rehab
Assessment / Plan
Assessment / Plan
Impression:
Toxic metabolic encephalopathy secondary to sepsis and DKA
Sepsis.
Septic shock with persistent hypotension
Gram-negative bacteremia
Urinary tract infection.
DKA
Hyperkalemia
Acute kidney injury
Suspected CKD stage II
Right hilar infiltrate/mass
Other conditions
Recent hospitalization 09/21 with complicated UTI and DKA.
Type 2 diabetes IDDM.
Obesity with BMI of 30.
Essential hypertension.
Diabetic neuropathy
Plan:
Sepsis secondary to urinary tract infection.
Septic shock with persistent hypotension responded to IV fluids.
Gram-negative bacteremia (prior history of E. coli bacteremia)
Continue antibiotics/ceftriaxone pending final cultures
ID consultation.
Sonogram of bladder and kidney (prior sonogram 09/21 with mild left hydronephrosis)
Bladder scan for retention
Low threshold for pressors if does not respond to IV fluid bolus
DKA.
Likely triggered with sepsis.
States insulin compliance
Hemoglobin A1c improved from 12-6
Anion gap normalized while on insulin drip and IV fluids
Transition to subcu insulin
Carbohydrate diet
Continue basal bolus protocol with serial Accu-Cheks
With MAKSIM/decreased GFR monitor for hypoglycemia
Acute kidney injury
Suspect CKD stage II�3.
1+ proteinuria with concern for diabetic nephropathy
Hyperkalemia
Persistent metabolic acidosis now with normal anion gap
Renal sonogram with no retention.
Nonoliguric.
Urine pH at 6 against RTA
Hold lisinopril.
Initiated on oral bicarb
Glomerulonephritis serology ordered
Toxic metabolic encephalopathy secondary to sepsis and DKA.
Mental status improving, lucid and oriented X3
Exam with no focal findings
CT scan of the head with no acute abnormalities.
Avoid oversedation.
Mental status improved
Avoid sedatives.
Reintroduce Neurontin and baclofen with caution
Generalized deconditioning.
Will need rehab SNF at discharge
Right hilar infiltrate on the chest x-ray.
Patient denies any respiratory symptoms.
Former smoker quit June 2023.
Will need follow-up imaging with CT scan preferably enhanced once renal function improved.
Persistent right-sided reproducible chest pain.
Given above findings on the chest x-ray, will order CT scan of the chest without contrast (THONY unable to provide IV contrast)
Essential hypertension.
Currently hypotensive.
Hold lisinopril.
Diabetic neuropathy.
Outpatient regimen Neurontin/baclofen/Tylenol
Right hip pain with reported fall at home pain
Exam with full range of motion and right hip.
X-ray with no bony abnormalities or trauma.
Physical therapy evaluation.
Full code.
DVT prophylaxis heparin subcu
Total time spent to see the patient on the floor, examine the patient, review data and lab results, discuss treatment plan with patient, nursing staff around 55 minutes
Anticipated Discharge: Within 24 hours
Subjective/Interval History
-
Date of Service: February 19, 2024
Objective Data
-
Labs:
Laboratory Results
02/19/24
06:09
WBC 11.9 H
Hgb 10.8 L
Hct 33.3 L
Plt Count 222 D
Sodium 138
Potassium 4.8
Chloride 101
Carbon Dioxide 25
BUN 59 H
Creatinine 1.8 H
Glucose 174 H
Calcium 8.9
Vital Signs:
Vital Signs
Temp Pulse Resp BP Pulse Ox
98.0 F 70 17 141/80 97
02/19/24 07:22 02/19/24 07:22 02/19/24 07:22 02/19/24 07:22 02/19/24 07:22
I&O
02/18/24 02/19/24 02/20/24
06:59 06:59 06:59
Intake Total 2220 / 2220 1200 / 1200
Output Total 1300 / 1300 2600 / 2600
Balance 920 / 920 -1400 / -1400
Physical Exam
-
General: Well Developed and No Apparent Distress
HEENT: Normocephalic, Atraumatic and Moist Mucous Membranes
Respiratory: Clear to Auscultation and Other (Right-sided reproducible on palpation chest pain.)
Cardiac: Regular Rhythm and S1/S2; Negative Murmur, Rub or Gallop
GI: Soft, Nontender, Nondistended and Normal Bowel Sounds; Negative Organomegaly
Rectal: Deferred by Provider
Musculoskeletal: No Clubbing, No Cyanosis and No Edema
Skin: Negative Rash
Neuro: Nonfocal/Grossly Intact
[2024-02-19 15:52] VITALS: BP 132/67
[2024-02-19 16:18] LABS: Glucose - Point of Care 137 mg/dl (70-99)
[2024-02-19 17:13] LABS: Myeloperoxidase Antibody 0 AU/mL (0-19); Serine Protease-3, IgG 0 AU/mL (0-19)
[2024-02-19 20:55] LABS: Glucose - Point of Care 152 mg/dl (70-99)
[2024-02-19] MEDS: LIORESAL 10 MG PO (21:39)
[2024-02-19] MEDS: LANTUS 0.2 UNITS SC (21:47)
[2024-02-19 23:32] VITALS: BP 117/70
[2024-02-20] MEDS: LIORESAL 10 MG PO ×2 (06:05→22:15)
[2024-02-20 07:11] VITALS: BP 131/74
[2024-02-20 07:23] LABS: Blood Urea Nitrogen 56 mg/dl (7-17); Carbon Dioxide 24 mmol/L (22-30); Chloride 101 mmol/L (98-107); Estimated Creatinine Clearance 34 ml/min; Glucose 146 mg/dl (70-99); Potassium 5.1 mmol/L (3.5-5.1); Sodium 137 mmol/L (135-145); eGFR 30.42
--- NOTE | 2024-02-20 07:42 | PN.DE.MGMTRT ---
Insulin Management
- -
02/20/2024 Diabetes Management Follow up:
Patient admitted 02/12 with c/o weakness, lightheadedness and blood sugar problem, found to be in DKA, GAP 15.
PMH: Cervical cancer, Scapular wound, Recurrent UTIs, Labial infection, Recurrent DKA, last episode 09/21, Diabetic Neuropathy, Former onztcb-13-wufd-year quit 3 years ago and IDDM. [employer] was taking Lantus 20 units @ HS with Humalog 10 units AC and
Metformin 500 mg BID.
Noted for improved A1C, was 17.1% on 07/04/2023-->12.2% on 09/18/23 and on admission 6.1%, Cr 2.3, eGFR 24.19.
States she has been very consistent with taking insulin and diabetes medication.
Patient is awake alert and oriented, sitting up in bed, able to discuss diabetes management.
02/18 Premeal glucose range 120 to 165, requiring 1 units additional corrective insulin.
02/19 Fasting glucose 146 (V) this AM, cr 1.9, eGFR 30.42
Will make no changes to current regimen; Lantus 20 units @ HS, NovoLog 10 units AC and low corrective with meals.
Patient follows with Dr. Walter for diabetes management, has [employer] G7 CGM for glucose monitoring.
Discussed with patient and nurse.
Diabetes History
- -
Type of Diabetes: 2 requiring insulin
Pre-Admission Diabetes Regimen
02/20/24
06:29
Creatinine 1.9 H
Lab Results
Hemoglobin A1c 6.1 % (4.0-5.6) H 02/14/24 04:00
Insulin Pump Settings
IP Diabetes Regimen
02/19/24 02/19/24 02/19/24
07:50 12:02 16:16
Glucose
POC Glucose 165 H 120 H 137 H
02/19/24 02/20/24
20:54 06:29
Glucose 146 H
POC Glucose 152 H
Meal type: Dinner
Meal type: Lunch
Amount consumed: 100%
Amount consumed: 100%
Patient Education
[2024-02-20 07:51] LABS: Glucose - Point of Care 147 mg/dl (70-99)
[2024-02-20] MEDS: NOVOLOG FLEXPEN-LOW RESISTANCE SC ×3 (08:30→17:35)
[2024-02-20] MEDS: LIDOCAINE 4% PATCH 1 PATCH TOPICAL (08:33)
[2024-02-20] MEDS: NOVOLOG FLEXPEN 10 UNITS SC ×3 (08:33→17:44)
[2024-02-20] MEDS: NEURONTIN 300 MG PO ×2 (08:35→20:32)
[2024-02-20] MEDS: OMNICEF 300 MG PO (08:35)
[2024-02-20] MEDS: SODIUM BICARBONATE 1300 MG PO ×2 (08:35→20:32)
[2024-02-20 12:28] LABS: Glucose - Point of Care 101 mg/dl (70-99)
--- NOTE | 2024-02-20 15:23 | W.PN.NEPH.PH ---
Today's Communication / Plan
-
d/c plan
Assessment/Plan
-
Assessment
UTI/Ecoli bacteremia
DKA
MAKSIM
Hyponatremia
Hyperkalemia
Leukocytosis
Hhtjvf-cyktxenwin-turgarjhqy 10.1
Metabolic acidosis, persistent
Abnormal chest x-ray-? Pulm hypertension/right hilar mass-CT chest pending
E. coli sepsis
Plan
MAKSIM-cr stable 1.8-1.9
renal ultrasound normal
cont Sodium bicarbonate 1300 mg twice daily for metabolic acidosis
Checked urinalysis for pH: 6
radha held, BP stable
Continue antibiotics
CT chest no acute findings
-
-
Date of Service: February 20, 2024
CC / HPI / ROS
-
Chief Complaint:
Acute kidney injury
History of Present Illness:
Creatinine no change at 1.9
Metabolic acidosis stable on sodium bicarb
Hemodynamically stable
Review of Systems:
Nonoliguric
improving right lower chest pain
no sob
Labs
-
Labs:
WBC 11.9 10^3/uL (4.8-10.8) H 02/19/24 06:09
RBC 3.78 10^6/uL (4.20-5.40) L 02/19/24 06:09
Hgb 10.8 g/dL (12.0-16.0) L 02/19/24 06:09
Hct 33.3 % (37.0-47.0) L 02/19/24 06:09
Plt Count 222 10^3/uL (130-400) D 02/19/24 06:09
Sodium 137 mmol/L (135-145) 02/20/24 06:29
Potassium 5.1 mmol/L (3.5-5.1) 02/20/24 06:29
Chloride 101 mmol/L (98-107) 02/20/24 06:29
Carbon Dioxide 24 mmol/L (22-30) 02/20/24 06:29
BUN 56 mg/dl (7-17) H 02/20/24 06:29
Creatinine 1.9 mg/dL (0.6-1.0) H 02/20/24 06:29
eGFR 30.42 02/20/24 06:29
Glucose 146 mg/dl (70-99) H 02/20/24 06:29
Calcium 9.0 mg/dl (8.4-10.2) 02/20/24 06:29
Uff-C-Badkeiblsva Pept Cancelled 02/15/24 08:00
Albumin 3.7 g/dl (3.5-5.0) 02/13/24 16:34
Physical Exam
-
Vital Signs:
Vital Signs
Temp Pulse Resp BP Pulse Ox
98.1 F 75 12 131/74 95
02/20/24 07:11 02/20/24 07:11 02/20/24 07:11 02/20/24 07:11 02/20/24 07:11
Cardiovascular:: Regular rate and rhythm
Respiratory:: Bilateral: CTA
Lung Excursion:: Normal
Abdomen:: Nontender and Soft
Extremity Edema:: None: Bilateral:
Mcclure Catheter: No
[2024-02-20 15:28] VITALS: BP 96/60
--- NOTE | 2024-02-20 15:35 | W.PN.HOSP.TC ---
Today's Communication/Plan
-
Monitor renal function
Continue oral bicarb
Will need outpatient nephrology follow-up.
Continue current insulin dose with serial Accu-Cheks.
Physical therapy.
Placement to rehab.
Assessment / Plan
Assessment / Plan
Impression:
Toxic metabolic encephalopathy secondary to sepsis and DKA
Sepsis.
Septic shock with persistent hypotension
Gram-negative bacteremia
Urinary tract infection.
DKA
Hyperkalemia
Acute kidney injury
Suspected CKD stage II
Right hilar infiltrate/mass
Other conditions
Recent hospitalization 09/21 with complicated UTI and DKA.
Type 2 diabetes IDDM.
Obesity with BMI of 30.
Essential hypertension.
Diabetic neuropathy
Plan:
Sepsis secondary to urinary tract infection.
Septic shock with persistent hypotension responded to IV fluids.
Gram-negative bacteremia (prior history of E. coli bacteremia)
Continue antibiotics/ceftriaxone pending final cultures
ID consultation.
Sonogram of bladder and kidney (prior sonogram 09/21 with mild left hydronephrosis)
Bladder scan for retention
Low threshold for pressors if does not respond to IV fluid bolus
DKA.
Likely triggered with sepsis.
States insulin compliance
Hemoglobin A1c improved from 12-6
Anion gap normalized while on insulin drip and IV fluids
Transition to subcu insulin
Carbohydrate diet
Continue basal bolus protocol with serial Accu-Cheks
With MAKSIM/decreased GFR monitor for hypoglycemia
Acute kidney injury
Suspect CKD stage II�3.
1+ proteinuria with concern for diabetic nephropathy
Hyperkalemia
Persistent metabolic acidosis now with normal anion gap
Renal sonogram with no retention.
Nonoliguric.
Urine pH at 6 against RTA
Hold lisinopril.
Initiated on oral bicarb
Glomerulonephritis serology ordered
Toxic metabolic encephalopathy secondary to sepsis and DKA.
Mental status improving, lucid and oriented X3
Exam with no focal findings
CT scan of the head with no acute abnormalities.
Avoid oversedation.
Mental status improved
Avoid sedatives.
Reintroduce Neurontin and baclofen with caution
Generalized deconditioning.
Will need rehab SNF at discharge
Right hilar infiltrate on the chest x-ray.
Patient denies any respiratory symptoms.
Former smoker quit June 2023.
Unenhanced CT scan of the chest with no hilar mass or parenchymal abnormalities. No evidence of bony abnormalities.
Persistent right-sided reproducible chest pain.
Given above findings on the chest x-ray, will order CT scan of the chest without contrast (THONY unable to provide IV contrast)
Essential hypertension.
Currently hypotensive.
Hold lisinopril.
Diabetic neuropathy.
Outpatient regimen Neurontin/baclofen/Tylenol
Right hip pain with reported fall at home pain
Exam with full range of motion and right hip.
X-ray with no bony abnormalities or trauma.
Physical therapy evaluation.
Full code.
DVT prophylaxis heparin subcu
Total time spent to see the patient on the floor, examine the patient, review data and lab results, discuss treatment plan with patient, nursing staff around 55 minutes
Anticipated Discharge: 24 - 48 hours
Subjective/Interval History
-
Date of Service: February 20, 2024
Objective Data
-
Labs:
Laboratory Results
02/20/24
06:29
Sodium 137
Potassium 5.1
Chloride 101
Carbon Dioxide 24
BUN 56 H
Creatinine 1.9 H
Glucose 146 H
Calcium 9.0
Vital Signs:
Vital Signs
Temp Pulse Resp BP Pulse Ox
98.5 F 84 18 96/60 97
02/20/24 15:28 02/20/24 15:28 02/20/24 15:28 02/20/24 15:28 02/20/24 15:28
I&O
02/19/24 02/20/24 02/21/24
06:59 06:59 06:59
Intake Total 1200 / 1200 360 / 360
Output Total 2600 / 2600 1400 / 1400
Balance -1400 / -1400 -1040 / -1040
Physical Exam
-
General: Well Developed and No Apparent Distress
HEENT: Normocephalic, Atraumatic and Moist Mucous Membranes
Respiratory: Clear to Auscultation and Other (Right-sided reproducible on palpation chest pain.)
Cardiac: Regular Rhythm and S1/S2; Negative Murmur, Rub or Gallop
GI: Soft, Nontender, Nondistended and Normal Bowel Sounds; Negative Organomegaly
Rectal: Deferred by Provider
Musculoskeletal: No Clubbing, No Cyanosis and No Edema
Skin: Negative Rash
Neuro: Nonfocal/Grossly Intact
--- NOTE | 2024-02-20 16:12 | W.PN.ID1 ---
Date of Service
Date of Service: February 20, 2024
Today's Communication
Continue abx.
Assessment / Plan
E. coli bacteremia
Clinical sepsis
Suspected urinary tract infection
MAKSIM
Transaminitis
Underlying diabetes mellitus
Recommendations:
Leukocytosis overall improved.
Renal ultrasound reveals no obstructive uropathy
Continue oral cefdinir (d#7 abx), to complete a full 10-day course of antibiotic therapy.
Monitor white count and temperature curve.
����������������������������������������������������������
Chief Complaint
-: UTI and Bacteremia
Subjective / Review of Systems
Review of Systems: No Fever and No Chills
Vital Signs / Physical Exam
Vital Signs
Vital Signs
Temp Pulse Resp BP Pulse Ox
98.5 F 84 18 96/60 97
02/20/24 15:28 02/20/24 15:28 02/20/24 15:28 02/20/24 15:28 02/20/24 15:28
Physical Exam
Constitutional: No Acute Distress
Head: Normocephalic
Eyes: Sclera Anicteric
Pulmonary: Non Labored
Gastrointestinal: Soft, Non Tender, Non Distended, No Rebound and No Guarding
Genito-Urinary: Negative Suprapubic Tenderness or CVA Tenderness
Extremities: Edema (Trace); Negative Cyanosis or Erythema
Skin: Negative Rash or Jaundice
Neurological: Awake and Alert
Psychological: Calm
Objective Data
Lab Data
Lab Results
02/19/24 06:09
02/20/24 06:29
PT 16.1 Sec (11.4-14.6) H 02/14/24 04:00
INR 1.31 02/14/24 04:00
APTT 36.0 Sec (23.4-35.0) H 02/14/24 04:00
Estimated Creat Clear 34 ml/min 02/20/24 06:29
Lactic Acid 0.6 mmol/L (0.7-2.0) L 02/14/24 18:46
Total Bilirubin 0.5 mg/dl (0.2-1.3) 02/13/24 16:34
AST 42 U/L (14-36) H 02/13/24 16:34
ALT 41 U/L (0-35) H 02/13/24 16:34
Alkaline Phosphatase 71 U/L (38-126) 02/13/24 16:34
Most recent labs reviewed.
Micro Results:
02/13/24 18:37 Blood Culture - Final
Blood/Venous Escherichia coli
Gram Stain - Final
02/13/24 18:39 Blood Culture - Final
Blood/Venous Escherichia coli
Gram Stain - Final
02/13/24 16:43 Urine Culture - Final
Urine Escherichia coli
Prior admission (August 2023) recovered isolate:
1. Escherichia coli
M.I.C. RX
--------- ---
Amoxicillin/Potas. Clavulanate <=8/4 S
Ampicillin <=8 S
Ampicillin/Sulbactam <=8/4 S
Cefazolin <=2 S
Ertapenem <=0.5 S
Ciprofloxacin >2 R
Gentamicin <=4 S
Levofloxacin >4 R
Meropenem <=1 S
Piperacillin/Tazobactam <=16 S
Tobramycin <=4 S
Trimethoprim/Sulfamethoxazole <=2/38 S
Imaging:
02/14/2024 Renal ultrasound with bladder: No hydronephrosis noted. No abnormal solid or complex renal masses. No renal calculi is noted.
09/22/2023 Renal ultrasound with bladder: Mild hydronephrosis of the left kidney. No renal mass or calculi noted bilaterally.
[2024-02-20 16:45] LABS: Glucose - Point of Care 91 mg/dl (70-99)
[2024-02-20 21:37] LABS: Glucose - Point of Care 91 mg/dl (70-99)
[2024-02-20] MEDS: LANTUS 0.2 UNITS SC (22:15)
[2024-02-20 23:30] VITALS: BP 132/75
[2024-02-21 06:00] VITALS: BMI 30.5
[2024-02-21 07:09] VITALS: BP 124/76
[2024-02-21 07:14] LABS: Blood Urea Nitrogen 67 mg/dl (7-17); Calcium 9.3 mg/dl (8.4-10.2); Carbon Dioxide 24 mmol/L (22-30); Chloride 101 mmol/L (98-107); Estimated Creatinine Clearance 30 ml/min; Glucose 135 mg/dl (70-99); Potassium 5.3 mmol/L (3.5-5.1); Sodium 138 mmol/L (135-145); eGFR 26.98
--- NOTE | 2024-02-21 07:36 | PN.DE.MGMTRT ---
Insulin Management
- -
02/21/2024 Diabetes Management Follow up:
Patient admitted 02/12 with c/o weakness, lightheadedness and blood sugar problem, found to be in DKA, GAP 15.
PMH: Cervical cancer, Scapular wound, Recurrent UTIs, Labial infection, Recurrent DKA, last episode 09/21, Diabetic Neuropathy, Former xssydk-83-iskq-year quit 3 years ago and IDDM. [employer] was taking Lantus 20 units @ HS with Humalog 10 units AC and
Metformin 500 mg BID.
Noted for improved A1C, was 17.1% on 07/04/2023-->12.2% on 09/18/23 and on admission 6.1%, Cr 2.3, eGFR 24.19.
States she has been very consistent with taking insulin and diabetes medication.
Patient is awake alert and oriented, sitting up in bed, able to discuss diabetes management.
02/19 Premeal glucose range 91 to 146, requiring no corrective insulin.
02/20 Fasting glucose 135 (V) this AM, cr 2.1, eGFR 26.98.
Will make no changes to current regimen; Lantus 20 units @ HS, NovoLog 10 units AC and low corrective with meals.
Patient follows with Dr. Walter for diabetes management, has [employer] G7 CGM for glucose monitoring.
Discussed with patient and nurse.
Diabetes History
- -
Type of Diabetes: 2 requiring insulin
Pre-Admission Diabetes Regimen
02/21/24
06:35
Creatinine 2.1 H
Lab Results
Hemoglobin A1c 6.1 % (4.0-5.6) H 02/14/24 04:00
Insulin Pump Settings
IP Diabetes Regimen
02/20/24 02/20/24 02/20/24
07:49 12:27 16:44
Glucose
POC Glucose 147 H 101 H 91
02/20/24 02/21/24
21:35 06:35
Glucose 135 H
POC Glucose 91
Meal type: Lunch
Meal type: Breakfast
Amount consumed: 100%
Amount consumed: 100%
Patient Education
[2024-02-21 08:03] LABS: Glucose - Point of Care 133 mg/dl (70-99)
[2024-02-21] MEDS: NOVOLOG FLEXPEN-LOW RESISTANCE SC ×2 (08:05→17:02)
[2024-02-21] MEDS: LIDOCAINE 4% PATCH 1 PATCH TOPICAL (08:06)
[2024-02-21] MEDS: NOVOLOG FLEXPEN 10 UNITS SC ×3 (08:06→17:03)
[2024-02-21] MEDS: SODIUM BICARBONATE 1300 MG PO ×2 (08:07→21:00)
[2024-02-21] MEDS: NEURONTIN 300 MG PO ×2 (08:07→21:00)
[2024-02-21] MEDS: OMNICEF 300 MG PO (08:07)
[2024-02-21 10:54] VITALS: BP 124/75; PULSE 85
[2024-02-21 11:23] LABS: Glucose - Point of Care 160 mg/dl (70-99)
[2024-02-21] MEDS: NOVOLOG FLEXPEN-LOW RESISTANCE 1 UNITS SC (12:37)
--- NOTE | 2024-02-21 13:50 | W.PN.NEPH.PH ---
Today's Communication / Plan
-
Follow BMP
No new recommendations
Remains grossly nonoliguric
Assessment/Plan
-
Assessment
UTI/Ecoli bacteremia
DKA
MAKSIM
Hyponatremia
Hyperkalemia
Leukocytosis
Ieagiw-nembbiqtbf-zxowyipddg 10.1
Metabolic acidosis, persistent
Abnormal chest x-ray-? Pulm hypertension/right hilar mass-CT chest pending
E. coli sepsis
Plan
MAKSIM-cr stable 1.8-1.9, now 2.3
Etiology unclear
renal ultrasound normal
cont Sodium bicarbonate 1300 mg twice daily for metabolic acidosis
Checked urinalysis for pH: 6
radha held, BP stable
Continue antibiotics
CT chest no acute findings
-
-
Date of Service: February 21, 2024
CC / HPI / ROS
-
Chief Complaint:
Acute kidney injury
History of Present Illness:
Creatinine up at 2.1
Metabolic acidosis stable on sodium bicarb
Hemodynamically stable
Review of Systems:
Nonoliguric
improving right lower chest pain
no sob
Labs
-
Labs:
WBC 11.9 10^3/uL (4.8-10.8) H 02/19/24 06:09
RBC 3.78 10^6/uL (4.20-5.40) L 02/19/24 06:09
Hgb 10.8 g/dL (12.0-16.0) L 02/19/24 06:09
Hct 33.3 % (37.0-47.0) L 02/19/24 06:09
Plt Count 222 10^3/uL (130-400) D 02/19/24 06:09
Sodium 138 mmol/L (135-145) 02/21/24 06:35
Potassium 5.3 mmol/L (3.5-5.1) H 02/21/24 06:35
Chloride 101 mmol/L (98-107) 02/21/24 06:35
Carbon Dioxide 24 mmol/L (22-30) 02/21/24 06:35
BUN 67 mg/dl (7-17) H 02/21/24 06:35
Creatinine 2.1 mg/dL (0.6-1.0) H 02/21/24 06:35
eGFR 26.98 02/21/24 06:35
Glucose 135 mg/dl (70-99) H 02/21/24 06:35
Calcium 9.3 mg/dl (8.4-10.2) 02/21/24 06:35
Mms-N-Vzlllivbmfm Pept Cancelled 02/15/24 08:00
Albumin 3.7 g/dl (3.5-5.0) 02/13/24 16:34
Physical Exam
-
Vital Signs:
Vital Signs
Temp Pulse Resp BP Pulse Ox
98.0 F 73 16 124/76 96
02/21/24 07:09 02/21/24 07:09 02/21/24 07:09 02/21/24 07:09 02/21/24 07:09
Cardiovascular:: Regular rate and rhythm
Respiratory:: Bilateral: CTA
Lung Excursion:: Normal
Abdomen:: Nontender and Soft
Extremity Edema:: None: Bilateral:
Mcclure Catheter: No
[2024-02-21 14:59] VITALS: BP 113/73
--- NOTE | 2024-02-21 16:12 | W.PN.HOSP.TC ---
Today's Communication/Plan
-
Renal function stable with creatinine plateau. Nonoliguric
Continue oral bicarbonate
Continue insulin
Physical therapy assessment
[facility]
Assessment / Plan
Assessment / Plan
Impression:
Toxic metabolic encephalopathy secondary to sepsis and DKA
Sepsis.
Septic shock with persistent hypotension
Gram-negative bacteremia
Urinary tract infection.
DKA
Hyperkalemia
Acute kidney injury
Suspected CKD stage II
Right hilar infiltrate/mass
Other conditions
Recent hospitalization 09/21 with complicated UTI and DKA.
Type 2 diabetes IDDM.
Obesity with BMI of 30.
Essential hypertension.
Diabetic neuropathy
Plan:
Sepsis secondary to urinary tract infection.
Septic shock with persistent hypotension responded to IV fluids.
Gram-negative bacteremia (prior history of E. coli bacteremia)
Continue antibiotics/ceftriaxone pending final cultures
ID consultation.
Sonogram of bladder and kidney (prior sonogram 09/21 with mild left hydronephrosis)
Bladder scan for retention
Low threshold for pressors if does not respond to IV fluid bolus
DKA.
Likely triggered with sepsis.
States insulin compliance
Hemoglobin A1c improved from 12-6
Anion gap normalized while on insulin drip and IV fluids
Transition to subcu insulin
Carbohydrate diet
Continue basal bolus protocol with serial Accu-Cheks
With MAKSIM/decreased GFR monitor for hypoglycemia
Acute kidney injury
Suspect CKD stage II�3.
1+ proteinuria with concern for diabetic nephropathy
Hyperkalemia
Persistent metabolic acidosis now with normal anion gap
Renal sonogram with no retention.
Nonoliguric.
Urine pH at 6 against RTA
Hold lisinopril.
Initiated on oral bicarb
Glomerulonephritis serology ordered
Toxic metabolic encephalopathy secondary to sepsis and DKA.
Mental status improving, lucid and oriented X3
Exam with no focal findings
CT scan of the head with no acute abnormalities.
Avoid oversedation.
Mental status improved
Avoid sedatives.
Reintroduce Neurontin and baclofen with caution
Generalized deconditioning.
Will need rehab SNF at discharge
Right hilar infiltrate on the chest x-ray.
Patient denies any respiratory symptoms.
Former smoker quit June 2023.
Unenhanced CT scan of the chest with no hilar mass or parenchymal abnormalities. No evidence of bony abnormalities.
Persistent right-sided reproducible chest pain.
Given above findings on the chest x-ray, will order CT scan of the chest without contrast (THONY unable to provide IV contrast)
Essential hypertension.
Currently hypotensive.
Hold lisinopril.
Diabetic neuropathy.
Outpatient regimen Neurontin/baclofen/Tylenol
Right hip pain with reported fall at home pain
Exam with full range of motion and right hip.
X-ray with no bony abnormalities or trauma.
Physical therapy evaluation.
Full code.
DVT prophylaxis heparin subcu
Total time spent to see the patient on the floor, examine the patient, review data and lab results, discuss treatment plan with patient, nursing staff around 55 minutes
Anticipated Discharge: Within 24 hours
Subjective/Interval History
-
Date of Service: February 21, 2024
Objective Data
-
Labs:
Laboratory Results
02/21/24
06:35
Sodium 138
Potassium 5.3 H
Chloride 101
Carbon Dioxide 24
BUN 67 H
Creatinine 2.1 H
Glucose 135 H
Calcium 9.3
Vital Signs:
Vital Signs
Temp Pulse Resp BP Pulse Ox
97.8 F 78 16 113/73 97
02/21/24 14:59 02/21/24 14:59 02/21/24 14:59 10/23/24 14:59 02/21/24 14:59
I&O
02/20/24 02/21/24 02/22/24
06:59 06:59 06:59
Intake Total 360 / 360 1620 / 1620
Output Total 1400 / 1400 1999 / 1999
Balance -1040 / -1040 -380 / -380
Physical Exam
-
General: Well Developed and No Apparent Distress
HEENT: Normocephalic, Atraumatic and Moist Mucous Membranes
Respiratory: Clear to Auscultation and Other (Right-sided reproducible on palpation chest pain.)
Cardiac: Regular Rhythm and S1/S2; Negative Murmur, Rub or Gallop
GI: Soft, Nontender, Nondistended and Normal Bowel Sounds; Negative Organomegaly
Rectal: Deferred by Provider
Musculoskeletal: No Clubbing, No Cyanosis and No Edema
Skin: Negative Rash
Neuro: Nonfocal/Grossly Intact
--- NOTE | 2024-02-21 16:13 | CM ---
Reviewed chart, spoke with patient who stated that she does not have a preference regarding rehab as long as it is in network and in [place]. Placed referrals to [facility] and [facility]. Spoke with Keyonna in admissions from [facility] who
offered acceptance.
NPIs for facility: [id number] Attending [phone]
Will start auth tomorrow in am in anticipation of d/c.
Plan: Case management will continue to follow and assist with discharge planning. SNF when stable (upon hopeful auth).
[2024-02-21 17:02] LABS: Glucose - Point of Care 147 mg/dl (70-99)
[2024-02-21 22:00] LABS: Glucose - Point of Care 177 mg/dl (70-99)
[2024-02-21] MEDS: LANTUS 0.2 UNITS SC (22:51)
[2024-02-21] MEDS: LIORESAL 10 MG PO (22:51)
[2024-02-21 23:02] VITALS: BP 130/69
[2024-02-22 06:00] VITALS: BMI 28.9
--- NOTE | 2024-02-22 07:23 | PN.DE.MGMTRT ---
Insulin Management
- -
02/22/2024 Diabetes Management Follow up:
Patient admitted 02/12 with c/o weakness, lightheadedness and blood sugar problem, found to be in DKA, GAP 15.
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
Metformin 500 mg BID.
Noted for improved A1C, was 17.1% on 07/04/2023-->12.2% on 09/18/23 and on admission 6.1%, Cr 2.3, eGFR 24.19.
States she has been very consistent with taking insulin and diabetes medication.
Patient is awake alert and oriented, sitting up in bed, able to discuss diabetes management.
02/20 cr 2.1, eGFR 26.98.
02/21 Fasting glucose this AM 173.
Will make no changes to current regimen; Lantus 20 units @ HS, NovoLog 10 units AC and low corrective with meals.
Patient very focused on discharge, encouraged to follow recommendations for SNF.
Patient follows with Dr. Walter for diabetes management, has DexCom G7 CGM for glucose monitoring, changed 02/19.
Discussed with patient and nurse.
Diabetes History
- -
Type of Diabetes: 2 requiring insulin
Pre-Admission Diabetes Regimen
Lab Results
Hemoglobin A1c 6.1 % (4.0-5.6) H 02/14/24 04:00
Insulin Pump Settings
IP Diabetes Regimen
02/21/24 02/21/24 02/21/24
08:02 11:22 17:00
POC Glucose 133 H 160 H 147 H
02/21/24
21:59
POC Glucose 177 H
Meal type: Lunch
Meal type: Breakfast
Amount consumed: 100%
Amount consumed: 100%
Patient Education
[2024-02-22 07:54] VITALS: BP 115/72
[2024-02-22 08:09] LABS: Glucose - Point of Care 173 mg/dl (70-99)
[2024-02-22] MEDS: NOVOLOG FLEXPEN 10 UNITS SC ×3 (09:30→17:23)
[2024-02-22] MEDS: NOVOLOG FLEXPEN-LOW RESISTANCE 1 UNITS SC ×2 (09:30→13:12)
[2024-02-22] MEDS: SODIUM BICARBONATE 1300 MG PO ×2 (09:33→21:26)
[2024-02-22] MEDS: LIDOCAINE 4% PATCH TOPICAL (09:33)
[2024-02-22] MEDS: OMNICEF 300 MG PO (09:34)
[2024-02-22] MEDS: NEURONTIN 300 MG PO ×2 (09:34→21:26)
--- NOTE | 2024-02-22 12:02 | CM ---
Placed a call to patient's insurance [phone] and spoke with a appeals representative named, Jesse who took preliminary information over the phone and then issued pending auth# [id number]
He stated that the determination will be faxed to [phone].
Will await decision.
Plan: Case management will continue to follow and assist with discharge planning. Hopeful transfer to [facility] upon obtaining authorization from insurance company. Patient updated.
[2024-02-22 12:13] LABS: Glucose - Point of Care 170 mg/dl (70-99)
--- NOTE | 2024-02-22 14:02 | W.PN.ID1 ---
Date of Service
Date of Service: February 22, 2024
Today's Communication
Continue current course of abx.
Assessment / Plan
E. coli bacteremia
Clinical sepsis
Suspected urinary tract infection
MAKSIM
Transaminitis
Underlying diabetes mellitus
Recommendations:
Leukocytosis overall improved.
Renal ultrasound reveals no obstructive uropathy
Continue oral cefdinir (d#8 abx), to complete a full 10-day course of antibiotic therapy.
Little more to offer from an infectious disease standpoint.
Will see again at your request.
����������������������������������������������������������
Chief Complaint
-: UTI and Bacteremia
Subjective / Review of Systems
Review of Systems: No Fever, No Chills and No Abdominal Pain
Vital Signs / Physical Exam
Vital Signs
Vital Signs
Temp Pulse Resp BP Pulse Ox
97.8 F 79 16 115/72 96
02/22/24 07:54 02/22/24 07:54 02/22/24 07:54 02/22/24 07:54 02/22/24 07:54
Physical Exam
Constitutional: No Acute Distress
Head: Normocephalic
Eyes: Sclera Anicteric
Pulmonary: Non Labored
Gastrointestinal: Soft, Non Tender, Non Distended, No Rebound and No Guarding
Genito-Urinary: Negative Suprapubic Tenderness or CVA Tenderness
Extremities: Edema (Trace); Negative Cyanosis or Erythema
Skin: Negative Rash or Jaundice
Neurological: Awake and Alert
Psychological: Calm
Objective Data
Lab Data
Lab Results
02/19/24 06:09
02/21/24 06:35
PT 16.1 Sec (11.4-14.6) H 02/14/24 04:00
INR 1.31 02/14/24 04:00
APTT 36.0 Sec (23.4-35.0) H 02/14/24 04:00
Estimated Creat Clear 30 ml/min 02/21/24 06:35
Lactic Acid 0.6 mmol/L (0.7-2.0) L 02/14/24 18:46
Total Bilirubin 0.5 mg/dl (0.2-1.3) 02/13/24 16:34
AST 42 U/L (14-36) H 02/13/24 16:34
ALT 41 U/L (0-35) H 02/13/24 16:34
Alkaline Phosphatase 71 U/L (38-126) 02/13/24 16:34
Most recent labs reviewed.
Micro Results:
02/13/24 18:37 Blood Culture - Final
Blood/Venous Escherichia coli
Gram Stain - Final
02/13/24 18:39 Blood Culture - Final
Blood/Venous Escherichia coli
Gram Stain - Final
02/13/24 16:43 Urine Culture - Final
Urine Escherichia coli
Prior admission (August 2023) recovered isolate:
1. Escherichia coli
M.I.C. RX
--------- ---
Amoxicillin/Potas. Clavulanate <=8/4 S
Ampicillin <=8 S
Ampicillin/Sulbactam <=8/4 S
Cefazolin <=2 S
Ertapenem <=0.5 S
Ciprofloxacin >2 R
Gentamicin <=4 S
Levofloxacin >4 R
Meropenem <=1 S
Piperacillin/Tazobactam <=16 S
Tobramycin <=4 S
Trimethoprim/Sulfamethoxazole <=2/38 S
Imaging:
02/14/2024 Renal ultrasound with bladder: No hydronephrosis noted. No abnormal solid or complex renal masses. No renal calculi is noted.
09/22/2023 Renal ultrasound with bladder: Mild hydronephrosis of the left kidney. No renal mass or calculi noted bilaterally.
--- NOTE | 2024-02-22 14:17 | W.PN.NEPH.PH ---
Today's Communication / Plan
-
Follow-up BMP
Assessment/Plan
-
Assessment
UTI/Ecoli bacteremia
DKA
MAKSIM
Hyponatremia
Hyperkalemia
Leukocytosis
Psmuby-gicloutycz-uqycqyuwcj 10.1
Metabolic acidosis, persistent
Abnormal chest x-ray-? Pulm hypertension/right hilar mass-CT chest pending
E. coli sepsis
Plan
MAKSIM-cr stable 1.8-1.9, now 2.3
Etiology unclear
renal ultrasound normal
cont Sodium bicarbonate 1300 mg twice daily for metabolic acidosis
Checked urinalysis for pH: 6
radha held, BP stable
Continue antibiotics
Awaiting discharge to SNF
Follow-up BMP in a.m.
-
-
Date of Service: February 22, 2024
CC / HPI / ROS
-
Chief Complaint:
Acute kidney injury
History of Present Illness:
Creatinine up at 2.1 on 02/20
Metabolic acidosis stable on sodium bicarb
Hemodynamically stable
Review of Systems:
Nonoliguric
improving right lower chest pain
no sob
Labs
-
Labs:
WBC 11.9 10^3/uL (4.8-10.8) H 02/19/24 06:09
RBC 3.78 10^6/uL (4.20-5.40) L 02/19/24 06:09
Hgb 10.8 g/dL (12.0-16.0) L 02/19/24 06:09
Hct 33.3 % (37.0-47.0) L 02/19/24 06:09
Plt Count 222 10^3/uL (130-400) D 02/19/24 06:09
Sodium 138 mmol/L (135-145) 02/21/24 06:35
Potassium 5.3 mmol/L (3.5-5.1) H 02/21/24 06:35
Chloride 101 mmol/L (98-107) 02/21/24 06:35
Carbon Dioxide 24 mmol/L (22-30) 02/21/24 06:35
BUN 67 mg/dl (7-17) H 02/21/24 06:35
Creatinine 2.1 mg/dL (0.6-1.0) H 02/21/24 06:35
eGFR 26.98 02/21/24 06:35
Glucose 135 mg/dl (70-99) H 02/21/24 06:35
Calcium 9.3 mg/dl (8.4-10.2) 02/21/24 06:35
Czg-X-Wiaobtqcrio Pept Cancelled 02/15/24 08:00
Albumin 3.7 g/dl (3.5-5.0) 02/13/24 16:34
Physical Exam
-
Vital Signs:
Vital Signs
Temp Pulse Resp BP Pulse Ox
97.8 F 79 16 115/72 96
02/22/24 07:54 02/22/24 07:54 02/22/24 07:54 02/22/24 07:54 02/22/24 07:54
Cardiovascular:: Regular rate and rhythm
Respiratory:: Bilateral: CTA
Lung Excursion:: Normal
Abdomen:: Nontender and Soft
Extremity Edema:: None: Bilateral:
Mcclure Catheter: No
--- NOTE | 2024-02-22 15:12 | W.PN.HOSP.TC ---
Today's Communication/Plan
-
Medically optimized
Awaiting for fdc facility pending insurance authorization
Assessment / Plan
Assessment / Plan
Impression:
Toxic metabolic encephalopathy secondary to sepsis and DKA
Sepsis.
Septic shock with persistent hypotension
Gram-negative bacteremia
Urinary tract infection.
DKA
Hyperkalemia
Acute kidney injury
Suspected CKD stage II
Right hilar infiltrate/mass
Other conditions
Recent hospitalization 09/21 with complicated UTI and DKA.
Type 2 diabetes IDDM.
Obesity with BMI of 30.
Essential hypertension.
Diabetic neuropathy
Plan:
Sepsis secondary to urinary tract infection.
Septic shock with persistent hypotension responded to IV fluids.
Gram-negative bacteremia (prior history of E. coli bacteremia)
Continue antibiotics/ceftriaxone pending final cultures
ID consultation.
Sonogram of bladder and kidney (prior sonogram 09/21 with mild left hydronephrosis)
Bladder scan for retention
Low threshold for pressors if does not respond to IV fluid bolus
DKA.
Likely triggered with sepsis.
States insulin compliance
Hemoglobin A1c improved from 12-6
Anion gap normalized while on insulin drip and IV fluids
Transition to subcu insulin
Carbohydrate diet
Continue basal bolus protocol with serial Accu-Cheks
With MAKSIM/decreased GFR monitor for hypoglycemia
Acute kidney injury
Suspect CKD stage II�3.
1+ proteinuria with concern for diabetic nephropathy
Hyperkalemia
Persistent metabolic acidosis now with normal anion gap
Renal sonogram with no retention.
Nonoliguric.
Urine pH at 6 against RTA
Hold lisinopril.
Initiated on oral bicarb
Glomerulonephritis serology ordered
Toxic metabolic encephalopathy secondary to sepsis and DKA.
Mental status improving, lucid and oriented X3
Exam with no focal findings
CT scan of the head with no acute abnormalities.
Avoid oversedation.
Mental status improved
Avoid sedatives.
Reintroduce Neurontin and baclofen with caution
Generalized deconditioning.
Will need rehab SNF at discharge
Right hilar infiltrate on the chest x-ray.
Patient denies any respiratory symptoms.
Former smoker quit June 2023.
Unenhanced CT scan of the chest with no hilar mass or parenchymal abnormalities. No evidence of bony abnormalities.
Persistent right-sided reproducible chest pain.
Given above findings on the chest x-ray, will order CT scan of the chest without contrast (THONY unable to provide IV contrast)
Essential hypertension.
Currently hypotensive.
Hold lisinopril.
Diabetic neuropathy.
Outpatient regimen Neurontin/baclofen/Tylenol
Right hip pain with reported fall at home pain
Exam with full range of motion and right hip.
X-ray with no bony abnormalities or trauma.
Physical therapy evaluation.
Full code.
DVT prophylaxis heparin subcu
Total time spent to see the patient on the floor, examine the patient, review data and lab results, discuss treatment plan with patient, nursing staff around 55 minutes
Anticipated Discharge: Within 24 hours
Subjective/Interval History
-
Date of Service: February 22, 2024
Objective Data
-
Vital Signs:
Vital Signs
Temp Pulse Resp BP Pulse Ox
97.8 F 79 16 115/72 96
02/22/24 07:54 02/22/24 07:54 02/22/24 07:54 02/22/24 07:54 02/22/24 07:54
I&O
02/21/24 02/22/24 02/23/24
06:59 06:59 06:59
Intake Total 1620 / 1620 480 / 480
Output Total 1999 / 1999 1800 / 1800
Balance -380 / -380 -1320 / -1320
Physical Exam
-
General: Well Developed and No Apparent Distress
HEENT: Normocephalic, Atraumatic and Moist Mucous Membranes
Respiratory: Clear to Auscultation and Other (Right-sided reproducible on palpation chest pain.)
Cardiac: Regular Rhythm and S1/S2; Negative Murmur, Rub or Gallop
GI: Soft, Nontender, Nondistended and Normal Bowel Sounds; Negative Organomegaly
Rectal: Deferred by Provider
Musculoskeletal: No Clubbing, No Cyanosis and No Edema
Skin: Negative Rash
Neuro: Nonfocal/Grossly Intact
[2024-02-22 15:32] VITALS: BP 100/64
[2024-02-22 16:30] LABS: Glucose - Point of Care 114 mg/dl (70-99)
[2024-02-22] MEDS: NOVOLOG FLEXPEN-LOW RESISTANCE SC (17:23)
[2024-02-22 21:22] LABS: Glucose - Point of Care 187 mg/dl (70-99)
[2024-02-22] MEDS: LANTUS 0.2 UNITS SC (21:26)
[2024-02-22] MEDS: LIORESAL 10 MG PO (21:26)
[2024-02-22 23:32] VITALS: BP 102/63
[2024-02-23] MEDS: TYLENOL 1000 MG PO (05:01)
[2024-02-23 06:00] VITALS: BMI 28.6
--- NOTE | 2024-02-23 07:34 | PN.DE.MGMTRT ---
Insulin Management
- -
02/23/2024 Diabetes Management F/U:
Patient admitted 02/12 with c/o weakness, lightheadedness and blood sugar problem, found to be in DKA, GAP 15.
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
Metformin 500 mg BID.
Noted for improved A1C, was 17.1% on 07/04/2023-->12.2% on 09/18/23 and on admission 6.1%, Cr 2.3, eGFR 24.19.
States she has been very consistent with taking insulin and diabetes medication.
Patient is awake alert and oriented, sitting up in bed eating breakfast, able to discuss diabetes management.
Glucose stable and in range, premeal 114 to 173, fasting glucose is 156 this AM.
Will make no changes to current regimen; Lantus 20 units @ HS, NovoLog 10 units AC and low corrective with meals.
Patient very focused on discharge, encouraged to follow recommendations for SNF.
Patient follows with Dr. Walter for diabetes management, has DexCom G7 CGM for glucose monitoring, changed 02/19.
Discussed with patient and nurse.
Diabetes History
- -
Type of Diabetes: 2 requiring insulin
Pre-Admission Diabetes Regimen
Lab Results
Hemoglobin A1c 6.1 % (4.0-5.6) H 02/14/24 04:00
Insulin Pump Settings
IP Diabetes Regimen
02/22/24 02/22/24 02/22/24
08:07 12:12 16:28
POC Glucose 173 H 170 H 114 H
02/22/24
21:16
POC Glucose 187 H
Patient Education
[2024-02-23 07:48] VITALS: BP 117/77
[2024-02-23 08:03] LABS: Glucose - Point of Care 156 mg/dl (70-99)
[2024-02-23] MEDS: NOVOLOG FLEXPEN 10 UNITS SC ×2 (09:08→13:25)
[2024-02-23] MEDS: NOVOLOG FLEXPEN-LOW RESISTANCE 1 UNITS SC ×2 (09:11→13:25)
[2024-02-23] MEDS: LIDOCAINE 4% PATCH TOPICAL (09:17)
[2024-02-23] MEDS: NEURONTIN 300 MG PO (09:17)
[2024-02-23] MEDS: OMNICEF 300 MG PO (09:17)
[2024-02-23] MEDS: SODIUM BICARBONATE 1300 MG PO (09:17)
--- NOTE | 2024-02-23 09:56 | CM ---
Addendum entered by TAM Hernandez 02/23/24 14:46:
Received call back from Martha at Insurance who stated that patient was approved for 7 days skilled 02/22-02/28 NRD 03/01 Auth # [id number]
Placed a call to Keyonna in admissions at [facility] who confirmed bed availability for today. # For report [phone] and fax [phone]
Addendum entered by TAM Hernandez 02/23/24 14:05:
Patient's spouse came in and put insurance on speaker phone so he, patient and CM could speak with sales representative aircraft together. A sales representative aircraft answered named, Erendira Bustos, she confirmed that she had all clinical and fax would be sent with auth hopefully
later today.
Original Note:
Received voice mail message from patient. Placed a call back to her cell#. She stated that she called her insurance company last evening and was advised that no information was ever received by the hospital. She was not sure who she spoke with.
Placed a call to patient's insurance '[employer]' and spoke with a sales representative aircraft named, Janae, who confirmed receipt of clinical yesterday as well as everything needed (pending auth in previous note), she stated that she will escalate the
request and submit it for hopeful authorization. Janae stated that she will fax to CM fax # [phone]
Patient's insurance # for [employer] [phone].
Plan: Case management will continue to follow and assist with discharge planning. Bed available at [facility] upon hopeful authorization.
[2024-02-23 12:00] LABS: Glucose - Point of Care 160 mg/dl (70-99)
--- NOTE | 2024-02-23 14:39 | W.DS.TRANS ---
DC Summary - [facility] [employer]
-
Discharge Instructions:
Discharge Diagnosis/Procedures Impression:
Toxic metabolic encephalopathy secondary to
sepsis and DKA
Sepsis.
Septic shock with persistent hypotension
Gram-negative bacteremia
Urinary tract infection.
DKA
Hyperkalemia
Acute kidney injury
Suspected CKD stage II
Right hilar infiltrate/mass
Other conditions
Recent hospitalization 09/21 with complicated UTI
and DKA.
Type 2 diabetes IDDM.
Obesity with BMI of 30.
Essential hypertension.
Diabetic neuropathy
Diet Diabetic, Carb Controlled
Instructions:
Stand-Alone Forms:
Changes to Home Medications: Yes
Discharge Medications:
DC Medications w/original date entered in [facility]
insulin glargine 100 unit/mL (3 mL) subcutaneous pen (Lantus Solostar U-100 Insulin) 20 unit (0.2 mL) SC QPM 90 days #8.1 mL 09/25/23
acetaminophen 500 mg tablet (Tylenol Extra Strength) 1,000 mg PO Q6HPRN PRN mild pain 02/13/24
baclofen 10 mg tablet 10 mg PO DAILYPRN PRN spasms 02/13/24
baclofen 10 mg tablet 10 mg PO HS Muscle Spasms 02/13/24
cefdinir 300 mg capsule 300 mg PO DAILY #2 caps 02/22/24
gabapentin 300 mg capsule 300 mg PO BID #60 caps 02/22/24
insulin aspart U-100 100 unit/mL (3 mL) subcutaneous pen 10 unit (0.1 mL) SC AC #1 mL 02/22/24
lidocaine 4 % topical patch 1 patch topical DAILY #7 ea 02/22/24
sodium bicarbonate 650 mg tablet 1,300 mg (2 x 650 mg) PO BID #120 tabs 02/22/24
Home Medication Changes
Lisinopril discontinued
Oral bicarbonate initiated
Pending Results: No
[2024-02-23 15:35] VITALS: BP 93/56
--- NOTE | 2024-02-26 16:36 | CM ---
Spoke with patient Dot Reed, she requested a copy of her d/c instructions as she decided to leave skilled rehab.
Patient and spouse are unable to cotton picker until Monday or (she will be here for a US and MD appointment).
CM number provided to patient so she can call when she or her spouse arrive to cotton picker the instructions.
Instructions in CM office.
== END 2024-02-23 16:10 | DRG 871 ==
LOC: 3 WEST ACU 21:34
PROVIDERS: Internal Medicine; Nurse Practitioner; Nurse Practitioner Primary Care; Physician Assistant; Specialist; ADMITTING PHYSICIAN Internal Medicine; ATTENDING PHYSICIAN Internal Medicine; CONSULT PHYSICIAN Internal Medicine Critical Care Medicine; CONSULT PHYSICIAN Specialist; EMERGENCY PHYSICIAN Emergency Medicine; FAMILY PHYSICIAN Family Medicine; OTHER PHYSICIAN Internal Medicine Infectious Disease
DX: A41.51 Sepsis due to Escherichia coli [E. coli] (principal); E11.10 Type 2 diabetes mellitus with ketoacidosis without coma; R65.21 Severe sepsis with septic shock; G92.8 Other toxic encephalopathy; E87.1 Hypo-osmolality and hyponatremia; N17.9 Acute kidney failure, unspecified; N39.0 Urinary tract infection, site not specified; D63.1 Anemia in chronic kidney disease; E11.22 Type 2 diabetes mellitus with diabetic chronic kidney disease; E11.40 Type 2 diabetes mellitus with diabetic neuropathy, unspecified; E66.9 Obesity, unspecified; Z68.30 Body mass index [BMI] 30.0-30.9, adult; I12.9 Hypertensive chronic kidney disease with stage 1 through stage 4 chronic kidney disease, or unspecified chronic kidney disease; E87.5 Hyperkalemia; E86.1 Hypovolemia; N18.2 Chronic kidney disease, stage 2 (mild); M10.9 Gout, unspecified; Z87.891 Personal history of nicotine dependence; Z85.41 Personal history of malignant neoplasm of cervix uteri; Z79.4 Long term (current) use of insulin; Z79.84 Long term (current) use of oral hypoglycemic drugs; Z79.899 Other long term (current) drug therapy; Z88.0 Allergy status to penicillin; Z88.5 Allergy status to narcotic agent
CPT/HCPCS: 36600; 70450; 71045; 71250; 73502; 76770; 80048; 80053; 81003; 81015; 82010; 82805; 82947; 82962; 83036; 83516; 83605; 84550; 85025; 85027; 85610; 85730; 86038; 86063; 86160; 87040; 87077; 87086; 87149; 87186; 87205; 93005; 96361; 96372; 96374; 97116; 97163; 97167; 97530; 97535; 99285

== ENCOUNTER → 2024-02-29 12:44 | Outpatient (REF) | payer OTHER, SELFPAY | LOC: RAD 12:44 | PROVIDERS: ATTENDING PHYSICIAN Family Medicine | DX: R25.2 Cramp and spasm (principal) | CPT/HCPCS: 93922; 93925 ==

== ENCOUNTER → 2024-08-06 16:13 | Outpatient (REF) | payer OTHER, SELFPAY | LOC: RAD 16:13 | PROVIDERS: ATTENDING PHYSICIAN Family Medicine | DX: R07.81 Pleurodynia (principal) | CPT/HCPCS: 71046; 71100 ==

== ENCOUNTER → 2024-10-10 14:26 | Outpatient (REF) | payer OTHER, SELFPAY | LOC: DHVS 14:26 | PROVIDERS: ATTENDING PHYSICIAN Surgery Vascular Surgery; FAMILY PHYSICIAN Family Medicine | DX: I73.9 Peripheral vascular disease, unspecified (principal) | CPT/HCPCS: 93922; 93925 ==